=== PATIENT | female | born 1975 | race Caucasian/White ===

== ENCOUNTER 2018-11-29 18:17 | Emergency (ER) | payer MEDICARE, MEDICAID ==
[~2018-11-29] VITALS: Ht 172.7 cm; Wt 64.4 kg
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
--- NOTE | 2018-11-29 18:54 | NUR ---
ED Nurse Note: blood work sent down to lab
[2018-11-29 19:05] LABS: BASOPHILS % (AUTO) 0.8 % (0.0-2.0); EOSINOPHILS % (AUTO) 0.7 % (0.0-3.0); HEMATOCRIT 44.8 % (37.0-47.0); HEMOGLOBIN 15.1 G/DL (12.0-16.0); LYMPHOCYTES % (AUTO) 31.6 % (20.0-45.0); MEAN CORPUSCULAR VOLUME 95 FL (80-99); MONOCYTES % (AUTO) 2.9 % (1.0-10.0); PLATELET COUNT 301 K/UL (150-450); RED CELL DISTRIBUTION WIDTH 11.7 % (11.6-14.8); WHITE BLOOD COUNT 7.6 K/UL (4.8-10.8)
[2018-11-29 19:09] LABS: APPEARANCE,URINE CLEAR; BILIRUBIN, URINE NEGATIVE (NEGATIVE); GLUCOSE, URINE (UA) NEGATIVE (NEGATIVE); KETONES,URINE NEGATIVE (NEGATIVE); LEUKOCYTE ESTERASE ,URINE 3+ (NEGATIVE); NITRITE,URINE NEGATIVE (NEGATIVE); PH,URINE 5 (4.5-8.0); PROTEIN,URINE NEGATIVE (NEGATIVE); UROBILINOGEN,URINE NORMAL MG/DL (0.0-1.0)
[2018-11-29 19:11] LABS: COLOR,URINE YELLOW
--- NOTE | 2018-11-29 19:11 | NUR ---
HAND-OFF: Report given to Maged CALDWELL RN patietn is stable in bed IVF infusing as ordered.
[2018-11-29 19:20] LABS: ANION GAP 10 mmol/L (5-15); BLOOD UREA NITROGEN 8 mg/dL (7-18); CALCIUM 9.1 MG/DL (8.5-10.1); CARBON DIOXIDE 25 MMOL/L (21-32); CHLORIDE 102 MMOL/L (98-107); POTASSIUM 3.7 MMOL/L (3.5-5.1); SODIUM 137 MMOL/L (136-145)
[2018-11-29] MEDS ORDERED: Promethazine 25mg tab ORAL PRN (19:30)
[2018-11-29] MEDS ORDERED: Hydromorphone 0.5mg/0.5ml inj IVP ONE ×2 (19:30→21:00)
[2018-11-29 19:36] LABS: ALANINE AMINOTRANSFERASE 26 U/L (12-78); ALBUMIN 4.1 G/DL (3.4-5.0); ALBUMIN/GLOBULIN RATIO 1.1 (1.0-2.7); ALKALINE PHOSPHATASE 73 U/L (46-116); ASPARTATE AMINO TRANSFERASE 17 U/L (15-37); BILIRUBIN,TOTAL 0.4 MG/DL (0.2-1.0); CKMB 1.5 NG/ML (0.0-3.6); CREATINE KINASE 106 U/L (26-308)
[2018-11-29] MEDS ORDERED: CIPROFLOXACIN500 M2 ORAL (21:41)
[2018-11-29] MEDS ORDERED: PERCOCET 5-3251 EACH ORAL (21:41)
[2018-11-29 21:48] VITALS: BP 138/66
[2018-11-29] MEDS ORDERED: AMOXICILLIN500 MG ORAL (21:50)
[2018-11-29] MEDS ORDERED: ALPRAZOLAM1 MG ORAL (21:50)
[2018-11-29] MEDS ORDERED: LATUDA40 MG PO (21:50)
[2018-11-29] MEDS ORDERED: HYDRALAZINE HCL25 M1 ORAL (21:50)
[2018-11-29] MEDS ORDERED: LEVOXYL112 MCG ORAL (21:50)
[2018-11-29] MEDS ORDERED: SERTRALINE HCL50 MG ORAL (21:50)
--- NOTE | 2018-11-29 22:29 | NUR ---
Spoke with Vijay at [facility]-aware of patient is going back by ambulance.
[2018-11-29 22:45] VITALS: BP 138/66
--- NOTE | 2018-11-29 23:08 | NUR ---
ED Nurse Note: [facility] left with [facility]. Report and discharge papers given to ambulance personnel.
== END 2018-11-29 22:45 | disposition home or self-care (01) ==
LOC: EDBD 18:17 → EMR 21:07
DX: K04.7 Periapical abscess without sinus (principal); N39.0 Urinary tract infection, site not specified; R19.7 Diarrhea, unspecified; Z88.8 Allergy status to other drugs, medicaments and biological substances; Z88.5 Allergy status to narcotic agent; Z88.6 Allergy status to analgesic agent
CPT/HCPCS: 36415; 80053; 80307; 81003; 82550; 82553; 83605; 83690; 83735; 83880; 84484; 85025; 85610; 85730; 96361; 96365; 96375; 96376; 99284; G0480; J0744; J1170; 80329

== ENCOUNTER 2018-12-03 22:02 | Inpatient (IN) | payer MEDICARE, MEDICAID ==
[~2018-12-03] VITALS: Ht 172.7 cm; Wt 69.0 kg
[~2018-12-03 22:02] MED LIST: ALPRAZOLAM1 MG ORAL; AMOXICILLIN500 MG ORAL; CIPROFLOXACIN500 M2 ORAL; HYDRALAZINE HCL25 M1 ORAL; LATUDA40 MG PO; LEVOXYL112 MCG ORAL; PERCOCET 5-3251 EACH ORAL; SERTRALINE HCL50 MG ORAL
--- NOTE | 2018-12-03 22:22 | NUR ---
ED Nurse Note: Pt is from [facility] and c/o R side Dental pain. Pt states she was here last Sunday for the same. Pt is AO x 4times, VSS, on room air no distress. Pt is schizophrenia and use CBD oil. BEVERLEY seen Pt at bedside.
--- NOTE | 2018-12-03 22:50 | NUR ---
ED Nurse Note: Blood and urine sample sent to lab.
[2018-12-03] MEDS ORDERED: oxyCODONE HCL/Acetaminophen 5/325mg ORAL ONE (23:15)
[2018-12-03] MEDS ORDERED: Ampicillin/Sulbactam Sod 3 GM in NS 110 ML IVPB ONE (23:15)
[2018-12-03] MEDS ORDERED: Lidocaine 2% Visc 15ml soln ORAL ONE (23:15)
[2018-12-03] MEDS ORDERED: Isovue-300 100ml vial INJ PRN (23:45)
[2018-12-03 23:49] LABS: BASOPHILS % (AUTO) 1.3 % (0.0-2.0); EOSINOPHILS % (AUTO) 1.7 % (0.0-3.0); HEMATOCRIT 34.2 % (37.0-47.0); LYMPHOCYTES % (AUTO) 41.9 % (20.0-45.0); MEAN CORPUSCULAR VOLUME 94 FL (80-99); NEUTROPHILS % (AUTO) 49.1 % (45.0-75.0); PLATELET COUNT 279 K/UL (150-450); RED BLOOD COUNT 3.63 M/UL (4.20-5.40); RED CELL DISTRIBUTION WIDTH 11.6 % (11.6-14.8); WHITE BLOOD COUNT 6.8 K/UL (4.8-10.8)
[2018-12-03 23:55] LABS: BILIRUBIN, URINE NEGATIVE (NEGATIVE); GLUCOSE, URINE (UA) NEGATIVE (NEGATIVE); KETONES,URINE NEGATIVE (NEGATIVE); LEUKOCYTE ESTERASE ,URINE 3+ (NEGATIVE); NITRITE,URINE NEGATIVE (NEGATIVE); PH,URINE 5 (4.5-8.0); PROTEIN,URINE 1+ (NEGATIVE); UROBILINOGEN,URINE 1 MG/DL (0.0-1.0)
[2018-12-04 00:19] LABS: APPEARANCE,URINE SLIGHTLY CLOUDY; COLOR,URINE YELLOW
[2018-12-04 00:24] VITALS: BP 110/62
[2018-12-04 00:44] LABS: ANION GAP 9 mmol/L (5-15); BLOOD UREA NITROGEN 10 mg/dL (7-18); CALCIUM 9.4 MG/DL (8.5-10.1); CARBON DIOXIDE 26 MMOL/L (21-32); CHLORIDE 104 MMOL/L (98-107); CREATININE 0.8 MG/DL (0.55-1.30); POTASSIUM 3.5 MMOL/L (3.5-5.1); SODIUM 139 MMOL/L (136-145)
[2018-12-04 00:48] LABS: ALANINE AMINOTRANSFERASE 24 U/L (12-78); ALBUMIN 3.4 G/DL (3.4-5.0); ALBUMIN/GLOBULIN RATIO 0.9 (1.0-2.7); ALKALINE PHOSPHATASE 71 U/L (46-116); ASPARTATE AMINO TRANSFERASE 21 U/L (15-37); BILIRUBIN,TOTAL 0.2 MG/DL (0.2-1.0)
--- NOTE | 2018-12-04 01:38 | NUR ---
ED Nurse Note: Pt went to CT scan.
[2018-12-04] MEDS ORDERED: Lidocaine 2% Visc 15ml soln ORAL ONE (02:00)
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
[2018-12-04 02:30] VITALS: BP 108/68
--- NOTE | 2018-12-04 02:30 | NUR ---
ED Nurse Note: Message left to Dr Purdy for admit orders, await for respond back.
--- NOTE | 2018-12-04 02:35 | NUR ---
ED Nurse Note: Admit Pt to 3E 303-1, belongings and report given to JAMAL Montes. Pt is AO x 4times, VSS, on room air no distress.
[2018-12-04] MEDS ORDERED: VISTARIL50 MG ORAL (03:27)
[2018-12-04] MEDS ORDERED: RESTORIL15 MG ORAL (03:27)
[2018-12-04] MEDS ORDERED: TIZANIDINE HCL4 MG ORAL (03:27)
--- NOTE | 2018-12-04 05:07 | NUR ---
NURSE NOTES: Admitted a 43 year old female, alert and oriented x4, with history of schizophrenia per CREDENTIALER, with complaints of generalized pain of 10/10 more to the right side of face. Patient demands IV shot. Explained the process of admission and hospital policies. Oriented to room. She refused belongings checklist and wanted to keep her valuables. She wanted to go outside to smoke despite of explained policies. Security staff made aware and also's pt cigarette and script reader which she refused to surrender to RN. Called Dr. Purdy for admission orders and her increased BP,too. Waiting for call back.
[2018-12-04] MEDS ORDERED: Nitroglycerin Subl 0.4mg tab SL PRN (07:00)
[2018-12-04] MEDS ORDERED: Miralax 17gm pkt ORAL PRN (07:00)
[2018-12-04] MEDS ORDERED: Albuterol/Ipratropium 3ml neb HHN PRN (07:00)
--- NOTE | 2018-12-04 07:09 | NUR ---
NURSE NOTES: Spoke to Dr. London about patient wanted to smoke. Explained hospital policy. MD ordered patient may have Nicotine patch.
--- NOTE | 2018-12-04 08:00 | NUR ---
NURSE NOTES: Received report from Kathy BERRY, pt a/a/o x4 laying in bed with no signs of distress or other issues at this time. Iv on the right wrist gauge#22 heplock. skin intact. pt able to ambulate around the unit with steady gait. pt requested to go out to smoke, RN and charge nurse told patient that per MD she is not able to go out however MD put order for nicotine patch nevertheless pt REFUSED nicotine patch stating that she is not an addict that smoking is to help with her mental state. call light within reach, bed in lowest position. side rales x2. I will f/u as needed.
--- NOTE | 2018-12-04 08:08 | NUR ---
HAND-OFF: Report given to JAMAL Sanchez.
[2018-12-04] MEDS: Heparin 5000 units/ml inj SUBQ SCH ×2 (08:21→20:58)
--- NOTE | 2018-12-04 08:50 | Consultation ---
History of Present Illness General Date patient seen: Dec 04, 2018 Chief Complaint: Present Illness Allergies: Coded Allergies: DIVALPROEX SODIUM (Verified Allergy, Unknown, 11/29/18) HALOPERIDOL (Verified Allergy, Unknown, 11/29/18) IBUPROFEN (Verified Allergy, Unknown, 11/29/18) KETOROLAC (Verified Allergy, Unknown, 11/29/18) METOPROLOL (Verified Allergy, Unknown, 11/29/18) MORPHINE (Verified Allergy, Unknown, 11/29/18) TRAZODONE (Verified Allergy, Unknown, 11/29/18) Uncoded Allergies: NSAIDS (Allergy, Unknown, 11/29/18) Medication History Scheduled Alprazolam* (Xanax*), 1 MG ORAL TID, (Reported) Amoxicillin* (Amoxil*), 500 MG ORAL EVERY 8 HOURS, (Reported) Ciprofloxacin Hcl* (Ciprofloxacin Hcl*), 500 MG ORAL Q12H Hydralazine Hcl* (Hydralazine Hcl*), 25 MG ORAL EVERY 8 HOURS, (Reported) Hydroxyzine Pamoate* (Vistaril*), 25 MG ORAL EVERY 6 HOURS, (Reported) Levothyroxine Sodium* (Levoxyl*), 112 MCG ORAL DAILY, (Reported) Sertraline Hcl* (Zoloft*), 50 MG ORAL DAILY, (Reported) Tizanidine Hcl* (Zanaflex*), 4 MG ORAL THREE TIMES A DAY, (Reported) Scheduled PRN Oxycodone/Acetaminophen 5-325* (Percocet 5-325 Mg Tablet*), 1 TAB ORAL Q6H PRN for For Pain Temazepam* (Restoril*), 15 MG ORAL BEDTIME PRN for Insomnia, (Reported) Miscellaneous Medications Lurasidone Hcl (Latuda), 40 MG PO, (Reported) Patient History Healthcare decision maker Resuscitation status Full Code Advanced Directive on File No Physical Exam Last 24 Hour Vital Signs Date Time Temp Pulse Resp B/P (MAP) Pulse Ox O2 Delivery O2 Flow Rate FiO2 12/04/18 05:17 Room Air 12/04/18 02:35 98.2 75 18 108/68 100 Room Air 12/04/18 02:30 98.2 75 18 108/68 100 Room Air 12/04/18 00:24 98.5 78 18 110/62 96 Room Air 12/03/18 22:22 98.4 72 16 90/58 96 Room Air Laboratory Tests Test 12/03/18 23:10 12/03/18 23:40 12/03/18 23:50 Urine Color Yellow Urine Appearance Slightly cloudy Urine pH 5 (4.5-8.0) Urine Specific [place] 1.020 (1.005-1.035) Urine Protein 1+ (NEGATIVE) H Urine Glucose (UA) Negative (NEGATIVE) Urine Ketones Negative (NEGATIVE) Urine Blood Negative (NEGATIVE) Urine Nitrite Negative (NEGATIVE) Urine Bilirubin Negative (NEGATIVE) Urine Urobilinogen 1 MG/DL (0.0-1.0) H Urine Leukocyte Esterase 3+ (NEGATIVE) H Urine RBC 0-2 /HPF (0 - 2) Urine WBC 20-30 /HPF (0 - 2) H Urine Squamous Epithelial Cells Moderate /LPF (NONE/OCC) H Urine Bacteria Moderate /HPF (NONE) H Urine HCG, Qualitative Negative (NEGATIVE) White Blood Count 6.8 K/UL (4.8-10.8) Red Blood Count 3.63 M/UL (4.20-5.40) L Hemoglobin 12.0 G/DL (12.0-16.0) Hematocrit 34.2 % (37.0-47.0) L Mean Corpuscular Volume 94 FL (80-99) Mean Corpuscular Hemoglobin 32.9 PG (27.0-31.0) H Mean Corpuscular Hemoglobin Concent 35.0 G/DL (32.0-36.0) Red Cell Distribution Width 11.6 % (11.6-14.8) Platelet Count 279 K/UL (150-450) Mean Platelet Volume 5.1 FL (6.5-10.1) L Neutrophils (%) (Auto) 49.1 % (45.0-75.0) Lymphocytes (%) (Auto) 41.9 % (20.0-45.0) Monocytes (%) (Auto) 6.0 % (1.0-10.0) Eosinophils (%) (Auto) 1.7 % (0.0-3.0) Basophils (%) (Auto) 1.3 % (0.0-2.0) Sodium Level 139 MMOL/L (136-145) Potassium Level 3.5 MMOL/L (3.5-5.1) Chloride Level 104 MMOL/L (98-107) Carbon Dioxide Level 26 MMOL/L (21-32) Anion Gap 9 mmol/L (5-15) Blood Urea Nitrogen 10 mg/dL (7-18) Creatinine 0.8 MG/DL (0.55-1.30) Estimat Glomerular Filtration Rate > 60 mL/min (>60) Glucose Level 92 MG/DL (74-106) Calcium Level 9.4 MG/DL (8.5-10.1) Total Bilirubin 0.2 MG/DL (0.2-1.0) Aspartate Amino Transf (AST/SGOT) 21 U/L (15-37) Alanine Aminotransferase (ALT/SGPT) 24 U/L (12-78) Alkaline Phosphatase 71 U/L (46-116) Troponin I 0.000 ng/mL (0.000-0.056) Total Protein 7.3 G/DL (6.4-8.2) Albumin 3.4 G/DL (3.4-5.0) Globulin 3.9 g/dL Albumin/Globulin Ratio 0.9 (1.0-2.7) L Lipase 75 U/L (73-393) Height (Feet): 5 Height (Inches): 8.00 Weight (Pounds): 141 Medications Current Medications Medications (Trade) Dose Ordered Sig/Gaby Route PRN Reason Start Time Stop Time Status Last Admin Dose Admin Acetaminophen (Tylenol) 650 mg Q4H PRN ORAL fever 12/04/18 07:00 01/03/19 06:59 Albuterol/ Ipratropium (Albuterol/ Ipratropium) 3 ml Q4H PRN HHN Shortness of Breath 12/04/18 07:00 12/09/18 06:59 Cefepime HCl 2 gm/ Dextrose 110 ml @ 220 mls/hr EVERY 12 HOURS IV 12/04/18 09:00 12/11/18 08:59 Dextrose (Dextrose 50%) 25 ml Q30M PRN IV Hypoglycemia 12/04/18 07:00 01/03/19 06:59 Dextrose (Dextrose 50%) 50 ml Q30M PRN IV Hypoglycemia 12/04/18 07:00 01/03/19 06:59 Heparin Sodium (Porcine) (Heparin 5000 units/ml) 5,000 units EVERY 12 HOURS SUBQ 12/04/18 09:00 01/03/19 08:59 12/04/18 08:21 Hydromorphone HCl (Dilaudid) 2 mg Q4H PRN IV Severe Pain (Pain Scale 7-10) 12/04/18 07:00 12/11/18 06:59 12/04/18 08:20 Iopamidol (Isovue-300 100ml) 100 ml NOW PRN INJ Radiology Procedure 12/03/18 23:45 12/05/18 23:43 Nicotine (Nicoderm) 1 patch Q24H TDERMAL 12/04/18 09:00 01/03/19 08:59 Nitroglycerin (Ntg) 0.4 mg Q5M PRN SL Prn Chest Pain 12/04/18 07:00 01/03/19 06:59 Ondansetron HCl (Zofran) 4 mg Q6H PRN IVP Nausea & Vomiting 12/04/18 07:00 01/03/19 06:59 Polyethylene Glycol (Miralax) 17 gm DAILYPRN PRN ORAL Constipation 12/04/18 07:00 01/03/19 06:59 Temazepam (Restoril) 15 mg HSPRN PRN ORAL Insomnia 12/04/18 07:00 12/11/18 06:59 Vancomycin HCl (Vanco rx to dose) 1 ea DAILY PRN MISC rx protocol 12/04/18 07:30 01/03/19 07:29 Vancomycin HCl 750 mg/Sodium Chloride 275 ml @ 183.333 mls/hr Q8H IVPB 12/04/18 18:00 12/09/18 17:59 Vancomycin HCl/ Dextrose 275 ml @ 183.333 mls/hr ONCE IVPB 12/04/18 10:00 12/04/18 12:00 Assessment/Plan Assessment/Plan (1) Right sided facial pain (2) Cellulitis seen dictated Jose Steele Dec 04, 2018 08:50
[2018-12-04 09:00] VITALS: BP 115/78
[2018-12-04] MEDS ORDERED: Cefepime HCl 2 GM in D5W 110 ML IV SCH (09:00)
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
[2018-12-04] MEDS: HYDROcodone/Acetamin 10/325 tab ORAL PRN ×2 (09:52→15:54)
[2018-12-04] MEDS ORDERED: VANCOMYCIN IVPB SCH (10:00)
[2018-12-04] MEDS ORDERED: [UNRECOGNIZED DRUG - OTHER] IVPB SCH (10:00)
--- NOTE | 2018-12-04 11:44 | NUR ---
CASE MANAGEMENT:REVIEW 43 YR OLD FEMALE BIBA FROM [facility] CC; PAIN...WAS PREVIOUSLY SEEN IN ER ON SUNDAY SI: DENTAL INFECTION. PAIN. DEHYDRATION 98.4 72 16 90/58 96% ON RA IS: NORCO PO LIDOCAINE PO IV AMPICILLIN CT FACIAL BONES URINE CX : TO MED/SURG 3 EAST IS: IV VANCOMYCIN Q8HRS IV CEFEPIME Q12 : INTERQUAL CRITERIA
[2018-12-04 12:00] VITALS: BP 127/76
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
--- NOTE | 2018-12-04 13:15 | Consultation ---
History of Present Illness General Date patient seen: Dec 04, 2018 Chief Complaint: Pain Present Illness HPI 43-year-old female from [facility] presented to Er with CC of right- sided facial pain. She reports of increased pain to the right side of her face. Patient had previously been seen for similar symptoms approximately 3 days ago. Patient given IV antibiotics. Right side of the face was swollen. She is admitted to treat her facial cellulitis. Allergies: Coded Allergies: DIVALPROEX SODIUM (Verified Allergy, Unknown, 11/29/18) HALOPERIDOL (Verified Allergy, Unknown, 11/29/18) IBUPROFEN (Verified Allergy, Unknown, 11/29/18) KETOROLAC (Verified Allergy, Unknown, 11/29/18) METOPROLOL (Verified Allergy, Unknown, 11/29/18) MORPHINE (Verified Allergy, Unknown, 11/29/18) TRAZODONE (Verified Allergy, Unknown, 11/29/18) Uncoded Allergies: NSAIDS (Allergy, Unknown, 11/29/18) Medication History Scheduled Alprazolam* (Xanax*), 1 MG ORAL TID, (Reported) Amoxicillin* (Amoxil*), 500 MG ORAL EVERY 8 HOURS, (Reported) Ciprofloxacin Hcl* (Ciprofloxacin Hcl*), 500 MG ORAL Q12H Hydralazine Hcl* (Hydralazine Hcl*), 25 MG ORAL EVERY 8 HOURS, (Reported) Hydroxyzine Pamoate* (Vistaril*), 25 MG ORAL EVERY 6 HOURS, (Reported) Levothyroxine Sodium* (Levoxyl*), 112 MCG ORAL DAILY, (Reported) Sertraline Hcl* (Zoloft*), 50 MG ORAL DAILY, (Reported) Tizanidine Hcl* (Zanaflex*), 4 MG ORAL THREE TIMES A DAY, (Reported) Scheduled PRN Oxycodone/Acetaminophen 5-325* (Percocet 5-325 Mg Tablet*), 1 TAB ORAL Q6H PRN for For Pain Temazepam* (Restoril*), 15 MG ORAL BEDTIME PRN for Insomnia, (Reported) Miscellaneous Medications Lurasidone Hcl (Latuda), 40 MG PO, (Reported) Patient History Healthcare decision maker Resuscitation status Full Code Advanced Directive on File No Past Medical/Surgical History Past Medical/Surgical History: (1) Facial cellulitis (2) Dental abscess Review of Systems All Other Systems: negative except mentioned in HPI Physical Exam General Appearance: cachetic Lines, tubes and drains: peripheral HEENT: normocephalic, atraumatic Neck: non-tender, supple Respiratory/Chest: chest wall non-tender, lungs clear Breasts: no masses Cardiovascular/Chest: normal peripheral pulses Abdomen: normal bowel sounds Genitourinary/Rectal: normal genital exam Last 24 Hour Vital Signs Date Time Temp Pulse Resp B/P (MAP) Pulse Ox O2 Delivery O2 Flow Rate FiO2 12/04/18 12:00 98.5 76 18 127/76 (93) 96 12/04/18 10:30 103 16 Room Air 21 12/04/18 10:22 98.2 12/04/18 09:00 98.5 81 18 115/78 (90) 100 12/04/18 09:00 Room Air 12/04/18 08:50 98.2 12/04/18 05:17 Room Air 12/04/18 02:35 98.2 75 18 108/68 100 Room Air 12/04/18 02:30 98.2 75 18 108/68 100 Room Air 12/04/18 00:24 98.5 78 18 110/62 96 Room Air 12/03/18 22:22 98.4 72 16 90/58 96 Room Air Laboratory Tests Test 12/03/18 23:10 12/03/18 23:40 12/03/18 23:50 Urine Color Yellow Urine Appearance Slightly cloudy Urine pH 5 (4.5-8.0) Urine Specific [place] 1.020 (1.005-1.035) Urine Protein 1+ (NEGATIVE) H Urine Glucose (UA) Negative (NEGATIVE) Urine Ketones Negative (NEGATIVE) Urine Blood Negative (NEGATIVE) Urine Nitrite Negative (NEGATIVE) Urine Bilirubin Negative (NEGATIVE) Urine Urobilinogen 1 MG/DL (0.0-1.0) H Urine Leukocyte Esterase 3+ (NEGATIVE) H Urine RBC 0-2 /HPF (0 - 2) Urine WBC 20-30 /HPF (0 - 2) H Urine Squamous Epithelial Cells Moderate /LPF (NONE/OCC) H Urine Bacteria Moderate /HPF (NONE) H Urine HCG, Qualitative Negative (NEGATIVE) White Blood Count 6.8 K/UL (4.8-10.8) Red Blood Count 3.63 M/UL (4.20-5.40) L Hemoglobin 12.0 G/DL (12.0-16.0) Hematocrit 34.2 % (37.0-47.0) L Mean Corpuscular Volume 94 FL (80-99) Mean Corpuscular Hemoglobin 32.9 PG (27.0-31.0) H Mean Corpuscular Hemoglobin Concent 35.0 G/DL (32.0-36.0) Red Cell Distribution Width 11.6 % (11.6-14.8) Platelet Count 279 K/UL (150-450) Mean Platelet Volume 5.1 FL (6.5-10.1) L Neutrophils (%) (Auto) 49.1 % (45.0-75.0) Lymphocytes (%) (Auto) 41.9 % (20.0-45.0) Monocytes (%) (Auto) 6.0 % (1.0-10.0) Eosinophils (%) (Auto) 1.7 % (0.0-3.0) Basophils (%) (Auto) 1.3 % (0.0-2.0) Sodium Level 139 MMOL/L (136-145) Potassium Level 3.5 MMOL/L (3.5-5.1) Chloride Level 104 MMOL/L (98-107) Carbon Dioxide Level 26 MMOL/L (21-32) Anion Gap 9 mmol/L (5-15) Blood Urea Nitrogen 10 mg/dL (7-18) Creatinine 0.8 MG/DL (0.55-1.30) Estimat Glomerular Filtration Rate > 60 mL/min (>60) Glucose Level 92 MG/DL (74-106) Calcium Level 9.4 MG/DL (8.5-10.1) Total Bilirubin 0.2 MG/DL (0.2-1.0) Aspartate Amino Transf (AST/SGOT) 21 U/L (15-37) Alanine Aminotransferase (ALT/SGPT) 24 U/L (12-78) Alkaline Phosphatase 71 U/L (46-116) Troponin I 0.000 ng/mL (0.000-0.056) Total Protein 7.3 G/DL (6.4-8.2) Albumin 3.4 G/DL (3.4-5.0) Globulin 3.9 g/dL Albumin/Globulin Ratio 0.9 (1.0-2.7) L Lipase 75 U/L (73-393) Height (Feet): 5 Height (Inches): 8.00 Weight (Pounds): 141 Medications Current Medications Medications (Trade) Dose Ordered Sig/Gaby Route PRN Reason Start Time Stop Time Status Last Admin Dose Admin Acetaminophen (Tylenol) 650 mg Q4H PRN ORAL fever 12/04/18 07:00 01/03/19 06:59 Acetaminophen/ Hydrocodone Bitart ([place] 10/325) 1 tab Q4H PRN ORAL Moderate Pain (Pain Scale 4-6) 12/04/18 09:15 12/11/18 09:14 12/04/18 09:52 Albuterol/ Ipratropium (Albuterol/ Ipratropium) 3 ml Q4H PRN HHN Shortness of Breath 12/04/18 07:00 12/09/18 06:59 Ampicillin Sodium/ Sulbactam Sodium 3 gm/Sodium Chloride 110 ml @ 220 mls/hr Q6H IVPB 12/04/18 14:00 12/11/18 13:59 Dextrose (Dextrose 50%) 25 ml Q30M PRN IV Hypoglycemia 12/04/18 07:00 01/03/19 06:59 Dextrose (Dextrose 50%) 50 ml Q30M PRN IV Hypoglycemia 12/04/18 07:00 01/03/19 06:59 Heparin Sodium (Porcine) (Heparin 5000 units/ml) 5,000 units EVERY 12 HOURS SUBQ 12/04/18 09:00 01/03/19 08:59 12/04/18 08:21 Hydromorphone HCl (Dilaudid) 2 mg Q4H PRN IV Severe Pain (Pain Scale 7-10) 12/04/18 07:00 12/11/18 06:59 12/04/18 08:20 Iopamidol (Isovue-300 100ml) 100 ml NOW PRN INJ Radiology Procedure 12/03/18 23:45 12/05/18 23:43 Nicotine (Nicoderm) 1 patch Q24H TDERMAL 12/04/18 09:00 01/03/19 08:59 Nitroglycerin (Ntg) 0.4 mg Q5M PRN SL Prn Chest Pain 12/04/18 07:00 01/03/19 06:59 Ondansetron HCl (Zofran) 4 mg Q6H PRN IVP Nausea & Vomiting 12/04/18 07:00 01/03/19 06:59 Polyethylene Glycol (Miralax) 17 gm DAILYPRN PRN ORAL Constipation 12/04/18 07:00 01/03/19 06:59 Temazepam (Restoril) 15 mg HSPRN PRN ORAL Insomnia 12/04/18 07:00 12/11/18 06:59 Tizanidine HCl (Zanaflex) 4 mg Q8H PRN ORAL muscle spasm 12/04/18 09:15 01/03/19 09:14 Vancomycin HCl (Vanco rx to dose) 1 ea DAILY PRN MISC rx protocol 12/04/18 07:30 01/03/19 07:29 Vancomycin HCl 750 mg/Sodium Chloride 275 ml @ 183.333 mls/hr Q8H IVPB 12/04/18 18:00 12/09/18 17:59 Assessment/Plan Problem List: (1) Facial cellulitis ICD Codes: L03.211 - Cellulitis of face SNOMED: 353660192 (2) Dental abscess ICD Codes: K04.7 - Periapical abscess without sinus SNOMED: 684984841, [id number] Assessment/Plan jansen cultures iv abx ID evaluation check electrolytes Chrissie Purdy MD Dec 04, 2018 13:15
[2018-12-04] MEDS: Ampicillin/Sulbactam Sod 3 GM in NS 110 ML IVPB SCH ×2 (13:55→20:51)
--- NOTE | 2018-12-04 14:30 | History and Physical Report ---
DATE OF ADMISSION: 12/04/2018 TIME SEEN: 7 a.m. CONSULTANTS: 1. Chrissie Purdy M.D. 2. Jeffrey Alonzo M.D. 3. Mason Rizvi M.D. 4. Scott Angela M.D. 5. Aviva Edmond M.D. 6. Alejandro Dejesus M.D. CHIEF COMPLAINT: Right facial pain. BRIEF HISTORY: This is a 43-year-old female from [facility], presented with right facial pain for about 2 days. The patient came to [place], diagnosed with above, UTI, uterine cancer history, and psych and admitted to medical floor currently. Complaining of right face pain 6 to 7/10, burning type. No complaint. REVIEW OF SYSTEMS: No chest pain. No shortness of breath. No nausea, vomiting, or diarrhea. PAST MEDICAL HISTORY: Include right facial pain, uterine cancer, UTI, psych history, history of brain tumor. PAST SURGICAL HISTORY: Multiple cancer surgeries, uterine cancer surgery. ALLERGIES: Divalproex, Haldol, ibuprofen, Ketoralac, metoprolol, morphine, NSAID. SOCIAL HISTORY: Positive smoking. No alcohol. No intravenous drug abuse. FAMILY HISTORY: Noncontributory. PHYSICAL EXAMINATION: GENERAL: Slightly anxious due to pain, oriented x2, in no acute distress. VITAL SIGNS: Temperature is 98 degrees, pulse 75, respirations 18, blood pressure 108/68. CARDIOVASCULAR: No murmur. LUNGS: Distant, clear. ABDOMEN: Bowel sounds positive. Nontender, nondistended. EXTREMITIES: No cyanosis or edema. NEUROLOGIC: The patient moves all extremities, slightly weak. LABORATORY DATA: Show CBC is normal. BMP is normal. Troponin is 0. Everything is normal except lipase 75. Urinalysis 3+ leukocyte esterase. MEDICATIONS: Include vancomycin, heparin, cefepime, nitroglycerin, temazepam, Zofran, albuterol, hydromorphone. ASSESSMENT: Right facial pain, uterine cancer, UTI, psych history, history of brain tumor. PLAN: Pain control. Antibiotics per Infectious Disease. Dietary followup. Resume home medications. PT eval. CBC, BMP in the morning. We will continue to follow the patient. Cooper London D.O. DR: DUY JOB#: [id number] CC:
[2018-12-04] MEDS: ALPRAZolam 0.5mg tab ORAL PRN ×2 (15:54→22:23)
[2018-12-04 16:00] VITALS: BP 134/86
--- NOTE | 2018-12-04 16:30 | NUR ---
NURSE NOTES: RN called and left message to Brenda ARAYA to f/u with social professionals consult. I will f/u as needed.
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
[2018-12-04] MEDS ORDERED: Vancomycin 750mg/NS 275ml IVPB SCH ×2 (18:00)
[2018-12-04 20:00] VITALS: BP 117/74
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
[2018-12-05] VITALS: BP 122/83
[2018-12-05] MEDS ORDERED: Vancomycin 1 GM in D5W 275 ML IV SCH (00:30)
[2018-12-05] MEDS: Ampicillin/Sulbactam Sod 3 GM in NS 110 ML IVPB SCH ×4 (02:58→21:03)
[2018-12-05 04:00] VITALS: BP 116/79
--- NOTE | 2018-12-05 04:00 | Consultation ---
DATE OF CONSULTATION: 12/04/2018 PAIN MANAGEMENT CONSULTATION CONSULTING PHYSICIAN: Jeffrey Alonzo M.D. REFERRING PHYSICIAN: Cooper London D.O. PHYSICIAN WHITE SPOOLER: Rafael Frankel CHIEF COMPLAINT: Right-sided facial pain. HISTORY OF PRESENT ILLNESS: This is a 43-year-old female who is being seen on the Med/Surg floor of [facility] for initial pain management consultation. The patient reports she has been having right-sided facial pain for the past few days. Reports a history of dental caries with abscess; however, CT scan of the facial bones were done showing no infection. She will be seen by an Infectious Disease doctor as well. The pain, the patient states is a sharp, burning, stabbing pain in her face, rating it at 8/10 at times. She was started on Dilaudid 2 mg IV every 4 hours as needed for severe pain as per the infection control coordinator, Dr. Purdy. At this time, the patient is comfortable. We were consulted to help the patient have adequate pain control while here in the hospital. PAST MEDICAL HISTORY: Uterine cancer, UTI. PAST SURGICAL HISTORY: Multiple pelvic surgeries. SOCIAL HISTORY: She is a smoker. Denies alcohol use or drug abuse. ALLERGIES: Divalproex, haloperidol, ibuprofen, metoprolol, morphine, NSAIDs. REVIEW OF SYSTEMS: Denies rash, fever, chills, sweating, dizziness, drowsiness, blurred vision, sore throat, or change in weight. No nausea, vomiting, diarrhea, or blood in the stool or urine. No bowel or bladder incontinence. No dysuria. PHYSICAL EXAMINATION: GENERAL: Alert, awake, oriented. VITAL SIGNS: Blood pressure 108/68, heart rate is 75, oxygen saturation 100%, respiratory rate 18, temperature 97 degrees Fahrenheit. HEENT: PERRLA. NECK: Range of motion is full in all directions. No tenderness to paracervical muscles. No adenopathy. LUNGS: Decreased breath sounds bilaterally. HEART: S1 and S2, regular. ABDOMEN: Soft and nontender. BACK: Range of motion is decreased in flexion and extension. EXTREMITIES: Upper and lower extremity range of motion is full in all directions. No cyanosis. No clubbing. Sensory is intact. Reflexes are not obtainable. No adenopathy. ASSESSMENT AND PLAN: This is a 43-year-old female with right-sided facial pain, cellulitis. The patient will be continued on Dilaudid and will started on [place] 10/325 mg 7 tablet every 4 hours as needed for moderate pain and Zanaflex 4 mg tablet every 8 hours as needed for muscle spasm. The patient was discussed with Dr. Alonzo and concurred. We will follow the patient. Thank you very much for the courtesy of this consultation. Jeffrey Alonzo M.D. YOLANDA Frankel DR: LUISITO JOB#: [id number] CC: TOLU
[2018-12-05 07:25] LABS: BASOPHILS % (AUTO) 0.7 % (0.0-2.0); EOSINOPHILS % (AUTO) 1.3 % (0.0-3.0); HEMATOCRIT 36.4 % (37.0-47.0); HEMOGLOBIN 12.2 G/DL (12.0-16.0); LYMPHOCYTES % (AUTO) 36.4 % (20.0-45.0); MEAN CORPUSCULAR VOLUME 96 FL (80-99); MONOCYTES % (AUTO) 6.4 % (1.0-10.0); NEUTROPHILS % (AUTO) 55.2 % (45.0-75.0); PLATELET COUNT 320 K/UL (150-450); RED BLOOD COUNT 3.78 M/UL (4.20-5.40); RED CELL DISTRIBUTION WIDTH 11.8 % (11.6-14.8)
[2018-12-05 07:52] LABS: ALANINE AMINOTRANSFERASE 19 U/L (12-78); ALBUMIN 3.3 G/DL (3.4-5.0); ALBUMIN/GLOBULIN RATIO 0.9 (1.0-2.7); ALKALINE PHOSPHATASE 64 U/L (46-116); ANION GAP 7 mmol/L (5-15); ASPARTATE AMINO TRANSFERASE 20 U/L (15-37); BILIRUBIN,TOTAL 0.2 MG/DL (0.2-1.0); BLOOD UREA NITROGEN 8 mg/dL (7-18); CALCIUM 8.9 MG/DL (8.5-10.1); CARBON DIOXIDE 29 MMOL/L (21-32); CHLORIDE 102 MMOL/L (98-107); CREATININE 0.9 MG/DL (0.55-1.30); POTASSIUM 4.3 MMOL/L (3.5-5.1); SODIUM 138 MMOL/L (136-145)
[2018-12-05 08:00] VITALS: BP 144/91
--- NOTE | 2018-12-05 08:22 | NUR ---
NURSE NOTES: Patient is awake and alert,respirations unlabored,patient requesting pain medication was given as ordered.
[2018-12-05] MEDS: Sertraline 50mg tab ORAL SCH (08:35)
[2018-12-05] MEDS: Heparin 5000 units/ml inj SUBQ SCH ×2 (08:36→21:00)
--- NOTE | 2018-12-05 11:28 | Pulmonology Progress Note ---
Assessment/Plan Problems: (1) Facial cellulitis (2) Dental abscess Assessment/Plan jansen cultures iv abx ID evaluation check electrolytes increase dilaudid to q3 symptomatic treatment Subjective ROS Limited/Unobtainable: No Constitutional: Reports: no symptoms HEENT: Repors: no symptoms Respiratory: Reports: no symptoms Allergies: Coded Allergies: DIVALPROEX SODIUM (Verified Allergy, Unknown, 11/29/18) HALOPERIDOL (Verified Allergy, Unknown, 11/29/18) IBUPROFEN (Verified Allergy, Unknown, 11/29/18) KETOROLAC (Verified Allergy, Unknown, 11/29/18) METOPROLOL (Verified Allergy, Unknown, 11/29/18) MORPHINE (Verified Allergy, Unknown, 11/29/18) TRAZODONE (Verified Allergy, Unknown, 11/29/18) Uncoded Allergies: NSAIDS (Allergy, Unknown, 11/29/18) Objective Last 24 Hour Vital Signs Date Time Temp Pulse Resp B/P (MAP) Pulse Ox O2 Delivery O2 Flow Rate FiO2 12/05/18 09:00 Room Air 12/05/18 08:00 98.5 83 18 144/91 (108) 97 12/05/18 07:44 97.7 12/05/18 04:00 97.7 69 17 116/79 (91) 95 12/05/18 03:29 98.1 12/05/18 00:00 98.1 78 20 122/83 (96) 99 12/04/18 23:30 Nasal Cannula 2.0 28 12/04/18 23:30 98 Nasal Cannula 2.0 28 12/04/18 23:29 83 16 Nasal Cannula 2.0 28 12/04/18 21:00 Room Air 12/04/18 20:00 98.1 82 20 117/74 (88) 97 12/04/18 16:00 98.3 78 18 134/86 (102) 96 12/04/18 14:26 98.5 12/04/18 12:00 98.5 76 18 127/76 (93) 96 Intake and Output 12/04/18 12/05/18 19:00 07:00 Intake Total 2500 ml 1500 ml Balance 2500 ml 1500 ml Intake Oral 2500 ml 1500 ml # Voids 4 4 General Appearance: WD/WN HEENT: normocephalic, anicteric Respiratory/Chest: chest wall non-tender, lungs clear Breasts: no masses Cardiovascular: normal peripheral pulses, normal rate Abdomen: normal bowel sounds, non distended Extremities: no cyanosis Skin: no rash Neurologic/Psychiatric: ophthalmic technician II-XII grossly normal Microbiology Date/Time Source Procedure Growth Status 12/04/18 03:05 Wound Gram Stain - Final Resulted 12/04/18 03:05 Wound Wound Culture Pending Resulted 12/03/18 23:10 Urine,Clean Catch Urine Culture - Preliminary NO GROWTH Resulted Laboratory Tests 12/05/18 06:03: White Blood Count 6.0, Red Blood Count 3.78L, Hemoglobin 12.2, Hematocrit 36.4L , Mean Corpuscular Volume 96, Mean Corpuscular Hemoglobin 32.1H, Mean Corpuscular Hemoglobin Concent 33.4, Red Cell Distribution Width 11.8, Platelet Count 320, Mean Platelet Volume 4.9L, Neutrophils (%) (Auto) 55.2, Lymphocytes ( %) (Auto) 36.4, Monocytes (%) (Auto) 6.4, Eosinophils (%) (Auto) 1.3, Basophils (%) (Auto) 0.7, Sodium Level 138, Potassium Level 4.3, Chloride Level 102, Carbon Dioxide Level 29, Anion Gap 7, Blood Urea Nitrogen 8, Creatinine 0.9, Estimat Glomerular Filtration Rate > 60, Glucose Level 91, Calcium Level 8.9, Total Bilirubin 0.2, Aspartate Amino Transf (AST/SGOT) 20, Alanine Aminotransferase (ALT/SGPT) 19, Alkaline Phosphatase 64, Total Protein 7.1, Albumin 3.3L, Globulin 3.8, Albumin/Globulin Ratio 0.9L Current Medications Medications (Trade) Dose Ordered Sig/Gaby Route PRN Reason Start Time Stop Time Status Last Admin Dose Admin Acetaminophen (Tylenol) 650 mg Q4H PRN ORAL fever 12/04/18 07:00 01/03/19 06:59 Acetaminophen/ Hydrocodone Bitart ([place] 10/325) 1 tab Q4H PRN ORAL Moderate Pain (Pain Scale 4-6) 12/04/18 09:15 12/11/18 09:14 12/04/18 15:54 Albuterol/ Ipratropium (Albuterol/ Ipratropium) 3 ml Q4H PRN HHN Shortness of Breath 12/04/18 07:00 12/09/18 06:59 Alprazolam (Xanax) 1 mg QIDPRN PRN ORAL For Anxiety 12/04/18 13:30 12/11/18 13:29 12/04/18 22:23 Ampicillin Sodium/ Sulbactam Sodium 3 gm/Sodium Chloride 110 ml @ 220 mls/hr Q6H IVPB 12/04/18 14:00 12/11/18 13:59 12/05/18 08:35 Dextrose (Dextrose 50%) 25 ml Q30M PRN IV Hypoglycemia 12/04/18 07:00 01/03/19 06:59 Dextrose (Dextrose 50%) 50 ml Q30M PRN IV Hypoglycemia 12/04/18 07:00 01/03/19 06:59 Heparin Sodium (Porcine) (Heparin 5000 units/ml) 5,000 units EVERY 12 HOURS SUBQ 12/04/18 09:00 01/03/19 08:59 12/04/18 20:58 Hydromorphone HCl (Dilaudid) 3 mg Q3H PRN IV Severe Pain (Pain Scale 7-10) 12/05/18 11:30 12/12/18 11:29 Hydroxyzine HCl (Vistaril) 10 mg Q4H PRN ORAL Itching 12/04/18 13:30 01/03/19 13:29 12/05/18 08:51 Iopamidol (Isovue-300 100ml) 100 ml NOW PRN INJ Radiology Procedure 12/03/18 23:45 12/05/18 23:43 Levothyroxine Sodium (Synthroid) 112 mcg DAILY@0630 ORAL 12/05/18 06:30 01/04/19 06:29 12/05/18 06:45 Nicotine (Nicoderm) 1 patch Q24H TDERMAL 12/04/18 09:00 01/03/19 08:59 Nitroglycerin (Ntg) 0.4 mg Q5M PRN SL Prn Chest Pain 12/04/18 07:00 01/03/19 06:59 Ondansetron HCl (Zofran) 4 mg Q6H PRN IVP Nausea & Vomiting 12/04/18 07:00 01/03/19 06:59 Polyethylene Glycol (Miralax) 17 gm DAILYPRN PRN ORAL Constipation 12/04/18 07:00 01/03/19 06:59 Sertraline HCl (Zoloft) 25 mg DAILY ORAL 12/05/18 09:00 01/04/19 08:59 12/05/18 08:35 Temazepam (Restoril) 15 mg HSPRN PRN ORAL Insomnia 12/04/18 07:00 12/11/18 06:59 12/04/18 22:22 Tizanidine HCl (Zanaflex) 4 mg Q8H PRN ORAL muscle spasm 12/04/18 09:15 01/03/19 09:14 12/05/18 06:45 Chrissie Purdy MD Dec 05, 2018 11:28
--- NOTE | 2018-12-05 11:57 | Diagnostic Imaging Report ---
APPROVED REPORT CPT Code: 93608 Present Symptoms Lower Extremity Pain: Bilateral BILATERAL: Imaging reveals a patent deep venous system bilaterally. There is no evidence of thrombus within the common femoral, superficial femoral, popliteal or tibial segments. The greater saphenous veins are within normal limits. Doppler indicates normal spontaneous flow within these segments.
[2018-12-05 12:12] VITALS: BP 154/99
[2018-12-05] MEDS: ALPRAZolam 0.5mg tab ORAL PRN ×2 (13:54→19:11)
--- NOTE | 2018-12-05 14:29 | General Progress Note ---
Assessment/Plan Problem List: (1) Facial pain ICD Codes: R51 - Headache SNOMED: 43957868 (2) UTI (urinary tract infection) ICD Codes: N39.0 - Urinary tract infection, site not specified SNOMED: 84685854 (3) Brain tumor ICD Codes: D49.6 - Neoplasm of unspecified behavior of brain SNOMED: 538070629 Status: unchanged Assessment/Plan pain control abx heme neuro pain f/u cbc bmp am Subjective Constitutional: Reports: weakness Allergies: Coded Allergies: DIVALPROEX SODIUM (Verified Allergy, Unknown, 11/29/18) HALOPERIDOL (Verified Allergy, Unknown, 11/29/18) IBUPROFEN (Verified Allergy, Unknown, 11/29/18) KETOROLAC (Verified Allergy, Unknown, 11/29/18) METOPROLOL (Verified Allergy, Unknown, 11/29/18) MORPHINE (Verified Allergy, Unknown, 11/29/18) TRAZODONE (Verified Allergy, Unknown, 11/29/18) Uncoded Allergies: NSAIDS (Allergy, Unknown, 11/29/18) All Systems: reviewed and negative except above Subjective c/o right facial pain Objective Last 24 Hour Vital Signs Date Time Temp Pulse Resp B/P (MAP) Pulse Ox O2 Delivery O2 Flow Rate FiO2 12/05/18 12:12 98.6 76 18 154/99 (117) 97 12/05/18 10:00 98 Room Air 2.0 28 12/05/18 10:00 Room Air 21 12/05/18 09:00 Room Air 12/05/18 08:00 98.5 83 18 144/91 (108) 97 12/05/18 07:44 97.7 12/05/18 04:00 97.7 69 17 116/79 (91) 95 12/05/18 03:29 98.1 12/05/18 00:00 98.1 78 20 122/83 (96) 99 12/04/18 23:30 Nasal Cannula 2.0 28 12/04/18 23:30 98 Nasal Cannula 2.0 28 12/04/18 23:29 83 16 Nasal Cannula 2.0 28 12/04/18 21:00 Room Air 12/04/18 20:00 98.1 82 20 117/74 (88) 97 12/04/18 16:00 98.3 78 18 134/86 (102) 96 Intake and Output 2/27/19 2/28/19 19:00 07:00 Intake Total 2500 ml 1500 ml Balance 2500 ml 1500 ml Intake Oral 2500 ml 1500 ml # Voids 4 4 Laboratory Tests 12/05/18 06:03: White Blood Count 6.0, Red Blood Count 3.78L, Hemoglobin 12.2, Hematocrit 36.4L , Mean Corpuscular Volume 96, Mean Corpuscular Hemoglobin 32.1H, Mean Corpuscular Hemoglobin Concent 33.4, Red Cell Distribution Width 11.8, Platelet Count 320, Mean Platelet Volume 4.9L, Neutrophils (%) (Auto) 55.2, Lymphocytes ( %) (Auto) 36.4, Monocytes (%) (Auto) 6.4, Eosinophils (%) (Auto) 1.3, Basophils (%) (Auto) 0.7, Sodium Level 138, Potassium Level 4.3, Chloride Level 102, Carbon Dioxide Level 29, Anion Gap 7, Blood Urea Nitrogen 8, Creatinine 0.9, Estimat Glomerular Filtration Rate > 60, Glucose Level 91, Calcium Level 8.9, Total Bilirubin 0.2, Aspartate Amino Transf (AST/SGOT) 20, Alanine Aminotransferase (ALT/SGPT) 19, Alkaline Phosphatase 64, Total Protein 7.1, Albumin 3.3L, Globulin 3.8, Albumin/Globulin Ratio 0.9L Height (Feet): 5 Height (Inches): 8.00 Weight (Pounds): 141 General Appearance: alert EENT: normal ENT inspection Neck: normal alignment Cardiovascular: normal peripheral pulses, normal rate, regular rhythm Respiratory/Chest: chest wall non-tender, lungs clear, normal breath sounds Abdomen: normal bowel sounds, non tender, soft Extremities: normal inspection Edema: no edema noted Arm (L), no edema noted Arm (R), no edema noted Leg (L), no edema noted Leg (R), no edema noted Pedal (L), no edema noted Pedal (R), no edema noted Generalized Neurologic: responsive, motor weakness Skin: normal pigmentation, warm/dry Cooper London DO Dec 05, 2018 14:29
--- NOTE | 2018-12-05 15:49 | General Progress Note ---
Assessment/Plan Assessment/Plan (1) Right sided facial pain (2) Cellulitis (3) Dental Caries Pt will be continued on Dilaudid and Carson. Dr. Alonzo d/w and informed Dr. London that there is another physician who has been ordering pain medication and due to this patient pain has been taken care of and there is no need for pain management on the case at this time. Due to this we will sign off from patients care. D/w Dr. Alonzo and he concurred. Subjective Date patient seen: Dec 05, 2018 Time patient seen: 03:40 - pm Allergies: Coded Allergies: DIVALPROEX SODIUM (Verified Allergy, Unknown, 11/29/18) HALOPERIDOL (Verified Allergy, Unknown, 11/29/18) IBUPROFEN (Verified Allergy, Unknown, 11/29/18) KETOROLAC (Verified Allergy, Unknown, 11/29/18) METOPROLOL (Verified Allergy, Unknown, 11/29/18) MORPHINE (Verified Allergy, Unknown, 11/29/18) TRAZODONE (Verified Allergy, Unknown, 11/29/18) Uncoded Allergies: NSAIDS (Allergy, Unknown, 11/29/18) Subjective REVIEW OF SYSTEMS: Denies rash, fever, chills, sweating, dizziness, drowsiness, blurred vision, sore throat, or change in weight. No nausea, vomiting, diarrhea, or blood in the stool or urine. No bowel or bladder incontinence. No dysuria. SUBJECTIVE: Patient continues to c/o severe pain and due to this another dynamics ax consultant has increased her Dilaudid to 3mg IV Q3H PRN she had taken the Carson with minimal relief. Objective Last 24 Hour Vital Signs Date Time Temp Pulse Resp B/P (MAP) Pulse Ox O2 Delivery O2 Flow Rate FiO2 12/05/18 12:12 98.6 76 18 154/99 (117) 97 12/05/18 10:00 98 Room Air 2.0 28 12/05/18 10:00 Room Air 21 12/05/18 09:00 Room Air 12/05/18 08:00 98.5 83 18 144/91 (108) 97 12/05/18 07:44 97.7 12/05/18 04:00 97.7 69 17 116/79 (91) 95 12/05/18 03:29 98.1 12/05/18 00:00 98.1 78 20 122/83 (96) 99 12/04/18 23:30 Nasal Cannula 2.0 28 12/04/18 23:30 98 Nasal Cannula 2.0 28 12/04/18 23:29 83 16 Nasal Cannula 2.0 28 12/04/18 21:00 Room Air 12/04/18 20:00 98.1 82 20 117/74 (88) 97 12/04/18 16:00 98.3 78 18 134/86 (102) 96 Intake and Output 12/04/18 12/05/18 19:00 07:00 Intake Total 2500 ml 1500 ml Balance 2500 ml 1500 ml Intake Oral 2500 ml 1500 ml # Voids 4 4 Laboratory Tests 12/05/18 06:03: White Blood Count 6.0, Red Blood Count 3.78L, Hemoglobin 12.2, Hematocrit 36.4L , Mean Corpuscular Volume 96, Mean Corpuscular Hemoglobin 32.1H, Mean Corpuscular Hemoglobin Concent 33.4, Red Cell Distribution Width 11.8, Platelet Count 320, Mean Platelet Volume 4.9L, Neutrophils (%) (Auto) 55.2, Lymphocytes ( %) (Auto) 36.4, Monocytes (%) (Auto) 6.4, Eosinophils (%) (Auto) 1.3, Basophils (%) (Auto) 0.7, Sodium Level 138, Potassium Level 4.3, Chloride Level 102, Carbon Dioxide Level 29, Anion Gap 7, Blood Urea Nitrogen 8, Creatinine 0.9, Estimat Glomerular Filtration Rate > 60, Glucose Level 91, Calcium Level 8.9, Total Bilirubin 0.2, Aspartate Amino Transf (AST/SGOT) 20, Alanine Aminotransferase (ALT/SGPT) 19, Alkaline Phosphatase 64, Total Protein 7.1, Albumin 3.3L, Globulin 3.8, Albumin/Globulin Ratio 0.9L Height (Feet): 5 Height (Inches): 8.00 Weight (Pounds): 141 Objective GENERAL: Alert, awake, oriented. LUNGS: Decreased breath sounds bilaterally. HEART: S1 and S2, regular. ABDOMEN: Soft and nontender. EXTREMITIES: No cyanosis. No clubbing. NEURO: No changes. Jose Steele Dec 05, 2018 15:49
[2018-12-05 16:24] VITALS: BP 129/83
[2018-12-05] MEDS: Ziprasidone 20mg cap ORAL SCH (16:30)
--- NOTE | 2018-12-05 16:54 | Infectious Diseases Prog Note ---
Assessment/Plan Assessment/Plan Abx: Unasyn x2 12/03 Cefepime 12/04- IV Vancomycin 12/04- Assessment: R facial cellulitis- from either infected teeth and R maxillary sinusitis -CT facial bones: No acute injury appreciated. No abscess identified.Right maxillary sinusitis.Incidental 1 cm enhancing mass associated with the anterior interhemispheric fissure.This is most likely meningioma. Suggest confirmation with the MRI with and without gadolinium Afebrile NO leukocytosis uterine CA s/p radiation Plan: -Continue Unasyn #2 -12/04 SP IV Vancomycin and Cefepime #1 -f/u cx -Monitor CBC/CMP, temperatures -Needs to f/u with dentist as outpatient for removal of damaged/infected teeth. Thank you for this consultation. Will continue to follow along with you. Discussed with RN. Subjective Allergies: Coded Allergies: DIVALPROEX SODIUM (Verified Allergy, Unknown, 11/29/18) HALOPERIDOL (Verified Allergy, Unknown, 11/29/18) IBUPROFEN (Verified Allergy, Unknown, 11/29/18) KETOROLAC (Verified Allergy, Unknown, 11/29/18) METOPROLOL (Verified Allergy, Unknown, 11/29/18) MORPHINE (Verified Allergy, Unknown, 11/29/18) TRAZODONE (Verified Allergy, Unknown, 11/29/18) Uncoded Allergies: NSAIDS (Allergy, Unknown, 11/29/18) Subjective afebrile no leukocytosis Objective Vital Signs Last 24 Hour Vital Signs Date Time Temp Pulse Resp B/P (MAP) Pulse Ox O2 Delivery O2 Flow Rate FiO2 12/05/18 16:24 98.5 76 18 129/83 (98) 96 12/05/18 12:12 98.6 76 18 154/99 (117) 97 12/05/18 10:00 98 Room Air 2.0 28 12/05/18 10:00 Room Air 21 12/05/18 09:00 Room Air 12/05/18 08:00 98.5 83 18 144/91 (108) 97 12/05/18 07:44 97.7 12/05/18 04:00 97.7 69 17 116/79 (91) 95 12/05/18 03:29 98.1 12/05/18 00:00 98.1 78 20 122/83 (96) 99 12/04/18 23:30 Nasal Cannula 2.0 28 12/04/18 23:30 98 Nasal Cannula 2.0 28 12/04/18 23:29 83 16 Nasal Cannula 2.0 28 12/04/18 21:00 Room Air 12/04/18 20:00 98.1 82 20 117/74 (88) 97 Height (Feet): 5 Height (Inches): 8.00 Weight (Pounds): 141 Objective General Appearance: Chronically Ill Eyes: bilateral eye PERRL ENT: other - poor dentition with multiple cracked teeth Neck: limited range of motion Respiratory: lungs clear, normal breath sounds Cardiovascular #1: normal inspection Gastrointestinal: normal inspection Musculoskeletal: normal inspection Neurologic: normal inspection, alert, oriented x3, responsive Microbiology Date/Time Source Procedure Growth Status 12/04/18 03:05 Wound Gram Stain - Final Resulted 12/04/18 03:05 Wound Wound Culture Pending Resulted 12/03/18 23:10 Urine,Clean Catch Urine Culture - Preliminary NO GROWTH Resulted Laboratory Tests Test 12/05/18 06:03 White Blood Count 6.0 K/UL (4.8-10.8) Red Blood Count 3.78 M/UL (4.20-5.40) L Hemoglobin 12.2 G/DL (12.0-16.0) Hematocrit 36.4 % (37.0-47.0) L Mean Corpuscular Volume 96 FL (80-99) Mean Corpuscular Hemoglobin 32.1 PG (27.0-31.0) H Mean Corpuscular Hemoglobin Concent 33.4 G/DL (32.0-36.0) Red Cell Distribution Width 11.8 % (11.6-14.8) Platelet Count 320 K/UL (150-450) Mean Platelet Volume 4.9 FL (6.5-10.1) L Neutrophils (%) (Auto) 55.2 % (45.0-75.0) Lymphocytes (%) (Auto) 36.4 % (20.0-45.0) Monocytes (%) (Auto) 6.4 % (1.0-10.0) Eosinophils (%) (Auto) 1.3 % (0.0-3.0) Basophils (%) (Auto) 0.7 % (0.0-2.0) Sodium Level 138 MMOL/L (136-145) Potassium Level 4.3 MMOL/L (3.5-5.1) Chloride Level 102 MMOL/L (98-107) Carbon Dioxide Level 29 MMOL/L (21-32) Anion Gap 7 mmol/L (5-15) Blood Urea Nitrogen 8 mg/dL (7-18) Creatinine 0.9 MG/DL (0.55-1.30) Estimat Glomerular Filtration Rate > 60 mL/min (>60) Glucose Level 91 MG/DL (74-106) Calcium Level 8.9 MG/DL (8.5-10.1) Total Bilirubin 0.2 MG/DL (0.2-1.0) Aspartate Amino Transf (AST/SGOT) 20 U/L (15-37) Alanine Aminotransferase (ALT/SGPT) 19 U/L (12-78) Alkaline Phosphatase 64 U/L (46-116) Total Protein 7.1 G/DL (6.4-8.2) Albumin 3.3 G/DL (3.4-5.0) L Globulin 3.8 g/dL Albumin/Globulin Ratio 0.9 (1.0-2.7) L Current Medications Medications (Trade) Dose Ordered Sig/Gaby Route PRN Reason Start Time Stop Time Status Last Admin Dose Admin Acetaminophen (Tylenol) 650 mg Q4H PRN ORAL fever 12/04/18 07:00 01/03/19 06:59 Acetaminophen/ Hydrocodone Bitart (Carson 10/325) 1 tab Q4H PRN ORAL Moderate Pain (Pain Scale 4-6) 12/04/18 09:15 12/11/18 09:14 12/04/18 15:54 Albuterol/ Ipratropium (Albuterol/ Ipratropium) 3 ml Q4H PRN HHN Shortness of Breath 12/04/18 07:00 12/09/18 06:59 Alprazolam (Xanax) 1 mg QIDPRN PRN ORAL For Anxiety 12/04/18 13:30 12/11/18 13:29 12/05/18 13:54 Ampicillin Sodium/ Sulbactam Sodium 3 gm/Sodium Chloride 110 ml @ 220 mls/hr Q6H IVPB 12/04/18 14:00 12/11/18 13:59 12/05/18 15:35 Dextrose (Dextrose 50%) 25 ml Q30M PRN IV Hypoglycemia 12/04/18 07:00 01/03/19 06:59 Dextrose (Dextrose 50%) 50 ml Q30M PRN IV Hypoglycemia 12/04/18 07:00 01/03/19 06:59 Heparin Sodium (Porcine) (Heparin 5000 units/ml) 5,000 units EVERY 12 HOURS SUBQ 12/04/18 09:00 01/03/19 08:59 12/04/18 20:58 Hydromorphone HCl (Dilaudid) 3 mg Q3H PRN IV Severe Pain (Pain Scale 7-10) 12/05/18 11:30 12/12/18 11:29 12/05/18 16:33 Hydroxyzine HCl (Vistaril) 10 mg Q4H PRN ORAL Itching 12/04/18 13:30 01/03/19 13:29 12/05/18 13:54 Iopamidol (Isovue-300 100ml) 100 ml NOW PRN INJ Radiology Procedure 12/03/18 23:45 12/05/18 23:43 Levothyroxine Sodium (Synthroid) 112 mcg DAILY@0630 ORAL 12/05/18 06:30 01/04/19 06:29 12/05/18 06:45 Lorazepam (Ativan) 1 mg Q6H PRN ORAL For Anxiety 12/05/18 14:45 12/12/18 14:44 Nicotine (Nicoderm) 1 patch Q24H TDERMAL 12/04/18 09:00 01/03/19 08:59 Nitroglycerin (Ntg) 0.4 mg Q5M PRN SL Prn Chest Pain 12/04/18 07:00 01/03/19 06:59 Ondansetron HCl (Zofran) 4 mg Q6H PRN IVP Nausea & Vomiting 12/04/18 07:00 01/03/19 06:59 Polyethylene Glycol (Miralax) 17 gm DAILYPRN PRN ORAL Constipation 12/04/18 07:00 01/03/19 06:59 Sertraline HCl (Zoloft) 25 mg DAILY ORAL 12/05/18 09:00 01/04/19 08:59 12/05/18 08:35 Temazepam (Restoril) 15 mg HSPRN PRN ORAL Insomnia 12/04/18 07:00 12/11/18 06:59 12/04/18 22:22 Tizanidine HCl (Zanaflex) 4 mg Q8H PRN ORAL muscle spasm 12/04/18 09:15 01/03/19 09:14 12/05/18 15:03 Ziprasidone (Geodon) 40 mg QPM ORAL 12/05/18 16:30 01/04/19 16:29 Bridgette Carrizales M.D. Dec 05, 2018 16:54
--- NOTE | 2018-12-05 19:13 | NUR ---
NURSE NOTES: Patient resting,c/o itching,requesting Vistaril and patient requesting xanax for anxiety,medication given as ordered.Will have oncoming nurse to reasses.Call light within reach.
--- NOTE | 2018-12-05 19:25 | NUR ---
HAND-OFF: Report given to Kaitlynn BERRY.
--- NOTE | 2018-12-05 19:30 | NUR ---
NURSE NOTES: Received patient in bed, awake, alert, oriented, no acute distress noted or reported. Call light is within reach, bed is in low position, locked and alarm is on, patient is ambulatory with steady gate.Will continue to monitor for safety and comfort.
[2018-12-05 20:00] VITALS: BP 137/85
--- NOTE | 2018-12-05 21:15 | Consultation ---
DATE OF CONSULTATION: 12/05/2018 CONSULTING PHYSICIAN: Aviva Edmond M.D. HISTORY OF PRESENT ILLNESS: This is a 43-year-old female patient. The patient was admitted to the hospital because she has a dental infection, but this patient also has overlying diagnoses of major depressive disorder and bipolar 2 disorder. So, she has some confusion, some disorganized thought process, and mood lability worsened by stress of her medical illness. Currently, taking a medication regimen consisting of Zoloft. Apparently has a history of taking Latuda as well, so a psychiatric consultation requested to evaluate this patient. I saw and assessed this patient at bedside. She is complaining of some mood lability, and so she needs to be started on psychotropic medications. She has right facial pain and she states that is causing a lot of stressors and mood lability. MEDICAL HISTORY: She has history of urinary tract infection, uterine cancer. She also has a history of right facial pain, history of brain tumor. ALLERGIES: Depakote, Haldol, Motrin, ketorolac, metoprolol, morphine, and NSAIDs. SOCIAL HISTORY: This patient lives in [facility]. Financially supported by [facility] and Medicare. SUBSTANCE ABUSE HISTORY: Denies drug and alcohol use. PSYCHIATRIC HISTORY: History of paranoid schizophrenia with acute exacerbation, rule out depression, history of bipolar 2. She has had previous psychiatric admissions, but she is too disorganized to give me details. STRENGTHS: She is motivated to get better and has a place to live. WEAKNESSES: She is impulsive and minimal support system. MENTAL STATUS EXAMINATION: This is a 43-year-old female, calm, and cooperative. No psychomotor agitation or retardation. Mood is euthymic. Appearance disheveled. Attitude irritable, agitated. Affect guarded and restricted. Intellect poor. Mood depressed and anxious. Motor activity, psychomotor agitation. Attention span is poor. Orientation x2. Speech is low volume and slurred. Thought process is slightly disorganized. Thought content, auditory hallucinations and paranoid delusions. Insight and judgment is poor. DIAGNOSIS: 1. Bipolar 2. 2. Medical, tooth pain, hypothyroidism, she also has tooth infection, urinary tract infection, status post brain tumor, dehydration, facial cellulitis. 3. Psychosocial stressors, financial. PLAN: My plan, continue on Zoloft 25 mg daily, Ativan 1 every 6 hours p.r.n. anxiety, and add Geodon 40 mg every afternoon as a mood stabilizer. Provide her with 20 minutes of cognitive behavioral therapy to help identify automatic negative thoughts and help her convert negative thoughts to more positive thoughts to reduce depression, anxiety, and suicidality. Chart reviewed. Discussed with staff. Seen and assessed at bedside. I would like to thank Dr. Cooper London for this interesting consultation. Aviva Edmond M.D. DR: DIONI JOB#: [id number] CC:
--- NOTE | 2018-12-05 21:58 | General Progress Note ---
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 Suggest confirmation with the MRI with and without gadolinium --> Ct of the face reveals: extra-axial hyperdense mass associated with the anterior aspect of the interhemispheric fissure most likely representing a meningioma. # UTI is on abx --> UA reviewed The timing of this note does not necessarily reflect the time of the patient was seen. Greatly appreciate consultation! Subjective Constitutional: Denies: no symptoms, chills, diaphoresis, fever, malaise, weakness, other HEENT: Denies: no symptoms, eye pain, blurred vision, tearing, double vision, ear pain, ear discharge, nose pain, nose congestion, throat pain, throat swelling, mouth pain, mouth swelling, other Cardiovascular: Denies: no symptoms, chest pain, edema, irregular heart rate, lightheadedness, palpitations, syncope, other Respiratory: Denies: no symptoms, cough, orthopnea, shortness of breath, SOB with excertion, SOB at rest, sputum, stridor, wheezing, other Gastrointestinal/Abdominal: Denies: no symptoms, abdomen distended, abdominal pain, black stools, tarry stools, blood in stool, constipated, diarrhea, difficulty swallowing, nausea, poor appetite, poor fluid intake, rectal bleeding , vomiting, other Genitourinary: Denies: no symptoms, burning, discharge, frequency, flank pain, hematuria, incontinence, pain, urgency, other Neurologic/Psychiatric: Denies: no symptoms, anxiety, depressed, emotional problems, headache, numbness, paresthesia, pre-existing deficit, seizure, tingling, tremors, weakness, other Endocrine: Denies: no symptoms, excessive sweating, flushing, intolerance to cold, intolerance to heat, increased hunger, increased thirst, increased urine, unexplained weight gain, unexplained weight loss, other Hematologic/Lymphatic: Denies: no symptoms, anemia, easy bleeding, easy bruising, other Allergies: Coded Allergies: DIVALPROEX SODIUM (Verified Allergy, Unknown, 11/29/18) HALOPERIDOL (Verified Allergy, Unknown, 11/29/18) IBUPROFEN (Verified Allergy, Unknown, 11/29/18) KETOROLAC (Verified Allergy, Unknown, 11/29/18) METOPROLOL (Verified Allergy, Unknown, 11/29/18) MORPHINE (Verified Allergy, Unknown, 11/29/18) TRAZODONE (Verified Allergy, Unknown, 11/29/18) Uncoded Allergies: NSAIDS (Allergy, Unknown, 11/29/18) Subjective 12/05: seen by beside, awake, complains of pain, cbc reviewed, Ct of the face reveals: extra-axial hyperdense mass associated with the anterior aspect of the interhemispheric fissure most likely representing a meningioma. Objective Last 24 Hour Vital Signs Date Time Temp Pulse Resp B/P (MAP) Pulse Ox O2 Delivery O2 Flow Rate FiO2 12/05/18 21:22 Room Air 12/05/18 20:16 97 Room Air 12/05/18 20:16 77 16 Nasal Cannula 2.0 12/05/18 20:16 Room Air 12/05/18 20:00 98.7 85 137/85 (102) 12/05/18 16:24 98.5 76 18 129/83 (98) 96 12/05/18 12:12 98.6 76 18 154/99 (117) 97 12/05/18 10:00 98 Room Air 2.0 28 12/05/18 10:00 Room Air 21 12/05/18 09:00 Room Air 12/05/18 08:00 98.5 83 18 144/91 (108) 97 12/05/18 07:44 97.7 12/05/18 04:00 97.7 69 17 116/79 (91) 95 12/05/18 03:29 98.1 12/05/18 00:00 98.1 78 20 122/83 (96) 99 12/04/18 23:30 Nasal Cannula 2.0 28 12/04/18 23:30 98 Nasal Cannula 2.0 28 12/04/18 23:29 83 16 Nasal Cannula 2.0 28 Intake and Output 12/04/18 12/05/18 19:00 07:00 Intake Total 2500 ml 1500 ml Balance 2500 ml 1500 ml Intake Oral 2500 ml 1500 ml # Voids 4 4 Laboratory Tests 12/05/18 06:03: White Blood Count 6.0, Red Blood Count 3.78L, Hemoglobin 12.2, Hematocrit 36.4L , Mean Corpuscular Volume 96, Mean Corpuscular Hemoglobin 32.1H, Mean Corpuscular Hemoglobin Concent 33.4, Red Cell Distribution Width 11.8, Platelet Count 320, Mean Platelet Volume 4.9L, Neutrophils (%) (Auto) 55.2, Lymphocytes ( %) (Auto) 36.4, Monocytes (%) (Auto) 6.4, Eosinophils (%) (Auto) 1.3, Basophils (%) (Auto) 0.7, Sodium Level 138, Potassium Level 4.3, Chloride Level 102, Carbon Dioxide Level 29, Anion Gap 7, Blood Urea Nitrogen 8, Creatinine 0.9, Estimat Glomerular Filtration Rate > 60, Glucose Level 91, Calcium Level 8.9, Total Bilirubin 0.2, Aspartate Amino Transf (AST/SGOT) 20, Alanine Aminotransferase (ALT/SGPT) 19, Alkaline Phosphatase 64, Total Protein 7.1, Albumin 3.3L, Globulin 3.8, Albumin/Globulin Ratio 0.9L Height (Feet): 5 Height (Inches): 8.00 Weight (Pounds): 141 Objective Physical Exam Physical Exam Narrative General Appearance: Chronically Ill Eyes: bilateral eye PERRL ENT: other - poor dentition with multiple cracked teeth Neck: limited range of motion Respiratory: lungs clear, normal breath sounds Cardiovascular: normal inspection Gastrointestinal: normal inspection Musculoskeletal: normal inspection Neurologic: normal inspection, alert, oriented x3, responsive Rudy Angela MD Dec 05, 2018 21:58
[2018-12-06 00:17] VITALS: BP 139/87
[2018-12-06] MEDS: Ampicillin/Sulbactam Sod 3 GM in NS 110 ML IVPB SCH ×4 (02:11→20:05)
[2018-12-06] MEDS: ALPRAZolam 0.5mg tab ORAL PRN ×3 (02:27→20:51)
[2018-12-06] MEDS: LORazepam 1mg tab ORAL PRN (02:27)
[2018-12-06 04:00] VITALS: BP 142/85
--- NOTE | 2018-12-06 07:02 | NUR ---
HAND-OFF: Report given to Calixto BERRY.
--- NOTE | 2018-12-06 07:05 | NUR ---
NURSE NOTES: Patient lying in bed awake. Complain of 5/10 on right facial and pain medication given by marine electrician helper nurse. Will continue to monitor. Skin intact and dry. IV dressing intact and dry. Bed lowest position. Call light within reach. Will continue to monitor.
[2018-12-06 08:00] VITALS: BP 123/67
[2018-12-06] MEDS: Heparin 5000 units/ml inj SUBQ SCH ×2 (08:59→20:39)
[2018-12-06] MEDS: Sertraline 50mg tab ORAL SCH (09:02)
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
[2018-12-06 11:10] LABS: BASOPHILS % (AUTO) 0.8 % (0.0-2.0); EOSINOPHILS % (AUTO) 2.9 % (0.0-3.0); HEMATOCRIT 40.1 % (37.0-47.0); HEMOGLOBIN 13.7 G/DL (12.0-16.0); LYMPHOCYTES % (AUTO) 42.4 % (20.0-45.0); MEAN CORPUSCULAR VOLUME 95 FL (80-99); MONOCYTES % (AUTO) 6.3 % (1.0-10.0); NEUTROPHILS % (AUTO) 47.6 % (45.0-75.0); PLATELET COUNT 394 K/UL (150-450); RED BLOOD COUNT 4.24 M/UL (4.20-5.40)
[2018-12-06 11:20] LABS: ANION GAP 11 mmol/L (5-15); BLOOD UREA NITROGEN 9 mg/dL (7-18); CALCIUM 9.2 MG/DL (8.5-10.1); CARBON DIOXIDE 25 MMOL/L (21-32); CHLORIDE 100 MMOL/L (98-107); CREATININE 0.8 MG/DL (0.55-1.30); POTASSIUM 4.2 MMOL/L (3.5-5.1); SODIUM 136 MMOL/L (136-145)
[2018-12-06 12:00] VITALS: BP 126/82
--- NOTE | 2018-12-06 13:15 | General Progress Note ---
Assessment/Plan Problem List: (1) Facial pain ICD Codes: R51 - Headache SNOMED: 30743495 (2) UTI (urinary tract infection) ICD Codes: N39.0 - Urinary tract infection, site not specified SNOMED: 42102858 (3) Brain tumor ICD Codes: D49.6 - Neoplasm of unspecified behavior of brain SNOMED: 651514567 Status: unchanged Assessment/Plan pain control abx heme neuro pain f/u cbc bmp am Subjective Constitutional: Reports: weakness Allergies: Coded Allergies: DIVALPROEX SODIUM (Verified Allergy, Unknown, 11/29/18) HALOPERIDOL (Verified Allergy, Unknown, 11/29/18) IBUPROFEN (Verified Allergy, Unknown, 11/29/18) KETOROLAC (Verified Allergy, Unknown, 11/29/18) METOPROLOL (Verified Allergy, Unknown, 11/29/18) MORPHINE (Verified Allergy, Unknown, 11/29/18) TRAZODONE (Verified Allergy, Unknown, 11/29/18) Uncoded Allergies: NSAIDS (Allergy, Unknown, 11/29/18) All Systems: reviewed and negative except above Subjective c/o right facial pain Objective Last 24 Hour Vital Signs Date Time Temp Pulse Resp B/P (MAP) Pulse Ox O2 Delivery O2 Flow Rate FiO2 12/06/18 12:00 98.7 81 18 126/82 (97) 96 12/06/18 09:00 Room Air 12/06/18 08:00 98.2 67 20 123/67 (85) 98 12/06/18 07:49 98 Room Air 12/06/18 07:49 Room Air 21 12/06/18 07:49 81 21 Room Air 12/06/18 04:00 98.7 78 18 142/85 (104) 12/06/18 00:17 98.0 87 18 139/87 (104) 12/05/18 21:22 Room Air 12/05/18 20:16 97 Room Air 21 12/05/18 20:16 77 16 Nasal Cannula 2.0 28 12/05/18 20:16 Room Air 21 12/05/18 20:00 98.7 85 137/85 (102) 12/05/18 16:24 98.5 76 18 129/83 (98) 96 Intake and Output 12/05/18 12/06/18 19:00 07:00 Intake Total 800 ml Balance 800 ml Intake Oral 800 ml # Voids 4 Laboratory Tests 12/06/18 10:50: White Blood Count 5.0, Red Blood Count 4.24, Hemoglobin 13.7, Hematocrit 40.1, Mean Corpuscular Volume 95, Mean Corpuscular Hemoglobin 32.2H, Mean Corpuscular Hemoglobin Concent 34.0, Red Cell Distribution Width 12.0, Platelet Count 394, Mean Platelet Volume 5.1L, Neutrophils (%) (Auto) 47.6, Lymphocytes (%) (Auto) 42.4, Monocytes (%) (Auto) 6.3, Eosinophils (%) (Auto) 2.9, Basophils (%) (Auto ) 0.8, Sodium Level 136, Potassium Level 4.2, Chloride Level 100, Carbon Dioxide Level 25, Anion Gap 11, Blood Urea Nitrogen 9, Creatinine 0.8, Estimat Glomerular Filtration Rate > 60, Glucose Level 86, Calcium Level 9.2 Height (Feet): 5 Height (Inches): 8.00 Weight (Pounds): 141 General Appearance: lethargic EENT: normal ENT inspection Neck: normal alignment Cardiovascular: normal peripheral pulses, normal rate, regular rhythm Respiratory/Chest: chest wall non-tender, lungs clear, normal breath sounds Abdomen: normal bowel sounds, non tender, soft Extremities: normal inspection Edema: no edema noted Arm (L), no edema noted Arm (R), no edema noted Leg (L), no edema noted Leg (R), no edema noted Pedal (L), no edema noted Pedal (R), no edema noted Generalized Neurologic: responsive, motor weakness Skin: normal pigmentation, warm/dry Cooper London DO Dec 06, 2018 13:15
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
--- NOTE | 2018-12-06 15:32 | Pulmonology Progress Note ---
Assessment/Plan Problems: (1) Facial cellulitis (2) Dental abscess Assessment/Plan improving jansen cultures iv abx ID evaluation check electrolytes increase dilaudid to q3 symptomatic treatment Subjective ROS Limited/Unobtainable: No Interval Events: wants more iv dilaudid Allergies: Coded Allergies: DIVALPROEX SODIUM (Verified Allergy, Unknown, 11/29/18) HALOPERIDOL (Verified Allergy, Unknown, 11/29/18) IBUPROFEN (Verified Allergy, Unknown, 11/29/18) KETOROLAC (Verified Allergy, Unknown, 11/29/18) METOPROLOL (Verified Allergy, Unknown, 11/29/18) MORPHINE (Verified Allergy, Unknown, 11/29/18) TRAZODONE (Verified Allergy, Unknown, 11/29/18) Uncoded Allergies: NSAIDS (Allergy, Unknown, 11/29/18) Objective Last 24 Hour Vital Signs Date Time Temp Pulse Resp B/P (MAP) Pulse Ox O2 Delivery O2 Flow Rate FiO2 12/06/18 12:00 98.7 81 18 126/82 (97) 96 12/06/18 09:00 Room Air 12/06/18 08:00 98.2 67 20 123/67 (85) 98 12/06/18 07:49 98 Room Air 21 12/06/18 07:49 Room Air 21 12/06/18 07:49 81 21 Room Air 21 12/06/18 04:00 98.7 78 18 142/85 (104) 12/06/18 00:17 98.0 87 18 139/87 (104) 12/05/18 21:22 Room Air 12/05/18 20:16 97 Room Air 21 12/05/18 20:16 77 16 Nasal Cannula 2.0 28 12/05/18 20:16 Room Air 21 12/05/18 20:00 98.7 85 137/85 (102) 12/05/18 16:24 98.5 76 18 129/83 (98) 96 Intake and Output 12/05/18 12/06/18 19:00 07:00 Intake Total 800 ml Balance 800 ml Intake Oral 800 ml # Voids 4 General Appearance: WD/WN HEENT: normocephalic, atraumatic Respiratory/Chest: chest wall non-tender, lungs clear Breasts: no masses Cardiovascular: normal peripheral pulses Abdomen: normal bowel sounds, no organomegaly Genitourinary: normal external genitalia Skin: no lesions Microbiology Date/Time Source Procedure Growth Status 12/04/18 03:05 Wound Gram Stain - Final Resulted 12/04/18 03:05 Wound Culture - Preliminary Usual Oral Charity Resulted 12/04/18 02:30 Nasal Nares MRSA Culture - Final NO METHICILLIN RESISTANT STAPH AUREUS... Complete 12/03/18 23:10 Urine,Clean Catch Urine Culture - Preliminary Mixed Gram Positive Organism Resulted 12/04/18 02:30 Rectum - Final NO CARBAPENEM-RESISTANT ENTEROBACTERI... Complete 12/04/18 02:30 Rectum VRE Culture - Final NO VANCOMYCIN RESISTANT ENTEROCOCCUS ... Complete Laboratory Tests 12/06/18 10:50: White Blood Count 5.0, Red Blood Count 4.24, Hemoglobin 13.7, Hematocrit 40.1, Mean Corpuscular Volume 95, Mean Corpuscular Hemoglobin 32.2H, Mean Corpuscular Hemoglobin Concent 34.0, Red Cell Distribution Width 12.0, Platelet Count 394, Mean Platelet Volume 5.1L, Neutrophils (%) (Auto) 47.6, Lymphocytes (%) (Auto) 42.4, Monocytes (%) (Auto) 6.3, Eosinophils (%) (Auto) 2.9, Basophils (%) (Auto ) 0.8, Sodium Level 136, Potassium Level 4.2, Chloride Level 100, Carbon Dioxide Level 25, Anion Gap 11, Blood Urea Nitrogen 9, Creatinine 0.8, Estimat Glomerular Filtration Rate > 60, Glucose Level 86, Calcium Level 9.2 Current Medications Medications (Trade) Dose Ordered Sig/Gaby Route PRN Reason Start Time Stop Time Status Last Admin Dose Admin Acetaminophen (Tylenol) 650 mg Q4H PRN ORAL fever 12/04/18 07:00 01/03/19 06:59 Acetaminophen/ Hydrocodone Bitart ([place] 10/325) 1 tab Q4H PRN ORAL Moderate Pain (Pain Scale 4-6) 12/04/18 09:15 12/11/18 09:14 12/04/18 15:54 Albuterol/ Ipratropium (Albuterol/ Ipratropium) 3 ml Q4H PRN HHN Shortness of Breath 12/04/18 07:00 12/09/18 06:59 Alprazolam (Xanax) 1 mg QIDPRN PRN ORAL For Anxiety 12/04/18 13:30 12/11/18 13:29 12/06/18 14:52 Ampicillin Sodium/ Sulbactam Sodium 3 gm/Sodium Chloride 110 ml @ 220 mls/hr Q6H IVPB 12/04/18 14:00 12/11/18 13:59 12/06/18 14:30 Dextrose (Dextrose 50%) 25 ml Q30M PRN IV Hypoglycemia 12/04/18 07:00 01/03/19 06:59 Dextrose (Dextrose 50%) 50 ml Q30M PRN IV Hypoglycemia 12/04/18 07:00 01/03/19 06:59 Heparin Sodium (Porcine) (Heparin 5000 units/ml) 5,000 units EVERY 12 HOURS SUBQ 12/04/18 09:00 01/03/19 08:59 12/04/18 20:58 Hydromorphone HCl (Dilaudid) 3 mg Q3H PRN IV Severe Pain (Pain Scale 7-10) 12/05/18 11:30 12/12/18 11:29 12/06/18 13:23 Hydroxyzine HCl (Vistaril) 10 mg Q4H PRN ORAL Itching 12/04/18 13:30 01/03/19 13:29 12/06/18 14:54 Levothyroxine Sodium (Synthroid) 112 mcg DAILY@0630 ORAL 12/05/18 06:30 01/04/19 06:29 12/06/18 06:44 Lorazepam (Ativan) 1 mg Q6H PRN ORAL For Anxiety 12/05/18 14:45 12/12/18 14:44 12/06/18 02:27 Nicotine (Nicoderm) 1 patch Q24H TDERMAL 12/04/18 09:00 01/03/19 08:59 Nitroglycerin (Ntg) 0.4 mg Q5M PRN SL Prn Chest Pain 12/04/18 07:00 01/03/19 06:59 Ondansetron HCl (Zofran) 4 mg Q6H PRN IVP Nausea & Vomiting 12/04/18 07:00 01/03/19 06:59 Polyethylene Glycol (Miralax) 17 gm DAILYPRN PRN ORAL Constipation 12/04/18 07:00 01/03/19 06:59 Sertraline HCl (Zoloft) 25 mg DAILY ORAL 12/05/18 09:00 01/04/19 08:59 12/06/18 09:02 Temazepam (Restoril) 15 mg HSPRN PRN ORAL Insomnia 12/04/18 07:00 12/11/18 06:59 12/05/18 21:00 Tizanidine HCl (Zanaflex) 4 mg Q8H PRN ORAL muscle spasm 12/04/18 09:15 01/03/19 09:14 12/06/18 09:02 Ziprasidone (Geodon) 40 mg QPM ORAL 12/05/18 16:30 01/04/19 16:29 Chrissie Purdy MD Dec 06, 2018 15:32
--- NOTE | 2018-12-06 15:45 | NUR ---
NURSE NOTES: Spoke to Cedric GUERRERO that no more on case and Dr. Purdy will manage pain.
[2018-12-06 16:00] VITALS: BP 114/80
[2018-12-06] MEDS ORDERED: Isovue-300 100ml vial INJ PRN (16:00)
--- NOTE | 2018-12-06 16:00 | NUR ---
NURSE NOTES: Spoke to regarding pain management. New order received. Order read back and carried out. Will continue to monitor.
--- NOTE | 2018-12-06 16:05 | Infectious Diseases Prog Note ---
Assessment/Plan Assessment/Plan Assessment: R facial cellulitis- from either infected teeth and R maxillary sinusitis -wound cx from cavity: usual bekah to date -CT facial bones: No acute injury appreciated. No abscess identified.Right maxillary sinusitis.Incidental 1 cm enhancing mass associated with the anterior interhemispheric fissure.This is most likely meningioma. Suggest confirmation with the MRI with and without gadolinium Afebrile NO leukocytosis uterine CA s/p radiation Plan: -Continue Unasyn #3 -12/04 SP IV Vancomycin and Cefepime #1 -f/u cx -Monitor CBC/CMP, temperatures -Needs to f/u with dentist as outpatient for removal of damaged/infected teeth. Thank you for this consultation. Will continue to follow along with you. Discussed with RN. Subjective Allergies: Coded Allergies: DIVALPROEX SODIUM (Verified Allergy, Unknown, 11/29/18) HALOPERIDOL (Verified Allergy, Unknown, 11/29/18) IBUPROFEN (Verified Allergy, Unknown, 11/29/18) KETOROLAC (Verified Allergy, Unknown, 11/29/18) METOPROLOL (Verified Allergy, Unknown, 11/29/18) MORPHINE (Verified Allergy, Unknown, 11/29/18) TRAZODONE (Verified Allergy, Unknown, 11/29/18) Uncoded Allergies: NSAIDS (Allergy, Unknown, 11/29/18) Subjective afebrile no leukocytosis Objective Vital Signs Last 24 Hour Vital Signs Date Time Temp Pulse Resp B/P (MAP) Pulse Ox O2 Delivery O2 Flow Rate FiO2 12/06/18 12:00 98.7 81 18 126/82 (97) 96 12/06/18 09:00 Room Air 12/06/18 08:00 98.2 67 20 123/67 (85) 98 12/06/18 07:49 98 Room Air 21 12/06/18 07:49 Room Air 21 12/06/18 07:49 81 21 Room Air 21 12/06/18 04:00 98.7 78 18 142/85 (104) 12/06/18 00:17 98.0 87 18 139/87 (104) 12/05/18 21:22 Room Air 12/05/18 20:16 97 Room Air 21 12/05/18 20:16 77 16 Nasal Cannula 2.0 28 12/05/18 20:16 Room Air 21 12/05/18 20:00 98.7 85 137/85 (102) 12/05/18 16:24 98.5 76 18 129/83 (98) 96 Height (Feet): 5 Height (Inches): 8.00 Weight (Pounds): 141 Objective General Appearance: Chronically Ill Eyes: bilateral eye PERRL ENT: other - poor dentition with multiple cracked teeth Neck: limited range of motion Respiratory: lungs clear, normal breath sounds Cardiovascular #1: normal inspection Gastrointestinal: normal inspection Musculoskeletal: normal inspection Neurologic: normal inspection, alert, oriented x3, responsive Microbiology Date/Time Source Procedure Growth Status 12/04/18 03:05 Wound Gram Stain - Final Resulted 12/04/18 03:05 Wound Culture - Preliminary Usual Oral Bekah Resulted 12/04/18 02:30 Nasal Nares MRSA Culture - Final NO METHICILLIN RESISTANT STAPH AUREUS... Complete 12/03/18 23:10 Urine,Clean Catch Urine Culture - Preliminary Mixed Gram Positive Organism Resulted 12/04/18 02:30 Rectum - Final NO CARBAPENEM-RESISTANT ENTEROBACTERI... Complete 12/04/18 02:30 Rectum VRE Culture - Final NO VANCOMYCIN RESISTANT ENTEROCOCCUS ... Complete Laboratory Tests Test 12/06/18 10:50 White Blood Count 5.0 K/UL (4.8-10.8) Red Blood Count 4.24 M/UL (4.20-5.40) Hemoglobin 13.7 G/DL (12.0-16.0) Hematocrit 40.1 % (37.0-47.0) Mean Corpuscular Volume 95 FL (80-99) Mean Corpuscular Hemoglobin 32.2 PG (27.0-31.0) H Mean Corpuscular Hemoglobin Concent 34.0 G/DL (32.0-36.0) Red Cell Distribution Width 12.0 % (11.6-14.8) Platelet Count 394 K/UL (150-450) Mean Platelet Volume 5.1 FL (6.5-10.1) L Neutrophils (%) (Auto) 47.6 % (45.0-75.0) Lymphocytes (%) (Auto) 42.4 % (20.0-45.0) Monocytes (%) (Auto) 6.3 % (1.0-10.0) Eosinophils (%) (Auto) 2.9 % (0.0-3.0) Basophils (%) (Auto) 0.8 % (0.0-2.0) Sodium Level 136 MMOL/L (136-145) Potassium Level 4.2 MMOL/L (3.5-5.1) Chloride Level 100 MMOL/L (98-107) Carbon Dioxide Level 25 MMOL/L (21-32) Anion Gap 11 mmol/L (5-15) Blood Urea Nitrogen 9 mg/dL (7-18) Creatinine 0.8 MG/DL (0.55-1.30) Estimat Glomerular Filtration Rate > 60 mL/min (>60) Glucose Level 86 MG/DL (74-106) Calcium Level 9.2 MG/DL (8.5-10.1) Current Medications Medications (Trade) Dose Ordered Sig/Gaby Route PRN Reason Start Time Stop Time Status Last Admin Dose Admin Acetaminophen (Tylenol) 650 mg Q4H PRN ORAL fever 12/04/18 07:00 01/03/19 06:59 Acetaminophen/ Hydrocodone Bitart ([place] 10/325) 1 tab Q4H PRN ORAL Moderate Pain (Pain Scale 4-6) 12/04/18 09:15 12/11/18 09:14 12/04/18 15:54 Albuterol/ Ipratropium (Albuterol/ Ipratropium) 3 ml Q4H PRN HHN Shortness of Breath 12/04/18 07:00 12/09/18 06:59 Alprazolam (Xanax) 1 mg QIDPRN PRN ORAL For Anxiety 12/04/18 13:30 12/11/18 13:29 12/06/18 14:52 Ampicillin Sodium/ Sulbactam Sodium 3 gm/Sodium Chloride 110 ml @ 220 mls/hr Q6H IVPB 12/04/18 14:00 12/11/18 13:59 12/06/18 14:30 Barium Sulfate (Readi-Cat 2) 450 ml NOW PRN ORAL Radiology Procedure 12/06/18 16:00 12/08/18 15:54 Dextrose (Dextrose 50%) 25 ml Q30M PRN IV Hypoglycemia 12/04/18 07:00 01/03/19 06:59 Dextrose (Dextrose 50%) 50 ml Q30M PRN IV Hypoglycemia 12/04/18 07:00 01/03/19 06:59 Heparin Sodium (Porcine) (Heparin 5000 units/ml) 5,000 units EVERY 12 HOURS SUBQ 12/04/18 09:00 01/03/19 08:59 12/04/18 20:58 Hydromorphone HCl (Dilaudid) 3 mg Q3H PRN IV Severe Pain (Pain Scale 7-10) 12/05/18 11:30 12/12/18 11:29 12/06/18 13:23 Hydroxyzine HCl (Vistaril) 10 mg Q4H PRN ORAL Itching 12/04/18 13:30 01/03/19 13:29 12/06/18 14:54 Iopamidol (Isovue-300 100ml) 100 ml NOW PRN INJ Radiology Procedure 12/06/18 16:00 12/08/18 15:59 Levothyroxine Sodium (Synthroid) 112 mcg DAILY@0630 ORAL 12/05/18 06:30 01/04/19 06:29 12/06/18 06:44 Lorazepam (Ativan) 1 mg Q6H PRN ORAL For Anxiety 12/05/18 14:45 12/12/18 14:44 12/06/18 02:27 Nicotine (Nicoderm) 1 patch Q24H TDERMAL 12/04/18 09:00 01/03/19 08:59 Nitroglycerin (Ntg) 0.4 mg Q5M PRN SL Prn Chest Pain 12/04/18 07:00 01/03/19 06:59 Ondansetron HCl (Zofran) 4 mg Q6H PRN IVP Nausea & Vomiting 12/04/18 07:00 01/03/19 06:59 Polyethylene Glycol (Miralax) 17 gm DAILYPRN PRN ORAL Constipation 12/04/18 07:00 01/03/19 06:59 Sertraline HCl (Zoloft) 25 mg DAILY ORAL 12/05/18 09:00 01/04/19 08:59 12/06/18 09:02 Temazepam (Restoril) 15 mg HSPRN PRN ORAL Insomnia 12/04/18 07:00 12/11/18 06:59 12/05/18 21:00 Tizanidine HCl (Zanaflex) 4 mg Q8H PRN ORAL muscle spasm 12/04/18 09:15 01/03/19 09:14 12/06/18 09:02 Ziprasidone (Geodon) 40 mg QPM ORAL 12/05/18 16:30 01/04/19 16:29 Bridgette Carrizales M.D. Dec 06, 2018 16:05
[2018-12-06] MEDS: Ziprasidone 20mg cap ORAL SCH (16:30)
--- NOTE | 2018-12-06 19:45 | NUR ---
HAND-OFF: Report given to Palma BERRY. Patient in stable condition.
[2018-12-06 20:02] VITALS: BP 116/81
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
--- NOTE | 2018-12-07 00:28 | General Progress Note ---
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 Suggest confirmation with the MRI with and without gadolinium --> Ct of the face reveals: extra-axial hyperdense mass associated with the anterior aspect of the interhemispheric fissure most likely representing a meningioma. # UTI is on abx --> UA reviewed The timing of this note does not necessarily reflect the time of the patient was seen. Greatly appreciate consultation! Subjective Date patient seen: Dec 06, 2018 Constitutional: Denies: no symptoms, chills, diaphoresis, fever, malaise, weakness, other Cardiovascular: Denies: no symptoms, chest pain, edema, irregular heart rate, lightheadedness, palpitations, syncope, other Respiratory: Denies: no symptoms, cough, orthopnea, shortness of breath, SOB with excertion, SOB at rest, sputum, stridor, wheezing, other Gastrointestinal/Abdominal: Denies: no symptoms, abdomen distended, abdominal pain, black stools, tarry stools, blood in stool, constipated, diarrhea, difficulty swallowing, nausea, poor appetite, poor fluid intake, rectal bleeding , vomiting, other Genitourinary: Denies: no symptoms, burning, discharge, frequency, flank pain, hematuria, incontinence, pain, urgency, other Neurologic/Psychiatric: Denies: no symptoms, anxiety, depressed, emotional problems, headache, numbness, paresthesia, pre-existing deficit, seizure, tingling, tremors, weakness, other Endocrine: Denies: no symptoms, excessive sweating, flushing, intolerance to cold, intolerance to heat, increased hunger, increased thirst, increased urine, unexplained weight gain, unexplained weight loss, other Hematologic/Lymphatic: Denies: no symptoms, anemia, easy bleeding, easy bruising, other Allergies: Coded Allergies: DIVALPROEX SODIUM (Verified Allergy, Unknown, 11/29/18) HALOPERIDOL (Verified Allergy, Unknown, 11/29/18) IBUPROFEN (Verified Allergy, Unknown, 11/29/18) KETOROLAC (Verified Allergy, Unknown, 11/29/18) METOPROLOL (Verified Allergy, Unknown, 11/29/18) MORPHINE (Verified Allergy, Unknown, 11/29/18) TRAZODONE (Verified Allergy, Unknown, 11/29/18) Uncoded Allergies: NSAIDS (Allergy, Unknown, 11/29/18) Subjective 12/05: seen by beside, awake, complains of pain, cbc reviewed, Ct of the face reveals: extra-axial hyperdense mass associated with the anterior aspect of the interhemispheric fissure most likely representing a meningioma. 12/06: seen by bed side, complains of facial pain. no events Objective Last 24 Hour Vital Signs Date Time Temp Pulse Resp B/P (MAP) Pulse Ox O2 Delivery O2 Flow Rate FiO2 12/06/18 21:03 98.7 12/06/18 21:00 Room Air 12/06/18 20:02 98.7 79 18 116/81 (93) 99 12/06/18 19:57 Room Air 21 12/06/18 19:57 97 Room Air 21 12/06/18 19:57 90 21 Room Air 21 12/06/18 16:00 98.7 93 20 114/80 (91) 96 12/06/18 12:00 98.7 81 18 126/82 (97) 96 12/06/18 09:00 Room Air 12/06/18 08:00 98.2 67 20 123/67 (85) 98 12/06/18 07:49 98 Room Air 21 12/06/18 07:49 Room Air 21 12/06/18 07:49 81 21 Room Air 21 12/06/18 04:00 98.7 78 18 142/85 (104) Intake and Output 12/06/18 12/07/18 19:00 07:00 Intake Total 800 ml Balance 800 ml Intake Oral 800 ml # Voids 4 Laboratory Tests 12/06/18 10:50: White Blood Count 5.0, Red Blood Count 4.24, Hemoglobin 13.7, Hematocrit 40.1, Mean Corpuscular Volume 95, Mean Corpuscular Hemoglobin 32.2H, Mean Corpuscular Hemoglobin Concent 34.0, Red Cell Distribution Width 12.0, Platelet Count 394, Mean Platelet Volume 5.1L, Neutrophils (%) (Auto) 47.6, Lymphocytes (%) (Auto) 42.4, Monocytes (%) (Auto) 6.3, Eosinophils (%) (Auto) 2.9, Basophils (%) (Auto ) 0.8, Sodium Level 136, Potassium Level 4.2, Chloride Level 100, Carbon Dioxide Level 25, Anion Gap 11, Blood Urea Nitrogen 9, Creatinine 0.8, Estimat Glomerular Filtration Rate > 60, Glucose Level 86, Calcium Level 9.2 Height (Feet): 5 Height (Inches): 8.00 Weight (Pounds): 141 Objective Physical Exam Physical Exam Narrative General Appearance: Chronically Ill Eyes: bilateral eye PERRL ENT: other - poor dentition with multiple cracked teeth Neck: limited range of motion Respiratory: lungs clear, normal breath sounds Cardiovascular: normal inspection Gastrointestinal: normal inspection Musculoskeletal: normal inspection Neurologic: normal inspection, alert, oriented x3, responsive Rudy Angela MD Dec 07, 2018 00:28
[2018-12-07] MEDS: Ampicillin/Sulbactam Sod 3 GM in NS 110 ML IVPB SCH ×4 (01:34→20:12)
[2018-12-07 04:00] VITALS: BP 111/76
--- NOTE | 2018-12-07 07:22 | NUR ---
HAND-OFF: Report given to Yvette BERRY.
--- NOTE | 2018-12-07 07:30 | NUR ---
NURSE NOTES: Received report from Paz BERRY. During rounds patient is asleep, no acute distress noted. RR even and unlabored. ZHAO IV intact and asymptomatic. Side rails upx2, bed low and locked, call light in reach. Will continue to monitor.
[2018-12-07 08:00] VITALS: BP 115/64
[2018-12-07 08:32] LABS: BASOPHILS % (AUTO) 1.2 % (0.0-2.0); HEMATOCRIT 35.9 % (37.0-47.0); LYMPHOCYTES % (AUTO) 42.4 % (20.0-45.0); MEAN CORPUSCULAR VOLUME 95 FL (80-99); MONOCYTES % (AUTO) 7.4 % (1.0-10.0); PLATELET COUNT 312 K/UL (150-450); RED BLOOD COUNT 3.77 M/UL (4.20-5.40); RED CELL DISTRIBUTION WIDTH 11.8 % (11.6-14.8); WHITE BLOOD COUNT 4.6 K/UL (4.8-10.8)
[2018-12-07] MEDS: Heparin 5000 units/ml inj SUBQ SCH ×2 (09:00→20:56)
[2018-12-07 09:01] LABS: ANION GAP 6 mmol/L (5-15); BLOOD UREA NITROGEN 11 mg/dL (7-18); CALCIUM 8.5 MG/DL (8.5-10.1); CARBON DIOXIDE 28 MMOL/L (21-32); CHLORIDE 105 MMOL/L (98-107); CREATININE 0.7 MG/DL (0.55-1.30); POTASSIUM 3.8 MMOL/L (3.5-5.1); SODIUM 139 MMOL/L (136-145)
--- NOTE | 2018-12-07 09:14 | General Progress Note ---
Assessment/Plan Problem List: (1) Facial pain ICD Codes: R51 - Headache SNOMED: 06792803 (2) UTI (urinary tract infection) ICD Codes: N39.0 - Urinary tract infection, site not specified SNOMED: 45572148 (3) Brain tumor ICD Codes: D49.6 - Neoplasm of unspecified behavior of brain SNOMED: 809734304 Status: unchanged Assessment/Plan pain control abx heme neuro pain f/u cbc bmp am Subjective Constitutional: Reports: weakness Allergies: Coded Allergies: DIVALPROEX SODIUM (Verified Allergy, Unknown, 11/29/18) HALOPERIDOL (Verified Allergy, Unknown, 11/29/18) IBUPROFEN (Verified Allergy, Unknown, 11/29/18) KETOROLAC (Verified Allergy, Unknown, 11/29/18) METOPROLOL (Verified Allergy, Unknown, 11/29/18) MORPHINE (Verified Allergy, Unknown, 11/29/18) TRAZODONE (Verified Allergy, Unknown, 11/29/18) Uncoded Allergies: NSAIDS (Allergy, Unknown, 11/29/18) All Systems: reviewed and negative except above Subjective c/o right facial pain Objective Last 24 Hour Vital Signs Date Time Temp Pulse Resp B/P (MAP) Pulse Ox O2 Delivery O2 Flow Rate FiO2 12/07/18 08:16 Room Air 21 12/07/18 08:16 82 16 Room Air 21 12/07/18 08:16 97 Room Air 12/07/18 06:35 98.1 12/07/18 04:00 98.1 74 18 111/76 (88) 98 12/07/18 02:04 98.7 12/06/18 21:00 Room Air 12/06/18 20:02 98.7 79 18 116/81 (93) 99 12/06/18 19:57 Room Air 21 12/06/18 19:57 97 Room Air 21 12/06/18 19:57 90 21 Room Air 21 12/06/18 16:00 98.7 93 20 114/80 (91) 96 12/06/18 12:00 98.7 81 18 126/82 (97) 96 Intake and Output 12/06/18 12/07/18 19:00 07:00 Intake Total 800 ml Balance 800 ml Intake Oral 800 ml # Voids 4 3 Laboratory Tests 12/06/18 10:50: White Blood Count 5.0, Red Blood Count 4.24, Hemoglobin 13.7, Hematocrit 40.1, Mean Corpuscular Volume 95, Mean Corpuscular Hemoglobin 32.2H, Mean Corpuscular Hemoglobin Concent 34.0, Red Cell Distribution Width 12.0, Platelet Count 394, Mean Platelet Volume 5.1L, Neutrophils (%) (Auto) 47.6, Lymphocytes (%) (Auto) 42.4, Monocytes (%) (Auto) 6.3, Eosinophils (%) (Auto) 2.9, Basophils (%) (Auto ) 0.8, Sodium Level 136, Potassium Level 4.2, Chloride Level 100, Carbon Dioxide Level 25, Anion Gap 11, Blood Urea Nitrogen 9, Creatinine 0.8, Estimat Glomerular Filtration Rate > 60, Glucose Level 86, Calcium Level 9.2 12/07/18 06:44: White Blood Count 4.6L, Red Blood Count 3.77L, Hemoglobin 12.0, Hematocrit 35.9L , Mean Corpuscular Volume 95, Mean Corpuscular Hemoglobin 31.9H, Mean Corpuscular Hemoglobin Concent 33.5, Red Cell Distribution Width 11.8, Platelet Count 312, Mean Platelet Volume 5.0L, Neutrophils (%) (Auto) 46.0, Lymphocytes ( %) (Auto) 42.4, Monocytes (%) (Auto) 7.4, Eosinophils (%) (Auto) 3.0, Basophils (%) (Auto) 1.2, Sodium Level 139, Potassium Level 3.8, Chloride Level 105, Carbon Dioxide Level 28, Anion Gap 6, Blood Urea Nitrogen 11, Creatinine 0.7, Estimat Glomerular Filtration Rate > 60, Glucose Level 81, Calcium Level 8.5 Height (Feet): 5 Height (Inches): 8.00 Weight (Pounds): 141 General Appearance: lethargic EENT: normal ENT inspection Neck: normal alignment Cardiovascular: normal peripheral pulses, normal rate, regular rhythm Respiratory/Chest: chest wall non-tender, lungs clear, normal breath sounds Abdomen: normal bowel sounds, non tender, soft Extremities: normal inspection Edema: no edema noted Arm (L), no edema noted Arm (R), no edema noted Leg (L), no edema noted Leg (R), no edema noted Pedal (L), no edema noted Pedal (R), no edema noted Generalized Neurologic: responsive, motor weakness Skin: normal pigmentation, warm/dry Cooper London DO Dec 07, 2018 09:14
[2018-12-07] MEDS: Sertraline 50mg tab ORAL SCH (09:54)
[2018-12-07 12:00] VITALS: BP 127/77
--- NOTE | 2018-12-07 13:27 | NUR ---
NURSE NOTES: Patient stated she needed vistaril for itching. Retrieved medication for patient and placed in dispensing cup at which point patient stated she no longer wanted it. Medication wasted.
[2018-12-07] MEDS: ALPRAZolam 0.5mg tab ORAL PRN (13:35)
--- NOTE | 2018-12-07 13:49 | NUR ---
CHARGE NURSE NOTE: Pt want to take xanax 2 mg po, pt became very irritated (Dilaudid 3 mg IV push was given 30 min ago). Spoke to Edilberto pharmacist. Got permission to give Xanax. Primary nurse notified.
--- NOTE | 2018-12-07 14:46 | Infectious Diseases Prog Note ---
Assessment/Plan Assessment/Plan Assessment: R facial cellulitis- from either infected teeth and R maxillary sinusitis -wound cx from cavity: usual bekah to date -CT facial bones: No acute injury appreciated. No abscess identified.Right maxillary sinusitis.Incidental 1 cm enhancing mass associated with the anterior interhemispheric fissure.This is most likely meningioma. Suggest confirmation with the MRI with and without gadolinium Afebrile NO leukocytosis uterine CA s/p radiation Plan: -Continue Unasyn # 4 10 , upon DC will change to Augmentin to complete the course -12/04 SP IV Vancomycin and Cefepime #1 -f/u cx -Monitor CBC/CMP, temperatures -Needs to f/u with dentist as outpatient for removal of damaged/infected teeth. 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 ) Afebrile Objective Vital Signs Last 24 Hour Vital Signs Date Time Temp Pulse Resp B/P (MAP) Pulse Ox O2 Delivery O2 Flow Rate FiO2 12/07/18 12:00 98.4 85 18 127/77 (94) 96 12/07/18 10:26 98.1 12/07/18 09:00 Room Air 12/07/18 08:16 Room Air 21 12/07/18 08:16 82 16 Room Air 21 12/07/18 08:16 97 Room Air 21 12/07/18 08:00 97.8 73 16 115/64 (81) 96 12/07/18 04:00 98.1 74 18 111/76 (88) 98 12/07/18 02:04 98.7 12/06/18 21:00 Room Air 12/06/18 20:02 98.7 79 18 116/81 (93) 99 12/06/18 19:57 Room Air 21 12/06/18 19:57 97 Room Air 21 12/06/18 19:57 90 21 Room Air 21 12/06/18 16:00 98.7 93 20 114/80 (91) 96 Height (Feet): 5 Height (Inches): 8.00 Weight (Pounds): 141 HEENT: anicteric Respiratory/Chest: no accessory muscle use Cardiovascular: no gallop/murmur Abdomen: no mass Laboratory Tests Test 12/07/18 06:44 White Blood Count 4.6 K/UL (4.8-10.8) L Red Blood Count 3.77 M/UL (4.20-5.40) L Hemoglobin 12.0 G/DL (12.0-16.0) Hematocrit 35.9 % (37.0-47.0) L Mean Corpuscular Volume 95 FL (80-99) Mean Corpuscular Hemoglobin 31.9 PG (27.0-31.0) H Mean Corpuscular Hemoglobin Concent 33.5 G/DL (32.0-36.0) Red Cell Distribution Width 11.8 % (11.6-14.8) Platelet Count 312 K/UL (150-450) Mean Platelet Volume 5.0 FL (6.5-10.1) L Neutrophils (%) (Auto) 46.0 % (45.0-75.0) Lymphocytes (%) (Auto) 42.4 % (20.0-45.0) Monocytes (%) (Auto) 7.4 % (1.0-10.0) Eosinophils (%) (Auto) 3.0 % (0.0-3.0) Basophils (%) (Auto) 1.2 % (0.0-2.0) Sodium Level 139 MMOL/L (136-145) Potassium Level 3.8 MMOL/L (3.5-5.1) Chloride Level 105 MMOL/L (98-107) Carbon Dioxide Level 28 MMOL/L (21-32) Anion Gap 6 mmol/L (5-15) Blood Urea Nitrogen 11 mg/dL (7-18) Creatinine 0.7 MG/DL (0.55-1.30) Estimat Glomerular Filtration Rate > 60 mL/min (>60) Glucose Level 81 MG/DL (74-106) Calcium Level 8.5 MG/DL (8.5-10.1) Current Medications Medications (Trade) Dose Ordered Sig/Gaby Route PRN Reason Start Time Stop Time Status Last Admin Dose Admin Acetaminophen (Tylenol) 650 mg Q4H PRN ORAL fever 12/04/18 07:00 01/03/19 06:59 Acetaminophen/ Hydrocodone Bitart (Cary 10/325) 1 tab Q4H PRN ORAL Moderate Pain (Pain Scale 4-6) 12/04/18 09:15 12/11/18 09:14 12/04/18 15:54 Albuterol/ Ipratropium (Albuterol/ Ipratropium) 3 ml Q4H PRN HHN Shortness of Breath 12/04/18 07:00 12/09/18 06:59 Alprazolam (Xanax) 1 mg QIDPRN PRN ORAL For Anxiety 12/04/18 13:30 12/11/18 13:29 12/07/18 13:35 Ampicillin Sodium/ Sulbactam Sodium 3 gm/Sodium Chloride 110 ml @ 220 mls/hr Q6H IVPB 12/04/18 14:00 12/11/18 13:59 12/07/18 14:27 Barium Sulfate (Readi-Cat 2) 450 ml NOW PRN ORAL Radiology Procedure 12/06/18 16:00 12/08/18 15:54 Dextrose (Dextrose 50%) 25 ml Q30M PRN IV Hypoglycemia 12/04/18 07:00 01/03/19 06:59 Dextrose (Dextrose 50%) 50 ml Q30M PRN IV Hypoglycemia 12/04/18 07:00 01/03/19 06:59 Heparin Sodium (Porcine) (Heparin 5000 units/ml) 5,000 units EVERY 12 HOURS SUBQ 12/04/18 09:00 01/03/19 08:59 12/04/18 20:58 Hydromorphone HCl (Dilaudid) 3 mg Q3H PRN IV Severe Pain (Pain Scale 7-10) 12/05/18 11:30 12/12/18 11:29 12/07/18 13:04 Hydroxyzine HCl (Vistaril) 10 mg Q3H PRN ORAL Itching 12/06/18 18:00 01/05/19 17:59 12/07/18 06:04 Iopamidol (Isovue-300 100ml) 100 ml NOW PRN INJ Radiology Procedure 12/06/18 16:00 12/08/18 15:59 Levothyroxine Sodium (Synthroid) 112 mcg DAILY@0630 ORAL 12/05/18 06:30 01/04/19 06:29 12/07/18 06:04 Lorazepam (Ativan) 1 mg Q6H PRN ORAL For Anxiety 12/05/18 14:45 12/12/18 14:44 12/06/18 02:27 Nicotine (Nicoderm) 1 patch Q24H TDERMAL 12/04/18 09:00 01/03/19 08:59 Nitroglycerin (Ntg) 0.4 mg Q5M PRN SL Prn Chest Pain 12/04/18 07:00 01/03/19 06:59 Ondansetron HCl (Zofran) 4 mg Q6H PRN IVP Nausea & Vomiting 12/04/18 07:00 01/03/19 06:59 Polyethylene Glycol (Miralax) 17 gm DAILYPRN PRN ORAL Constipation 12/04/18 07:00 01/03/19 06:59 Sertraline HCl (Zoloft) 25 mg DAILY ORAL 12/05/18 09:00 01/04/19 08:59 12/07/18 09:54 Temazepam (Restoril) 15 mg HSPRN PRN ORAL Insomnia 12/04/18 07:00 12/11/18 06:59 12/05/18 21:00 Tizanidine HCl (Zanaflex) 4 mg Q6H PRN ORAL muscle spasm 12/06/18 16:15 01/05/19 16:14 12/07/18 08:09 Ziprasidone (Geodon) 40 mg QPM ORAL 12/05/18 16:30 01/04/19 16:29 Mason Rizvi MD Dec 07, 2018 14:46
[2018-12-07 16:00] VITALS: BP 128/78
[2018-12-07] MEDS: Ziprasidone 20mg cap ORAL SCH (16:30)
--- NOTE | 2018-12-07 19:22 | NUR ---
HAND-OFF: Report given to Park BERRY. Patient is in stable condition.
--- NOTE | 2018-12-07 19:30 | NUR ---
NURSE NOTES: Received report & pt from JAMAL Crawford. Pt up & walking, a&ox4, in room air. No s/s of acute distress & c/o 10/10 pain. Will give PRN pain med when due & pt verbalized understanding. IV site intact & S/L'd. Bed in lowest position, call light within reach. Will continue to monitor.
--- NOTE | 2018-12-07 19:30 | Progress Note ---
DATE: 12/07/2018 SUBJECTIVE: She is a 43-year-old female patient. She continues to have some confusion and disorganized thought process. She has dental infection, but she has a lot of facial cellulitis. She had infection and she also has a lot of depression worsened by stress of her medical illness as well, so she does require inpatient treatment at this time. MENTAL STATUS EXAMINATION: She is a 43-year-old female. Appearance disheveled. Attitude, irritable and agitated. Affect, guarded and restricted. Intellect poor. Mood, depressed and anxious. Motor activity, psychomotor agitation. Attention span is poor. Orientation x2. Speech is low volume and slurred. Thought process, disorganized and illogical. Insight and judgment is poor. DIAGNOSES: 1. Bipolar 2. 2. Posttraumatic stress disorder. PLAN: Treat her with Zoloft at a dose of 25 mg daily and Geodon 40 mg q.p.m. Provided her with 20 minutes of reality-based supportive psychotherapy. Chart was reviewed. Discussed with staff. Seen and assessed at bedside. Aviva Edmond M.D. DR: Rudy JOB#: [id number] CC:
[2018-12-07 20:00] VITALS: BP 125/84
--- NOTE | 2018-12-07 20:00 | Consultation ---
DATE OF CONSULTATION: 12/07/2018 ADDENDUM The patient received 20 minutes of cognitive behavioral therapy to help identify automatic negative thoughts and help convert those negative thoughts to more positive thoughts to reduce depression, anxiety, and mood lability and . Aviva Edmond M.D. DR: IRINA JOB#: [id number] CC:
--- NOTE | 2018-12-07 20:16 | NUR ---
NURSE NOTES: Pt requested if MD can change Zanaflex to Q4H instead of Q6H. Per pt, she's still having a lot of facial pain & it's not going away. Pt also expressed concern that she's having diarrhea & burning sensation when urinating. Informed Dr. Purdy of pt's concerns & Dr. Purdy said "Ok".
[2018-12-08] MEDS: ALPRAZolam 0.5mg tab ORAL PRN ×3 (00:42→20:15)
[2018-12-08] MEDS: Ampicillin/Sulbactam Sod 3 GM in NS 110 ML IVPB SCH ×4 (01:35→22:04)
[2018-12-08 03:34] VITALS: BP 128/78
--- NOTE | 2018-12-08 07:00 | Progress Note ---
DATE: 12/08/2018 SUBJECTIVE: The patient is a 43-year-old female patient with dental infection. She continues to have some confusion, some disorganized thought process, and mood lability worsened by stress of her medical illness. She has still a lot of paranoid and also a lot of mood lability, agitation, and irritability. MENTAL STATUS EXAMINATION: The patient is a 43-year-old female. Appearance is disheveled. Attitude, irritable and agitated. Affect, guarded and restricted. Intellect poor. Mood, depressed and anxious. Motor activity, psychomotor agitation. Attention span is poor. Orientation x2. Speech is pressured. Thought process, disorganized and illogical. Insight and judgment is poor. DIAGNOSIS: Bipolar 2. PLAN: Treat her with Latuda 40 mg daily and Zoloft 25 mg daily. Provided her with 20 minutes of cognitive behavioral therapy to help her identify automatic negative thoughts and help her to convert negative thoughts to more positive thoughts to reduce depression, anxiety, and suicidality. Chart was reviewed. Discussed with staff. Seen and assessed at bedside. Aviva Edmond M.D. DR: ROBERTA JOB#: [id number] CC:
--- NOTE | 2018-12-08 07:07 | NUR ---
HAND-OFF: Report given to JAMAL Izaguirre.
[2018-12-08 07:52] LABS: BASOPHILS % (AUTO) 0.8 % (0.0-2.0); EOSINOPHILS % (AUTO) 2.2 % (0.0-3.0); HEMATOCRIT 36.5 % (37.0-47.0); HEMOGLOBIN 12.1 G/DL (12.0-16.0); LYMPHOCYTES % (AUTO) 40.4 % (20.0-45.0); MEAN CORPUSCULAR VOLUME 96 FL (80-99); MONOCYTES % (AUTO) 5.3 % (1.0-10.0); NEUTROPHILS % (AUTO) 51.3 % (45.0-75.0); PLATELET COUNT 370 K/UL (150-450); RED BLOOD COUNT 3.79 M/UL (4.20-5.40); RED CELL DISTRIBUTION WIDTH 12.1 % (11.6-14.8); WHITE BLOOD COUNT 5.4 K/UL (4.8-10.8)
[2018-12-08 08:00] VITALS: BP 92/53
[2018-12-08 08:04] LABS: ANION GAP 5 mmol/L (5-15); BLOOD UREA NITROGEN 9 mg/dL (7-18); CALCIUM 8.9 MG/DL (8.5-10.1); CARBON DIOXIDE 30 MMOL/L (21-32); CHLORIDE 103 MMOL/L (98-107); CREATININE 0.7 MG/DL (0.55-1.30); POTASSIUM 3.8 MMOL/L (3.5-5.1); SODIUM 138 MMOL/L (136-145)
--- NOTE | 2018-12-08 08:40 | General Progress Note ---
Assessment/Plan Problem List: (1) Facial pain ICD Codes: R51 - Headache SNOMED: 55597777 (2) UTI (urinary tract infection) ICD Codes: N39.0 - Urinary tract infection, site not specified SNOMED: 78065552 (3) Brain tumor ICD Codes: D49.6 - Neoplasm of unspecified behavior of brain SNOMED: 445567910 Status: stable, progressing Assessment/Plan pain control abx heme neuro pain f/u cbc bmp am Subjective Allergies: Coded Allergies: DIVALPROEX SODIUM (Verified Allergy, Unknown, 11/29/18) HALOPERIDOL (Verified Allergy, Unknown, 11/29/18) IBUPROFEN (Verified Allergy, Unknown, 11/29/18) KETOROLAC (Verified Allergy, Unknown, 11/29/18) METOPROLOL (Verified Allergy, Unknown, 11/29/18) MORPHINE (Verified Allergy, Unknown, 11/29/18) TRAZODONE (Verified Allergy, Unknown, 11/29/18) Uncoded Allergies: NSAIDS (Allergy, Unknown, 11/29/18) All Systems: reviewed and negative except above Subjective c/o right facial pain sl improved Objective Last 24 Hour Vital Signs Date Time Temp Pulse Resp B/P (MAP) Pulse Ox O2 Delivery O2 Flow Rate FiO2 12/08/18 07:53 97 17 Room Air 21 12/08/18 07:53 Room Air 21 12/08/18 07:53 97 Room Air 21 12/08/18 03:34 98.2 74 19 128/78 (95) 99 12/07/18 21:00 Room Air 12/07/18 20:10 97 Room Air 21 12/07/18 20:10 Room Air 21 12/07/18 20:10 97 16 Room Air 21 12/07/18 20:00 98.7 86 18 125/84 (98) 95 12/07/18 16:00 97.7 85 18 128/78 (95) 99 12/07/18 12:00 98.4 85 18 127/77 (94) 96 12/07/18 10:26 98.1 12/07/18 09:00 Room Air Intake and Output 12/07/18 12/08/18 18:59 06:59 Intake Total 1200 ml 1440 ml Balance 1200 ml 1440 ml Intake Oral 1200 ml 1440 ml # Voids 3 6 # Bowel Movements 1 Laboratory Tests 12/08/18 04:50: White Blood Count 5.4, Red Blood Count 3.79L, Hemoglobin 12.1, Hematocrit 36.5L , Mean Corpuscular Volume 96, Mean Corpuscular Hemoglobin 31.9H, Mean Corpuscular Hemoglobin Concent 33.0, Red Cell Distribution Width 12.1, Platelet Count 370, Mean Platelet Volume 4.9L, Neutrophils (%) (Auto) 51.3, Lymphocytes ( %) (Auto) 40.4, Monocytes (%) (Auto) 5.3, Eosinophils (%) (Auto) 2.2, Basophils (%) (Auto) 0.8, Sodium Level 138, Potassium Level 3.8, Chloride Level 103, Carbon Dioxide Level 30, Anion Gap 5, Blood Urea Nitrogen 9, Creatinine 0.7, Estimat Glomerular Filtration Rate > 60, Glucose Level 66L, Calcium Level 8.9 Height (Feet): 5 Height (Inches): 8.00 Weight (Pounds): 141 General Appearance: lethargic EENT: normal ENT inspection Neck: normal alignment Cardiovascular: normal peripheral pulses, normal rate, regular rhythm Respiratory/Chest: chest wall non-tender, lungs clear, normal breath sounds Abdomen: normal bowel sounds, non tender, soft Extremities: normal inspection Edema: no edema noted Arm (L), no edema noted Arm (R), no edema noted Leg (L), no edema noted Leg (R), no edema noted Pedal (L), no edema noted Pedal (R), no edema noted Generalized Neurologic: responsive, motor weakness Skin: normal pigmentation, warm/dry Cooper London DO Dec 08, 2018 08:40
[2018-12-08] MEDS: Sertraline 50mg tab ORAL SCH (09:35)
[2018-12-08] MEDS: Heparin 5000 units/ml inj SUBQ SCH ×2 (09:37→22:41)
--- NOTE | 2018-12-08 10:35 | General Progress Note ---
Assessment/Plan Assessment/Plan Assessment/Plan: # Uterine cancer -- according to patient has a hx of stage iv disease, diagnosed in 1996 and was treated with chemo, xrt and surgery --> says currently is in remission though is likely not full story, could be malingering as stage iv disease average lifespan 6mo --> obtain ct a/p once discharged --> obstetrics gynecology physician/onc once discharged # Anemia of chronic disease --> anemia panel if hgb <10 # R facial cellulitis on abx, unasyn, cefepime, vanc --> Incidental 1 cm enhancing mass associated with the anterior interhemispheric fissure.This is most likely meningioma. Suggest confirmation with the MRI with and without gadolinium --> Ct of the face reveals: extra-axial hyperdense mass associated with the anterior aspect of the interhemispheric fissure most likely representing a meningioma. ==> abx as per id # UTI is on abx --> UA reviewed The timing of this note does not necessarily reflect the time of the patient was seen. Greatly appreciate consultation! Subjective Allergies: Coded Allergies: DIVALPROEX SODIUM (Verified Allergy, Unknown, 11/29/18) HALOPERIDOL (Verified Allergy, Unknown, 11/29/18) IBUPROFEN (Verified Allergy, Unknown, 11/29/18) KETOROLAC (Verified Allergy, Unknown, 11/29/18) METOPROLOL (Verified Allergy, Unknown, 11/29/18) MORPHINE (Verified Allergy, Unknown, 11/29/18) TRAZODONE (Verified Allergy, Unknown, 11/29/18) Uncoded Allergies: NSAIDS (Allergy, Unknown, 11/29/18) Subjective 12/05: seen by beside, awake, complains of pain, cbc reviewed, Ct of the face reveals: extra-axial hyperdense mass associated with the anterior aspect of the interhemispheric fissure most likely representing a meningioma. 12/06: seen by bed side, complains of facial pain. no events 12/08: continues to have headache, no chest pain, no f/c Objective Last 24 Hour Vital Signs Date Time Temp Pulse Resp B/P (MAP) Pulse Ox O2 Delivery O2 Flow Rate FiO2 12/08/18 09:00 Room Air 12/08/18 08:00 98.0 66 19 92/53 (66) 93 3/3/19 07:53 97 17 Room Air 21 12/08/18 07:53 Room Air 21 12/08/18 07:53 97 Room Air 21 12/08/18 03:34 98.2 74 19 128/78 (95) 99 12/07/18 21:00 Room Air 12/07/18 20:10 97 Room Air 21 12/07/18 20:10 Room Air 21 12/07/18 20:10 97 16 Room Air 21 12/07/18 20:00 98.7 86 18 125/84 (98) 95 12/07/18 16:00 97.7 85 18 128/78 (95) 99 12/07/18 12:00 98.4 85 18 127/77 (94) 96 Intake and Output 12/07/18 12/08/18 18:59 06:59 Intake Total 1200 ml 1440 ml Balance 1200 ml 1440 ml Intake Oral 1200 ml 1440 ml # Voids 3 6 # Bowel Movements 1 Laboratory Tests 12/08/18 04:50: White Blood Count 5.4, Red Blood Count 3.79L, Hemoglobin 12.1, Hematocrit 36.5L , Mean Corpuscular Volume 96, Mean Corpuscular Hemoglobin 31.9H, Mean Corpuscular Hemoglobin Concent 33.0, Red Cell Distribution Width 12.1, Platelet Count 370, Mean Platelet Volume 4.9L, Neutrophils (%) (Auto) 51.3, Lymphocytes ( %) (Auto) 40.4, Monocytes (%) (Auto) 5.3, Eosinophils (%) (Auto) 2.2, Basophils (%) (Auto) 0.8, Sodium Level 138, Potassium Level 3.8, Chloride Level 103, Carbon Dioxide Level 30, Anion Gap 5, Blood Urea Nitrogen 9, Creatinine 0.7, Estimat Glomerular Filtration Rate > 60, Glucose Level 66L, Calcium Level 8.9 Height (Feet): 5 Height (Inches): 8.00 Weight (Pounds): 141 Objective Physical Exam Physical Exam Narrative General Appearance: Chronically Ill Eyes: bilateral eye PERRL ENT: poor dentition with multiple cracked teeth Neck: limited range of motion Respiratory: lungs clear, normal breath sounds Cardiovascular: normal inspection Gastrointestinal: normal inspection Musculoskeletal: normal inspection Neurologic: normal inspection, alert, oriented x3, responsive Rudy Angela MD Dec 08, 2018 10:35
[2018-12-08 12:00] VITALS: BP 145/86
--- NOTE | 2018-12-08 13:14 | NUR ---
CASE MANAGEMENT: REVIEW 12/08/2018 SI: DENTAL INFECTION. PAIN. DEHYDRATION T 98.8 HR 65 RR 18 B/P 145/86 SATS 96% ON RA GLU 66 IS: UNASYN IV Q6H : TO MED/[facility]
--- NOTE | 2018-12-08 15:16 | Pulmonology Progress Note ---
Assessment/Plan Problems: (1) Facial cellulitis (2) Dental abscess Assessment/Plan improving jansen cultures iv abx ID evaluation check electrolytes increase dilaudid to q3 symptomatic treatment Subjective ROS Limited/Unobtainable: No Constitutional: Reports: no symptoms HEENT: Repors: no symptoms Allergies: Coded Allergies: DIVALPROEX SODIUM (Verified Allergy, Unknown, 11/29/18) HALOPERIDOL (Verified Allergy, Unknown, 11/29/18) IBUPROFEN (Verified Allergy, Unknown, 11/29/18) KETOROLAC (Verified Allergy, Unknown, 11/29/18) METOPROLOL (Verified Allergy, Unknown, 11/29/18) MORPHINE (Verified Allergy, Unknown, 11/29/18) TRAZODONE (Verified Allergy, Unknown, 11/29/18) Uncoded Allergies: NSAIDS (Allergy, Unknown, 11/29/18) Objective Last 24 Hour Vital Signs Date Time Temp Pulse Resp B/P (MAP) Pulse Ox O2 Delivery O2 Flow Rate FiO2 12/08/18 13:32 98.2 12/08/18 12:56 98.2 12/08/18 12:00 12/08/18 12:00 98.8 65 18 145/86 (105) 96 12/08/18 09:00 Room Air 12/08/18 08:00 98.0 66 19 92/53 (66) 93 12/08/18 07:53 97 17 Room Air 21 12/08/18 07:53 Room Air 21 12/08/18 07:53 97 Room Air 21 12/08/18 03:34 98.2 74 19 128/78 (95) 99 12/07/18 21:00 Room Air 12/07/18 20:10 97 Room Air 21 12/07/18 20:10 Room Air 21 12/07/18 20:10 97 16 Room Air 21 12/07/18 20:00 98.7 86 18 125/84 (98) 95 12/07/18 16:00 97.7 85 18 128/78 (95) 99 Intake and Output 12/07/18 12/08/18 19:00 07:00 Intake Total 1200 ml 1440 ml Balance 1200 ml 1440 ml Intake Oral 1200 ml 1440 ml # Voids 3 6 # Bowel Movements 1 Objective General Appearance: WD/WN HEENT: normocephalic, atraumatic Respiratory/Chest: chest wall non-tender, lungs clear Breasts: no masses Cardiovascular: normal peripheral pulses Abdomen: normal bowel sounds, no organomegaly Genitourinary: normal external genitalia Skin: no lesions Laboratory Tests 12/08/18 04:50: White Blood Count 5.4, Red Blood Count 3.79L, Hemoglobin 12.1, Hematocrit 36.5L , Mean Corpuscular Volume 96, Mean Corpuscular Hemoglobin 31.9H, Mean Corpuscular Hemoglobin Concent 33.0, Red Cell Distribution Width 12.1, Platelet Count 370, Mean Platelet Volume 4.9L, Neutrophils (%) (Auto) 51.3, Lymphocytes ( %) (Auto) 40.4, Monocytes (%) (Auto) 5.3, Eosinophils (%) (Auto) 2.2, Basophils (%) (Auto) 0.8, Sodium Level 138, Potassium Level 3.8, Chloride Level 103, Carbon Dioxide Level 30, Anion Gap 5, Blood Urea Nitrogen 9, Creatinine 0.7, Estimat Glomerular Filtration Rate > 60, Glucose Level 66L, Calcium Level 8.9 Current Medications Medications (Trade) Dose Ordered Sig/Gaby Route PRN Reason Start Time Stop Time Status Last Admin Dose Admin Acetaminophen (Tylenol) 650 mg Q4H PRN ORAL fever 12/04/18 07:00 01/03/19 06:59 Acetaminophen/ Hydrocodone Bitart ([place] 10/325) 1 tab Q4H PRN ORAL Moderate Pain (Pain Scale 4-6) 12/04/18 09:15 12/11/18 09:14 12/04/18 15:54 Albuterol/ Ipratropium (Albuterol/ Ipratropium) 3 ml Q4H PRN HHN Shortness of Breath 12/04/18 07:00 12/09/18 06:59 Alprazolam (Xanax) 1 mg QIDPRN PRN ORAL For Anxiety 12/04/18 13:30 12/11/18 13:29 12/08/18 13:55 Ampicillin Sodium/ Sulbactam Sodium 3 gm/Sodium Chloride 110 ml @ 220 mls/hr Q6H IVPB 12/04/18 14:00 12/11/18 13:59 12/08/18 13:47 Barium Sulfate (Readi-Cat 2) 450 ml NOW PRN ORAL Radiology Procedure 12/06/18 16:00 12/08/18 15:54 Dextrose (Dextrose 50%) 25 ml Q30M PRN IV Hypoglycemia 12/04/18 07:00 01/03/19 06:59 Dextrose (Dextrose 50%) 50 ml Q30M PRN IV Hypoglycemia 12/04/18 07:00 01/03/19 06:59 Heparin Sodium (Porcine) (Heparin 5000 units/ml) 5,000 units EVERY 12 HOURS SUBQ 12/04/18 09:00 01/03/19 08:59 12/08/18 09:37 Hydromorphone HCl (Dilaudid) 3 mg Q3H PRN IV Severe Pain (Pain Scale 7-10) 12/05/18 11:30 12/12/18 11:29 12/08/18 12:26 Hydroxyzine HCl (Vistaril) 10 mg Q3H PRN ORAL Itching 12/06/18 18:00 01/05/19 17:59 12/08/18 12:33 Iopamidol (Isovue-300 100ml) 100 ml NOW PRN INJ Radiology Procedure 12/06/18 16:00 12/08/18 15:59 Levothyroxine Sodium (Synthroid) 112 mcg DAILY@0630 ORAL 12/05/18 06:30 01/04/19 06:29 12/08/18 05:57 Lorazepam (Ativan) 1 mg Q6H PRN ORAL For Anxiety 12/05/18 14:45 12/12/18 14:44 12/06/18 02:27 Nicotine (Nicoderm) 1 patch Q24H TDERMAL 12/04/18 09:00 01/03/19 08:59 Nitroglycerin (Ntg) 0.4 mg Q5M PRN SL Prn Chest Pain 12/04/18 07:00 01/03/19 06:59 Ondansetron HCl (Zofran) 4 mg Q6H PRN IVP Nausea & Vomiting 12/04/18 07:00 01/03/19 06:59 Polyethylene Glycol (Miralax) 17 gm DAILYPRN PRN ORAL Constipation 12/04/18 07:00 01/03/19 06:59 Sertraline HCl (Zoloft) 25 mg DAILY ORAL 12/05/18 09:00 01/04/19 08:59 12/08/18 09:35 Temazepam (Restoril) 15 mg HSPRN PRN ORAL Insomnia 12/04/18 07:00 12/11/18 06:59 12/05/18 21:00 Tizanidine HCl (Zanaflex) 4 mg Q4H PRN ORAL muscle spasm 12/07/18 21:00 01/06/19 20:59 12/08/18 12:33 Ziprasidone (Geodon) 40 mg QPM ORAL 12/05/18 16:30 01/04/19 16:29 Chrissie Purdy MD Dec 08, 2018 15:16
[2018-12-08 16:00] VITALS: BP 125/81
[2018-12-08] MEDS: Ziprasidone 20mg cap ORAL SCH (16:30)
--- NOTE | 2018-12-08 19:00 | NUR ---
NURSE NOTES: QUIET IN BED. MEDICATED FOR PAIN NEEDED.IN NO ACUTE DISTRESS.
--- NOTE | 2018-12-08 19:35 | NUR ---
HAND-OFF: Report given to Stephan PRYOR RN.
--- NOTE | 2018-12-08 19:36 | NUR ---
NURSE NOTES: Received report from JAMAL Izaguirre. Patient sitting in bed awake. AOx4. No c/o of acute distress. Respiration even and non labored. All needs attended and met. Bed in lowest position. Call light within reach. Will continue plan of care.
[2018-12-08 20:00] VITALS: BP 124/74
[2018-12-09] VITALS: BP 118/77
[2018-12-09] MEDS: Ampicillin/Sulbactam Sod 3 GM in NS 110 ML IVPB SCH ×4 (01:38→20:32)
[2018-12-09] MEDS: ALPRAZolam 0.5mg tab ORAL PRN ×4 (04:46→19:09)
--- NOTE | 2018-12-09 05:30 | Progress Note ---
DATE: 12/09/2018 SUBJECTIVE: The patient is a 43-year-old female patient with dental infection. She is confused and disorganized . She is still very paranoid and delusional. She had facial cellulitis. DIAGNOSIS: Bipolar II. PLAN: Continue treatment with Latuda and Zoloft. Provided her with 20 minutes of cognitive behavioral therapy to help her identify automatic negative thoughts and help her to convert those negative thoughts to more positive thoughts to reduce depression, anxiety, and suicidality. Chart was reviewed. Discussed with staff. Seen and assessed in her room. Aviva Edmond M.D. DR: ARISTEO JOB#: [id number] CC:
[2018-12-09 07:18] LABS: HEMATOCRIT 36.4 % (37.0-47.0); HEMOGLOBIN 12.1 G/DL (12.0-16.0); MEAN CORPUSCULAR VOLUME 96 FL (80-99); MONOCYTES % (AUTO) 4.4 % (1.0-10.0); NEUTROPHILS % (AUTO) 52.5 % (45.0-75.0); PLATELET COUNT 367 K/UL (150-450); RED BLOOD COUNT 3.78 M/UL (4.20-5.40); RED CELL DISTRIBUTION WIDTH 12.1 % (11.6-14.8); WHITE BLOOD COUNT 5.3 K/UL (4.8-10.8)
[2018-12-09 07:35] LABS: ANION GAP 4 mmol/L (5-15); BLOOD UREA NITROGEN 8 mg/dL (7-18); CALCIUM 8.9 MG/DL (8.5-10.1); CARBON DIOXIDE 31 MMOL/L (21-32); CHLORIDE 104 MMOL/L (98-107); CREATININE 0.7 MG/DL (0.55-1.30); POTASSIUM 4.1 MMOL/L (3.5-5.1); SODIUM 139 MMOL/L (136-145)
--- NOTE | 2018-12-09 07:42 | NUR ---
HAND-OFF: Report given to JAMAL Sanchez.
[2018-12-09 08:00] VITALS: BP 85/51
--- NOTE | 2018-12-09 08:00 | NUR ---
NURSE NOTES: Received report from Estefany BERRY, pt laying in bed with no signs of distress or any issues at this time. IV on the right FA gauge #22 heplock. pt is continent. pt is a regular mechanical soft diet pt is tolerating well with no n/v. call light within reach. bed in lowest position. side rales up x2. I will f/u as needed. Plan: pending SNF placement.
--- NOTE | 2018-12-09 08:00 | NUR ---
Beginning of Shift Interaction Alert and Oriented, resting in bed and no needs verbalized at this time
--- NOTE | 2018-12-09 08:33 | Diagnostic Imaging Report ---
Clinical Indication: Diarrhea, pain while urinating Technique: Patient given oral contrast. Precontrast spiral acquisitions obtained through the abdomen and pelvis. IV administration nonionic contrast. Multiphasic spiral acquisitions obtained through the abdomen and pelvis. Multiplanar reconstructions were generated. Total dose length product 12 mGycm. CTDIvol(s) 13 x 2 mGy. Dose reduction achieved using automated exposure control Comparison: none Findings: Precontrast images of the kidneys demonstrate 2 calyceal, calculi in the right upper pole the largest which measures 4 mm in diameter. There may be a third very faint calculus present as well. No left renal calculi demonstrated. No ureteral calculi, hydronephrosis, or hydroureter demonstrated. Postcontrast images of both kidneys demonstrate symmetric opacification. No mass or cyst demonstrated. The bladder is unremarkable The gallbladder is surgically absent. The extrahepatic bile ducts are upper limits of normal in caliber. There is a subtle focus of low-attenuation measuring 9 mm in diameter and segment 8, not clearly cystic. A subcentimeter low-attenuation lesion is also demonstrated in segment IVb. The pancreas, spleen, adrenals are unremarkable. No retroperitoneal or mesenteric mass or adenopathy. No pelvic mass or adenopathy. Uterus is not visualized, presumed surgically absent. The colon contains a moderate amount of retained stool. There are one or more colonic diverticula present. No evidence of diverticulitis. The appendix is normal. No small bowel distention. Contrast is seen throughout most but not all of the small bowel. No small bowel wall thickening. No free or loculated intraperitoneal gas or fluid. Distal esophagus, stomach, duodenum are unremarkable. Some atelectasis or scarring is seen at the right lung base. The included lung bases are otherwise clear. The bones are unremarkable. Impression: Nonobstructive right upper pole renal calculi, as described No findings to explain stated clinical history of pain while urinating 9 mm low-attenuation right lobe liver lesion, probably not cystic and therefore neoplasm a possibility. Consider follow-up with liver specific MRI Moderate retained colonic stool. Correlate with any clinical history of constipation Postsurgical changes, including prior sternotomy, prior cholecystectomy Right basilar pulmonary parenchymal scarring The CT scanner at [facility] is accredited by the [employer] and the scans are performed using protocols designed to limit radiation exposure to as low as reasonably achievable to attain images of sufficient resolution adequate for diagnostic evaluation. Contrast
[2018-12-09] MEDS: Sertraline 50mg tab ORAL SCH (09:16)
[2018-12-09] MEDS: Heparin 5000 units/ml inj SUBQ SCH ×2 (09:17→20:33)
--- NOTE | 2018-12-09 10:00 | NUR ---
NEW IV START,PAIN MEDICATION REQUESTED AND GIVEN Requested pain medication for facial pain related to current infection. Medicated with Dilaudid IV. Complaining of vaginal bleeding. Upon assessment, only slight tinge of red color on toilet paper. States she has had total hysterectomy. No discharge noted upon assessment when patient returned to bed. Infiltrated IV on LFA removed, and new IV started RFA 22 G.
--- NOTE | 2018-12-09 11:00 | NUR ---
NURSE NOTES: RN called and left message to Gladys BUTLER Director to f/u with placement. also spoke with Sindy BUTLER, she stated she will f/u with placement.
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
[2018-12-09 12:00] VITALS: BP 125/73
--- NOTE | 2018-12-09 12:00 | Consultation ---
DATE OF CONSULTATION: 12/05/2018 NOTE: "VERY POOR AUDIO QUALITY" PSYCHOTHERAPY CONSULTATION PROGRESS NOTE CONSULTING PHYSICIAN: Moses Freeman PsyD. TREATING ATTENDING PHYSICIAN: Cooper London D.O. HISTORY OF PRESENT ILLNESS: The patient is a 43-year-old female patient. The patient was brought into the hospital for a dental infection. The patient has been labile, agitated, irritable, and extremely anxious and for these reasons, she was referred for psychotherapeutic services. Apparently, the patient states that she has been in multiple psychiatric hospitals. She was recently discharged from a psychiatric hospital. Apparently, the patient states that she is having extreme anxiety, agitation, and irritability. She is tearful, crying, labile in her mood and affect, complaining of anxiety, and asking for more anxiety medication. Her mood has been fluctuating. She denies suicidal or homicidal thoughts of ideation. She denies any auditory or visual hallucinations. Now, she is labile and irritable. The patient was significantly talking about her past history. She states that she has history of trauma. She states that she has served in the . She states that she has history of cancer and she might have cancer again . PAST MEDICAL HISTORY: Includes history of UTI. Records indicated the patient has had uterine cancer in the past and history of brain tumor. ALLERGIES: The patient is allergic to divalproex, Haldol, ibuprofen, ketorolac, metoprolol, morphine, and NSAIDs. SUBSTANCE ABUSE HISTORY: The patient states that she has history of smoking cigarettes. Denies history of alcohol use or illicit substance use. PSYCHIATRIC HISTORY: The patient herself states that she was recently at a psychiatric hospital. She has been treated with psychotropic medications. The patient has history of bipolar disorder. SOCIAL HISTORY: She is a 43-year-old single female patient from [facility]. Financially sustained through [facility]. MENTAL STATUS EXAMINATION: She is alert and oriented to person, place, time, and situation. Her mood is anxious. Affect is labile. Thought process is catastrophic. She has fair attention and concentration. Fair insight, judgment, and impulse control. Denies suicidal or homicidal thoughts of ideation. Denies any auditory or visual hallucinations. DIAGNOSIS: Bipolar 2 disorder, moderate without psychotic features. PLAN: Today, I assessed this patient. Provided the patient with: 1. Supportive psychotherapy, which is an approach focused on identifying positive emotions of stress and process the patient's thoughts and feelings of depression and helplessness in session. 2. Provided the patient with cognitive behavioral therapy, and dealing with problems and emotional lability. Addressed the patient's labile mood. Negative catastrophic thoughts and cognitive distortions redirecting and discussing more rational and reality thoughts. The patient positive coping skills for this patient, history of positive self-talking interaction processes and providing breathing and relaxation exercises to reduce mood lability. 3. Continue with behavioral management for this patient. Plan is to maintain medication compliance positive coping skills to stabilize her mood psychotherapy for this patient. Moses Freeman PsyD. DR: RAMON JOB#: [id number] CC:
--- NOTE | 2018-12-09 13:28 | General Progress Note ---
Assessment/Plan Problem List: (1) Facial pain ICD Codes: R51 - Headache SNOMED: 66929871 (2) UTI (urinary tract infection) ICD Codes: N39.0 - Urinary tract infection, site not specified SNOMED: 60016412 (3) Brain tumor ICD Codes: D49.6 - Neoplasm of unspecified behavior of brain SNOMED: 469607322 Status: stable, progressing Assessment/Plan pain control abx heme neuro pain f/u cbc bmp am dc plan snf Subjective Constitutional: Reports: weakness Allergies: Coded Allergies: DIVALPROEX SODIUM (Verified Allergy, Unknown, 11/29/18) HALOPERIDOL (Verified Allergy, Unknown, 11/29/18) IBUPROFEN (Verified Allergy, Unknown, 11/29/18) KETOROLAC (Verified Allergy, Unknown, 11/29/18) METOPROLOL (Verified Allergy, Unknown, 11/29/18) MORPHINE (Verified Allergy, Unknown, 11/29/18) TRAZODONE (Verified Allergy, Unknown, 11/29/18) Uncoded Allergies: NSAIDS (Allergy, Unknown, 11/29/18) All Systems: reviewed and negative except above Subjective c/o right facial pain sl improved Objective Last 24 Hour Vital Signs Date Time Temp Pulse Resp B/P (MAP) Pulse Ox O2 Delivery O2 Flow Rate FiO2 12/09/18 12:00 98.8 82 18 125/73 (90) 96 12/09/18 10:00 98.1 12/09/18 10:00 98.1 12/09/18 09:00 Room Air 12/09/18 08:00 98.1 63 18 85/51 (62) 96 12/09/18 07:00 Nasal Cannula 2.0 28 12/09/18 07:00 72 20 Nasal Cannula 2.0 28 12/09/18 00:00 98.2 76 20 118/77 (91) 97 12/08/18 23:29 Nasal Cannula 2.0 28 12/08/18 23:29 99 Nasal Cannula 2.0 28 12/08/18 23:28 72 20 Room Air 21 12/08/18 21:00 Room Air 12/08/18 20:00 98.9 82 20 124/74 (91) 96 12/08/18 16:00 99.0 85 19 125/81 (96) 98 Intake and Output 12/08/18 12/09/18 18:59 06:59 Intake Total 630 ml 2000 ml Balance 630 ml 2000 ml Intake Oral 300 ml 2000 ml IV Total 330 ml # Voids 2 3 # Bowel Movements 1 1 Laboratory Tests 12/09/18 05:15: White Blood Count 5.3, Red Blood Count 3.78L, Hemoglobin 12.1, Hematocrit 36.4L , Mean Corpuscular Volume 96, Mean Corpuscular Hemoglobin 32.1H, Mean Corpuscular Hemoglobin Concent 33.3, Red Cell Distribution Width 12.1, Platelet Count 367, Mean Platelet Volume 5.4L, Neutrophils (%) (Auto) 52.5, Lymphocytes ( %) (Auto) 40.0, Monocytes (%) (Auto) 4.4, Eosinophils (%) (Auto) 2.0, Basophils (%) (Auto) 1.0, Sodium Level 139, Potassium Level 4.1, Chloride Level 104, Carbon Dioxide Level 31, Anion Gap 4L, Blood Urea Nitrogen 8, Creatinine 0.7, Estimat Glomerular Filtration Rate > 60, Glucose Level 77, Calcium Level 8.9 Height (Feet): 5 Height (Inches): 8.00 Weight (Pounds): 141 General Appearance: lethargic EENT: normal ENT inspection Neck: normal alignment Cardiovascular: normal peripheral pulses, normal rate, regular rhythm Respiratory/Chest: chest wall non-tender, lungs clear, normal breath sounds Abdomen: normal bowel sounds, non tender, soft Extremities: non-tender Edema: no edema noted Arm (L), no edema noted Arm (R), no edema noted Leg (L), no edema noted Leg (R), no edema noted Pedal (L), no edema noted Pedal (R), no edema noted Generalized Neurologic: responsive, motor weakness Skin: normal pigmentation, warm/dry Cooper London DO Dec 09, 2018 13:27
--- NOTE | 2018-12-09 14:03 | Pulmonology Progress Note ---
Assessment/Plan Problems: (1) Facial cellulitis (2) Dental abscess Assessment/Plan no new complains improving jansen cultures iv abx ID evaluation check electrolytes increase dilaudid to q3 symptomatic treatment dc planning Subjective ROS Limited/Unobtainable: No Constitutional: Reports: no symptoms HEENT: Repors: no symptoms Allergies: Coded Allergies: DIVALPROEX SODIUM (Verified Allergy, Unknown, 11/29/18) HALOPERIDOL (Verified Allergy, Unknown, 11/29/18) IBUPROFEN (Verified Allergy, Unknown, 11/29/18) KETOROLAC (Verified Allergy, Unknown, 11/29/18) METOPROLOL (Verified Allergy, Unknown, 11/29/18) MORPHINE (Verified Allergy, Unknown, 11/29/18) TRAZODONE (Verified Allergy, Unknown, 11/29/18) Uncoded Allergies: NSAIDS (Allergy, Unknown, 11/29/18) Objective Last 24 Hour Vital Signs Date Time Temp Pulse Resp B/P (MAP) Pulse Ox O2 Delivery O2 Flow Rate FiO2 12/09/18 12:00 98.8 82 18 125/73 (90) 96 12/09/18 10:00 98.1 12/09/18 10:00 98.1 12/09/18 09:00 Room Air 12/09/18 08:00 98.1 63 18 85/51 (62) 96 12/09/18 07:00 Nasal Cannula 2.0 28 12/09/18 07:00 72 20 Nasal Cannula 2.0 28 12/09/18 00:00 98.2 76 20 118/77 (91) 97 12/08/18 23:29 Nasal Cannula 2.0 28 12/08/18 23:29 99 Nasal Cannula 2.0 28 12/08/18 23:28 72 20 Room Air 21 12/08/18 21:00 Room Air 12/08/18 20:00 98.9 82 20 124/74 (91) 96 12/08/18 16:00 99.0 85 19 125/81 (96) 98 Intake and Output 12/08/18 12/09/18 18:59 06:59 Intake Total 630 ml 2000 ml Balance 630 ml 2000 ml Intake Oral 300 ml 2000 ml IV Total 330 ml # Voids 2 3 # Bowel Movements 1 1 Objective General Appearance: WD/WN HEENT: normocephalic, atraumatic Respiratory/Chest: chest wall non-tender, lungs clear Breasts: no masses Cardiovascular: normal peripheral pulses Abdomen: normal bowel sounds, no organomegaly Genitourinary: normal external genitalia Skin: no lesions Laboratory Tests 12/09/18 05:15: White Blood Count 5.3, Red Blood Count 3.78L, Hemoglobin 12.1, Hematocrit 36.4L , Mean Corpuscular Volume 96, Mean Corpuscular Hemoglobin 32.1H, Mean Corpuscular Hemoglobin Concent 33.3, Red Cell Distribution Width 12.1, Platelet Count 367, Mean Platelet Volume 5.4L, Neutrophils (%) (Auto) 52.5, Lymphocytes ( %) (Auto) 40.0, Monocytes (%) (Auto) 4.4, Eosinophils (%) (Auto) 2.0, Basophils (%) (Auto) 1.0, Sodium Level 139, Potassium Level 4.1, Chloride Level 104, Carbon Dioxide Level 31, Anion Gap 4L, Blood Urea Nitrogen 8, Creatinine 0.7, Estimat Glomerular Filtration Rate > 60, Glucose Level 77, Calcium Level 8.9 Current Medications Medications (Trade) Dose Ordered Sig/Gaby Route PRN Reason Start Time Stop Time Status Last Admin Dose Admin Acetaminophen (Tylenol) 650 mg Q4H PRN ORAL fever 12/04/18 07:00 01/03/19 06:59 Acetaminophen/ Hydrocodone Bitart ([place] 10/325) 1 tab Q4H PRN ORAL Moderate Pain (Pain Scale 4-6) 12/04/18 09:15 12/11/18 09:14 12/04/18 15:54 Alprazolam (Xanax) 1 mg QIDPRN PRN ORAL For Anxiety 12/04/18 13:30 12/11/18 13:29 12/09/18 10:34 Ampicillin Sodium/ Sulbactam Sodium 3 gm/Sodium Chloride 110 ml @ 220 mls/hr Q6H IVPB 12/04/18 14:00 12/11/18 13:59 12/09/18 09:15 Dextrose (Dextrose 50%) 25 ml Q30M PRN IV Hypoglycemia 12/04/18 07:00 01/03/19 06:59 Dextrose (Dextrose 50%) 50 ml Q30M PRN IV Hypoglycemia 12/04/18 07:00 01/03/19 06:59 Heparin Sodium (Porcine) (Heparin 5000 units/ml) 5,000 units EVERY 12 HOURS SUBQ 12/04/18 09:00 01/03/19 08:59 12/09/18 09:17 Hydromorphone HCl (Dilaudid) 3 mg Q3H PRN IV Severe Pain (Pain Scale 7-10) 12/05/18 11:30 12/12/18 11:29 12/09/18 12:27 Hydroxyzine HCl (Vistaril) 10 mg Q3H PRN ORAL Itching 12/06/18 18:00 01/05/19 17:59 12/09/18 12:27 Levothyroxine Sodium (Synthroid) 112 mcg DAILY@0630 ORAL 12/05/18 06:30 01/04/19 06:29 12/08/18 05:57 Lorazepam (Ativan) 1 mg Q6H PRN ORAL For Anxiety 12/05/18 14:45 12/12/18 14:44 12/06/18 02:27 Nicotine (Nicoderm) 1 patch Q24H TDERMAL 12/04/18 09:00 01/03/19 08:59 Nitroglycerin (Ntg) 0.4 mg Q5M PRN SL Prn Chest Pain 12/04/18 07:00 01/03/19 06:59 Ondansetron HCl (Zofran) 4 mg Q6H PRN IVP Nausea & Vomiting 12/04/18 07:00 01/03/19 06:59 Polyethylene Glycol (Miralax) 17 gm DAILYPRN PRN ORAL Constipation 12/04/18 07:00 01/03/19 06:59 Sertraline HCl (Zoloft) 25 mg DAILY ORAL 12/05/18 09:00 01/04/19 08:59 12/09/18 09:16 Temazepam (Restoril) 15 mg HSPRN PRN ORAL Insomnia 12/04/18 07:00 12/11/18 06:59 12/05/18 21:00 Tizanidine HCl (Zanaflex) 4 mg Q4H PRN ORAL muscle spasm 12/07/18 21:00 01/06/19 20:59 12/09/18 10:34 Ziprasidone (Geodon) 40 mg QPM ORAL 12/05/18 16:30 01/04/19 16:29 Chrissie Purdy MD Dec 09, 2018 14:03
[2018-12-09] MEDS: LORazepam 1mg tab ORAL PRN (14:43)
--- NOTE | 2018-12-09 15:01 | Infectious Diseases Prog Note ---
Assessment/Plan Assessment/Plan Assessment: R facial cellulitis- from either infected teeth and R maxillary sinusitis -wound cx from cavity: usual bekah -CT facial bones: No acute injury appreciated. No abscess identified.Right maxillary sinusitis.Incidental 1 cm enhancing mass associated with the anterior interhemispheric fissure.This is most likely meningioma. Suggest confirmation with the MRI with and without gadolinium Afebrile NO leukocytosis uterine CA s/p radiation -CT abd/p:Nonobstructive right upper pole renal calculi, as described. No findings to explain stated clinical history of pain while urinating. 9 mm low- attenuation right lobe liver lesion, probably not cystic and therefore neoplasm a possibility. Consider follow-up with liver specific MRI. Moderate retained colonic stool. Correlate with any clinical history of constipation. Postsurgical changes, including prior sternotomy, prior cholecystectomy. Right basilar pulmonary parenchymal scarring Plan: -Continue Unasyn # 6/ , upon DC will change to Augmentin to complete the course -12/04 SP IV Vancomycin and Cefepime #1 -f/u cx -Monitor CBC/CMP, temperatures -Needs to f/u with dentist as outpatient for removal of damaged/infected teeth. Subjective Allergies: Coded Allergies: DIVALPROEX SODIUM (Verified Allergy, Unknown, 11/29/18) HALOPERIDOL (Verified Allergy, Unknown, 11/29/18) IBUPROFEN (Verified Allergy, Unknown, 11/29/18) KETOROLAC (Verified Allergy, Unknown, 11/29/18) METOPROLOL (Verified Allergy, Unknown, 11/29/18) MORPHINE (Verified Allergy, Unknown, 11/29/18) TRAZODONE (Verified Allergy, Unknown, 11/29/18) Uncoded Allergies: NSAIDS (Allergy, Unknown, 11/29/18) Subjective afebrile no leukocytosis Objective Vital Signs Last 24 Hour Vital Signs Date Time Temp Pulse Resp B/P (MAP) Pulse Ox O2 Delivery O2 Flow Rate FiO2 12/09/18 12:57 98.8 12/09/18 12:00 98.8 82 18 125/73 (90) 96 12/09/18 10:00 98.1 12/09/18 09:00 Room Air 12/09/18 08:00 98.1 63 18 85/51 (62) 96 12/09/18 07:00 Nasal Cannula 2.0 28 12/09/18 07:00 72 20 Nasal Cannula 2.0 28 12/09/18 00:00 98.2 76 20 118/77 (91) 97 12/08/18 23:29 Nasal Cannula 2.0 28 12/08/18 23:29 99 Nasal Cannula 2.0 28 12/08/18 23:28 72 20 Room Air 21 12/08/18 21:00 Room Air 12/08/18 20:00 98.9 82 20 124/74 (91) 96 12/08/18 16:00 99.0 85 19 125/81 (96) 98 Height (Feet): 5 Height (Inches): 8.00 Weight (Pounds): 141 Objective General Appearance: Chronically Ill Eyes: bilateral eye PERRL ENT: other - poor dentition with multiple cracked teeth Neck: limited range of motion Respiratory: lungs clear, normal breath sounds Cardiovascular #1: normal inspection Gastrointestinal: normal inspection Musculoskeletal: normal inspection Neurologic: normal inspection, alert, oriented x3, responsive Laboratory Tests Test 12/09/18 05:15 White Blood Count 5.3 K/UL (4.8-10.8) Red Blood Count 3.78 M/UL (4.20-5.40) L Hemoglobin 12.1 G/DL (12.0-16.0) Hematocrit 36.4 % (37.0-47.0) L Mean Corpuscular Volume 96 FL (80-99) Mean Corpuscular Hemoglobin 32.1 PG (27.0-31.0) H Mean Corpuscular Hemoglobin Concent 33.3 G/DL (32.0-36.0) Red Cell Distribution Width 12.1 % (11.6-14.8) Platelet Count 367 K/UL (150-450) Mean Platelet Volume 5.4 FL (6.5-10.1) L Neutrophils (%) (Auto) 52.5 % (45.0-75.0) Lymphocytes (%) (Auto) 40.0 % (20.0-45.0) Monocytes (%) (Auto) 4.4 % (1.0-10.0) Eosinophils (%) (Auto) 2.0 % (0.0-3.0) Basophils (%) (Auto) 1.0 % (0.0-2.0) Sodium Level 139 MMOL/L (136-145) Potassium Level 4.1 MMOL/L (3.5-5.1) Chloride Level 104 MMOL/L (98-107) Carbon Dioxide Level 31 MMOL/L (21-32) Anion Gap 4 mmol/L (5-15) L Blood Urea Nitrogen 8 mg/dL (7-18) Creatinine 0.7 MG/DL (0.55-1.30) Estimat Glomerular Filtration Rate > 60 mL/min (>60) Glucose Level 77 MG/DL (74-106) Calcium Level 8.9 MG/DL (8.5-10.1) Current Medications Medications (Trade) Dose Ordered Sig/Gaby Route PRN Reason Start Time Stop Time Status Last Admin Dose Admin Acetaminophen (Tylenol) 650 mg Q4H PRN ORAL fever 12/04/18 07:00 01/03/19 06:59 Acetaminophen/ Hydrocodone Bitart ([place] 10/325) 1 tab Q4H PRN ORAL Moderate Pain (Pain Scale 4-6) 12/04/18 09:15 12/11/18 09:14 12/04/18 15:54 Alprazolam (Xanax) 1 mg QIDPRN PRN ORAL For Anxiety 12/04/18 13:30 12/11/18 13:29 12/09/18 10:34 Ampicillin Sodium/ Sulbactam Sodium 3 gm/Sodium Chloride 110 ml @ 220 mls/hr Q6H IVPB 12/04/18 14:00 12/11/18 13:59 12/09/18 14:43 Dextrose (Dextrose 50%) 25 ml Q30M PRN IV Hypoglycemia 12/04/18 07:00 01/03/19 06:59 Dextrose (Dextrose 50%) 50 ml Q30M PRN IV Hypoglycemia 12/04/18 07:00 01/03/19 06:59 Heparin Sodium (Porcine) (Heparin 5000 units/ml) 5,000 units EVERY 12 HOURS SUBQ 12/04/18 09:00 01/03/19 08:59 12/09/18 09:17 Hydromorphone HCl (Dilaudid) 3 mg Q3H PRN IV Severe Pain (Pain Scale 7-10) 12/05/18 11:30 12/12/18 11:29 12/09/18 12:27 Hydroxyzine HCl (Vistaril) 10 mg Q3H PRN ORAL Itching 12/06/18 18:00 01/05/19 17:59 12/09/18 12:27 Levothyroxine Sodium (Synthroid) 112 mcg DAILY@0630 ORAL 12/05/18 06:30 01/04/19 06:29 12/08/18 05:57 Lorazepam (Ativan) 1 mg Q6H PRN ORAL For Anxiety 12/05/18 14:45 12/12/18 14:44 12/09/18 14:43 Nicotine (Nicoderm) 1 patch Q24H TDERMAL 12/04/18 09:00 01/03/19 08:59 Nitroglycerin (Ntg) 0.4 mg Q5M PRN SL Prn Chest Pain 12/04/18 07:00 01/03/19 06:59 Ondansetron HCl (Zofran) 4 mg Q6H PRN IVP Nausea & Vomiting 12/04/18 07:00 01/03/19 06:59 Polyethylene Glycol (Miralax) 17 gm DAILYPRN PRN ORAL Constipation 12/04/18 07:00 01/03/19 06:59 Sertraline HCl (Zoloft) 25 mg DAILY ORAL 12/05/18 09:00 01/04/19 08:59 12/09/18 09:16 Temazepam (Restoril) 15 mg HSPRN PRN ORAL Insomnia 12/04/18 07:00 12/11/18 06:59 12/05/18 21:00 Tizanidine HCl (Zanaflex) 4 mg Q4H PRN ORAL muscle spasm 12/07/18 21:00 01/06/19 20:59 12/09/18 14:44 Ziprasidone (Geodon) 40 mg QPM ORAL 12/05/18 16:30 01/04/19 16:29 Bridgette Carrizales M.D. Dec 09, 2018 15:01
[2018-12-09 16:00] VITALS: BP 109/64
--- NOTE | 2018-12-09 16:42 | NUR ---
NURSE NOTE Resting quietly, with no current complaints of pain.
[2018-12-09] MEDS: Ziprasidone 20mg cap ORAL SCH ×2 (16:43→16:45)
--- NOTE | 2018-12-09 19:38 | NUR ---
HAND-OFF: Report given to Sofie BERRY, pt instable condition.
[2018-12-09 20:00] VITALS: BP 121/72
--- NOTE | 2018-12-09 20:06 | NUR ---
NURSE NOTES: Recvd pt. Pt is awake and alert. Pt c/o pain and asking for dilaudid. Pt is on room air with no sign of sob or resp distress. CM- pending SNF placement. Will continue with plan of care
--- NOTE | 2018-12-09 23:33 | General Progress Note ---
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 Suggest confirmation with the MRI with and without gadolinium --> Ct of the face reveals: extra-axial hyperdense mass associated with the anterior aspect of the interhemispheric fissure most likely representing a meningioma. ==> abx as per id # UTI is on abx --> UA reviewed The timing of this note does not necessarily reflect the time of the patient was seen. Greatly appreciate consultation! Subjective Constitutional: Denies: no symptoms, chills, diaphoresis, fever, malaise, weakness, other HEENT: Denies: no symptoms, eye pain, blurred vision, tearing, double vision, ear pain, ear discharge, nose pain, nose congestion, throat pain, throat swelling, mouth pain, mouth swelling, other Cardiovascular: Denies: no symptoms, chest pain, edema, irregular heart rate, lightheadedness, palpitations, syncope, other Respiratory: Denies: no symptoms, cough, orthopnea, shortness of breath, SOB with excertion, SOB at rest, sputum, stridor, wheezing, other Gastrointestinal/Abdominal: Denies: no symptoms, abdomen distended, abdominal pain, black stools, tarry stools, blood in stool, constipated, diarrhea, difficulty swallowing, nausea, poor appetite, poor fluid intake, rectal bleeding , vomiting, other Genitourinary: Denies: no symptoms, burning, discharge, frequency, flank pain, hematuria, incontinence, pain, urgency, other Neurologic/Psychiatric: Denies: no symptoms, anxiety, depressed, emotional problems, headache, numbness, paresthesia, pre-existing deficit, seizure, tingling, tremors, weakness, other Endocrine: Denies: no symptoms, excessive sweating, flushing, intolerance to cold, intolerance to heat, increased hunger, increased thirst, increased urine, unexplained weight gain, unexplained weight loss, other Hematologic/Lymphatic: Denies: no symptoms, anemia, easy bleeding, easy bruising, other Allergies: Coded Allergies: DIVALPROEX SODIUM (Verified Allergy, Unknown, 11/29/18) HALOPERIDOL (Verified Allergy, Unknown, 11/29/18) IBUPROFEN (Verified Allergy, Unknown, 11/29/18) KETOROLAC (Verified Allergy, Unknown, 11/29/18) METOPROLOL (Verified Allergy, Unknown, 11/29/18) MORPHINE (Verified Allergy, Unknown, 11/29/18) TRAZODONE (Verified Allergy, Unknown, 11/29/18) Uncoded Allergies: NSAIDS (Allergy, Unknown, 11/29/18) Subjective 12/05: seen by beside, awake, complains of pain, cbc reviewed, Ct of the face reveals: extra-axial hyperdense mass associated with the anterior aspect of the interhemispheric fissure most likely representing a meningioma. 12/06: seen by bed side, complains of facial pain. no events 12/08: continues to have headache, no chest pain, no f/c 12/09: awake, comfortable, no acute distress Objective Last 24 Hour Vital Signs Date Time Temp Pulse Resp B/P (MAP) Pulse Ox O2 Delivery O2 Flow Rate FiO2 12/09/18 21:00 Room Air 12/09/18 20:07 99.4 12/09/18 20:00 99.1 83 18 121/72 (88) 95 12/09/18 17:22 99.4 12/09/18 16:00 99.4 84 18 109/64 (79) 96 12/09/18 14:55 Nasal Cannula 2.0 28 12/09/18 12:00 98.8 82 18 125/73 (90) 96 12/09/18 09:00 Room Air 12/09/18 08:00 98.1 63 18 85/51 (62) 96 12/09/18 07:00 Nasal Cannula 2.0 28 12/09/18 07:00 72 20 Nasal Cannula 2.0 28 12/09/18 00:00 98.2 76 20 118/77 (91) 97 Intake and Output 12/08/18 12/09/18 19:00 07:00 Intake Total 630 ml 2000 ml Balance 630 ml 2000 ml Intake Oral 300 ml 2000 ml IV Total 330 ml # Voids 2 3 # Bowel Movements 1 1 Laboratory Tests 12/09/18 05:15: White Blood Count 5.3, Red Blood Count 3.78L, Hemoglobin 12.1, Hematocrit 36.4L , Mean Corpuscular Volume 96, Mean Corpuscular Hemoglobin 32.1H, Mean Corpuscular Hemoglobin Concent 33.3, Red Cell Distribution Width 12.1, Platelet Count 367, Mean Platelet Volume 5.4L, Neutrophils (%) (Auto) 52.5, Lymphocytes ( %) (Auto) 40.0, Monocytes (%) (Auto) 4.4, Eosinophils (%) (Auto) 2.0, Basophils (%) (Auto) 1.0, Sodium Level 139, Potassium Level 4.1, Chloride Level 104, Carbon Dioxide Level 31, Anion Gap 4L, Blood Urea Nitrogen 8, Creatinine 0.7, Estimat Glomerular Filtration Rate > 60, Glucose Level 77, Calcium Level 8.9 Height (Feet): 5 Height (Inches): 8.00 Weight (Pounds): 141 Objective Physical Exam Physical Exam Narrative General Appearance: Chronically Ill Eyes: bilateral eye PERRL ENT: poor dentition with multiple cracked teeth Neck: limited range of motion Respiratory: lungs clear, normal breath sounds Cardiovascular: normal inspection Gastrointestinal: normal inspection Musculoskeletal: normal inspection Neurologic: normal inspection, alert, oriented x3, responsive Rudy Angela MD Dec 09, 2018 23:33
[2018-12-10] VITALS: BP 102/67
[2018-12-10] MEDS: Ampicillin/Sulbactam Sod 3 GM in NS 110 ML IVPB SCH ×4 (02:12→20:53)
[2018-12-10] MEDS: ALPRAZolam 0.5mg tab ORAL PRN ×3 (02:13→16:20)
[2018-12-10 04:00] VITALS: BP 115/74
--- NOTE | 2018-12-10 07:33 | NUR ---
NURSE NOTES: WALKING ROUNDS DONE WITH OUTGOING RN. PATIENT AWAKE AT BEDSIDE.QUESTIONS ANSWERED. DISCUSSED PLAN OF CARE FOR THE DAY.VERBALIZED UNDERSTANDING. CALL LIGHT WITHIN REACH.
[2018-12-10 07:55] LABS: BASOPHILS % (AUTO) 0.9 % (0.0-2.0); EOSINOPHILS % (AUTO) 1.9 % (0.0-3.0); HEMATOCRIT 38.6 % (37.0-47.0); LYMPHOCYTES % (AUTO) 30.7 % (20.0-45.0); MEAN CORPUSCULAR VOLUME 96 FL (80-99); MONOCYTES % (AUTO) 5.7 % (1.0-10.0); NEUTROPHILS % (AUTO) 60.9 % (45.0-75.0); PLATELET COUNT 374 K/UL (150-450); RED BLOOD COUNT 4.04 M/UL (4.20-5.40); RED CELL DISTRIBUTION WIDTH 11.9 % (11.6-14.8); WHITE BLOOD COUNT 7.1 K/UL (4.8-10.8)
[2018-12-10 08:00] VITALS: BP 143/75
[2018-12-10 08:21] LABS: ANION GAP 11 mmol/L (5-15); BLOOD UREA NITROGEN 11 mg/dL (7-18); CARBON DIOXIDE 25 MMOL/L (21-32); CHLORIDE 102 MMOL/L (98-107); CREATININE 0.8 MG/DL (0.55-1.30); POTASSIUM 3.7 MMOL/L (3.5-5.1); SODIUM 137 MMOL/L (136-145)
[2018-12-10] MEDS: Heparin 5000 units/ml inj SUBQ SCH ×2 (09:00→21:00)
[2018-12-10] MEDS: Sertraline 50mg tab ORAL SCH (09:04)
--- NOTE | 2018-12-10 12:25 | Infectious Diseases Prog Note ---
Assessment/Plan Assessment/Plan Assessment: R facial cellulitis- from either infected teeth and R maxillary sinusitis -wound cx from cavity: usual bekah -CT facial bones: No acute injury appreciated. No abscess identified.Right maxillary sinusitis.Incidental 1 cm enhancing mass associated with the anterior interhemispheric fissure.This is most likely meningioma. Suggest confirmation with the MRI with and without gadolinium Afebrile NO leukocytosis uterine CA s/p radiation -CT abd/p:Nonobstructive right upper pole renal calculi, as described. No findings to explain stated clinical history of pain while urinating. 9 mm low- attenuation right lobe liver lesion, probably not cystic and therefore neoplasm a possibility. Consider follow-up with liver specific MRI. Moderate retained colonic stool. Correlate with any clinical history of constipation. Postsurgical changes, including prior sternotomy, prior cholecystectomy. Right basilar pulmonary parenchymal scarring Plan: -Continue Unasyn # / , upon DC will change to Augmentin to complete the course -12/04 SP IV Vancomycin and Cefepime #1 -f/u cx -Monitor CBC/CMP, temperatures -Needs to f/u with dentist as outpatient for removal of damaged/infected teeth. Subjective Allergies: Coded Allergies: DIVALPROEX SODIUM (Verified Allergy, Unknown, 11/29/18) HALOPERIDOL (Verified Allergy, Unknown, 11/29/18) IBUPROFEN (Verified Allergy, Unknown, 11/29/18) KETOROLAC (Verified Allergy, Unknown, 11/29/18) METOPROLOL (Verified Allergy, Unknown, 11/29/18) MORPHINE (Verified Allergy, Unknown, 11/29/18) TRAZODONE (Verified Allergy, Unknown, 11/29/18) Uncoded Allergies: NSAIDS (Allergy, Unknown, 11/29/18) Subjective afebrile no leukocytosis refused one dose of Unasyn Objective Vital Signs Last 24 Hour Vital Signs Date Time Temp Pulse Resp B/P (MAP) Pulse Ox O2 Delivery O2 Flow Rate FiO2 12/10/18 09:10 98.8 12/10/18 09:10 98.8 12/10/18 09:00 Room Air 12/10/18 08:00 98.7 94 18 143/75 (97) 95 95 12/10/18 04:00 98.8 83 17 115/74 (88) 95 12/10/18 00:00 98.8 75 16 102/67 (79) 96 12/09/18 21:00 Room Air 12/09/18 20:00 99.1 83 18 121/72 (88) 95 12/09/18 16:00 99.4 84 18 109/64 (79) 96 12/09/18 14:55 Nasal Cannula 2.0 28 Height (Feet): 5 Height (Inches): 8.00 Weight (Pounds): 141 Objective General Appearance: Chronically Ill Eyes: bilateral eye PERRL ENT: other - poor dentition with multiple cracked teeth Neck: limited range of motion Respiratory: lungs clear, normal breath sounds Cardiovascular #1: normal inspection Gastrointestinal: normal inspection Musculoskeletal: normal inspection Neurologic: normal inspection, alert, oriented x3, responsive Laboratory Tests Test 12/10/18 07:23 White Blood Count 7.1 K/UL (4.8-10.8) Red Blood Count 4.04 M/UL (4.20-5.40) L Hemoglobin 13.0 G/DL (12.0-16.0) Hematocrit 38.6 % (37.0-47.0) Mean Corpuscular Volume 96 FL (80-99) Mean Corpuscular Hemoglobin 32.3 PG (27.0-31.0) H Mean Corpuscular Hemoglobin Concent 33.8 G/DL (32.0-36.0) Red Cell Distribution Width 11.9 % (11.6-14.8) Platelet Count 374 K/UL (150-450) Mean Platelet Volume 5.2 FL (6.5-10.1) L Neutrophils (%) (Auto) 60.9 % (45.0-75.0) Lymphocytes (%) (Auto) 30.7 % (20.0-45.0) Monocytes (%) (Auto) 5.7 % (1.0-10.0) Eosinophils (%) (Auto) 1.9 % (0.0-3.0) Basophils (%) (Auto) 0.9 % (0.0-2.0) Sodium Level 137 MMOL/L (136-145) Potassium Level 3.7 MMOL/L (3.5-5.1) Chloride Level 102 MMOL/L (98-107) Carbon Dioxide Level 25 MMOL/L (21-32) Anion Gap 11 mmol/L (5-15) Blood Urea Nitrogen 11 mg/dL (7-18) Creatinine 0.8 MG/DL (0.55-1.30) Estimat Glomerular Filtration Rate > 60 mL/min (>60) Glucose Level 117 MG/DL (74-106) H Calcium Level 9.0 MG/DL (8.5-10.1) Current Medications Medications (Trade) Dose Ordered Sig/Gaby Route PRN Reason Start Time Stop Time Status Last Admin Dose Admin Acetaminophen (Tylenol) 650 mg Q4H PRN ORAL fever 12/04/18 07:00 01/03/19 06:59 Acetaminophen/ Hydrocodone Bitart ([place] 10/325) 1 tab Q4H PRN ORAL Moderate Pain (Pain Scale 4-6) 12/04/18 09:15 12/11/18 09:14 12/04/18 15:54 Alprazolam (Xanax) 1 mg QIDPRN PRN ORAL For Anxiety 12/04/18 13:30 12/11/18 13:29 12/10/18 08:12 Ampicillin Sodium/ Sulbactam Sodium 3 gm/Sodium Chloride 110 ml @ 220 mls/hr Q6H IVPB 12/04/18 14:00 12/13/18 23:59 12/10/18 09:03 Dextrose (Dextrose 50%) 25 ml Q30M PRN IV Hypoglycemia 12/04/18 07:00 01/03/19 06:59 Dextrose (Dextrose 50%) 50 ml Q30M PRN IV Hypoglycemia 12/04/18 07:00 01/03/19 06:59 Heparin Sodium (Porcine) (Heparin 5000 units/ml) 5,000 units EVERY 12 HOURS SUBQ 12/04/18 09:00 01/03/19 08:59 12/09/18 20:33 Hydromorphone HCl (Dilaudid) 3 mg Q3H PRN IV Severe Pain (Pain Scale 7-10) 12/05/18 11:30 12/12/18 11:29 12/10/18 09:05 Hydroxyzine HCl (Vistaril) 10 mg Q3H PRN ORAL Itching 12/06/18 18:00 01/05/19 17:59 12/10/18 09:03 Levothyroxine Sodium (Synthroid) 112 mcg DAILY@0630 ORAL 12/05/18 06:30 01/04/19 06:29 12/10/18 06:03 Lorazepam (Ativan) 1 mg Q6H PRN ORAL For Anxiety 12/05/18 14:45 12/12/18 14:44 12/09/18 14:43 Nicotine (Nicoderm) 1 patch Q24H TDERMAL 12/04/18 09:00 01/03/19 08:59 Nitroglycerin (Ntg) 0.4 mg Q5M PRN SL Prn Chest Pain 12/04/18 07:00 01/03/19 06:59 Ondansetron HCl (Zofran) 4 mg Q6H PRN IVP Nausea & Vomiting 12/04/18 07:00 01/03/19 06:59 Polyethylene Glycol (Miralax) 17 gm DAILYPRN PRN ORAL Constipation 12/04/18 07:00 01/03/19 06:59 Sertraline HCl (Zoloft) 25 mg DAILY ORAL 12/05/18 09:00 01/04/19 08:59 12/10/18 09:04 Temazepam (Restoril) 15 mg HSPRN PRN ORAL Insomnia 12/04/18 07:00 12/11/18 06:59 12/10/18 00:29 Tizanidine HCl (Zanaflex) 4 mg Q4H PRN ORAL muscle spasm 12/07/18 21:00 01/06/19 20:59 12/10/18 08:11 Ziprasidone (Geodon) 40 mg QPM ORAL 12/05/18 16:30 01/04/19 16:29 Bridgette Carrizales M.D. Dec 10, 2018 12:25
--- NOTE | 2018-12-10 13:11 | Pulmonology Progress Note ---
Assessment/Plan Problems: (1) Facial cellulitis (2) Dental abscess Assessment/Plan crying improving jansen cultures iv abx ID evaluation check electrolytes increase dilaudid to q3 symptomatic treatment GI to evaluate. 9 mm low-attenuation right lobe liver lesion, probably not cystic and therefore neoplasm a possibility. Consider follow-up with liver specific MRI Subjective ROS Limited/Unobtainable: No Interval Events: crying again Allergies: Coded Allergies: DIVALPROEX SODIUM (Verified Allergy, Unknown, 11/29/18) HALOPERIDOL (Verified Allergy, Unknown, 11/29/18) IBUPROFEN (Verified Allergy, Unknown, 11/29/18) KETOROLAC (Verified Allergy, Unknown, 11/29/18) METOPROLOL (Verified Allergy, Unknown, 11/29/18) MORPHINE (Verified Allergy, Unknown, 11/29/18) TRAZODONE (Verified Allergy, Unknown, 11/29/18) Uncoded Allergies: NSAIDS (Allergy, Unknown, 11/29/18) Objective Last 24 Hour Vital Signs Date Time Temp Pulse Resp B/P (MAP) Pulse Ox O2 Delivery O2 Flow Rate FiO2 12/10/18 09:10 98.8 12/10/18 09:10 98.8 12/10/18 09:00 Room Air 12/10/18 08:00 98.7 94 18 143/75 (97) 95 95 12/10/18 04:00 98.8 83 17 115/74 (88) 95 12/10/18 00:00 98.8 75 16 102/67 (79) 96 12/09/18 21:00 Room Air 12/09/18 20:00 99.1 83 18 121/72 (88) 95 12/09/18 16:00 99.4 84 18 109/64 (79) 96 12/09/18 14:55 Nasal Cannula 2.0 28 Intake and Output 12/09/18 12/10/18 19:00 07:00 Intake Total 2500 ml 1500 ml Balance 2500 ml 1500 ml Intake Oral 2500 ml 1500 ml # Voids 4 Objective General Appearance: WD/WN HEENT: normocephalic, atraumatic Respiratory/Chest: chest wall non-tender, lungs clear Breasts: no masses Cardiovascular: normal peripheral pulses Abdomen: normal bowel sounds, no organomegaly Genitourinary: normal external genitalia Skin: no lesions Laboratory Tests 12/10/18 07:23: White Blood Count 7.1, Red Blood Count 4.04L, Hemoglobin 13.0, Hematocrit 38.6, Mean Corpuscular Volume 96, Mean Corpuscular Hemoglobin 32.3H, Mean Corpuscular Hemoglobin Concent 33.8, Red Cell Distribution Width 11.9, Platelet Count 374, Mean Platelet Volume 5.2L, Neutrophils (%) (Auto) 60.9, Lymphocytes (%) (Auto) 30.7, Monocytes (%) (Auto) 5.7, Eosinophils (%) (Auto) 1.9, Basophils (%) (Auto ) 0.9, Sodium Level 137, Potassium Level 3.7, Chloride Level 102, Carbon Dioxide Level 25, Anion Gap 11, Blood Urea Nitrogen 11, Creatinine 0.8, Estimat Glomerular Filtration Rate > 60, Glucose Level 117H, Calcium Level 9.0 Current Medications Medications (Trade) Dose Ordered Sig/Gaby Route PRN Reason Start Time Stop Time Status Last Admin Dose Admin Acetaminophen (Tylenol) 650 mg Q4H PRN ORAL fever 12/04/18 07:00 01/03/19 06:59 Acetaminophen/ Hydrocodone Bitart ([place] 10/325) 1 tab Q4H PRN ORAL Moderate Pain (Pain Scale 4-6) 12/04/18 09:15 12/11/18 09:14 12/04/18 15:54 Alprazolam (Xanax) 1 mg QIDPRN PRN ORAL For Anxiety 12/04/18 13:30 12/11/18 13:29 12/10/18 08:12 Ampicillin Sodium/ Sulbactam Sodium 3 gm/Sodium Chloride 110 ml @ 220 mls/hr Q6H IVPB 12/04/18 14:00 12/13/18 23:59 12/10/18 09:03 Dextrose (Dextrose 50%) 25 ml Q30M PRN IV Hypoglycemia 12/04/18 07:00 01/03/19 06:59 Dextrose (Dextrose 50%) 50 ml Q30M PRN IV Hypoglycemia 12/04/18 07:00 01/03/19 06:59 Heparin Sodium (Porcine) (Heparin 5000 units/ml) 5,000 units EVERY 12 HOURS SUBQ 12/04/18 09:00 01/03/19 08:59 12/09/18 20:33 Hydromorphone HCl (Dilaudid) 3 mg Q3H PRN IV Severe Pain (Pain Scale 7-10) 12/05/18 11:30 12/12/18 11:29 12/10/18 12:32 Hydroxyzine HCl (Vistaril) 10 mg Q3H PRN ORAL Itching 12/06/18 18:00 01/05/19 17:59 12/10/18 12:31 Levothyroxine Sodium (Synthroid) 112 mcg DAILY@0630 ORAL 12/05/18 06:30 01/04/19 06:29 12/10/18 06:03 Lorazepam (Ativan) 1 mg Q6H PRN ORAL For Anxiety 12/05/18 14:45 12/12/18 14:44 12/09/18 14:43 Nicotine (Nicoderm) 1 patch Q24H TDERMAL 12/04/18 09:00 01/03/19 08:59 Nitroglycerin (Ntg) 0.4 mg Q5M PRN SL Prn Chest Pain 12/04/18 07:00 01/03/19 06:59 Ondansetron HCl (Zofran) 4 mg Q6H PRN IVP Nausea & Vomiting 12/04/18 07:00 01/03/19 06:59 Polyethylene Glycol (Miralax) 17 gm DAILYPRN PRN ORAL Constipation 12/04/18 07:00 01/03/19 06:59 Sertraline HCl (Zoloft) 25 mg DAILY ORAL 12/05/18 09:00 01/04/19 08:59 12/10/18 09:04 Temazepam (Restoril) 15 mg HSPRN PRN ORAL Insomnia 12/04/18 07:00 12/11/18 06:59 12/10/18 00:29 Tizanidine HCl (Zanaflex) 4 mg Q4H PRN ORAL muscle spasm 12/07/18 21:00 01/06/19 20:59 12/10/18 12:32 Ziprasidone (Geodon) 40 mg QPM ORAL 12/05/18 16:30 01/04/19 16:29 Chrissie Purdy MD Dec 10, 2018 13:11
--- NOTE | 2018-12-10 13:58 | General Progress Note ---
Assessment/Plan Problem List: (1) Facial pain ICD Codes: R51 - Headache SNOMED: 00137116 (2) UTI (urinary tract infection) ICD Codes: N39.0 - Urinary tract infection, site not specified SNOMED: 55091603 (3) Brain tumor ICD Codes: D49.6 - Neoplasm of unspecified behavior of brain SNOMED: 430175031 Status: unchanged Assessment/Plan pain control abx heme neuro pain f/u cbc bmp am psyc transfer Subjective Constitutional: Reports: weakness Allergies: Coded Allergies: DIVALPROEX SODIUM (Verified Allergy, Unknown, 11/29/18) HALOPERIDOL (Verified Allergy, Unknown, 11/29/18) IBUPROFEN (Verified Allergy, Unknown, 11/29/18) KETOROLAC (Verified Allergy, Unknown, 11/29/18) METOPROLOL (Verified Allergy, Unknown, 11/29/18) MORPHINE (Verified Allergy, Unknown, 11/29/18) TRAZODONE (Verified Allergy, Unknown, 11/29/18) Uncoded Allergies: NSAIDS (Allergy, Unknown, 11/29/18) All Systems: reviewed and negative except above Subjective sl agitated Objective Last 24 Hour Vital Signs Date Time Temp Pulse Resp B/P (MAP) Pulse Ox O2 Delivery O2 Flow Rate FiO2 12/10/18 09:10 98.8 12/10/18 09:10 98.8 12/10/18 09:00 Room Air 12/10/18 08:00 98.7 94 18 143/75 (97) 95 95 12/10/18 04:00 98.8 83 17 115/74 (88) 95 12/10/18 00:00 98.8 75 16 102/67 (79) 96 12/09/18 21:00 Room Air 12/09/18 20:00 99.1 83 18 121/72 (88) 95 12/09/18 16:00 99.4 84 18 109/64 (79) 96 12/09/18 14:55 Nasal Cannula 2.0 28 Intake and Output 12/09/18 12/10/18 18:59 06:59 Intake Total 2500 ml 1500 ml Balance 2500 ml 1500 ml Intake Oral 2500 ml 1500 ml # Voids 4 Laboratory Tests 12/10/18 07:23: White Blood Count 7.1, Red Blood Count 4.04L, Hemoglobin 13.0, Hematocrit 38.6, Mean Corpuscular Volume 96, Mean Corpuscular Hemoglobin 32.3H, Mean Corpuscular Hemoglobin Concent 33.8, Red Cell Distribution Width 11.9, Platelet Count 374, Mean Platelet Volume 5.2L, Neutrophils (%) (Auto) 60.9, Lymphocytes (%) (Auto) 30.7, Monocytes (%) (Auto) 5.7, Eosinophils (%) (Auto) 1.9, Basophils (%) (Auto ) 0.9, Sodium Level 137, Potassium Level 3.7, Chloride Level 102, Carbon Dioxide Level 25, Anion Gap 11, Blood Urea Nitrogen 11, Creatinine 0.8, Estimat Glomerular Filtration Rate > 60, Glucose Level 117H, Calcium Level 9.0 Height (Feet): 5 Height (Inches): 8.00 Weight (Pounds): 141 General Appearance: lethargic EENT: normal ENT inspection Neck: normal alignment Cardiovascular: normal peripheral pulses, normal rate, regular rhythm Respiratory/Chest: chest wall non-tender, lungs clear, normal breath sounds Abdomen: normal bowel sounds, non tender, soft Extremities: normal inspection Edema: no edema noted Arm (L), no edema noted Arm (R), no edema noted Leg (L), no edema noted Leg (R), no edema noted Pedal (L), no edema noted Pedal (R), no edema noted Generalized Neurologic: responsive, motor weakness Skin: normal pigmentation, warm/dry Cooper London DO Dec 10, 2018 13:58
--- NOTE | 2018-12-10 16:09 | NUR ---
DISCHARGE PLANNING PATIENT IS REFUSING TO RETURN TO [facility] PATIENT HAS BEEN REFERRED TO [facility]
--- NOTE | 2018-12-10 16:16 | NUR ---
*-* DISCHARGE PLANNING *-* PATIENT HAS BEEN REFERRED TO: [facility] P:[phone] F:[phone]
[2018-12-10] MEDS: Ziprasidone 20mg cap ORAL SCH (16:30)
--- NOTE | 2018-12-10 17:53 | General Progress Note ---
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 Suggest confirmation with the MRI with and without gadolinium --> Ct of the face reveals: extra-axial hyperdense mass associated with the anterior aspect of the interhemispheric fissure most likely representing a meningioma. ==> abx as per id # UTI is on abx --> UA reviewed The timing of this note does not necessarily reflect the time of the patient was seen. Greatly appreciate consultation! Subjective Constitutional: Denies: no symptoms, chills, diaphoresis, fever, malaise, weakness, other HEENT: Denies: no symptoms, eye pain, blurred vision, tearing, double vision, ear pain, ear discharge, nose pain, nose congestion, throat pain, throat swelling, mouth pain, mouth swelling, other Cardiovascular: Denies: no symptoms, chest pain, edema, irregular heart rate, lightheadedness, palpitations, syncope, other Respiratory: Denies: no symptoms, cough, orthopnea, shortness of breath, SOB with excertion, SOB at rest, sputum, stridor, wheezing, other Gastrointestinal/Abdominal: Denies: no symptoms, abdomen distended, abdominal pain, black stools, tarry stools, blood in stool, constipated, diarrhea, difficulty swallowing, nausea, poor appetite, poor fluid intake, rectal bleeding , vomiting, other Genitourinary: Denies: no symptoms, burning, discharge, frequency, flank pain, hematuria, incontinence, pain, urgency, other Neurologic/Psychiatric: Denies: no symptoms, anxiety, depressed, emotional problems, headache, numbness, paresthesia, pre-existing deficit, seizure, tingling, tremors, weakness, other Endocrine: Denies: no symptoms, excessive sweating, flushing, intolerance to cold, intolerance to heat, increased hunger, increased thirst, increased urine, unexplained weight gain, unexplained weight loss, other Hematologic/Lymphatic: Denies: no symptoms, anemia, easy bleeding, easy bruising, other Allergies: Coded Allergies: DIVALPROEX SODIUM (Verified Allergy, Unknown, 11/29/18) HALOPERIDOL (Verified Allergy, Unknown, 11/29/18) IBUPROFEN (Verified Allergy, Unknown, 11/29/18) KETOROLAC (Verified Allergy, Unknown, 11/29/18) METOPROLOL (Verified Allergy, Unknown, 11/29/18) MORPHINE (Verified Allergy, Unknown, 11/29/18) TRAZODONE (Verified Allergy, Unknown, 11/29/18) Uncoded Allergies: NSAIDS (Allergy, Unknown, 11/29/18) Subjective 12/05: seen by beside, awake, complains of pain, cbc reviewed, Ct of the face reveals: extra-axial hyperdense mass associated with the anterior aspect of the interhemispheric fissure most likely representing a meningioma. 12/06: seen by bed side, complains of facial pain. no events 3/: continues to have headache, no chest pain, no f/c 3: awake, comfortable, no acute distress 12/10: Pt is awake and alert, c/o pain, pending SNF placement Objective Last 24 Hour Vital Signs Date Time Temp Pulse Resp B/P (MAP) Pulse Ox O2 Delivery O2 Flow Rate FiO2 12/10/18 16:51 98.8 12/10/18 16:51 98.8 12/10/18 09:00 Room Air 12/10/18 08:00 98.7 94 18 143/75 (97) 95 95 12/10/18 04:00 98.8 83 17 115/74 (88) 95 12/10/18 00:00 98.8 75 16 102/67 (79) 96 12/09/18 21:00 Room Air 12/09/18 20:00 99.1 83 18 121/72 (88) 95 Intake and Output 12/09/18 12/10/18 18:59 06:59 Intake Total 2500 ml 1500 ml Balance 2500 ml 1500 ml Intake Oral 2500 ml 1500 ml # Voids 4 Laboratory Tests 12/10/18 07:23: White Blood Count 7.1, Red Blood Count 4.04L, Hemoglobin 13.0, Hematocrit 38.6, Mean Corpuscular Volume 96, Mean Corpuscular Hemoglobin 32.3H, Mean Corpuscular Hemoglobin Concent 33.8, Red Cell Distribution Width 11.9, Platelet Count 374, Mean Platelet Volume 5.2L, Neutrophils (%) (Auto) 60.9, Lymphocytes (%) (Auto) 30.7, Monocytes (%) (Auto) 5.7, Eosinophils (%) (Auto) 1.9, Basophils (%) (Auto ) 0.9, Sodium Level 137, Potassium Level 3.7, Chloride Level 102, Carbon Dioxide Level 25, Anion Gap 11, Blood Urea Nitrogen 11, Creatinine 0.8, Estimat Glomerular Filtration Rate > 60, Glucose Level 117H, Calcium Level 9.0 Height (Feet): 5 Height (Inches): 8.00 Weight (Pounds): 141 Objective Physical Exam Physical Exam Narrative General Appearance: Chronically Ill Eyes: bilateral eye PERRL ENT: poor dentition with multiple cracked teeth Neck: limited range of motion Respiratory: lungs clear, normal breath sounds Cardiovascular: normal inspection Gastrointestinal: normal inspection Musculoskeletal: normal inspection Neurologic: normal inspection, alert, oriented x3, responsive Rudy Angela MD Dec 10, 2018 17:53
--- NOTE | 2018-12-10 18:21 | NUR ---
NURSE NOTES: PATIENT REMAINS STABLE AND CONTINUES TO REFUSE VITALS, HEPARIN AND SOME IV ANTIBIOTICS. STATE SHE WOULD LIKE TO FURTHER DISCUSS HER ILLNESS WITH HER PCP AND CONSULTS BEFORE RECEIVING THESES MEDS. MADE AWARE. NO INTERVENTIONS AT THIS TIME.
--- NOTE | 2018-12-10 19:07 | NUR ---
HAND-OFF: Report given to DEVON Negrete RN.
--- NOTE | 2018-12-10 19:10 | NUR ---
NURSE NOTES: patient received. patient in no acute distress at this time. patient complains of 10/10 pain at this time. see emar. patient awake alert and oriented x4. patient has no IV at this time. will attempt to start one. patient ambulatory and steady. patient bed in lowest position call light within reach. will continue to monitor.
[2018-12-10 20:00] VITALS: BP 115/73
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
[2018-12-11] MEDS: LORazepam 1mg tab ORAL PRN ×3 (02:48→20:31)
[2018-12-11] MEDS: Ampicillin/Sulbactam Sod 3 GM in NS 110 ML IVPB SCH ×4 (02:49→20:31)
--- NOTE | 2018-12-11 07:03 | NUR ---
HAND-OFF: Report given to stephany christianson.
[2018-12-11 07:13] LABS: BASOPHILS % (AUTO) 0.5 % (0.0-2.0); EOSINOPHILS % (AUTO) 2.3 % (0.0-3.0); HEMOGLOBIN 13.3 G/DL (12.0-16.0); LYMPHOCYTES % (AUTO) 30.3 % (20.0-45.0); MEAN CORPUSCULAR VOLUME 96 FL (80-99); MONOCYTES % (AUTO) 5.6 % (1.0-10.0); NEUTROPHILS % (AUTO) 61.4 % (45.0-75.0); PLATELET COUNT 391 K/UL (150-450); RED BLOOD COUNT 4.15 M/UL (4.20-5.40); WHITE BLOOD COUNT 6.4 K/UL (4.8-10.8)
[2018-12-11 07:27] LABS: ANION GAP 5 mmol/L (5-15); BLOOD UREA NITROGEN 11 mg/dL (7-18); CALCIUM 8.8 MG/DL (8.5-10.1); CARBON DIOXIDE 29 MMOL/L (21-32); CHLORIDE 104 MMOL/L (98-107); CREATININE 0.8 MG/DL (0.55-1.30); POTASSIUM 4.2 MMOL/L (3.5-5.1); SODIUM 138 MMOL/L (136-145)
--- NOTE | 2018-12-11 07:35 | NUR ---
NURSE NOTES: Received patient on bed. IV site intact and patent. Bed in low and locked position, call light in reach. No signs of respiratory distress. Room board updated, will continue to monitor.
[2018-12-11 08:00] VITALS: BP 124/84
[2018-12-11] MEDS: Sertraline 50mg tab ORAL SCH (08:58)
[2018-12-11] MEDS: ALPRAZolam 0.5mg tab ORAL PRN (08:58)
[2018-12-11] MEDS: Heparin 5000 units/ml inj SUBQ SCH ×2 (09:00→20:27)
--- NOTE | 2018-12-11 09:07 | NUR ---
CASE MANAGEMENT:REVIEW 12/11/18 SI: RT FACIAL CELLULITIS. UTI H/O UTERINE CANCER 98.2 81 18 115/73 95% ON RA IS: IV AMPICILLIN Q6HRS ZANAFLEX PO Q4HRS PRN VISTARIL PO Q3HRS PRN ITCHING IV DILAUDID Q3HRS PRN PAIN ZOLOFT PO QD SYNTHROID PO QD XANAX PO QID PRN : MED/SURG STATUS 3 EAST
--- NOTE | 2018-12-11 09:12 | NUR ---
DISCHARGE PLANNING PATIENT REFUSES TO RETURN TO [facility] WAS REFERRED TO [facility] YESTERDAY RECEIVED CALL FROM NINFA ([phone]) AT [facility] STATING THEY CAN ACCEPT PATIENT TODAY AFTER 5PM. MESSAGE LEFT FOR DR ARCE REGARDING DISCHARGE
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
[2018-12-11 12:00] VITALS: BP 126/82
--- NOTE | 2018-12-11 12:21 | Pulmonology Progress Note ---
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 9 mm low-attenuation right lobe liver lesion, probably not cystic and therefore neoplasm a possibility. Consider follow-up with liver specific MRI Subjective ROS Limited/Unobtainable: No Constitutional: Reports: no symptoms HEENT: Repors: no symptoms Allergies: Coded Allergies: DIVALPROEX SODIUM (Verified Allergy, Unknown, 11/29/18) HALOPERIDOL (Verified Allergy, Unknown, 11/29/18) IBUPROFEN (Verified Allergy, Unknown, 11/29/18) KETOROLAC (Verified Allergy, Unknown, 11/29/18) METOPROLOL (Verified Allergy, Unknown, 11/29/18) MORPHINE (Verified Allergy, Unknown, 11/29/18) TRAZODONE (Verified Allergy, Unknown, 11/29/18) Uncoded Allergies: NSAIDS (Allergy, Unknown, 11/29/18) Objective Last 24 Hour Vital Signs Date Time Temp Pulse Resp B/P (MAP) Pulse Ox O2 Delivery O2 Flow Rate FiO2 12/11/18 09:00 Room Air 12/11/18 08:00 98.0 87 20 124/84 (97) 96 12/10/18 21:00 Room Air 12/10/18 20:00 98.2 81 18 115/73 (87) 95 81 12/10/18 16:51 98.8 12/10/18 16:51 98.8 Intake and Output 12/10/18 12/11/18 19:00 07:00 Intake Total 720 ml Balance 720 ml Intake Oral 720 ml # Voids 3 3 # Bowel Movements 1 1 Objective General Appearance: WD/WN HEENT: normocephalic, atraumatic Respiratory/Chest: chest wall non-tender, lungs clear Breasts: no masses Cardiovascular: normal peripheral pulses Abdomen: normal bowel sounds, no organomegaly Genitourinary: normal external genitalia Skin: no lesions Laboratory Tests 12/11/18 06:00: White Blood Count 6.4, Red Blood Count 4.15L, Hemoglobin 13.3, Hematocrit 40.0, Mean Corpuscular Volume 96, Mean Corpuscular Hemoglobin 32.1H, Mean Corpuscular Hemoglobin Concent 33.3, Red Cell Distribution Width 12.0, Platelet Count 391, Mean Platelet Volume 5.3L, Neutrophils (%) (Auto) 61.4, Lymphocytes (%) (Auto) 30.3, Monocytes (%) (Auto) 5.6, Eosinophils (%) (Auto) 2.3, Basophils (%) (Auto ) 0.5, Sodium Level 138, Potassium Level 4.2, Chloride Level 104, Carbon Dioxide Level 29, Anion Gap 5, Blood Urea Nitrogen 11, Creatinine 0.8, Estimat Glomerular Filtration Rate > 60, Glucose Level 93, Calcium Level 8.8 Current Medications Medications (Trade) Dose Ordered Sig/Gaby Route PRN Reason Start Time Stop Time Status Last Admin Dose Admin Acetaminophen (Tylenol) 650 mg Q4H PRN ORAL fever 12/04/18 07:00 01/03/19 06:59 Alprazolam (Xanax) 1 mg QIDPRN PRN ORAL For Anxiety 12/04/18 13:30 12/11/18 13:29 12/11/18 08:58 Ampicillin Sodium/ Sulbactam Sodium 3 gm/Sodium Chloride 110 ml @ 220 mls/hr Q6H IVPB 12/04/18 14:00 12/13/18 23:59 12/11/18 08:58 Dextrose (Dextrose 50%) 25 ml Q30M PRN IV Hypoglycemia 12/04/18 07:00 01/03/19 06:59 Dextrose (Dextrose 50%) 50 ml Q30M PRN IV Hypoglycemia 12/04/18 07:00 01/03/19 06:59 Heparin Sodium (Porcine) (Heparin 5000 units/ml) 5,000 units EVERY 12 HOURS SUBQ 12/04/18 09:00 01/03/19 08:59 12/09/18 20:33 Hydromorphone HCl (Dilaudid) 3 mg Q3H PRN IV Severe Pain (Pain Scale 7-10) 12/05/18 11:30 12/12/18 11:29 12/11/18 12:08 Hydroxyzine HCl (Vistaril) 10 mg Q3H PRN ORAL Itching 12/06/18 18:00 01/05/19 17:59 12/11/18 05:35 Levothyroxine Sodium (Synthroid) 112 mcg DAILY@0630 ORAL 12/05/18 06:30 01/04/19 06:29 12/11/18 05:35 Lorazepam (Ativan) 1 mg Q6H PRN ORAL For Anxiety 12/05/18 14:45 12/12/18 14:44 12/11/18 11:48 Nicotine (Nicoderm) 1 patch Q24H TDERMAL 12/04/18 09:00 01/03/19 08:59 Nitroglycerin (Ntg) 0.4 mg Q5M PRN SL Prn Chest Pain 12/04/18 07:00 01/03/19 06:59 Ondansetron HCl (Zofran) 4 mg Q6H PRN IVP Nausea & Vomiting 12/04/18 07:00 01/03/19 06:59 Polyethylene Glycol (Miralax) 17 gm DAILYPRN PRN ORAL Constipation 12/04/18 07:00 01/03/19 06:59 Sertraline HCl (Zoloft) 25 mg DAILY ORAL 12/05/18 09:00 01/04/19 08:59 12/11/18 08:58 Tizanidine HCl (Zanaflex) 4 mg Q4H PRN ORAL muscle spasm 12/07/18 21:00 01/06/19 20:59 12/11/18 12:07 Ziprasidone (Geodon) 40 mg QPM ORAL 12/05/18 16:30 01/04/19 16:29 Chrissie Purdy MD Dec 11, 2018 12:21
--- NOTE | 2018-12-11 14:13 | Infectious Diseases Prog Note ---
Assessment/Plan Assessment/Plan Assessment: R facial cellulitis- from either infected teeth and R maxillary sinusitis -wound cx from cavity: usual bekah -CT facial bones: No acute injury appreciated. No abscess identified.Right maxillary sinusitis.Incidental 1 cm enhancing mass associated with the anterior interhemispheric fissure.This is most likely meningioma. Suggest confirmation with the MRI with and without gadolinium Afebrile NO leukocytosis uterine CA s/p radiation -CT abd/p:Nonobstructive right upper pole renal calculi, as described. No findings to explain stated clinical history of pain while urinating. 9 mm low- attenuation right lobe liver lesion, probably not cystic and therefore neoplasm a possibility. Consider follow-up with liver specific MRI. Moderate retained colonic stool. Correlate with any clinical history of constipation. Postsurgical changes, including prior sternotomy, prior cholecystectomy. Right basilar pulmonary parenchymal scarring Plan: -Continue Unasyn # 05/17-14 -ok to discharge on PO Augmentin 875/125mg bid for 5 more days -12/04 SP IV Vancomycin and Cefepime #1 -f/u cx -Monitor CBC/CMP, temperatures -Needs to f/u with dentist as outpatient for removal of damaged/infected teeth. Subjective Allergies: Coded Allergies: DIVALPROEX SODIUM (Verified Allergy, Unknown, 11/29/18) HALOPERIDOL (Verified Allergy, Unknown, 11/29/18) IBUPROFEN (Verified Allergy, Unknown, 11/29/18) KETOROLAC (Verified Allergy, Unknown, 11/29/18) METOPROLOL (Verified Allergy, Unknown, 11/29/18) MORPHINE (Verified Allergy, Unknown, 11/29/18) TRAZODONE (Verified Allergy, Unknown, 11/29/18) Uncoded Allergies: NSAIDS (Allergy, Unknown, 11/29/18) Subjective afebrile no leukocytosis discharged planning Objective Vital Signs Last 24 Hour Vital Signs Date Time Temp Pulse Resp B/P (MAP) Pulse Ox O2 Delivery O2 Flow Rate FiO2 12/11/18 12:00 98.3 81 18 126/82 (97) 97 12/11/18 09:00 Room Air 12/11/18 08:00 98.0 87 20 124/84 (97) 96 12/10/18 21:00 Room Air 12/10/18 20:00 98.2 81 18 115/73 (87) 95 81 12/10/18 16:51 98.8 12/10/18 16:51 98.8 Height (Feet): 5 Height (Inches): 8.00 Weight (Pounds): 152 Objective General Appearance: Chronically Ill Eyes: bilateral eye PERRL ENT: other - poor dentition with multiple cracked teeth Neck: limited range of motion Respiratory: lungs clear, normal breath sounds Cardiovascular #1: normal inspection Gastrointestinal: normal inspection Musculoskeletal: normal inspection Neurologic: normal inspection, alert, oriented x3, responsive Laboratory Tests Test 12/11/18 06:00 White Blood Count 6.4 K/UL (4.8-10.8) Red Blood Count 4.15 M/UL (4.20-5.40) L Hemoglobin 13.3 G/DL (12.0-16.0) Hematocrit 40.0 % (37.0-47.0) Mean Corpuscular Volume 96 FL (80-99) Mean Corpuscular Hemoglobin 32.1 PG (27.0-31.0) H Mean Corpuscular Hemoglobin Concent 33.3 G/DL (32.0-36.0) Red Cell Distribution Width 12.0 % (11.6-14.8) Platelet Count 391 K/UL (150-450) Mean Platelet Volume 5.3 FL (6.5-10.1) L Neutrophils (%) (Auto) 61.4 % (45.0-75.0) Lymphocytes (%) (Auto) 30.3 % (20.0-45.0) Monocytes (%) (Auto) 5.6 % (1.0-10.0) Eosinophils (%) (Auto) 2.3 % (0.0-3.0) Basophils (%) (Auto) 0.5 % (0.0-2.0) Sodium Level 138 MMOL/L (136-145) Potassium Level 4.2 MMOL/L (3.5-5.1) Chloride Level 104 MMOL/L (98-107) Carbon Dioxide Level 29 MMOL/L (21-32) Anion Gap 5 mmol/L (5-15) Blood Urea Nitrogen 11 mg/dL (7-18) Creatinine 0.8 MG/DL (0.55-1.30) Estimat Glomerular Filtration Rate > 60 mL/min (>60) Glucose Level 93 MG/DL (74-106) Calcium Level 8.8 MG/DL (8.5-10.1) Alpha Fetoprotein Pending Current Medications Medications (Trade) Dose Ordered Sig/Gaby Route PRN Reason Start Time Stop Time Status Last Admin Dose Admin Acetaminophen (Tylenol) 650 mg Q4H PRN ORAL fever 12/04/18 07:00 01/03/19 06:59 Ampicillin Sodium/ Sulbactam Sodium 3 gm/Sodium Chloride 110 ml @ 220 mls/hr Q6H IVPB 12/04/18 14:00 12/13/18 23:59 12/11/18 08:58 Dextrose (Dextrose 50%) 25 ml Q30M PRN IV Hypoglycemia 12/04/18 07:00 01/03/19 06:59 Dextrose (Dextrose 50%) 50 ml Q30M PRN IV Hypoglycemia 12/04/18 07:00 01/03/19 06:59 Heparin Sodium (Porcine) (Heparin 5000 units/ml) 5,000 units EVERY 12 HOURS SUBQ 12/04/18 09:00 01/03/19 08:59 12/09/18 20:33 Hydromorphone HCl (Dilaudid) 3 mg Q3H PRN IV Severe Pain (Pain Scale 7-10) 12/05/18 11:30 12/12/18 11:29 12/11/18 12:08 Hydroxyzine HCl (Vistaril) 10 mg Q3H PRN ORAL Itching 12/06/18 18:00 01/05/19 17:59 12/11/18 05:35 Levothyroxine Sodium (Synthroid) 112 mcg DAILY@0630 ORAL 12/05/18 06:30 01/04/19 06:29 12/11/18 05:35 Lorazepam (Ativan) 1 mg Q6H PRN ORAL For Anxiety 12/05/18 14:45 12/12/18 14:44 12/11/18 11:48 Nicotine (Nicoderm) 1 patch Q24H TDERMAL 12/04/18 09:00 01/03/19 08:59 Nitroglycerin (Ntg) 0.4 mg Q5M PRN SL Prn Chest Pain 12/04/18 07:00 01/03/19 06:59 Ondansetron HCl (Zofran) 4 mg Q6H PRN IVP Nausea & Vomiting 12/04/18 07:00 01/03/19 06:59 Polyethylene Glycol (Miralax) 17 gm DAILYPRN PRN ORAL Constipation 12/04/18 07:00 01/03/19 06:59 Sertraline HCl (Zoloft) 25 mg DAILY ORAL 12/05/18 09:00 01/04/19 08:59 12/11/18 08:58 Tizanidine HCl (Zanaflex) 4 mg Q4H PRN ORAL muscle spasm 12/07/18 21:00 01/06/19 20:59 12/11/18 12:07 Ziprasidone (Geodon) 40 mg QPM ORAL 12/05/18 16:30 01/04/19 16:29 Bridgette Carrizales M.D. Dec 11, 2018 14:13
--- NOTE | 2018-12-11 14:33 | NUR ---
RD ASSESSMENT & RECOMMENDATIONS SEE CARE ACTIVITY FOR COMPLETE ASSESSMENT DAILY ESTIMATED NEEDS: Needs based on General/ 69kg 25-30 kcals/kg 9882-1309 total kcals 0.8-1.0 g protein/kg 55-69 g total protein 25-30 mL/kg 3170-9852 total fluid mLs NUTRITION DIAGNOSIS: Chewing difficulty R/T infection of the tooth as evidenced by pt requesting chopped texture diet. CURRENT DIET:REGULAR, mech soft chopped PO DIET RECOMMENDATIONS: Regular/ continue mech soft chopped ADDITIONAL RECOMMENDATIONS: * Standing wt as able for accurate CBW * Diet texture as tolerated
--- NOTE | 2018-12-11 15:20 | General Progress Note ---
Assessment/Plan Problem List: (1) Facial pain ICD Codes: R51 - Headache SNOMED: 84575237 (2) UTI (urinary tract infection) ICD Codes: N39.0 - Urinary tract infection, site not specified SNOMED: 66771570 (3) Brain tumor ICD Codes: D49.6 - Neoplasm of unspecified behavior of brain SNOMED: 703238695 Status: stable, progressing Assessment/Plan pain control abx heme neuro pain f/u cbc bmp am psyc transfer Subjective Constitutional: Reports: weakness Allergies: Coded Allergies: DIVALPROEX SODIUM (Verified Allergy, Unknown, 11/29/18) HALOPERIDOL (Verified Allergy, Unknown, 11/29/18) IBUPROFEN (Verified Allergy, Unknown, 11/29/18) KETOROLAC (Verified Allergy, Unknown, 11/29/18) METOPROLOL (Verified Allergy, Unknown, 11/29/18) MORPHINE (Verified Allergy, Unknown, 11/29/18) TRAZODONE (Verified Allergy, Unknown, 11/29/18) Uncoded Allergies: NSAIDS (Allergy, Unknown, 11/29/18) All Systems: reviewed and negative except above Subjective sl anxious c/o gen pain Objective Last 24 Hour Vital Signs Date Time Temp Pulse Resp B/P (MAP) Pulse Ox O2 Delivery O2 Flow Rate FiO2 12/11/18 12:00 98.3 81 18 126/82 (97) 97 12/11/18 09:00 Room Air 12/11/18 08:00 98.0 87 20 124/84 (97) 96 12/10/18 21:00 Room Air 12/10/18 20:00 98.2 81 18 115/73 (87) 95 81 12/10/18 16:51 98.8 12/10/18 16:51 98.8 Intake and Output 12/10/18 12/11/18 18:59 06:59 Intake Total 720 ml Balance 720 ml Intake Oral 720 ml # Voids 3 3 # Bowel Movements 1 1 Laboratory Tests 12/11/18 06:00: White Blood Count 6.4, Red Blood Count 4.15L, Hemoglobin 13.3, Hematocrit 40.0, Mean Corpuscular Volume 96, Mean Corpuscular Hemoglobin 32.1H, Mean Corpuscular Hemoglobin Concent 33.3, Red Cell Distribution Width 12.0, Platelet Count 391, Mean Platelet Volume 5.3L, Neutrophils (%) (Auto) 61.4, Lymphocytes (%) (Auto) 30.3, Monocytes (%) (Auto) 5.6, Eosinophils (%) (Auto) 2.3, Basophils (%) (Auto ) 0.5, Sodium Level 138, Potassium Level 4.2, Chloride Level 104, Carbon Dioxide Level 29, Anion Gap 5, Blood Urea Nitrogen 11, Creatinine 0.8, Estimat Glomerular Filtration Rate > 60, Glucose Level 93, Calcium Level 8.8, Alpha Fetoprotein [Pending] Height (Feet): 5 Height (Inches): 8.00 Weight (Pounds): 152 General Appearance: lethargic EENT: normal ENT inspection Neck: normal alignment Cardiovascular: normal peripheral pulses, normal rate, regular rhythm Respiratory/Chest: chest wall non-tender, lungs clear, normal breath sounds Abdomen: normal bowel sounds, non tender, soft Extremities: normal inspection Edema: no edema noted Arm (L), no edema noted Arm (R), no edema noted Leg (L), no edema noted Leg (R), no edema noted Pedal (L), no edema noted Pedal (R), no edema noted Generalized Neurologic: responsive, motor weakness Skin: normal pigmentation, warm/dry Cooper London DO Dec 11, 2018 15:20
[2018-12-11 16:00] VITALS: BP 122/79
--- NOTE | 2018-12-11 16:26 | General Progress Note ---
Assessment/Plan Assessment/Plan Assessment/Plan: # Uterine cancer -- according to patient has a hx of stage iv disease, diagnosed in 1996 and was treated with chemo, xrt and surgery --> says currently is in remission though is likely not full story, could be malingering as stage iv disease average lifespan 6mo --> ct a/p shows 9 mm low-attenuation right lobe liver lesion, probably not cystic and therefore neoplasm a possibility. Consider follow-up with liver specific MRI --> return checker/onc was called --> tumor markers as op # Anemia of chronic disease --> anemia panel if hgb <10 # R facial cellulitis on abx, unasyn, cefepime, vanc --> Incidental 1 cm enhancing mass associated with the anterior interhemispheric fissure.This is most likely meningioma. Suggest confirmation with the MRI with and without gadolinium --> Ct of the face reveals: extra-axial hyperdense mass associated with the anterior aspect of the interhemispheric fissure most likely representing a meningioma. ==> abx as per id, ok to dc on po augmentin # UTI is on abx --> UA reviewed The timing of this note does not necessarily reflect the time of the patient was seen. Greatly appreciate consultation! Subjective Constitutional: Denies: no symptoms, chills, diaphoresis, fever, malaise, weakness, other HEENT: Denies: no symptoms, eye pain, blurred vision, tearing, double vision, ear pain, ear discharge, nose pain, nose congestion, throat pain, throat swelling, mouth pain, mouth swelling, other Cardiovascular: Denies: no symptoms, chest pain, edema, irregular heart rate, lightheadedness, palpitations, syncope, other Respiratory: Denies: no symptoms, cough, orthopnea, shortness of breath, SOB with excertion, SOB at rest, sputum, stridor, wheezing, other Gastrointestinal/Abdominal: Denies: no symptoms, abdomen distended, abdominal pain, black stools, tarry stools, blood in stool, constipated, diarrhea, difficulty swallowing, nausea, poor appetite, poor fluid intake, rectal bleeding , vomiting, other Genitourinary: Denies: no symptoms, burning, discharge, frequency, flank pain, hematuria, incontinence, pain, urgency, other Neurologic/Psychiatric: Denies: no symptoms, anxiety, depressed, emotional problems, headache, numbness, paresthesia, pre-existing deficit, seizure, tingling, tremors, weakness, other Endocrine: Denies: no symptoms, excessive sweating, flushing, intolerance to cold, intolerance to heat, increased hunger, increased thirst, increased urine, unexplained weight gain, unexplained weight loss, other Allergies: Coded Allergies: DIVALPROEX SODIUM (Verified Allergy, Unknown, 11/29/18) HALOPERIDOL (Verified Allergy, Unknown, 11/29/18) IBUPROFEN (Verified Allergy, Unknown, 11/29/18) KETOROLAC (Verified Allergy, Unknown, 11/29/18) METOPROLOL (Verified Allergy, Unknown, 11/29/18) MORPHINE (Verified Allergy, Unknown, 11/29/18) TRAZODONE (Verified Allergy, Unknown, 11/29/18) Uncoded Allergies: NSAIDS (Allergy, Unknown, 11/29/18) Subjective 12/05: seen by beside, awake, complains of pain, cbc reviewed, Ct of the face reveals: extra-axial hyperdense mass associated with the anterior aspect of the interhemispheric fissure most likely representing a meningioma. 3: seen by bed side, complains of facial pain. no events 3/: continues to have headache, no chest pain, no f/c 3/: awake, comfortable, no acute distress 3: Pt is awake and alert, c/o pain, pending SNF placement 12/11: wants to be seen by return checker service, crying in bed Objective Last 24 Hour Vital Signs Date Time Temp Pulse Resp B/P (MAP) Pulse Ox O2 Delivery O2 Flow Rate FiO2 12/11/18 12:00 98.3 81 18 126/82 (97) 97 12/11/18 09:00 Room Air 12/11/18 08:00 98.0 87 20 124/84 (97) 96 12/10/18 21:00 Room Air 12/10/18 20:00 98.2 81 18 115/73 (87) 95 81 12/10/18 16:51 98.8 12/10/18 16:51 98.8 Intake and Output 12/10/18 12/11/18 18:59 06:59 Intake Total 720 ml Balance 720 ml Intake Oral 720 ml # Voids 3 3 # Bowel Movements 1 1 Laboratory Tests 12/11/18 06:00: White Blood Count 6.4, Red Blood Count 4.15L, Hemoglobin 13.3, Hematocrit 40.0, Mean Corpuscular Volume 96, Mean Corpuscular Hemoglobin 32.1H, Mean Corpuscular Hemoglobin Concent 33.3, Red Cell Distribution Width 12.0, Platelet Count 391, Mean Platelet Volume 5.3L, Neutrophils (%) (Auto) 61.4, Lymphocytes (%) (Auto) 30.3, Monocytes (%) (Auto) 5.6, Eosinophils (%) (Auto) 2.3, Basophils (%) (Auto ) 0.5, Sodium Level 138, Potassium Level 4.2, Chloride Level 104, Carbon Dioxide Level 29, Anion Gap 5, Blood Urea Nitrogen 11, Creatinine 0.8, Estimat Glomerular Filtration Rate > 60, Glucose Level 93, Calcium Level 8.8, Alpha Fetoprotein [Pending] Height (Feet): 5 Height (Inches): 8.00 Weight (Pounds): 152 Objective Physical Exam: General Appearance: chronically Ill Eyes: bilateral eye PERRL ENT: poor dentition with multiple cracked teeth Neck: limited range of motion Respiratory: lungs clear, normal breath sounds Cardiovascular: normal inspection Gastrointestinal: normal inspection Musculoskeletal: normal inspection Neurologic: normal inspection, alert, oriented x3, remains responsive Rudy Angela MD Dec 11, 2018 16:26
--- NOTE | 2018-12-11 16:37 | Diagnostic Imaging Report ---
Indication: Reason For Exam: MASS Technique: Axial single shot fast spin echo breath hold, coronal single shot fast spin-echo breath hold, axial T2 FRFSE fat-saturated,, axial 2-D FIESTA fat-saturated, axial 3-D dual echo breath-hold, precontrast axial and postcontrast axial and coronal water weighted axial LAVA FLEX images of the abdomen Comparison: Reference made to CT scan 12/08/2018 Findings: No findings are evident on any of the sequences, including the postcontrast sequences, to correspond to the apparent lesion described in segment 8 of the liver on the recent CT scan. No abnormality corresponding to the reported segment IVb lesion is demonstrated either. The liver is unremarkable except for very mild intrahepatic biliary ductal dilatation. There is mild prominence but no abebe dilatation of the extrahepatic bile ducts, without evidence of downstream obstructive lesion. There is evidence of prior cholecystectomy, also described on recent CT. The pancreatic duct is somewhat prominent. The pancreas is otherwise unremarkable. The spleen, adrenals, kidneys are all unremarkable. Impression: No hepatic abnormality demonstrated. Previously reported finding on CT may been artifactual or may have represented one or more small areas of focal fat deposition. Postsurgical absence of the gallbladder. Mild prominence of the extrahepatic bile ducts is likely related to such
--- NOTE | 2018-12-11 19:46 | NUR ---
HAND-OFF: Report given to JAMAL Solares.
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
[2018-12-11 20:00] VITALS: BP 124/81
--- NOTE | 2018-12-11 21:00 | NUR ---
NURSE NOTES: Patient refused heparin. states that it has been making her bruise at the site of injection.
--- NOTE | 2018-12-11 22:46 | Progress Note ---
DATE: 12/11/2018 NOTE: "POOR AUDIO QUALITY" SUBJECTIVE: The patient is a 43-year-old female patient. She has of major depressive disorder, severe, recurrent, rule out posttraumatic stress disorder, but she also has dental infection and facial cellulitis causing her to have extreme mood lability, worsening mood lability, agitation, irritability, and decline in cognition below her baseline. That is why, her attending physician has requested daily psychiatric consultation at this time. she does require inpatient treatment at this time. She is . PLAN: Plan for this patient is to treat her with medication regimen consisting of and then also Ativan 1 q.6 h. p.r.n. anxiety or agitation, Zoloft at a dose of 25 mg p.o. daily, and also Geodon at a dosage of 40 mg q.p.m. to stabilize her mood. Provided her with 20 minutes of cognitive behavioral therapy to help her identify automated negative thoughts and help her to convert those negative thoughts to more positive thoughts to reduce depression, anxiety, and mood lability. Seen and assessed at the bedside. Twenty minutes of cognitive behavioral therapy provided. Chart was reviewed. Discussed with staff. Seen and assessed in her room. Aviva Edmond M.D. DR: GJ/ASHLEY JOB#: [id number] CC:
[2018-12-12] VITALS: BP 120/76
[2018-12-12] MEDS: Ampicillin/Sulbactam Sod 3 GM in NS 110 ML IVPB SCH ×3 (02:03→14:00)
--- NOTE | 2018-12-12 07:34 | NUR ---
HAND-OFF: Report given to JAMAL Khoury.
[2018-12-12 07:37] LABS: BASOPHILS % (AUTO) 0.8 % (0.0-2.0); EOSINOPHILS % (AUTO) 1.4 % (0.0-3.0); HEMATOCRIT 39.7 % (37.0-47.0); HEMOGLOBIN 13.4 G/DL (12.0-16.0); LYMPHOCYTES % (AUTO) 17.7 % (20.0-45.0); MEAN CORPUSCULAR VOLUME 95 FL (80-99); MONOCYTES % (AUTO) 3.5 % (1.0-10.0); NEUTROPHILS % (AUTO) 76.6 % (45.0-75.0); PLATELET COUNT 388 K/UL (150-450); RED BLOOD COUNT 4.19 M/UL (4.20-5.40); RED CELL DISTRIBUTION WIDTH 11.8 % (11.6-14.8); WHITE BLOOD COUNT 6.8 K/UL (4.8-10.8)
--- NOTE | 2018-12-12 07:39 | NUR ---
NURSE NOTES: Received report from JAMAL Werner. pt in bed, awake, talkative, eating breakfast, asking for pain medication, discussed medication schedule, will provide when due, bed in lowest position, call light within reach.
--- NOTE | 2018-12-12 07:39 | NUR ---
Social Service Note Follow up call placed to Jeremy. NICOLETTE referred patient yesterday afternoon, confirmed faxed was received by Robyn. NICOLETTE spoke with Madan this morning, all patient's who were referred yesterday will require fax today. Referral faxed this morning, (p) [phone] (f). Will follow up.
[2018-12-12 08:00] VITALS: BP 105/65
[2018-12-12 08:01] LABS: ANION GAP 6 mmol/L (5-15); BLOOD UREA NITROGEN 9 mg/dL (7-18); CALCIUM 8.8 MG/DL (8.5-10.1); CARBON DIOXIDE 25 MMOL/L (21-32); CHLORIDE 106 MMOL/L (98-107); CREATININE 0.7 MG/DL (0.55-1.30); POTASSIUM 4.3 MMOL/L (3.5-5.1); SODIUM 137 MMOL/L (136-145)
[2018-12-12] MEDS: Heparin 5000 units/ml inj SUBQ SCH (09:00)
[2018-12-12] MEDS: Sertraline 50mg tab ORAL SCH (09:15)
[2018-12-12] MEDS: LORazepam 1mg tab ORAL PRN (09:15)
[2018-12-12 09:22] VITALS: BP 118/81
--- NOTE | 2018-12-12 11:02 | GI Progress Note ---
Assessment/Plan Problems: (1) Liver lesion ICD Codes: K76.9 - Liver disease, unspecified SNOMED: 402043045 (2) Dehydration ICD Codes: E86.0 - Dehydration SNOMED: 36324968 (3) Anxiety ICD Codes: F41.9 - Anxiety disorder, unspecified SNOMED: 73616817 Status: stable Status Narrative Discussed with Dr. Davis Assessment/Plan Abdominal MRI liver protocol reviewed. - No hepatic abnormality demonstrated. Previously reported finding on CT may been artifactual or may have represented one or more small areas of focal fat deposition. - Postsurgical absence of the gallbladder. Mild prominence of the extrahepatic bile ducts is likely related to such Okay for DC per GI standpoint on regular diet, tolerating Zofran as needed PPI bowel regime pain mgmt fu AFP, CEA follow labs Subjective Subjective Multiple complaints Objective Last 24 Hour Vital Signs Date Time Temp Pulse Resp B/P (MAP) Pulse Ox O2 Delivery O2 Flow Rate FiO2 12/12/18 09:22 118/81 (93) 12/12/18 09:00 Room Air 12/12/18 08:00 98.6 84 16 105/65 (78) 96 12/12/18 00:00 98.4 76 17 120/76 (91) 98 12/11/18 21:00 Room Air 12/11/18 20:00 98.4 81 19 124/81 (95) 98 12/11/18 16:00 98.1 79 19 122/79 (93) 98 12/11/18 12:00 98.3 81 18 126/82 (97) 97 Intake and Output 12/11/18 12/12/18 19:00 07:00 Intake Total 1460 ml 720 ml Balance 1460 ml 720 ml Intake Oral 1240 ml 720 ml IV Total 220 ml # Voids 5 3 # Bowel Movements 1 Laboratory Tests Test 12/12/18 07:09 White Blood Count 6.8 K/UL (4.8-10.8) Red Blood Count 4.19 M/UL (4.20-5.40) L Hemoglobin 13.4 G/DL (12.0-16.0) Hematocrit 39.7 % (37.0-47.0) Mean Corpuscular Volume 95 FL (80-99) Mean Corpuscular Hemoglobin 31.9 PG (27.0-31.0) H Mean Corpuscular Hemoglobin Concent 33.7 G/DL (32.0-36.0) Red Cell Distribution Width 11.8 % (11.6-14.8) Platelet Count 388 K/UL (150-450) Mean Platelet Volume 5.3 FL (6.5-10.1) L Neutrophils (%) (Auto) 76.6 % (45.0-75.0) H Lymphocytes (%) (Auto) 17.7 % (20.0-45.0) L Monocytes (%) (Auto) 3.5 % (1.0-10.0) Eosinophils (%) (Auto) 1.4 % (0.0-3.0) Basophils (%) (Auto) 0.8 % (0.0-2.0) Sodium Level 137 MMOL/L (136-145) Potassium Level 4.3 MMOL/L (3.5-5.1) Chloride Level 106 MMOL/L (98-107) Carbon Dioxide Level 25 MMOL/L (21-32) Anion Gap 6 mmol/L (5-15) Blood Urea Nitrogen 9 mg/dL (7-18) Creatinine 0.7 MG/DL (0.55-1.30) Estimat Glomerular Filtration Rate > 60 mL/min (>60) Glucose Level 92 MG/DL (74-106) Calcium Level 8.8 MG/DL (8.5-10.1) Alpha Fetoprotein Pending Carcinoembryonic Antigen Pending Height (Feet): 5 Height (Inches): 8.00 Weight (Pounds): 152 General Appearance: WD/WN, no apparent distress, alert Cardiovascular: normal rate Respiratory/Chest: normal breath sounds, no respiratory distress Abdominal Exam: normal bowel sounds, non tender, soft Extremities: normal range of motion, non-tender Kathryn Waldrop NP Dec 12, 2018 11:02
[2018-12-12 11:25] VITALS: BP 121/75
--- NOTE | 2018-12-12 11:45 | NUR ---
Social Service Note [facility] . [facility] will send a clinician to evaluate patient for 5150 hold. Primary nurse aware. Dr. Edmond and Dr. London notified. ETA of clinician not known at this time.
--- NOTE | 2018-12-12 11:49 | NUR ---
NURSE NOTES: Notified Dr. Purdy pt is to be discharged today, asked him to do Medication Recon for discharge
[2018-12-12] MEDS ORDERED: DiphenhydrAMINE 50mg/ml Inj IM PRN (12:15)
[2018-12-12] MEDS ORDERED: LORazepam Inj 2mg/ml 1ml IM PRN (12:15)
--- NOTE | 2018-12-12 13:48 | General Progress Note ---
Assessment/Plan Problem List: (1) Facial pain ICD Codes: R51 - Headache SNOMED: 41253348 (2) UTI (urinary tract infection) ICD Codes: N39.0 - Urinary tract infection, site not specified SNOMED: 83630085 (3) Brain tumor ICD Codes: D49.6 - Neoplasm of unspecified behavior of brain SNOMED: 492667736 Status: unchanged Assessment/Plan pain control abx heme neuro pain f/u cbc bmp am psyc transfer Subjective Constitutional: Reports: weakness Allergies: Coded Allergies: DIVALPROEX SODIUM (Verified Allergy, Unknown, 11/29/18) HALOPERIDOL (Verified Allergy, Unknown, 11/29/18) IBUPROFEN (Verified Allergy, Unknown, 11/29/18) KETOROLAC (Verified Allergy, Unknown, 11/29/18) METOPROLOL (Verified Allergy, Unknown, 11/29/18) MORPHINE (Verified Allergy, Unknown, 11/29/18) TRAZODONE (Verified Allergy, Unknown, 11/29/18) Uncoded Allergies: NSAIDS (Allergy, Unknown, 11/29/18) All Systems: reviewed and negative except above Subjective sl anxious c/o gen pain Objective Last 24 Hour Vital Signs Date Time Temp Pulse Resp B/P (MAP) Pulse Ox O2 Delivery O2 Flow Rate FiO2 12/12/18 11:25 98.6 85 16 121/75 (90) 97 12/12/18 09:57 98.6 12/12/18 09:46 98.6 12/12/18 09:46 98.6 12/12/18 09:22 118/81 (93) 12/12/18 09:00 Room Air 12/12/18 08:00 98.6 84 16 105/65 (78) 96 12/12/18 00:00 98.4 76 17 120/76 (91) 98 12/11/18 21:00 Room Air 12/11/18 20:00 98.4 81 19 124/81 (95) 98 12/11/18 16:00 98.1 79 19 122/79 (93) 98 Intake and Output 12/11/18 12/12/18 19:00 07:00 Intake Total 1460 ml 720 ml Balance 1460 ml 720 ml Intake Oral 1240 ml 720 ml IV Total 220 ml # Voids 5 3 # Bowel Movements 1 Laboratory Tests 12/12/18 07:09: White Blood Count 6.8, Red Blood Count 4.19L, Hemoglobin 13.4, Hematocrit 39.7, Mean Corpuscular Volume 95, Mean Corpuscular Hemoglobin 31.9H, Mean Corpuscular Hemoglobin Concent 33.7, Red Cell Distribution Width 11.8, Platelet Count 388, Mean Platelet Volume 5.3L, Neutrophils (%) (Auto) 76.6H, Lymphocytes (%) (Auto) 17.7L, Monocytes (%) (Auto) 3.5, Eosinophils (%) (Auto) 1.4, Basophils (%) (Auto ) 0.8, Sodium Level 137, Potassium Level 4.3, Chloride Level 106, Carbon Dioxide Level 25, Anion Gap 6, Blood Urea Nitrogen 9, Creatinine 0.7, Estimat Glomerular Filtration Rate > 60, Glucose Level 92, Calcium Level 8.8, Alpha Fetoprotein [Pending], Carcinoembryonic Antigen [Pending] Height (Feet): 5 Height (Inches): 8.00 Weight (Pounds): 152 General Appearance: confused EENT: normal ENT inspection Neck: normal alignment Cardiovascular: normal peripheral pulses, normal rate, regular rhythm Respiratory/Chest: chest wall non-tender, lungs clear, normal breath sounds Abdomen: non tender, soft Extremities: normal inspection Edema: no edema noted Arm (L), no edema noted Arm (R), no edema noted Leg (L), no edema noted Leg (R), no edema noted Pedal (L), no edema noted Pedal (R), no edema noted Generalized Neurologic: responsive, motor weakness Skin: normal pigmentation, warm/dry Cooper London DO Dec 12, 2018 13:48
--- NOTE | 2018-12-12 14:03 | Pulmonology Progress Note ---
Assessment/Plan Problems: (1) Facial cellulitis (2) Dental abscess Assessment/Plan crying again, wants AUTOMAT[employer] LOG CUT OFF SAWYER, was called already, improving jansen cultures iv abx ID evaluation check electrolytes increase dilaudid to q3 symptomatic treatment GI to evaluate. 9 mm low-attenuation right lobe liver lesion, probably not cystic and therefore neoplasm a possibility. Consider follow-up with liver specific MRI, ==> MRI of liver was negative. Subjective ROS Limited/Unobtainable: No Constitutional: Reports: no symptoms HEENT: Repors: no symptoms Respiratory: Reports: no symptoms Allergies: Coded Allergies: DIVALPROEX SODIUM (Verified Allergy, Unknown, 11/29/18) HALOPERIDOL (Verified Allergy, Unknown, 11/29/18) IBUPROFEN (Verified Allergy, Unknown, 11/29/18) KETOROLAC (Verified Allergy, Unknown, 11/29/18) METOPROLOL (Verified Allergy, Unknown, 11/29/18) MORPHINE (Verified Allergy, Unknown, 11/29/18) TRAZODONE (Verified Allergy, Unknown, 11/29/18) Uncoded Allergies: NSAIDS (Allergy, Unknown, 11/29/18) Objective Last 24 Hour Vital Signs Date Time Temp Pulse Resp B/P (MAP) Pulse Ox O2 Delivery O2 Flow Rate FiO2 12/12/18 11:25 98.6 85 16 121/75 (90) 97 12/12/18 09:57 98.6 12/12/18 09:46 98.6 12/12/18 09:46 98.6 12/12/18 09:22 118/81 (93) 12/12/18 09:00 Room Air 12/12/18 08:00 98.6 84 16 105/65 (78) 96 12/12/18 00:00 98.4 76 17 120/76 (91) 98 12/11/18 21:00 Room Air 12/11/18 20:00 98.4 81 19 124/81 (95) 98 12/11/18 16:00 98.1 79 19 122/79 (93) 98 Intake and Output 12/11/18 12/12/18 19:00 07:00 Intake Total 1460 ml 720 ml Balance 1460 ml 720 ml Intake Oral 1240 ml 720 ml IV Total 220 ml # Voids 5 3 # Bowel Movements 1 Objective General Appearance: WD/WN HEENT: normocephalic, atraumatic Respiratory/Chest: chest wall non-tender, lungs clear Breasts: no masses Cardiovascular: normal peripheral pulses Abdomen: normal bowel sounds, no organomegaly Genitourinary: normal external genitalia Skin: no lesions HEENT: normocephalic, atraumatic Respiratory/Chest: chest wall non-tender, normal breath sounds Breasts: no masses Abdomen: normal bowel sounds, soft, non tender, no organomegaly Genitourinary: normal external genitalia Extremities: no cyanosis Laboratory Tests 12/12/18 07:09: White Blood Count 6.8, Red Blood Count 4.19L, Hemoglobin 13.4, Hematocrit 39.7, Mean Corpuscular Volume 95, Mean Corpuscular Hemoglobin 31.9H, Mean Corpuscular Hemoglobin Concent 33.7, Red Cell Distribution Width 11.8, Platelet Count 388, Mean Platelet Volume 5.3L, Neutrophils (%) (Auto) 76.6H, Lymphocytes (%) (Auto) 17.7L, Monocytes (%) (Auto) 3.5, Eosinophils (%) (Auto) 1.4, Basophils (%) (Auto ) 0.8, Sodium Level 137, Potassium Level 4.3, Chloride Level 106, Carbon Dioxide Level 25, Anion Gap 6, Blood Urea Nitrogen 9, Creatinine 0.7, Estimat Glomerular Filtration Rate > 60, Glucose Level 92, Calcium Level 8.8, Alpha Fetoprotein [Pending], Carcinoembryonic Antigen [Pending] Current Medications Medications (Trade) Dose Ordered Sig/Gaby Route PRN Reason Start Time Stop Time Status Last Admin Dose Admin Acetaminophen (Tylenol) 650 mg Q4H PRN ORAL fever 12/04/18 07:00 01/03/19 06:59 12/12/18 09:27 Ampicillin Sodium/ Sulbactam Sodium 3 gm/Sodium Chloride 110 ml @ 220 mls/hr Q6H IVPB 12/04/18 14:00 12/13/18 23:59 12/12/18 09:28 Dextrose (Dextrose 50%) 25 ml Q30M PRN IV Hypoglycemia 12/04/18 07:00 01/03/19 06:59 Dextrose (Dextrose 50%) 50 ml Q30M PRN IV Hypoglycemia 12/04/18 07:00 01/03/19 06:59 Diphenhydramine HCl (Benadryl) 50 mg ONCE PRN IM agitation 12/12/18 12:15 12/12/18 21:00 Heparin Sodium (Porcine) (Heparin 5000 units/ml) 5,000 units EVERY 12 HOURS SUBQ 12/04/18 09:00 01/03/19 08:59 12/09/18 20:33 Hydroxyzine HCl (Vistaril) 10 mg Q3H PRN ORAL Itching 12/06/18 18:00 01/05/19 17:59 12/12/18 12:23 Levothyroxine Sodium (Synthroid) 112 mcg DAILY@0630 ORAL 12/05/18 06:30 01/04/19 06:29 12/12/18 05:56 Lorazepam (Ativan 2mg/ml 1ml) 2 mg ONCE PRN IM agitation 12/12/18 12:15 12/12/18 21:00 Lorazepam (Ativan) 1 mg Q6H PRN ORAL For Anxiety 12/05/18 14:45 12/12/18 14:44 12/12/18 09:15 Nicotine (Nicoderm) 1 patch Q24H TDERMAL 12/04/18 09:00 01/03/19 08:59 Nitroglycerin (Ntg) 0.4 mg Q5M PRN SL Prn Chest Pain 12/04/18 07:00 01/03/19 06:59 Ondansetron HCl (Zofran) 4 mg Q6H PRN IVP Nausea & Vomiting 12/04/18 07:00 01/03/19 06:59 Polyethylene Glycol (Miralax) 17 gm DAILYPRN PRN ORAL Constipation 12/04/18 07:00 01/03/19 06:59 Sertraline HCl (Zoloft) 25 mg DAILY ORAL 12/05/18 09:00 01/04/19 08:59 12/12/18 09:15 Tizanidine HCl (Zanaflex) 4 mg Q4H PRN ORAL muscle spasm 12/07/18 21:00 01/06/19 20:59 12/12/18 11:24 Ziprasidone (Geodon) 40 mg QPM ORAL 12/05/18 16:30 01/04/19 16:29 Chrissie Purdy MD Dec 12, 2018 14:03
--- NOTE | 2018-12-12 14:16 | NUR ---
NURSE NOTES: Dr. Purdy here to see pt, discussed with him the DC order and Medication Recon. Dr. Purdy will do Med Recon for discharge. Dr. Purdy also ordered for pt to have Dilaudid 3mg IVP Q3H until discharged
--- NOTE | 2018-12-12 14:40 | NUR ---
NURSE NOTES: Pt met with Clinician from [facility] and became upset, stating "They are bullying to put me on a 5150 hold, I am not going anywhere. I am not going to be bullied. I am not leaving, I don't even know what going on with me. Discussed with pt that the order is for her to be discharged and go to [facility].
--- NOTE | 2018-12-12 15:30 | Progress Note ---
DATE: 12/12/2018 SUBJECTIVE: This is a 43-year-old female patient with facial cellulitis that she has lot of altered mental status, PTSD, depression, and paranoia, worsened by the stress of her medical illness with mood lability. MENTAL STATUS EXAMINATION: The patient is a 43-year-old female. Appearance is disheveled. Attitude, irritable and agitated. Affect, guarded and restricted. She had denies suicidal or homicidal thoughts. Insight and judgment is poor. DIAGNOSIS: Major depressive disorder, severe, recurrent with psychotic features, rule out PTSD. PLAN: Treat her with Zoloft 25 mg daily, Geodon 40 mg q. p.m., and Ativan 1 mg every 6 hours p.r.n. anxiety and agitation. Provided 20 minutes of cognitive behavioral therapy to help her identify automated negative thoughts and help her to convert those negative thoughts to more positive thoughts to reduce depression, anxiety, and mood lability. Twenty minutes of cognitive behavioral therapy provided. Aviva Edmond M.D. DR: ROSALIA JOB#: [id number] CC:
--- NOTE | 2018-12-12 15:35 | Infectious Diseases Prog Note ---
Assessment/Plan Assessment/Plan Assessment: R facial cellulitis- from either infected teeth and R maxillary sinusitis -wound cx from cavity: usual bekah -CT facial bones: No acute injury appreciated. No abscess identified.Right maxillary sinusitis.Incidental 1 cm enhancing mass associated with the anterior interhemispheric fissure.This is most likely meningioma. Suggest confirmation with the MRI with and without gadolinium Afebrile NO leukocytosis uterine CA s/p radiation ?Liver lesion -MRI abdomen: No hepatic abnormality demonstrated. Previously reported finding on CT may been artifactual or may have represented one or more small areas of focal fat deposition. Postsurgical absence of the gallbladder. Mild prominence of the extrahepatic bile ducts is likely related to such -CT abd/p:Nonobstructive right upper pole renal calculi, as described. No findings to explain stated clinical history of pain while urinating. 9 mm low- attenuation right lobe liver lesion, probably not cystic and therefore neoplasm a possibility. Consider follow-up with liver specific MRI. Moderate retained colonic stool. Correlate with any clinical history of constipation. Postsurgical changes, including prior sternotomy, prior cholecystectomy. Right basilar pulmonary parenchymal scarring Plan: -Continue Unasyn # 06/17-14 -ok to discharge on PO Augmentin 875/125mg bid for 4 more days -12/04 SP IV Vancomycin and Cefepime #1 -f/u cx -Monitor CBC/CMP, temperatures -Needs to f/u with dentist as outpatient for removal of damaged/infected teeth. Subjective Allergies: Coded Allergies: DIVALPROEX SODIUM (Verified Allergy, Unknown, 11/29/18) HALOPERIDOL (Verified Allergy, Unknown, 11/29/18) IBUPROFEN (Verified Allergy, Unknown, 11/29/18) KETOROLAC (Verified Allergy, Unknown, 11/29/18) METOPROLOL (Verified Allergy, Unknown, 11/29/18) MORPHINE (Verified Allergy, Unknown, 11/29/18) TRAZODONE (Verified Allergy, Unknown, 11/29/18) Uncoded Allergies: NSAIDS (Allergy, Unknown, 11/29/18) Subjective afebrile no leukocytosis discharged planning Objective Vital Signs Last 24 Hour Vital Signs Date Time Temp Pulse Resp B/P (MAP) Pulse Ox O2 Delivery O2 Flow Rate FiO2 12/12/18 11:25 98.6 85 16 121/75 (90) 97 12/12/18 09:57 98.6 12/12/18 09:46 98.6 12/12/18 09:46 98.6 12/12/18 09:22 118/81 (93) 12/12/18 09:00 Room Air 12/12/18 08:00 98.6 84 16 105/65 (78) 96 12/12/18 00:00 98.4 76 17 120/76 (91) 98 12/11/18 21:00 Room Air 12/11/18 20:00 98.4 81 19 124/81 (95) 98 12/11/18 16:00 98.1 79 19 122/79 (93) 98 Height (Feet): 5 Height (Inches): 8.00 Weight (Pounds): 152 Objective General Appearance: Chronically Ill Eyes: bilateral eye PERRL ENT: other - poor dentition with multiple cracked teeth Neck: limited range of motion Respiratory: lungs clear, normal breath sounds Cardiovascular #1: normal inspection Gastrointestinal: normal inspection Musculoskeletal: normal inspection Neurologic: normal inspection, alert, oriented x3, responsive Laboratory Tests Test 12/12/18 07:09 White Blood Count 6.8 K/UL (4.8-10.8) Red Blood Count 4.19 M/UL (4.20-5.40) L Hemoglobin 13.4 G/DL (12.0-16.0) Hematocrit 39.7 % (37.0-47.0) Mean Corpuscular Volume 95 FL (80-99) Mean Corpuscular Hemoglobin 31.9 PG (27.0-31.0) H Mean Corpuscular Hemoglobin Concent 33.7 G/DL (32.0-36.0) Red Cell Distribution Width 11.8 % (11.6-14.8) Platelet Count 388 K/UL (150-450) Mean Platelet Volume 5.3 FL (6.5-10.1) L Neutrophils (%) (Auto) 76.6 % (45.0-75.0) H Lymphocytes (%) (Auto) 17.7 % (20.0-45.0) L Monocytes (%) (Auto) 3.5 % (1.0-10.0) Eosinophils (%) (Auto) 1.4 % (0.0-3.0) Basophils (%) (Auto) 0.8 % (0.0-2.0) Sodium Level 137 MMOL/L (136-145) Potassium Level 4.3 MMOL/L (3.5-5.1) Chloride Level 106 MMOL/L (98-107) Carbon Dioxide Level 25 MMOL/L (21-32) Anion Gap 6 mmol/L (5-15) Blood Urea Nitrogen 9 mg/dL (7-18) Creatinine 0.7 MG/DL (0.55-1.30) Estimat Glomerular Filtration Rate > 60 mL/min (>60) Glucose Level 92 MG/DL (74-106) Calcium Level 8.8 MG/DL (8.5-10.1) Alpha Fetoprotein Pending Carcinoembryonic Antigen Pending Current Medications Medications (Trade) Dose Ordered Sig/Gaby Route PRN Reason Start Time Stop Time Status Last Admin Dose Admin Acetaminophen (Tylenol) 650 mg Q4H PRN ORAL fever 12/04/18 07:00 01/03/19 06:59 12/12/18 09:27 Ampicillin Sodium/ Sulbactam Sodium 3 gm/Sodium Chloride 110 ml @ 220 mls/hr Q6H IVPB 12/04/18 14:00 12/13/18 23:59 12/12/18 09:28 Dextrose (Dextrose 50%) 25 ml Q30M PRN IV Hypoglycemia 12/04/18 07:00 01/03/19 06:59 Dextrose (Dextrose 50%) 50 ml Q30M PRN IV Hypoglycemia 12/04/18 07:00 01/03/19 06:59 Diphenhydramine HCl (Benadryl) 50 mg ONCE PRN IM agitation 12/12/18 12:15 12/12/18 21:00 Heparin Sodium (Porcine) (Heparin 5000 units/ml) 5,000 units EVERY 12 HOURS SUBQ 12/04/18 09:00 01/03/19 08:59 12/09/18 20:33 Hydromorphone HCl (Dilaudid) 3 mg Q3H PRN IVP Severe Pain (Pain Scale 7-10) 12/12/18 14:15 12/19/18 14:14 12/12/18 14:35 Hydroxyzine HCl (Vistaril) 10 mg Q3H PRN ORAL Itching 12/06/18 18:00 01/05/19 17:59 12/12/18 12:23 Levothyroxine Sodium (Synthroid) 112 mcg DAILY@0630 ORAL 12/05/18 06:30 01/04/19 06:29 12/12/18 05:56 Lorazepam (Ativan 2mg/ml 1ml) 2 mg ONCE PRN IM agitation 12/12/18 12:15 12/12/18 21:00 Nicotine (Nicoderm) 1 patch Q24H TDERMAL 12/04/18 09:00 01/03/19 08:59 Nitroglycerin (Ntg) 0.4 mg Q5M PRN SL Prn Chest Pain 12/04/18 07:00 01/03/19 06:59 Ondansetron HCl (Zofran) 4 mg Q6H PRN IVP Nausea & Vomiting 12/04/18 07:00 01/03/19 06:59 Polyethylene Glycol (Miralax) 17 gm DAILYPRN PRN ORAL Constipation 12/04/18 07:00 01/03/19 06:59 Sertraline HCl (Zoloft) 25 mg DAILY ORAL 12/05/18 09:00 01/04/19 08:59 12/12/18 09:15 Tizanidine HCl (Zanaflex) 4 mg Q4H PRN ORAL muscle spasm 12/07/18 21:00 01/06/19 20:59 12/12/18 11:24 Ziprasidone (Geodon) 40 mg QPM ORAL 12/05/18 16:30 01/04/19 16:29 Bridgette Carrizales M.D. Dec 12, 2018 15:35
--- NOTE | 2018-12-12 15:35 | NUR ---
NURSE NOTES: No med recon done for pt, to be discharged in [address] Purdy to do med recon
[2018-12-12] MEDS ORDERED: AUGMENTIN 875-1 EAC1 ORAL (15:45)
--- NOTE | 2018-12-12 15:52 | NUR ---
NURSE NOTES: Asked Dr. London if he wants pt to be DC'd with home meds or hospital meds
--- NOTE | 2018-12-12 16:10 | NUR ---
NURSE NOTES: Pt refusing to leave, ambulance here, refuses to let staff pack her belongings. IV access removed. Offered to help her pack, pt refused help. Addendum: 12/12/18 at 1636 by SAGRARIO RICHARDS RN ID band removed from pt
--- NOTE | 2018-12-12 16:36 | NUR ---
NURSE NOTES: Called Report to JAMAL Flores at [facility].
--- NOTE | 2018-12-12 16:50 | General Progress Note ---
Assessment/Plan Assessment/Plan Assessment/Plan: # Uterine cancer -- according to patient has a hx of stage iv disease, diagnosed in 1996 and was treated with chemo, xrt and surgery --> says currently is in remission though is likely not full story, could be malingering as stage iv disease average lifespan 6mo --> ct a/p shows 9 mm low-attenuation right lobe liver lesion, probably not cystic and therefore neoplasm a possibility. Consider follow-up with liver specific MRI --> industrial machine assembler/onc was called --> tumor markers as op # Anemia of chronic disease --> anemia panel if hgb <10 # R facial cellulitis on abx, unasyn, cefepime, vanc --> Incidental 1 cm enhancing mass associated with the anterior interhemispheric fissure.This is most likely meningioma. Suggest confirmation with the MRI with and without gadolinium --> Ct of the face reveals: extra-axial hyperdense mass associated with the anterior aspect of the interhemispheric fissure most likely representing a meningioma. ==> abx as per id, ok to dc on po augmentin # UTI is on abx --> UA reviewed The timing of this note does not necessarily reflect the time of the patient was seen. Greatly appreciate consultation! Subjective Constitutional: Denies: no symptoms, chills, diaphoresis, fever, malaise, weakness, other HEENT: Denies: no symptoms, eye pain, blurred vision, tearing, double vision, ear pain, ear discharge, nose pain, nose congestion, throat pain, throat swelling, mouth pain, mouth swelling, other Cardiovascular: Denies: no symptoms, chest pain, edema, irregular heart rate, lightheadedness, palpitations, syncope, other Respiratory: Denies: no symptoms, cough, orthopnea, shortness of breath, SOB with excertion, SOB at rest, sputum, stridor, wheezing, other Gastrointestinal/Abdominal: Denies: no symptoms, abdomen distended, abdominal pain, black stools, tarry stools, blood in stool, constipated, diarrhea, difficulty swallowing, nausea, poor appetite, poor fluid intake, rectal bleeding , vomiting, other Genitourinary: Denies: no symptoms, burning, discharge, frequency, flank pain, hematuria, incontinence, pain, urgency, other Hematologic/Lymphatic: Denies: no symptoms, anemia, easy bleeding, easy bruising, other Allergies: Coded Allergies: DIVALPROEX SODIUM (Verified Allergy, Unknown, 11/29/18) HALOPERIDOL (Verified Allergy, Unknown, 11/29/18) IBUPROFEN (Verified Allergy, Unknown, 11/29/18) KETOROLAC (Verified Allergy, Unknown, 11/29/18) METOPROLOL (Verified Allergy, Unknown, 11/29/18) MORPHINE (Verified Allergy, Unknown, 11/29/18) TRAZODONE (Verified Allergy, Unknown, 11/29/18) Uncoded Allergies: NSAIDS (Allergy, Unknown, 11/29/18) Subjective 12/05: seen by beside, awake, complains of pain, cbc reviewed, Ct of the face reveals: extra-axial hyperdense mass associated with the anterior aspect of the interhemispheric fissure most likely representing a meningioma. 12/06: seen by bed side, complains of facial pain. no events 3: continues to have headache, no chest pain, no f/c 3: awake, comfortable, no acute distress 3: Pt is awake and alert, c/o pain, pending SNF placement 3: wants to be seen by industrial machine assembler service, crying in bed 3: seen by bedside, awake, comfortable, no events Objective Last 24 Hour Vital Signs Date Time Temp Pulse Resp B/P (MAP) Pulse Ox O2 Delivery O2 Flow Rate FiO2 12/12/18 15:05 98.6 12/12/18 11:25 98.6 85 16 121/75 (90) 97 12/12/18 09:57 98.6 12/12/18 09:46 98.6 12/12/18 09:46 98.6 12/12/18 09:22 118/81 (93) 12/12/18 09:00 Room Air 12/12/18 08:00 98.6 84 16 105/65 (78) 96 12/12/18 00:00 98.4 76 17 120/76 (91) 98 12/11/18 21:00 Room Air 12/11/18 20:00 98.4 81 19 124/81 (95) 98 Intake and Output 12/11/18 12/12/18 19:00 07:00 Intake Total 1460 ml 720 ml Balance 1460 ml 720 ml Intake Oral 1240 ml 720 ml IV Total 220 ml # Voids 5 3 # Bowel Movements 1 Laboratory Tests 12/12/18 07:09: White Blood Count 6.8, Red Blood Count 4.19L, Hemoglobin 13.4, Hematocrit 39.7, Mean Corpuscular Volume 95, Mean Corpuscular Hemoglobin 31.9H, Mean Corpuscular Hemoglobin Concent 33.7, Red Cell Distribution Width 11.8, Platelet Count 388, Mean Platelet Volume 5.3L, Neutrophils (%) (Auto) 76.6H, Lymphocytes (%) (Auto) 17.7L, Monocytes (%) (Auto) 3.5, Eosinophils (%) (Auto) 1.4, Basophils (%) (Auto ) 0.8, Sodium Level 137, Potassium Level 4.3, Chloride Level 106, Carbon Dioxide Level 25, Anion Gap 6, Blood Urea Nitrogen 9, Creatinine 0.7, Estimat Glomerular Filtration Rate > 60, Glucose Level 92, Calcium Level 8.8, Alpha Fetoprotein [Pending], Carcinoembryonic Antigen [Pending] Height (Feet): 5 Height (Inches): 8.00 Weight (Pounds): 152 Objective Physical Exam: General Appearance: chronically Ill Eyes: bilateral eye PERRL ENT: poor dentition with multiple cracked teeth Neck: limited range of motion Respiratory: lungs clear, normal breath sounds Cardiovascular: normal inspection Gastrointestinal: normal inspection Musculoskeletal: normal inspection Neurologic: normal inspection, alert, oriented x3, remains responsive Rudy Angela MD Dec 12, 2018 16:50
--- NOTE | 2018-12-12 17:37 | NUR ---
NURSE NOTES: PT discharge to [facility] via ambulance. Pt upset, agitated, has most of her belongings. Not all belongings would fit in ambulance vehicle, ambulance personnel will return to pickle maker the rest. IV removed, ID band removed. Pt refused to sign discharge paperwork. Signed by myself and web coordinatorJAMAL Lopez. All paperwork given to ambulance personnel. Pt is stable for discharge on 5150 hold with [facility].
--- NOTE | 2018-12-13 14:27 | Discharge Summary ---
Discharge Summary Discharge Summary _ DATE OF ADMISSION: 12/04/2018 DATE OF DISCHARGE: 12/12/2018 DISCHARGED BY: Dr. Cooper London CONSULTANTS: Dr. Rudy Freeman [facility] HOSPITAL COURSE: Patient is a 43-year-old female, from [facility], presented to ED due to increased right-sided facial pain. Patient was previously seen for similar symptoms and was given IV antibiotics. She was noted to have infection to some decayed teeth. She reported increased bleeding. She had increased facial pain and swelling. On evaluation at ED, blood work was unremarkable. CT imaging of the facial bones showed dural mass. She was given IV fluids as well as IV antibiotics. She was admitted for evaluation of right facial cellulitis. ID was consulted. She was initially started on IV vancomycin and cefepime. Antibiotic was switched to Unasyn. Vancomycin was discontinued. Patient has a history of uterine cancer stage 4 diagnosed in 1996, status post chemotherapy and radiation therapy. Patient currently in remission, although, could be malingering, as stage IV disease average life span is only 6 months. Psychiatrist was consulted. Patient has underlying diagnosis of major depressive disorder and bipolar 2 disorder. She was continued on Zoloft, Geodon and Ativan. She was given behavioral therapy. There was a 9 mm low-attenuation right lobe liver lesion based on CT. Abdominal MRI did not show any hepatic abnormality. Wound culture from cavity showed usual bekah. She was eventually cleared for discharge and was transferred to a psychiatric facility. FINAL DIAGNOSES: Right facial cellulitis either from infected teeth or right maxillary sinusitis Uterine cancer Anemia of chronic disease Depressive disorder, severe, recurrent with psychotic features DISPOSITION: Patient was transferred to a psychiatric facility. DISCHARGE MEDICATIONS: Refer to Discharge Medication List. I have been assigned to complete a discharge summary on this account, I was not involved with the patient's management. Lakisha Saravia NP Dec 13, 2018 14:27
== END 2018-12-12 17:30 | DRG 603 ==
LOC: EDBD 22:02 → EMR 22:30 → 3E 12-04 00:21 → EDBEDREQ 12-04 01:04
DX: L03.211 Cellulitis of face (principal); N39.0 Urinary tract infection, site not specified; F31.81 Bipolar II disorder; F33.3 Major depressive disorder, recurrent, severe with psychotic symptoms; J01.00 Acute maxillary sinusitis, unspecified; K04.7 Periapical abscess without sinus; D32.0 Benign neoplasm of cerebral meninges; Z85.42 Personal history of malignant neoplasm of other parts of uterus; Z92.3 Personal history of irradiation; D63.8 Anemia in other chronic diseases classified elsewhere; Z88.6 Allergy status to analgesic agent; Z88.8 Allergy status to other drugs, medicaments and biological substances; F17.200 Nicotine dependence, unspecified, uncomplicated; E03.9 Hypothyroidism, unspecified; E86.0 Dehydration; F43.10 Post-traumatic stress disorder, unspecified; F41.9 Anxiety disorder, unspecified
CPT/HCPCS: 36415; 70488; 74178; 74183; 80048; 80053; 81001; 81025; 82105; 82378; 83690; 84484; 85025; 87070; 87081; 87086; 87205; 93970; 94664; 94760; 96365; 99285; A9585

== ENCOUNTER 2019-01-14 13:59 | Inpatient (IN) | payer MEDICARE, MEDICAID ==
[~2019-01-14] VITALS: Ht 167.6 cm; Wt 65.3 kg
[~2019-01-14 13:59] MED LIST changes: +AUGMENTIN 875-1 EAC1 ORAL; +RESTORIL15 MG ORAL; +TIZANIDINE HCL4 MG ORAL; +VISTARIL50 MG ORAL
[2019-01-14] MEDS ORDERED: ACETAMINOPHEN325 M1 ORAL (14:26)
[2019-01-14] MEDS ORDERED: BENADRYL ALLERG25 M1 PO (14:26)
[2019-01-14] MEDS ORDERED: ATIVAN1 MG ORAL (14:26)
[2019-01-14] MEDS ORDERED: HYDROcodone/Acetamin 10/325 tab ORAL ONE (14:45)
[2019-01-14 15:33] VITALS: BP 135/95
--- NOTE | 2019-01-14 15:51 | Diagnostic Imaging Report ---
Indications: Headache Technique: Spiral acquisitions obtained through the brain. Angled axial and coronal 5 x 5 mm slices were reconstructed. Total dose length product 1284.6 mGycm. CTDI vol(s) 70.38 mGy. Dose reduction achieved using automated exposure control Comparison: No comparison CTs. Reference made to facial bone CT dated 12/04/2018 Findings: There is an extra-axial mass located in the anterior inferior interhemispheric fissure with peripheral calcification. This measures 1 cm in diameter. This does not result in any significant mass effect. No associated edema. This was also demonstrated on previous facial bone CT and appears unchanged Otherwise, no acute intracranial hemorrhage nor edema, mass effect, nor midline shift. Normal sanchez-white differentiation. Normal-sized ventricles and extra-axial CSF spaces. Intact calvarium. Mastoids are clear. Visualized orbits and sinuses are unremarkable. Impression: Negative for acute intracranial bleed or mass effect 1 cm extra-axial mass within the anterior inferior interhemispheric fissure, also reported on prior facial bone CT scan of 12/03/2018. Most likely a meningioma. If this has not been worked up previously, further evaluation with contrast MRI should be considered The CT scanner at [facility] is accredited by the [employer] and the scans are performed using protocols designed to limit radiation exposure to as low as reasonably achievable to attain images of sufficient resolution adequate for diagnostic evaluation.
[2019-01-14] MEDS ORDERED: LORazepam Inj 2mg/ml 1ml IV ONE (16:45)
[2019-01-14] MEDS ORDERED: HYDROmorphone 1mg/ml Carpuject IVP ONE (16:45)
[2019-01-14 17:31] LABS: BASOPHILS % (AUTO) 0.9 % (0.0-2.0); EOSINOPHILS % (AUTO) 0.8 % (0.0-3.0); HEMATOCRIT 41.8 % (37.0-47.0); HEMOGLOBIN 13.8 G/DL (12.0-16.0); LYMPHOCYTES % (AUTO) 43.4 % (20.0-45.0); MEAN CORPUSCULAR VOLUME 96 FL (80-99); MONOCYTES % (AUTO) 4.4 % (1.0-10.0); NEUTROPHILS % (AUTO) 50.7 % (45.0-75.0); PLATELET COUNT 318 K/UL (150-450); RED BLOOD COUNT 4.35 M/UL (4.20-5.40); RED CELL DISTRIBUTION WIDTH 12.5 % (11.6-14.8); WHITE BLOOD COUNT 7.3 K/UL (4.8-10.8)
[2019-01-14] MEDS ORDERED: MILK OF MA2400 MG/10 ORAL (17:32)
[2019-01-14] MEDS ORDERED: NORCO 10-325 T1 EACH ORAL (17:32)
[2019-01-14] MEDS ORDERED: ADVANCED ANTAC355 ML ORAL (17:32)
[2019-01-14] MEDS ORDERED: HYDROXYZINE HCL25 M1 PO (17:32)
[2019-01-14] MEDS ORDERED: LORAZEPAM1 MG ORAL (17:32)
[2019-01-14 17:36] VITALS: BP 133/75
[2019-01-14 17:49] LABS: ANION GAP 7 mmol/L (5-15); BLOOD UREA NITROGEN 16 mg/dL (7-18); CARBON DIOXIDE 28 MMOL/L (21-32); CHLORIDE 101 MMOL/L (98-107); CREATININE 0.8 MG/DL (0.55-1.30); SODIUM 136 MMOL/L (136-145)
[2019-01-14 18:04] LABS: ALANINE AMINOTRANSFERASE 19 U/L (12-78); ALBUMIN/GLOBULIN RATIO 0.9 (1.0-2.7); ALKALINE PHOSPHATASE 77 U/L (46-116); ASPARTATE AMINO TRANSFERASE 17 U/L (15-37); BILIRUBIN,TOTAL 0.2 MG/DL (0.2-1.0); CKMB 0.7 NG/ML (0.0-3.6)
[2019-01-14] MEDS ORDERED: Miralax 17gm pkt ORAL PRN (19:15)
[2019-01-14] MEDS ORDERED: Nitroglycerin Subl 0.4mg tab SL PRN (19:45)
[2019-01-14] MEDS ORDERED: Albuterol/Ipratropium 3ml neb HHN PRN (19:46)
[2019-01-14 20:00] VITALS: BP 163/91
--- NOTE | 2019-01-14 20:22 | Emergency Room Report ---
History of Present Illness General Chief Complaint: Headache Source: Patient Present Illness HPI Patient presents with complaints of headache Dental pain Reports that she has a sharp pain to the right side of her head Ongoing for the past several days Patient was recently diagnosed with possible hemangioma Denies any chest pain she complains of questionable low-grade fever Denies any focal deficit however feels of the headache is debilitating Allergies: Coded Allergies: DIVALPROEX SODIUM (Verified Allergy, Unknown, 11/29/18) HALOPERIDOL (Verified Allergy, Unknown, 11/29/18) IBUPROFEN (Verified Allergy, Unknown, 11/29/18) KETOROLAC (Verified Allergy, Unknown, 11/29/18) METOPROLOL (Verified Allergy, Unknown, 11/29/18) MORPHINE (Verified Allergy, Unknown, 11/29/18) TRAZODONE (Verified Allergy, Unknown, 11/29/18) Uncoded Allergies: NSAIDS (Allergy, Unknown, 11/29/18) Patient History Past Medical History: see triage record Pertinent Family History: none Now: No Reviewed Nursing Documentation: PMH: Agreed; PSxH: Agreed Nursing Documentation-PMH Past Medical History: No History, Except For Hx Cancer: Yes - Thyroid; Bone Hx Gastrointestinal Problems: Yes - Crohn's diseas Review of Systems All Other Systems: negative except mentioned in HPI Physical Exam Vital Signs Date Time Temp Pulse Resp B/P (MAP) Pulse Ox O2 Delivery O2 Flow Rate FiO2 01/14/19 13:58 98.1 90 18 137/90 98 Room Air Sp02 EP Interpretation: reviewed, normal General Appearance: no apparent distress Head: normocephalic, atraumatic Eyes: bilateral eye PERRL, bilateral eye EOMI ENT: other - Poor dentition right upper and lower dental region, also gingival irritation Neck: full range of motion, supple Respiratory: lungs clear, no respiratory distress, no retraction Cardiovascular #1: regular rate, rhythm Gastrointestinal: non tender, soft Musculoskeletal: normal inspection, back normal Neurologic: alert, oriented x3 Psychiatric: anxious Skin: normal color, no rash Lymphatic: no adenopathy Medical Decision Making Diagnostic Impression: Primary Impression: Headache Additional Impression: Dental abscess ER Course Multiple differentials and consideration on preview from last visit patient did not have a dedicated head CT This is obtained in the ER does show findings consistent with likely meningioma Patient's blood work is at otherwise baseline levels IV antibiotics also initiated and patient admitted for further care Labs Test 01/14/19 17:00 White Blood Count 7.3 K/UL (4.8-10.8) Red Blood Count 4.35 M/UL (4.20-5.40) Hemoglobin 13.8 G/DL (12.0-16.0) Hematocrit 41.8 % (37.0-47.0) Mean Corpuscular Volume 96 FL (80-99) Mean Corpuscular Hemoglobin 31.6 PG (27.0-31.0) Mean Corpuscular Hemoglobin Concent 32.9 G/DL (32.0-36.0) Red Cell Distribution Width 12.5 % (11.6-14.8) Platelet Count 318 K/UL (150-450) Mean Platelet Volume 4.7 FL (6.5-10.1) Neutrophils (%) (Auto) 50.7 % (45.0-75.0) Lymphocytes (%) (Auto) 43.4 % (20.0-45.0) Monocytes (%) (Auto) 4.4 % (1.0-10.0) Eosinophils (%) (Auto) 0.8 % (0.0-3.0) Basophils (%) (Auto) 0.9 % (0.0-2.0) Sodium Level 136 MMOL/L (136-145) Potassium Level 4.0 MMOL/L (3.5-5.1) Chloride Level 101 MMOL/L (98-107) Carbon Dioxide Level 28 MMOL/L (21-32) Anion Gap 7 mmol/L (5-15) Blood Urea Nitrogen 16 mg/dL (7-18) Creatinine 0.8 MG/DL (0.55-1.30) Estimat Glomerular Filtration Rate > 60 mL/min (>60) Glucose Level 86 MG/DL (74-106) Lactic Acid Level 1.70 mmol/L (0.4-2.0) Calcium Level 9.0 MG/DL (8.5-10.1) Total Bilirubin 0.2 MG/DL (0.2-1.0) Aspartate Amino Transf (AST/SGOT) 17 U/L (15-37) Alanine Aminotransferase (ALT/SGPT) 19 U/L (12-78) Alkaline Phosphatase 77 U/L (46-116) Creatine Kinase MB 0.7 NG/ML (0.0-3.6) Total Protein 8.3 G/DL (6.4-8.2) Albumin 4.0 G/DL (3.4-5.0) Globulin 4.3 g/dL Albumin/Globulin Ratio 0.9 (1.0-2.7) Rhythm Strip Diag. Results EP Interpretation: yes Rate: 70 Rhythm: NSR, no PVC's, no ectopy CT/MRI/US Diagnostic Results CT/MRI/US Diagnostic Results : Impression CT headImpression: Negative for acute intracranial bleed or mass effect 1 cm extra-axial mass within the anterior inferior interhemispheric fissure, also reported on prior facial bone CT scan of 12/03/2018. Most likely a meningioma. If this has not been worked up previously, further evaluation with contrast MRI should be considered Last Vital Signs Date Time Temp Pulse Resp B/P (MAP) Pulse Ox O2 Delivery O2 Flow Rate FiO2 01/14/19 19:42 98.2 78 20 133/75 98 Room Air Status: improved Disposition: ADMITTED INPATIENT Condition: Serious Referrals: NON PHYSICIAN (PCP) Linn Miller DO Jan 14, 2019 20:22
[2019-01-14] MEDS ORDERED: HYDROmorphone 1mg/ml Carpuject IVP PRN (20:45)
[2019-01-14] MEDS: ALPRAZolam 0.5mg tab ORAL PRN (21:14)
[2019-01-14] MEDS: Promethazine HCl 25 MG in NS 55 ML IVPB PRN (22:29)
[2019-01-14] MEDS: Heparin 5000 units/ml inj SUBQ SCH (22:41)
[2019-01-14] MEDS: Cefepime HCl 2 GM in D5W 110 ML IV SCH (23:21)
[2019-01-14] MEDS: LORazepam Inj 2mg/ml 1ml IV PRN (23:31)
[2019-01-15] VITALS: BP 139/80
[2019-01-15] MEDS: HYDROmorphone 2 MG in NS 55 ML SUBQ PRN ×2 (01:14→04:20)
[2019-01-15] MEDS: Vancomycin 1 GM in D5W 275 ML IVPB SCH ×2 (03:04→11:30)
[2019-01-15 04:00] VITALS: BP 143/84
[2019-01-15] MEDS: LORazepam Inj 2mg/ml 1ml IV PRN ×4 (04:06→22:34)
[2019-01-15] MEDS: Promethazine HCl 25 MG in NS 55 ML IVPB PRN ×3 (04:43→20:55)
[2019-01-15] MEDS: ALPRAZolam 0.5mg tab ORAL PRN ×2 (06:02→15:38)
[2019-01-15 07:18] LABS: ALANINE AMINOTRANSFERASE 65 U/L (12-78); ALBUMIN 3.4 G/DL (3.4-5.0); ALBUMIN/GLOBULIN RATIO 0.9 (1.0-2.7); ALKALINE PHOSPHATASE 70 U/L (46-116); ANION GAP 6 mmol/L (5-15); ASPARTATE AMINO TRANSFERASE 50 U/L (15-37); BILIRUBIN,TOTAL 0.2 MG/DL (0.2-1.0); BLOOD UREA NITROGEN 17 mg/dL (7-18); CALCIUM 8.5 MG/DL (8.5-10.1); CARBON DIOXIDE 28 MMOL/L (21-32); CHLORIDE 106 MMOL/L (98-107); POTASSIUM 4.3 MMOL/L (3.5-5.1); SODIUM 140 MMOL/L (136-145)
[2019-01-15 07:22] LABS: BASOPHILS % (AUTO) 1.1 % (0.0-2.0); EOSINOPHILS % (AUTO) 1.9 % (0.0-3.0); HEMATOCRIT 38.3 % (37.0-47.0); HEMOGLOBIN 12.7 G/DL (12.0-16.0); MEAN CORPUSCULAR VOLUME 96 FL (80-99); MONOCYTES % (AUTO) 4.4 % (1.0-10.0); NEUTROPHILS % (AUTO) 42.6 % (45.0-75.0); PLATELET COUNT 272 K/UL (150-450); RED BLOOD COUNT 3.97 M/UL (4.20-5.40); RED CELL DISTRIBUTION WIDTH 12.7 % (11.6-14.8); WHITE BLOOD COUNT 3.8 K/UL (4.8-10.8)
[2019-01-15 08:00] VITALS: BP 125/79
[2019-01-15] MEDS: HYDROmorphone 2 MG in NS 55 ML IVPB PRN ×4 (08:10→20:16)
[2019-01-15] MEDS: Heparin 5000 units/ml inj SUBQ SCH ×2 (08:43→20:23)
[2019-01-15] MEDS ORDERED: Sertraline 50mg tab ORAL SCH (09:00)
[2019-01-15] MEDS: Cefepime HCl 2 GM in D5W 110 ML IV SCH ×2 (10:31→21:27)
--- NOTE | 2019-01-15 11:28 | Consultation ---
History of Present Illness General Date patient seen: Jan 15, 2019 Chief Complaint: Headache Reason for Consultation: Dental pain Present Illness HPI Ms. Torre is a 43 yo female with PMHx of uterine CA, Psych and Brain tumor who presented to the ED 01/14/19 with headache and dental pain. She was recently admitted in Nov and and was D/C'd in early December for Right Facial cellulitis. It was thought at that time that this was due to infected teeth or maxillary sinusitis. CT face at that time showed right maxillary sinusitis and no sign of abscess. An incidental 1cm enhancing mass in the anterior interhemispheric fissure thought to be a meningioma was also seen. The patient was D/C on Augmentin to complete a 2 week course of abx and was to f/u with a dentist as an out patient for tooth extraction. On retuning to the ED yesterday she was afebrile, had no leukocytosis and her CT head only showed the 1cm mass. No CT of the face was done and the patient was admitted to the hospital ans cefepime and Vancomycin were started. Today she reports continued headaches with ice pick sensation. She reports that she has has not gotten any dental work done and that she can express pus form her gums. She tried to show me but i could not identify any pus. She also reports vaginal masses without discharge. ID consulted for dental pain. PMHx/PSHx Uterine CA Psych Hx Brain tumor S/P multiple CA related surgeries SocHx Active smoker No E/D FamHx Not contributory Allergies: Coded Allergies: DIVALPROEX SODIUM (Verified Allergy, Unknown, 11/29/18) GABAPENTIN (Verified Allergy, Unknown, 01/15/19) HALOPERIDOL (Verified Allergy, Unknown, 11/29/18) HYDROXYZINE (Verified Allergy, Unknown, 01/15/19) IBUPROFEN (Verified Allergy, Unknown, 11/29/18) KETOROLAC (Verified Allergy, Unknown, 11/29/18) METOPROLOL (Verified Allergy, Unknown, 11/29/18) MORPHINE (Verified Allergy, Unknown, 11/29/18) NAPROXEN (Verified Allergy, Unknown, 01/15/19) ONDANSETRON (Verified Allergy, Unknown, 01/15/19) TRAZODONE (Verified Allergy, Unknown, 11/29/18) Uncoded Allergies: NSAIDS (Allergy, Unknown, 11/29/18) Medication History Scheduled Diphenhydramine Hcl (Benadryl Allergy), 25 MG PO DAILY, (Reported) Levothyroxine Sodium* (Levoxyl*), 112 MCG ORAL DAILY, (Reported) Lorazepam* (Lorazepam*), 1 MG ORAL Q6HR, (Reported) Mag Hydrox/Al Hydrox/Simeth* (Advanced Antacid Liquid*), Unknown Dose ORAL FOUR TIMES A DAY, (Reported) Sertraline Hcl* (Zoloft*), 50 MG ORAL DAILY, (Reported) Tizanidine Hcl* (Zanaflex*), 4 MG ORAL THREE TIMES A DAY, (Reported) Scheduled PRN Acetaminophen* (Acetaminophen 325MG Tablet*), 650 MG ORAL Q6H PRN for For Pain, (Reported) Hydrocodone Bit/Acetaminophen 10-325* (Notus 10-325*), 1 TAB ORAL Q8HR PRN for Severe Pain (Pain Scale 7-10), (Reported) Hydroxyzine Hcl (Hydroxyzine Hcl), 25 MG PO TID PRN for For Anxiety, (Reported) Magnesium Hydroxide* (Milk Of Magnesia*), 30 ML ORAL Q6HR PRN for Constipation, (Reported) Temazepam* (Restoril*), 15 MG ORAL BEDTIME PRN for Insomnia, (Reported) Discontinued Medications Alprazolam* (Xanax*), 1 MG ORAL TID, (Reported) Discontinued Reason: Prescription changed Amoxicillin* (Amoxil*), 500 MG ORAL EVERY 8 HOURS, (Reported) Discontinued Reason: Therapy completed Amoxicillin/Potassium Clav 875-125* (Augmentin 875-125 Tablet*), 1 TAB ORAL TWICE A DAY, (Reported) Discontinued Reason: Therapy completed Ciprofloxacin Hcl* (Ciprofloxacin Hcl*), 500 MG ORAL Q12H Discontinued Reason: Therapy completed Hydroxyzine Pamoate* (Vistaril*), 25 MG ORAL EVERY 6 HOURS, (Reported) Discontinued Reason: Prescription changed Lurasidone Hcl (Latuda), 40 MG PO, (Reported) Discontinued Reason: Therapy completed Oxycodone/Acetaminophen 5-325* (Percocet 5-325 Mg Tablet*), 1 TAB ORAL Q6H PRN for For Pain Discontinued Reason: Therapy completed Patient History Healthcare decision maker Resuscitation status Full Code Advanced Directive on File Review of Systems ROS Narrative 12 point ROS negative except as note in the HPI. Physical Exam Last 24 Hour Vital Signs Date Time Temp Pulse Resp B/P (MAP) Pulse Ox O2 Delivery O2 Flow Rate FiO2 01/15/19 09:40 98.3 01/15/19 08:40 98.3 01/15/19 08:00 98.2 75 18 125/79 (94) 98 01/15/19 05:03 Room Air 01/15/19 04:00 98.3 90 20 143/84 (103) 97 01/15/19 00:00 98.2 86 20 139/80 (99) 97 01/14/19 20:00 98.5 87 19 163/91 (115) 97 01/14/19 19:42 98.2 78 20 133/75 98 Room Air 01/14/19 17:36 98.2 78 20 133/75 98 Room Air 01/14/19 17:33 98.2 01/14/19 15:33 98.2 66 20 135/95 97 Room Air 01/14/19 15:21 98.0 01/14/19 13:58 98.1 90 18 137/90 98 Room Air Intake and Output 01/14/19 01/15/19 19:00 07:00 Intake Total 1780 ml Balance 1780 ml Intake Oral 780 ml IV Total 1000 ml # Voids 3 # Bowel Movements 1 Laboratory Tests Test 01/14/19 17:00 01/15/19 05:25 White Blood Count 7.3 K/UL (4.8-10.8) 3.8 K/UL (4.8-10.8) L Red Blood Count 4.35 M/UL (4.20-5.40) 3.97 M/UL (4.20-5.40) L Hemoglobin 13.8 G/DL (12.0-16.0) 12.7 G/DL (12.0-16.0) Hematocrit 41.8 % (37.0-47.0) 38.3 % (37.0-47.0) Mean Corpuscular Volume 96 FL (80-99) 96 FL (80-99) Mean Corpuscular Hemoglobin 31.6 PG (27.0-31.0) H 31.9 PG (27.0-31.0) H Mean Corpuscular Hemoglobin Concent 32.9 G/DL (32.0-36.0) 33.1 G/DL (32.0-36.0) Red Cell Distribution Width 12.5 % (11.6-14.8) 12.7 % (11.6-14.8) Platelet Count 318 K/UL (150-450) 272 K/UL (150-450) Mean Platelet Volume 4.7 FL (6.5-10.1) L 4.8 FL (6.5-10.1) L Neutrophils (%) (Auto) 50.7 % (45.0-75.0) 42.6 % (45.0-75.0) L Lymphocytes (%) (Auto) 43.4 % (20.0-45.0) 50.0 % (20.0-45.0) H Monocytes (%) (Auto) 4.4 % (1.0-10.0) 4.4 % (1.0-10.0) Eosinophils (%) (Auto) 0.8 % (0.0-3.0) 1.9 % (0.0-3.0) Basophils (%) (Auto) 0.9 % (0.0-2.0) 1.1 % (0.0-2.0) Sodium Level 136 MMOL/L (136-145) 140 MMOL/L (136-145) Potassium Level 4.0 MMOL/L (3.5-5.1) 4.3 MMOL/L (3.5-5.1) Chloride Level 101 MMOL/L (98-107) 106 MMOL/L (98-107) Carbon Dioxide Level 28 MMOL/L (21-32) 28 MMOL/L (21-32) Anion Gap 7 mmol/L (5-15) 6 mmol/L (5-15) Blood Urea Nitrogen 16 mg/dL (7-18) 17 mg/dL (7-18) Creatinine 0.8 MG/DL (0.55-1.30) 1.0 MG/DL (0.55-1.30) Estimat Glomerular Filtration Rate > 60 mL/min (>60) > 60 mL/min (>60) Glucose Level 86 MG/DL (74-106) 83 MG/DL (74-106) Lactic Acid Level 1.70 mmol/L (0.4-2.0) Calcium Level 9.0 MG/DL (8.5-10.1) 8.5 MG/DL (8.5-10.1) Total Bilirubin 0.2 MG/DL (0.2-1.0) 0.2 MG/DL (0.2-1.0) Aspartate Amino Transf (AST/SGOT) 17 U/L (15-37) 50 U/L (15-37) H Alanine Aminotransferase (ALT/SGPT) 19 U/L (12-78) 65 U/L (12-78) Alkaline Phosphatase 77 U/L (46-116) 70 U/L (46-116) Creatine Kinase MB 0.7 NG/ML (0.0-3.6) Total Protein 8.3 G/DL (6.4-8.2) H 7.2 G/DL (6.4-8.2) Albumin 4.0 G/DL (3.4-5.0) 3.4 G/DL (3.4-5.0) Globulin 4.3 g/dL 3.8 g/dL Albumin/Globulin Ratio 0.9 (1.0-2.7) L 0.9 (1.0-2.7) L Height (Feet): 5 Height (Inches): 6.00 Weight (Pounds): 144 Medications Current Medications Medications (Trade) Dose Ordered Sig/Gaby Route PRN Reason Start Time Stop Time Status Last Admin Dose Admin Acetaminophen (Tylenol) 650 mg Q4H PRN ORAL fever 01/14/19 19:46 02/13/19 19:45 Albuterol/ Ipratropium (Albuterol/ Ipratropium) 3 ml Q4H PRN HHN Shortness of Breath 01/14/19 19:46 01/19/19 19:45 Alprazolam (Xanax) 1 mg Q6H PRN ORAL For Anxiety 01/14/19 20:45 01/21/19 20:44 01/15/19 06:02 Cefepime HCl 2 gm/ Dextrose 110 ml @ 220 mls/hr EVERY 12 HOURS IV 01/14/19 21:00 01/21/19 20:59 01/15/19 10:31 Dextrose (Dextrose 50%) 25 ml STAT PRN IV Hypoglycemia 01/14/19 19:15 02/13/19 19:14 Dextrose (Dextrose 50%) 50 ml Q30M PRN IV Hypoglycemia 01/14/19 19:15 02/13/19 19:14 Gabapentin (Neurontin) 300 mg THREE TIMES A DAY ORAL 01/15/19 09:00 02/14/19 08:59 Heparin Sodium (Porcine) (Heparin 5000 units/ml) 5,000 units EVERY 12 HOURS SUBQ 01/14/19 21:00 02/13/19 20:59 01/15/19 08:43 Hydromorphone HCl 2 mg/Sodium Chloride 56 ml @ 224 mls/hr Q3H PRN IVPB SEVERE PAIN (7 TO 10) 01/15/19 07:45 01/22/19 00:59 01/15/19 08:10 Levothyroxine Sodium (Synthroid) 112 mcg DAILY@0630 ORAL 01/15/19 06:30 02/14/19 06:29 01/15/19 06:02 Lorazepam (Ativan 2mg/ml 1ml) 1 mg Q4H PRN IV For Anxiety 01/14/19 20:45 01/21/19 20:44 01/15/19 08:41 Nitroglycerin (Ntg) 0.4 mg Q5MIN X 3 DOSES PRN SL Prn Chest Pain 01/14/19 19:45 02/13/19 19:44 Ondansetron HCl (Zofran) 4 mg Q6H PRN IVP Nausea & Vomiting 01/14/19 19:45 02/13/19 19:44 Polyethylene Glycol (Miralax) 17 gm DAILYPRN PRN ORAL Constipation 01/14/19 19:15 02/13/19 19:14 Promethazine HCl 25 mg/Sodium Chloride 56 ml @ 112 mls/hr Q6H PRN IVPB Refractory Nausea & Vomiting 01/14/19 21:01 02/13/19 21:00 01/15/19 04:43 Sertraline HCl (Zoloft) 50 mg DAILY ORAL 01/15/19 09:00 02/14/19 08:59 01/15/19 08:41 Temazepam (Restoril) 15 mg HSPRN PRN ORAL Insomnia 01/14/19 21:00 01/21/19 20:59 Tizanidine HCl (Zanaflex) 4 mg THREE TIMES A DAY ORAL 01/15/19 09:00 02/14/19 08:59 01/15/19 08:41 Vancomycin HCl (Vanco rx to dose) 1 ea DAILY PRN MISC PER RX 01/14/19 20:00 02/13/19 19:59 Vancomycin HCl 1 gm/Dextrose 275 ml @ 183.3 mls/ hr Q12H IVPB 01/14/19 22:00 01/19/19 21:59 01/15/19 03:04 Objective Narrative Gen: Emotional and crying. In pain HEENT: NCAT, MMM, EOMI, PERRL, Multiple broken an cavity ridden teeth. No significant pus or erythema noted. Patient reports sever pain with palpation of the gums, no scleral icterus NECK: full range of motion, supple, no meningismus, No LAD, No JVD LUNGS: CTAB, No W/C, No Accessory muscle use CARDS: RRR, S1, S2, No M/R/G, ABD: Soft, NT, ND, No R/G, + BS, No HSM, No Masses : Deferred Ext: C/C/E, Pulses 2+ B/L (DP, Rad): NEURO: A/O x 4, Strength and Sensation Grossly intact PSYCH: Mood/affect normal SKIN: Warm/dry, No rashes, no facial erythema Assessment/Plan Assessment/Plan 43 yo feamle with PMHx of uterine CA, Psych and Brain tumor who presnted to the ED 01/14/19 with headache and dental pain. Recurrent Dental pain Currently no clear pus or abscess. No facial erythema Hx of right facial cellulitis- from either infected teeth and R maxillary sinusitis -wound cx from cavity: usual bekah om Nov 2018 -CT facial bones 12/03/18 : No acute injury appreciated. No abscess identified.Right maxillary sinusitis.Incidental 1 cm enhancing mass associated with the anterior interhemispheric fissure.This is most likely meningioma. Suggest confirmation with the MRI with and without gadolinium Headache CT shows possible meningioma Vaginal mass? Recommend POTATO [employer]IP [employer]YER f/u Afebrile No leukocytosis Hx Uterine CA s/p radiation Psych disorder Hx Brain tumor Plan: - Continue Vancomycin and Cefepime #1 - 12/16/18 S/P Out Pt Augmentin 875/125mg bid #4 - 12/12/18 S/P Unasyn #10 -2/27 SP IV Vancomycin and Cefepime #1 -f/u cx - Repeat CT face to look for new abscess -Monitor CBC/CMP, temperatures -Needs to f/u with dentist as outpatient for removal of damaged/infected teeth. - Oil Dispatcher Consult Thank you for this consult. We will continue to follow the patient during this hospitalization. Rashaad Lucas MD Jan 15, 2019 11:28
[2019-01-15 12:00] VITALS: BP 123/84
[2019-01-15] MEDS ORDERED: Isovue-300 100ml vial INJ PRN (13:15)
--- NOTE | 2019-01-15 13:28 | Consultation ---
History of Present Illness General Date patient seen: Jan 15, 2019 Chief Complaint: Headache Reason for Consultation: Dental pain Present Illness HPI 43-year-old female from [facility] presented to [facility] with CC of right- sided facial pain. She reports of increased pain to the right side of her face. Patient had previously been seen for similar symptoms.. Right side of the face was swollen. She is admitted to treat her facial cellulitis. She is also afraid that that her cervical cancer has come back. Allergies: Coded Allergies: DIVALPROEX SODIUM (Verified Allergy, Unknown, 11/29/18) GABAPENTIN (Verified Allergy, Unknown, 01/15/19) HALOPERIDOL (Verified Allergy, Unknown, 11/29/18) HYDROXYZINE (Verified Allergy, Unknown, 01/15/19) IBUPROFEN (Verified Allergy, Unknown, 11/29/18) KETOROLAC (Verified Allergy, Unknown, 11/29/18) METOPROLOL (Verified Allergy, Unknown, 11/29/18) MORPHINE (Verified Allergy, Unknown, 11/29/18) NAPROXEN (Verified Allergy, Unknown, 01/15/19) ONDANSETRON (Verified Allergy, Unknown, 01/15/19) TRAZODONE (Verified Allergy, Unknown, 11/29/18) Uncoded Allergies: NSAIDS (Allergy, Unknown, 11/29/18) Medication History Scheduled Diphenhydramine Hcl (Benadryl Allergy), 25 MG PO DAILY, (Reported) Levothyroxine Sodium* (Levoxyl*), 112 MCG ORAL DAILY, (Reported) Lorazepam* (Lorazepam*), 1 MG ORAL Q6HR, (Reported) Mag Hydrox/Al Hydrox/Simeth* (Advanced Antacid Liquid*), Unknown Dose ORAL FOUR TIMES A DAY, (Reported) Sertraline Hcl* (Zoloft*), 50 MG ORAL DAILY, (Reported) Tizanidine Hcl* (Zanaflex*), 4 MG ORAL THREE TIMES A DAY, (Reported) Scheduled PRN Acetaminophen* (Acetaminophen 325MG Tablet*), 650 MG ORAL Q6H PRN for For Pain, (Reported) Hydrocodone Bit/Acetaminophen 10-325* (B[place]ster 10-325*), 1 TAB ORAL Q8HR PRN for Severe Pain (Pain Scale 7-10), (Reported) Hydroxyzine Hcl (Hydroxyzine Hcl), 25 MG PO TID PRN for For Anxiety, (Reported) Magnesium Hydroxide* (Milk Of Magnesia*), 30 ML ORAL Q6HR PRN for Constipation, (Reported) Temazepam* (Restoril*), 15 MG ORAL BEDTIME PRN for Insomnia, (Reported) Discontinued Medications Alprazolam* (Xanax*), 1 MG ORAL TID, (Reported) Discontinued Reason: Prescription changed Amoxicillin* (Amoxil*), 500 MG ORAL EVERY 8 HOURS, (Reported) Discontinued Reason: Therapy completed Amoxicillin/Potassium Clav 875-125* (Augmentin 875-125 Tablet*), 1 TAB ORAL TWICE A DAY, (Reported) Discontinued Reason: Therapy completed Ciprofloxacin Hcl* (Ciprofloxacin Hcl*), 500 MG ORAL Q12H Discontinued Reason: Therapy completed Hydroxyzine Pamoate* (Vistaril*), 25 MG ORAL EVERY 6 HOURS, (Reported) Discontinued Reason: Prescription changed Lurasidone Hcl (Latuda), 40 MG PO, (Reported) Discontinued Reason: Therapy completed Oxycodone/Acetaminophen 5-325* (Percocet 5-325 Mg Tablet*), 1 TAB ORAL Q6H PRN for For Pain Discontinued Reason: Therapy completed Patient History Healthcare decision maker Resuscitation status Full Code Advanced Directive on File Past Medical/Surgical History Past Medical/Surgical History: (1) Dental abscess (2) Brain tumor (3) Cervical cancer Review of Systems All Other Systems: negative except mentioned in HPI Physical Exam General Appearance: WD/WN Lines, tubes and drains: peripheral HEENT: normocephalic, atraumatic Neck: non-tender, supple Respiratory/Chest: chest wall non-tender, lungs clear Breasts: no masses Cardiovascular/Chest: normal peripheral pulses Abdomen: non tender Genitourinary/Rectal: normal rectal exam Last 24 Hour Vital Signs Date Time Temp Pulse Resp B/P (MAP) Pulse Ox O2 Delivery O2 Flow Rate FiO2 01/15/19 09:40 98.3 01/15/19 08:40 98.3 01/15/19 08:00 98.2 75 18 125/79 (94) 98 01/15/19 05:03 Room Air 01/15/19 04:00 98.3 90 20 143/84 (103) 97 01/15/19 00:00 98.2 86 20 139/80 (99) 97 01/14/19 20:00 98.5 87 19 163/91 (115) 97 01/14/19 19:42 98.2 78 20 133/75 98 Room Air 01/14/19 17:36 98.2 78 20 133/75 98 Room Air 01/14/19 17:33 98.2 01/14/19 15:33 98.2 66 20 135/95 97 Room Air 01/14/19 15:21 98.0 01/14/19 13:58 98.1 90 18 137/90 98 Room Air Intake and Output 01/14/19 01/15/19 19:00 07:00 Intake Total 1780 ml Balance 1780 ml Intake Oral 780 ml IV Total 1000 ml # Voids 3 # Bowel Movements 1 Laboratory Tests Test 01/14/19 17:00 01/15/19 05:25 White Blood Count 7.3 K/UL (4.8-10.8) 3.8 K/UL (4.8-10.8) L Red Blood Count 4.35 M/UL (4.20-5.40) 3.97 M/UL (4.20-5.40) L Hemoglobin 13.8 G/DL (12.0-16.0) 12.7 G/DL (12.0-16.0) Hematocrit 41.8 % (37.0-47.0) 38.3 % (37.0-47.0) Mean Corpuscular Volume 96 FL (80-99) 96 FL (80-99) Mean Corpuscular Hemoglobin 31.6 PG (27.0-31.0) H 31.9 PG (27.0-31.0) H Mean Corpuscular Hemoglobin Concent 32.9 G/DL (32.0-36.0) 33.1 G/DL (32.0-36.0) Red Cell Distribution Width 12.5 % (11.6-14.8) 12.7 % (11.6-14.8) Platelet Count 318 K/UL (150-450) 272 K/UL (150-450) Mean Platelet Volume 4.7 FL (6.5-10.1) L 4.8 FL (6.5-10.1) L Neutrophils (%) (Auto) 50.7 % (45.0-75.0) 42.6 % (45.0-75.0) L Lymphocytes (%) (Auto) 43.4 % (20.0-45.0) 50.0 % (20.0-45.0) H Monocytes (%) (Auto) 4.4 % (1.0-10.0) 4.4 % (1.0-10.0) Eosinophils (%) (Auto) 0.8 % (0.0-3.0) 1.9 % (0.0-3.0) Basophils (%) (Auto) 0.9 % (0.0-2.0) 1.1 % (0.0-2.0) Sodium Level 136 MMOL/L (136-145) 140 MMOL/L (136-145) Potassium Level 4.0 MMOL/L (3.5-5.1) 4.3 MMOL/L (3.5-5.1) Chloride Level 101 MMOL/L (98-107) 106 MMOL/L (98-107) Carbon Dioxide Level 28 MMOL/L (21-32) 28 MMOL/L (21-32) Anion Gap 7 mmol/L (5-15) 6 mmol/L (5-15) Blood Urea Nitrogen 16 mg/dL (7-18) 17 mg/dL (7-18) Creatinine 0.8 MG/DL (0.55-1.30) 1.0 MG/DL (0.55-1.30) Estimat Glomerular Filtration Rate > 60 mL/min (>60) > 60 mL/min (>60) Glucose Level 86 MG/DL (74-106) 83 MG/DL (74-106) Lactic Acid Level 1.70 mmol/L (0.4-2.0) Calcium Level 9.0 MG/DL (8.5-10.1) 8.5 MG/DL (8.5-10.1) Total Bilirubin 0.2 MG/DL (0.2-1.0) 0.2 MG/DL (0.2-1.0) Aspartate Amino Transf (AST/SGOT) 17 U/L (15-37) 50 U/L (15-37) H Alanine Aminotransferase (ALT/SGPT) 19 U/L (12-78) 65 U/L (12-78) Alkaline Phosphatase 77 U/L (46-116) 70 U/L (46-116) Creatine Kinase MB 0.7 NG/ML (0.0-3.6) Total Protein 8.3 G/DL (6.4-8.2) H 7.2 G/DL (6.4-8.2) Albumin 4.0 G/DL (3.4-5.0) 3.4 G/DL (3.4-5.0) Globulin 4.3 g/dL 3.8 g/dL Albumin/Globulin Ratio 0.9 (1.0-2.7) L 0.9 (1.0-2.7) L Height (Feet): 5 Height (Inches): 6.00 Weight (Pounds): 144 Medications Current Medications Medications (Trade) Dose Ordered Sig/Gaby Route PRN Reason Start Time Stop Time Status Last Admin Dose Admin Acetaminophen (Tylenol) 650 mg Q4H PRN ORAL fever 01/14/19 19:46 02/13/19 19:45 Albuterol/ Ipratropium (Albuterol/ Ipratropium) 3 ml Q4H PRN HHN Shortness of Breath 01/14/19 19:46 01/19/19 19:45 Alprazolam (Xanax) 1 mg Q6H PRN ORAL For Anxiety 01/14/19 20:45 01/21/19 20:44 01/15/19 06:02 Cefepime HCl 2 gm/ Dextrose 110 ml @ 220 mls/hr EVERY 12 HOURS IV 01/14/19 21:00 01/21/19 20:59 01/15/19 10:31 Dextrose (Dextrose 50%) 25 ml STAT PRN IV Hypoglycemia 01/14/19 19:15 02/13/19 19:14 Dextrose (Dextrose 50%) 50 ml Q30M PRN IV Hypoglycemia 01/14/19 19:15 02/13/19 19:14 Gabapentin (Neurontin) 300 mg THREE TIMES A DAY ORAL 01/15/19 09:00 02/14/19 08:59 Heparin Sodium (Porcine) (Heparin 5000 units/ml) 5,000 units EVERY 12 HOURS SUBQ 01/14/19 21:00 02/13/19 20:59 01/15/19 08:43 Hydromorphone HCl 2 mg/Sodium Chloride 56 ml @ 224 mls/hr Q3H PRN IVPB SEVERE PAIN (7 TO 10) 01/15/19 07:45 01/22/19 00:59 01/15/19 12:32 Iopamidol (Isovue-300 100ml) 100 ml NOW PRN INJ Radiology Procedure 01/15/19 13:15 01/15/19 23:59 Levothyroxine Sodium (Synthroid) 112 mcg DAILY@0630 ORAL 01/15/19 06:30 02/14/19 06:29 01/15/19 06:02 Lorazepam (Ativan 2mg/ml 1ml) 1 mg Q4H PRN IV For Anxiety 01/14/19 20:45 01/21/19 20:44 01/15/19 08:41 Nitroglycerin (Ntg) 0.4 mg Q5MIN X 3 DOSES PRN SL Prn Chest Pain 01/14/19 19:45 02/13/19 19:44 Ondansetron HCl (Zofran) 4 mg Q6H PRN IVP Nausea & Vomiting 01/14/19 19:45 02/13/19 19:44 Polyethylene Glycol (Miralax) 17 gm DAILYPRN PRN ORAL Constipation 01/14/19 19:15 02/13/19 19:14 Promethazine HCl 25 mg/Sodium Chloride 56 ml @ 112 mls/hr Q6H PRN IVPB Refractory Nausea & Vomiting 01/14/19 21:01 02/13/19 21:00 01/15/19 12:47 Sertraline HCl (Zoloft) 50 mg DAILY ORAL 01/15/19 09:00 02/14/19 08:59 01/15/19 08:41 Temazepam (Restoril) 15 mg HSPRN PRN ORAL Insomnia 01/14/19 21:00 01/21/19 20:59 Tizanidine HCl (Zanaflex) 4 mg THREE TIMES A DAY ORAL 01/15/19 09:00 02/14/19 08:59 01/15/19 12:32 Vancomycin HCl (Vanco rx to dose) 1 ea DAILY PRN MISC PER RX 01/14/19 20:00 02/13/19 19:59 Vancomycin HCl 1 gm/Dextrose 275 ml @ 183.3 mls/ hr Q12H IVPB 01/14/19 22:00 01/19/19 21:59 01/15/19 11:30 Assessment/Plan Problem List: (1) Facial cellulitis ICD Codes: L03.211 - Cellulitis of face SNOMED: 346132168 (2) Facial pain ICD Codes: R51 - Headache SNOMED: 19798468 (3) Cervical cancer ICD Codes: C53.9 - Malignant neoplasm of cervix uteri, unspecified SNOMED: 100562607 Assessment/Plan IV 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 pain management Chrissie Purdy MD Jan 15, 2019 13:28
[2019-01-15] MEDS ORDERED: FLUOXETINE HCL20 MG ORAL (15:43)
[2019-01-15 16:00] VITALS: BP 119/81
--- NOTE | 2019-01-15 16:45 | History and Physical Report ---
DATE OF ADMISSION: 01/14/2019 TIME AND DATE SEEN: 01/15/2019 at 8 a.m. CONSULTANTS: 1. Chrissie Purdy M.D. 2. Mason Rizvi M.D. 3. Alejandro Dejesus M.D. 4. Aviva Edmond M.D. 5. Scott Angela M.D. CHIEF COMPLAINT: Facial pain, dental infection, and anxiety. BRIEF HISTORY: This is a 43-year-old female from [facility] who presented to [facility] last night with history of increased facial pain. She had been seen by a dentist and pain has somewhat increased. The patient is very anxious and screaming in pain. The patient was admitted to medical floor for above-mentioned diagnosis. Currently crying in room, complaining of facial pain 06/17. No complaint. REVIEW OF SYSTEMS: No chest pain. No shortness of breath. No nausea, vomiting, or diarrhea. PAST MEDICAL HISTORY: Uterine cancer, Crohn disease, and anxiety. PAST SURGICAL HISTORY: Hysterectomy. ALLERGIES: Divalproex, gabapentin, Haldol, hydroxyzine, ibuprofen, Ketoralac, metoprolol, morphine, naproxen, and NSAIDs. MEDICATIONS: Include sertraline, Zanaflex, gabapentin, hydromorphone, levothyroxine, promethazine, temazepam, heparin, cefepime, alprazolam, lorazepam, vancomycin, albuterol, nitroglycerin, and Zofran. SOCIAL HISTORY: Positive smoking. No alcohol. No intravenous drug abuse. FAMILY HISTORY: Noncontributory. PHYSICAL EXAMINATION: GENERAL: Anxious in bed, oriented x3, slight distress secondary to pain. VITAL SIGNS: Temperature is 98 degrees, pulse 98, respirations 20, and blood pressure 143/83. CARDIOVASCULAR: No murmur. LUNGS: Distant, clear. ABDOMEN: Bowel sounds positive. Nontender and nondistended. EXTREMITIES: Show no cyanosis or edema. NEUROLOGICAL: The patient moves all extremities, slightly weak. LABORATORY AND DIAGNOSTIC DATA: White count 3.8. AST 50. Otherwise, CBC and BMP is normal. ASSESSMENT: 1. Facial pain. 2. Dental infection. 3. Anxiety. 4. Uterine cancer. 5. Crohn disease. PLAN: 1. Pain control. 2. Antibiotics per Infectious Disease. 3. Dietary followup. 4. Psychiatric treatment. 5. CBC and BMP in the morning. 6. We will continue to follow the patient. Cooper London D.O. DR: OLIVIA JOB#: [id number] CC:
--- NOTE | 2019-01-15 17:31 | Consultation ---
Consult Note Consult Note GYNECOLOGY CONSULT NOTE CC: vulvar and vaginal burning HPI: Patient is a 43yo who was admitted with recurrent dental abscess. She is a very poor historian and was intermittently dozing off mid-sentence during our interview. She reports a 2 month history of vulvar and vaginal "rawness" that is severe. She also reports burning with urination. The patient was up and about and fully dressed when I entered the room and appeared to be walking comfortably and without issue. She reports a history of stage 4 cancer of the cervix and uterus. It is unclear if it was cervical or uterine cancer, however the patient reports hysterectomy followed by LEEP procedures and "nuking" ( which likely refers to radiation), however her timeline is unclear. She is concerned for vaginal recurrence. She does not currently have a PROJECT COORDINATOR-Oncologist. I explained that she needs follow up with a PROJECT COORDINATOR-Oncologist given her history, and that her concerns should be followed up as soon as possible on an outpatient basis with the appropriate care team. REVIEW OF SYSTEMS: No chest pain. No shortness of breath. No nausea, vomiting , or diarrhea. PMH: PROJECT COORDINATOR Cancer (uterine vs cervical), Crohn's disease, Anxiety, ?brain tumor, Psych condition (diagnosis unknown) PSH: Hysterectomy (1998), ?LEEPs (timing unclear) Meds: See med rec for complete list Allergies: (see above) - Divalproex, gabapentin, Haldol, Hydroxyzine, Ibuprofen , Ketoralac, metoprolol, morphine, naproxen, and NSAIDs. OBHx: - cancer diagnosed during her last in 1997 GYNHx: LMP at hysterectomy, PROJECT COORDINATOR cancer (uterine vs cervical), ?endometriosis, ? osteoporosis (patient unable to provide clear history) SocHx: +Smoker, denies alcohol or IV drug use FamHx: Non-contributory Vitals: Tlast 97.5, BP 119/81, P 89, RR 19, )2 97% RA Exam: Gen: NAD, poor social boundaries, intermittently nodding out during interview HEENT: Poor dentition Neck: No obvious thyromegaly CV: No tachycardia Pulm: No increased work of breathing Abd: Soft, NTND Pelvic: NEFG, no masses or lesions. Vaginal exam revealed normal mucosa, no evidence of abnormal discharge. Bimanual exam revealed surgically absent cervix and uterus. No adnexal tenderness. Ext: No calf TTP MSK: FROM Labs: Test 01/14/19 17:00 01/15/19 05:25 White Blood Count 7.3 K/UL (4.8-10.8) 3.8 K/UL (4.8-10.8) Red Blood Count 4.35 M/UL (4.20-5.40) 3.97 M/UL (4.20-5.40) Hemoglobin 13.8 G/DL (12.0-16.0) 12.7 G/DL (12.0-16.0) Hematocrit 41.8 % (37.0-47.0) 38.3 % (37.0-47.0) Mean Corpuscular Volume 96 FL (80-99) 96 FL (80-99) Mean Corpuscular Hemoglobin 31.6 PG (27.0-31.0) 31.9 PG (27.0-31.0) Mean Corpuscular Hemoglobin Concent 32.9 G/DL (32.0-36.0) 33.1 G/DL (32.0-36.0) Red Cell Distribution Width 12.5 % (11.6-14.8) 12.7 % (11.6-14.8) Platelet Count 318 K/UL (150-450) 272 K/UL (150-450) Mean Platelet Volume 4.7 FL (6.5-10.1) 4.8 FL (6.5-10.1) Neutrophils (%) (Auto) 50.7 % (45.0-75.0) 42.6 % (45.0-75.0) Lymphocytes (%) (Auto) 43.4 % (20.0-45.0) 50.0 % (20.0-45.0) Monocytes (%) (Auto) 4.4 % (1.0-10.0) 4.4 % (1.0-10.0) Eosinophils (%) (Auto) 0.8 % (0.0-3.0) 1.9 % (0.0-3.0) Basophils (%) (Auto) 0.9 % (0.0-2.0) 1.1 % (0.0-2.0) Sodium Level 136 MMOL/L (136-145) 140 MMOL/L (136-145) Potassium Level 4.0 MMOL/L (3.5-5.1) 4.3 MMOL/L (3.5-5.1) Chloride Level 101 MMOL/L (98-107) 106 MMOL/L (98-107) Carbon Dioxide Level 28 MMOL/L (21-32) 28 MMOL/L (21-32) Anion Gap 7 mmol/L (5-15) 6 mmol/L (5-15) Blood Urea Nitrogen 16 mg/dL (7-18) 17 mg/dL (7-18) Creatinine 0.8 MG/DL (0.55-1.30) 1.0 MG/DL (0.55-1.30) Estimat Glomerular Filtration Rate > 60 mL/min (>60) > 60 mL/min (>60) Glucose Level 86 MG/DL (74-106) 83 MG/DL (74-106) Lactic Acid Level 1.70 mmol/L (0.4-2.0) Calcium Level 9.0 MG/DL (8.5-10.1) 8.5 MG/DL (8.5-10.1) Total Bilirubin 0.2 MG/DL (0.2-1.0) 0.2 MG/DL (0.2-1.0) Aspartate Amino Transf (AST/SGOT) 17 U/L (15-37) 50 U/L (15-37) Alanine Aminotransferase (ALT/SGPT) 19 U/L (12-78) 65 U/L (12-78) Alkaline Phosphatase 77 U/L (46-116) 70 U/L (46-116) Creatine Kinase MB 0.7 NG/ML (0.0-3.6) Total Protein 8.3 G/DL (6.4-8.2) 7.2 G/DL (6.4-8.2) Albumin 4.0 G/DL (3.4-5.0) 3.4 G/DL (3.4-5.0) Globulin 4.3 g/dL 3.8 g/dL Albumin/Globulin Ratio 0.9 (1.0-2.7) 0.9 (1.0-2.7) Imaging: No pelvic imaging obtained Assessment/Plan 43yo with history of PROJECT COORDINATOR cancer s/p hysterectomy, complaining of vulvar/vaginal burning - Given recent antibiotics, candidiasis of the vulva and vaginal is likely, Rx' d Diflucan 150mg x 2 doses and topical Clotrimazole - No abnormal discharge or lesions noted on exam, however will treat empirically based on symptoms - No bleeding or excoriations - Consider UCx given dysuria, however s/p antibiotics likely to be low yield and sx may resolve with vaginal treatment alone - Recommended outpatient follow up with PROJECT COORDINATOR-Oncology given her history of uterine vs cervical cancer, and her likely need for vaginal Pap if it was the latter Thank you for this interesting consult. Signed: MD Susanna Tom Carla M.D. Jan 15, 2019 17:31
[2019-01-15] MEDS: HydrOXYzine 50mg tab ORAL SCH (17:41)
[2019-01-15] MEDS ORDERED: Fluconazole 100mg tab ORAL SCH (18:00)
[2019-01-15 20:00] VITALS: BP 139/86
[2019-01-15] MEDS ORDERED: Clotrimazole 1% Vaginal Cr 45gm VAGIN SCH (21:00)
[2019-01-15] MEDS: Clotrimazole Vaginal Cr-3 Day 21gm VAGIN SCH (21:27)
[2019-01-15] MEDS: Vancomycin 750mg/NS 275ml IVPB SCH ×2 (22:34)
[2019-01-16] MEDS: HYDROmorphone 2 MG in NS 55 ML IVPB PRN ×6 (01:14→19:36)
[2019-01-16 04:00] VITALS: BP 140/88
[2019-01-16] MEDS: Promethazine HCl 25 MG in NS 55 ML IVPB PRN ×2 (06:05→16:49)
[2019-01-16] MEDS: ALPRAZolam 0.5mg tab ORAL PRN ×2 (06:05→18:40)
[2019-01-16 07:03] LABS: HEMATOCRIT 36.5 % (37.0-47.0); HEMOGLOBIN 12.3 G/DL (12.0-16.0); MEAN CORPUSCULAR VOLUME 96 FL (80-99); PLATELET COUNT 272 K/UL (150-450); RED BLOOD COUNT 3.79 M/UL (4.20-5.40); RED CELL DISTRIBUTION WIDTH 12.6 % (11.6-14.8)
[2019-01-16 07:14] LABS: ANION GAP 7 mmol/L (5-15); BLOOD UREA NITROGEN 14 mg/dL (7-18); CARBON DIOXIDE 29 MMOL/L (21-32); CHLORIDE 102 MMOL/L (98-107); CREATININE 0.8 MG/DL (0.55-1.30); SODIUM 138 MMOL/L (136-145)
[2019-01-16] MEDS: Heparin 5000 units/ml inj SUBQ SCH ×2 (08:34→20:46)
[2019-01-16] MEDS: HydrOXYzine 50mg tab ORAL SCH ×2 (08:34→16:49)
--- NOTE | 2019-01-16 09:32 | General Progress Note ---
Assessment/Plan Assessment/Plan (1) Right sided facial pain (2) Cellulitis (3) Dental Caries Pt will be continued on Dilaudid and started on Percocet 10/325mg PO tab Q4H PRN. D/w Dr. Alonzo and he concurred. Subjective Date patient seen: Jan 16, 2019 Time patient seen: 08:15 - am Allergies: Coded Allergies: DIVALPROEX SODIUM (Verified Allergy, Unknown, 11/29/18) GABAPENTIN (Verified Allergy, Unknown, 01/15/19) HALOPERIDOL (Verified Allergy, Unknown, 11/29/18) HYDROXYZINE (Verified Allergy, Unknown, 01/15/19) IBUPROFEN (Verified Allergy, Unknown, 11/29/18) KETOROLAC (Verified Allergy, Unknown, 11/29/18) METOPROLOL (Verified Allergy, Unknown, 11/29/18) MORPHINE (Verified Allergy, Unknown, 11/29/18) NAPROXEN (Verified Allergy, Unknown, 01/15/19) ONDANSETRON (Verified Allergy, Unknown, 01/15/19) TRAZODONE (Verified Allergy, Unknown, 11/29/18) Uncoded Allergies: NSAIDS (Allergy, Unknown, 11/29/18) Subjective REVIEW OF SYSTEMS: Denies rash, fever, chills, sweating, dizziness, drowsiness, blurred vision, sore throat, or change in weight. No nausea, vomiting, diarrhea, or blood in the stool or urine. No bowel or bladder incontinence. No dysuria. SUBJECTIVE: Patient is a known patient from prior admission and has been readmitted with dental pain. Started on Dilaudid 2mg IVPB Q3HPRN with minimal relief. Due to this we were consulted so patient has adequate pain control while here in the hospital. Objective Last 24 Hour Vital Signs Date Time Temp Pulse Resp B/P (MAP) Pulse Ox O2 Delivery O2 Flow Rate FiO2 01/16/19 08:10 86 16 Room Air 01/16/19 04:00 98.4 97 18 140/88 (105) 97 01/16/19 00:00 18 01/15/19 21:00 Room Air 01/15/19 20:00 98.0 82 19 139/86 (103) 100 01/15/19 18:41 97.5 01/15/19 16:09 97.5 01/15/19 16:00 97.5 89 19 119/81 (94) 97 01/15/19 12:00 96.4 65 16 123/84 (97) 96 Intake and Output 01/15/19 01/16/19 19:00 07:00 Intake Total 900 ml 756.666 ml Balance 900 ml 756.666 ml IV Total 756.666 ml Other 900 ml # Voids 3 Laboratory Tests 01/16/19 05:25: White Blood Count 4.0L, Red Blood Count 3.79L, Hemoglobin 12.3, Hematocrit 36.5L , Mean Corpuscular Volume 96, Mean Corpuscular Hemoglobin 32.3H, Mean Corpuscular Hemoglobin Concent 33.5, Red Cell Distribution Width 12.6, Platelet Count 272, Mean Platelet Volume 5.1L, Neutrophils (%) (Auto) , Lymphocytes (%) ( Auto) , Monocytes (%) (Auto) , Eosinophils (%) (Auto) , Basophils (%) (Auto) , Differential Total Cells Counted 100, Neutrophils % (Manual) 33L, Lymphocytes % (Manual) 60H, Monocytes % (Manual) 5, Eosinophils % (Manual) 2, Basophils % ( Manual) 0, Band Neutrophils 0, Platelet Estimate Adequate, Platelet Morphology Normal, Red Blood Cell Morphology Normal, Sodium Level 138, Potassium Level 4.0 , Chloride Level 102, Carbon Dioxide Level 29, Anion Gap 7, Blood Urea Nitrogen 14, Creatinine 0.8, Estimat Glomerular Filtration Rate > 60, Glucose Level 82, Calcium Level 9.0 Height (Feet): 5 Height (Inches): 6.00 Weight (Pounds): 144 Objective GENERAL: Alert, awake, oriented. LUNGS: Decreased breath sounds bilaterally. HEART: S1 and S2, regular. ABDOMEN: Soft and nontender. EXTREMITIES: No cyanosis. No clubbing. NEURO: No focal deficit Jose Steele Jan 16, 2019 09:32
[2019-01-16] MEDS: Cefepime HCl 2 GM in D5W 110 ML IV SCH ×2 (09:53→20:45)
[2019-01-16] MEDS: Vancomycin 750mg/NS 275ml IVPB SCH ×2 (10:57)
--- NOTE | 2019-01-16 11:25 | Infectious Diseases Prog Note ---
Assessment/Plan Assessment/Plan 43 yo with PMHx of uterine CA, Psych and Brain tumor who presnted to the ED 01/14/19 with headache and dental pain. Recurrent Dental pain Currently no clear pus or abscess. No facial erythema Hx of right facial cellulitis- from either infected teeth and R maxillary sinusitis -wound cx from cavity: usual bekah om Nov 2018 -CT facial bones 12/03/18 : No acute injury appreciated. No abscess identified.Right maxillary sinusitis.Incidental 1 cm enhancing mass associated with the anterior interhemispheric fissure.This is most likely meningioma. Suggest confirmation with the MRI with and without gadolinium Headache CT shows possible meningioma Vaginal pain and erythema Probable yeast infection per RN ADMISSIONS Clotrimazole crm Afebrile No leukocytosis Hx Uterine CA s/p radiation Psych disorder Hx Brain tumor Plan: - Continue Vancomycin and Cefepime #1 - 12/16/18 S/P Out Pt Augmentin 875/125mg bid #4 - 12/12/18 S/P Unasyn #10 -12/04 SP IV Vancomycin and Cefepime #1 - f/u GC/Ch and UCx -f/u cx -f/u CT face to look for abscess -Monitor CBC/CMP, temperatures -Needs to f/u with dentist as outpatient for removal of damaged/infected teeth. - [employer] Consult Thank you for this consult. We will continue to follow the patient during this hospitalization. Subjective Allergies: Coded Allergies: DIVALPROEX SODIUM (Verified Allergy, Unknown, 11/29/18) GABAPENTIN (Verified Allergy, Unknown, 01/15/19) HALOPERIDOL (Verified Allergy, Unknown, 11/29/18) HYDROXYZINE (Verified Allergy, Unknown, 01/15/19) IBUPROFEN (Verified Allergy, Unknown, 11/29/18) KETOROLAC (Verified Allergy, Unknown, 11/29/18) METOPROLOL (Verified Allergy, Unknown, 11/29/18) MORPHINE (Verified Allergy, Unknown, 11/29/18) NAPROXEN (Verified Allergy, Unknown, 01/15/19) ONDANSETRON (Verified Allergy, Unknown, 01/15/19) TRAZODONE (Verified Allergy, Unknown, 11/29/18) Uncoded Allergies: NSAIDS (Allergy, Unknown, 11/29/18) Subjective Afebrile No leukocytosis Seen by RN ADMISSIONS yesterday Objective Vital Signs Last 24 Hour Vital Signs Date Time Temp Pulse Resp B/P (MAP) Pulse Ox O2 Delivery O2 Flow Rate FiO2 01/16/19 10:22 98.4 01/16/19 09:01 98.4 01/16/19 09:01 98.4 01/16/19 08:10 86 16 Room Air 01/16/19 04:00 98.4 97 18 140/88 (105) 97 01/16/19 00:00 18 01/15/19 21:00 Room Air 01/15/19 20:00 98.0 82 19 139/86 (103) 100 01/15/19 16:00 97.5 89 19 119/81 (94) 97 01/15/19 12:00 96.4 65 16 123/84 (97) 96 Height (Feet): 5 Height (Inches): 6.00 Weight (Pounds): 144 Objective Gen: NAD HEENT: NCAT, MMM, EOMI LUNGS: CTAB, No W CARDS: RRR, S1, S2, No M/R/G, ABD: Soft, NT, ND, + BS NEURO: A/O x 4, Strength and Sensation Grossly intact Microbiology Date/Time Source Procedure Growth Status 01/14/19 17:00 Blood Blood Culture - Preliminary NO GROWTH AFTER 24 HOURS Resulted 01/14/19 16:45 Blood Blood Culture - Preliminary NO GROWTH AFTER 24 HOURS Resulted 01/14/19 17:55 Nasal Nares MRSA Culture - Final NO METHICILLIN RESISTANT STAPH AUREUS... Complete 01/14/19 17:55 Rectum VRE Culture - Final NO VANCOMYCIN RESISTANT ENTEROCOCCUS ... Complete 01/14/19 17:55 Rectum - Final NO CARBAPENEM-RESISTANT ENTEROBACTERI... Complete Laboratory Tests Test 01/16/19 05:25 White Blood Count 4.0 K/UL (4.8-10.8) L Red Blood Count 3.79 M/UL (4.20-5.40) L Hemoglobin 12.3 G/DL (12.0-16.0) Hematocrit 36.5 % (37.0-47.0) L Mean Corpuscular Volume 96 FL (80-99) Mean Corpuscular Hemoglobin 32.3 PG (27.0-31.0) H Mean Corpuscular Hemoglobin Concent 33.5 G/DL (32.0-36.0) Red Cell Distribution Width 12.6 % (11.6-14.8) Platelet Count 272 K/UL (150-450) Mean Platelet Volume 5.1 FL (6.5-10.1) L Neutrophils (%) (Auto) % (45.0-75.0) Lymphocytes (%) (Auto) % (20.0-45.0) Monocytes (%) (Auto) % (1.0-10.0) Eosinophils (%) (Auto) % (0.0-3.0) Basophils (%) (Auto) % (0.0-2.0) Differential Total Cells Counted 100 Neutrophils % (Manual) 33 % (45-75) L Lymphocytes % (Manual) 60 % (20-45) H Monocytes % (Manual) 5 % (1-10) Eosinophils % (Manual) 2 % (0-3) Basophils % (Manual) 0 % (0-2) Band Neutrophils 0 % (0-8) Platelet Estimate Adequate Platelet Morphology Normal Red Blood Cell Morphology Normal Sodium Level 138 MMOL/L (136-145) Potassium Level 4.0 MMOL/L (3.5-5.1) Chloride Level 102 MMOL/L (98-107) Carbon Dioxide Level 29 MMOL/L (21-32) Anion Gap 7 mmol/L (5-15) Blood Urea Nitrogen 14 mg/dL (7-18) Creatinine 0.8 MG/DL (0.55-1.30) Estimat Glomerular Filtration Rate > 60 mL/min (>60) Glucose Level 82 MG/DL (74-106) Calcium Level 9.0 MG/DL (8.5-10.1) Current Medications Medications (Trade) Dose Ordered Sig/Gaby Route PRN Reason Start Time Stop Time Status Last Admin Dose Admin Acetaminophen (Tylenol) 650 mg Q4H PRN ORAL fever 01/14/19 19:46 02/13/19 19:45 Albuterol/ Ipratropium (Albuterol/ Ipratropium) 3 ml Q4H PRN HHN Shortness of Breath 01/14/19 19:46 01/19/19 19:45 Alprazolam (Xanax) 1 mg Q6H PRN ORAL For Anxiety 01/14/19 20:45 01/21/19 20:44 01/16/19 06:05 Cefepime HCl 2 gm/ Dextrose 110 ml @ 220 mls/hr EVERY 12 HOURS IV 01/14/19 21:00 01/21/19 20:59 01/16/19 09:53 Clotrimazole (Gyne-Lotrimin) 1 applic BEDTIME VAGIN 01/15/19 21:00 01/17/19 21:01 01/15/19 21:27 Dextrose (Dextrose 50%) 25 ml STAT PRN IV Hypoglycemia 01/14/19 19:15 02/13/19 19:14 Dextrose (Dextrose 50%) 50 ml Q30M PRN IV Hypoglycemia 01/14/19 19:15 02/13/19 19:14 Fluconazole (Diflucan) 150 mg ONCE ORAL 01/17/19 09:00 01/17/19 10:00 Fluoxetine HCl (PROzac) 20 mg DAILY ORAL 01/16/19 09:00 02/15/19 08:59 01/16/19 08:28 Gabapentin (Neurontin) 300 mg THREE TIMES A DAY ORAL 01/15/19 09:00 02/14/19 08:59 Heparin Sodium (Porcine) (Heparin 5000 units/ml) 5,000 units EVERY 12 HOURS SUBQ 01/14/19 21:00 02/13/19 20:59 01/16/19 08:34 Hydromorphone HCl 2 mg/Sodium Chloride 56 ml @ 224 mls/hr Q3H PRN IVPB SEVERE PAIN (7 TO 10) 01/15/19 07:45 01/22/19 00:59 01/16/19 08:31 Hydroxyzine HCl (Atarax) 50 mg BID ORAL 01/15/19 18:00 02/14/19 17:59 01/16/19 08:34 Levothyroxine Sodium (Synthroid) 112 mcg DAILY@0630 ORAL 01/15/19 06:30 02/14/19 06:29 01/16/19 06:05 Lorazepam (Ativan 2mg/ml 1ml) 1 mg Q4H PRN IV For Anxiety 01/14/19 20:45 01/21/19 20:44 01/15/19 22:34 Nitroglycerin (Ntg) 0.4 mg Q5MIN X 3 DOSES PRN SL Prn Chest Pain 01/14/19 19:45 02/13/19 19:44 Ondansetron HCl (Zofran) 4 mg Q6H PRN IVP Nausea & Vomiting 01/14/19 19:45 02/13/19 19:44 Oxycodone/ Acetaminophen (Percocet ) 1 tab Q4H PRN ORAL breakthrough moderate pain 01/16/19 09:30 01/23/19 09:29 01/16/19 09:52 Polyethylene Glycol (Miralax) 17 gm DAILYPRN PRN ORAL Constipation 01/14/19 19:15 02/13/19 19:14 Promethazine HCl 25 mg/Sodium Chloride 56 ml @ 112 mls/hr Q6H PRN IVPB Refractory Nausea & Vomiting 01/14/19 21:01 02/13/19 21:00 01/16/19 06:05 Temazepam (Restoril) 30 mg HSPRN PRN ORAL Insomnia 01/15/19 21:00 01/22/19 20:59 01/16/19 01:43 Tizanidine HCl (Zanaflex) 4 mg THREE TIMES A DAY ORAL 01/15/19 09:00 02/14/19 08:59 01/16/19 08:30 Vancomycin HCl (Vanco rx to dose) 1 ea DAILY PRN MISC PER RX 01/14/19 20:00 02/13/19 19:59 Vancomycin HCl 750 mg/Sodium Chloride 275 ml @ 183.333 mls/hr Q12HR@1000,2200 IVPB 01/15/19 22:00 01/20/19 21:59 01/16/19 10:57 Rashaad Lucas MD Jan 16, 2019 11:25
--- NOTE | 2019-01-16 12:00 | Consultation ---
DATE OF CONSULTATION: 01/15/2019 "NOTE: POOR AUDIO QUALITY" CONSULTING PHYSICIAN: Mayito Chicas M.D. HISTORY OF PRESENT ILLNESS: The patient is a 43-year-old female patient. She was admitted to [facility] secondary to tooth abscess and dehydration. Seen and assessed at bedside today. She states she is having a tremendous amount of anxiety and depression. She said that she would like to make some changes to her medications given the anxiety which is severe causing her to have difficulty with her functionality and she states she cannot . Her chief complaint is "I am allergic to Neurontin and I need more medications for anxiety that will work better for me." That is her chief complaint. She also had difficulties to contract for safety as well. The patient still perseverating on her tooth pain and she seemed to have psychosomatic symptoms. She feels as though because of her tooth abscess and she admits to anxiety as well, seemed to be focused on that as well. . PAST MEDICAL HISTORY: The patient has a history of tooth abscess, see Internal Medicine for further details. She also has neuropathy, difficulty with ambulation. She has chronic pain. ALLERGIES: The patient has extensive allergy history. Please see allergy list. PSYCHOTROPIC MEDICATIONS: Currently on Zoloft 50 mg daily, Xanax 1 mg every 6 hours as needed anxiety and agitation. SUBSTANCE ABUSE HISTORY: She denies any history of alcohol use. FAMILY PSYCHIATRIC HISTORY: Denies. SOCIAL HISTORY: The patient is currently living in . Financially supported by [employer] and Medicare. PSYCHIATRIC HISTORY: The patient has major depression, generalized anxiety disorder. STRENGTHS: She is motivated to get better and has a place to live. WEAKNESSES: She is impulsive and minimal support system. MENTAL STATUS EXAMINATION: This is a 43-year-old female. Appearance is disheveled. Attitude, irritable and agitated. Affect is guarded and restricted. Intellect poor. The patient has no . Mood depressed and anxious. Motor activity, psychomotor agitation. Attention span is poor. Insight and judgment is poor. Orientation x2. She is alert to person and place, but not to time and situation. Speech pressured, nonsensical. Thought process is slightly disorganized. Thought content, she has some paranoia and paranoid delusions. Insight and judgment is poor. Thought perception is poor because she has perception . Insight is poor because she does not recognize she has psych disorder. Judgment is poor. The patient does not make her medical decisions for herself. She cannot contract for safety as far as suicidality, but denies homicidal ideation. Short-term memory, 3/3 word recall after a 5-minute delay with good short-term memory. Long-term memory is intact based on the knowledge of long-term events in her life such as the high school that she went to. Her gait is normal. . The patient has no history of abuse and there is no current abuse. DIAGNOSES: 1. Major depressive disorder, severe, recurrent with psychotic features. 2. Medical includes dental abscess, psychosocial stressors, financial , severe. PLAN: Plan for this patient, recommend transfer to [facility] once she is medically cleared. In the meantime, I will 20 mg daily and I am going to discontinue her Zoloft and . I encouraged her to interact appropriately with staff and other patients. Chart was reviewed. Discussed with staff. The patient seen and assessed in room. Twenty minutes of cognitive behavioral therapy provided to help identify her automatic negative thoughts and to convert those negative thoughts to more positive thoughts to reduce depression, anxiety, and mood lability. Provided 20 minutes cognitive behavioral therapy. Chart reviewed and discussed with staff. I would like to thank Dr. Cooper London for this interesting consultation. Aviva Edmond M.D. : JACQUELIN JOB#: [id number] CC:
--- NOTE | 2019-01-16 12:44 | Diagnostic Imaging Report ---
APPROVED REPORT CPT Code: 68629 Present Symptoms Comments: Pain BILATERAL: Imaging reveals a patent deep venous system bilaterally. There is no evidence of thrombus within the common femoral, superficial femoral, popliteal or tibial segments. The greater saphenous veins are within normal limits. Doppler indicates normal spontaneous flow within these segments.
--- NOTE | 2019-01-16 14:00 | Pulmonology Progress Note ---
Assessment/Plan Problems: (1) Facial cellulitis (2) Facial pain (3) Cervical cancer Assessment/Plan iv abc pain management [employer]IST appreciated symptomatic treatment check labs periodically Subjective ROS Limited/Unobtainable: No Allergies: Coded Allergies: DIVALPROEX SODIUM (Verified Allergy, Unknown, 11/29/18) GABAPENTIN (Verified Allergy, Unknown, 01/15/19) HALOPERIDOL (Verified Allergy, Unknown, 11/29/18) HYDROXYZINE (Verified Allergy, Unknown, 01/15/19) IBUPROFEN (Verified Allergy, Unknown, 11/29/18) KETOROLAC (Verified Allergy, Unknown, 11/29/18) METOPROLOL (Verified Allergy, Unknown, 11/29/18) MORPHINE (Verified Allergy, Unknown, 11/29/18) NAPROXEN (Verified Allergy, Unknown, 01/15/19) ONDANSETRON (Verified Allergy, Unknown, 01/15/19) TRAZODONE (Verified Allergy, Unknown, 11/29/18) Uncoded Allergies: NSAIDS (Allergy, Unknown, 11/29/18) Objective Last 24 Hour Vital Signs Date Time Temp Pulse Resp B/P (MAP) Pulse Ox O2 Delivery O2 Flow Rate FiO2 01/16/19 12:54 98.4 01/16/19 12:54 98.4 01/16/19 10:22 98.4 01/16/19 09:00 Room Air 01/16/19 08:10 86 16 Room Air 01/16/19 04:00 98.4 97 18 140/88 (105) 97 01/16/19 00:00 18 01/15/19 21:00 Room Air 01/15/19 20:00 98.0 82 19 139/86 (103) 100 01/15/19 16:00 97.5 89 19 119/81 (94) 97 Intake and Output 01/15/19 01/16/19 19:00 07:00 Intake Total 900 ml 756.666 ml Balance 900 ml 756.666 ml IV Total 756.666 ml Other 900 ml # Voids 3 General Appearance: WD/WN HEENT: normocephalic Respiratory/Chest: chest wall non-tender, lungs clear Cardiovascular: normal peripheral pulses, no JVD Abdomen: soft, non tender, no scars Skin: no rash, no lesions Microbiology Date/Time Source Procedure Growth Status 01/14/19 17:00 Blood Blood Culture - Preliminary NO GROWTH AFTER 24 HOURS Resulted 01/14/19 16:45 Blood Blood Culture - Preliminary NO GROWTH AFTER 24 HOURS Resulted 01/14/19 17:55 Nasal Nares MRSA Culture - Final NO METHICILLIN RESISTANT STAPH AUREUS... Complete 01/14/19 17:55 Rectum VRE Culture - Final NO VANCOMYCIN RESISTANT ENTEROCOCCUS ... Complete 01/14/19 17:55 Rectum - Final NO CARBAPENEM-RESISTANT ENTEROBACTERI... Complete Laboratory Tests 01/16/19 05:25: White Blood Count 4.0L, Red Blood Count 3.79L, Hemoglobin 12.3, Hematocrit 36.5L , Mean Corpuscular Volume 96, Mean Corpuscular Hemoglobin 32.3H, Mean Corpuscular Hemoglobin Concent 33.5, Red Cell Distribution Width 12.6, Platelet Count 272, Mean Platelet Volume 5.1L, Neutrophils (%) (Auto) , Lymphocytes (%) ( Auto) , Monocytes (%) (Auto) , Eosinophils (%) (Auto) , Basophils (%) (Auto) , Differential Total Cells Counted 100, Neutrophils % (Manual) 33L, Lymphocytes % (Manual) 60H, Monocytes % (Manual) 5, Eosinophils % (Manual) 2, Basophils % ( Manual) 0, Band Neutrophils 0, Platelet Estimate Adequate, Platelet Morphology Normal, Red Blood Cell Morphology Normal, Sodium Level 138, Potassium Level 4.0 , Chloride Level 102, Carbon Dioxide Level 29, Anion Gap 7, Blood Urea Nitrogen 14, Creatinine 0.8, Estimat Glomerular Filtration Rate > 60, Glucose Level 82, Calcium Level 9.0 Current Medications Medications (Trade) Dose Ordered Sig/Gaby Route PRN Reason Start Time Stop Time Status Last Admin Dose Admin Acetaminophen (Tylenol) 650 mg Q4H PRN ORAL fever 01/14/19 19:46 02/13/19 19:45 Albuterol/ Ipratropium (Albuterol/ Ipratropium) 3 ml Q4H PRN HHN Shortness of Breath 01/14/19 19:46 01/19/19 19:45 Alprazolam (Xanax) 1 mg Q6H PRN ORAL For Anxiety 01/14/19 20:45 01/21/19 20:44 01/16/19 06:05 Cefepime HCl 2 gm/ Dextrose 110 ml @ 220 mls/hr EVERY 12 HOURS IV 01/14/19 21:00 01/21/19 20:59 01/16/19 09:53 Clotrimazole (Gyne-Lotrimin) 1 applic BEDTIME VAGIN 01/15/19 21:00 01/17/19 21:01 01/15/19 21:27 Dextrose (Dextrose 50%) 25 ml STAT PRN IV Hypoglycemia 01/14/19 19:15 02/13/19 19:14 Dextrose (Dextrose 50%) 50 ml Q30M PRN IV Hypoglycemia 01/14/19 19:15 02/13/19 19:14 Fluconazole (Diflucan) 150 mg ONCE ORAL 01/17/19 09:00 01/17/19 10:00 Fluoxetine HCl (PROzac) 20 mg DAILY ORAL 01/16/19 09:00 02/15/19 08:59 01/16/19 08:28 Gabapentin (Neurontin) 300 mg THREE TIMES A DAY ORAL 01/15/19 09:00 02/14/19 08:59 Heparin Sodium (Porcine) (Heparin 5000 units/ml) 5,000 units EVERY 12 HOURS SUBQ 01/14/19 21:00 02/13/19 20:59 01/16/19 08:34 Hydromorphone HCl 2 mg/Sodium Chloride 56 ml @ 224 mls/hr Q3H PRN IVPB SEVERE PAIN (7 TO 10) 01/15/19 07:45 01/22/19 00:59 01/16/19 12:24 Hydroxyzine HCl (Atarax) 50 mg BID ORAL 01/15/19 18:00 02/14/19 17:59 01/16/19 08:34 Levothyroxine Sodium (Synthroid) 112 mcg DAILY@0630 ORAL 01/15/19 06:30 02/14/19 06:29 01/16/19 06:05 Lorazepam (Ativan 2mg/ml 1ml) 1 mg Q4H PRN IV For Anxiety 01/14/19 20:45 01/21/19 20:44 01/15/19 22:34 Nitroglycerin (Ntg) 0.4 mg Q5MIN X 3 DOSES PRN SL Prn Chest Pain 01/14/19 19:45 02/13/19 19:44 Ondansetron HCl (Zofran) 4 mg Q6H PRN IVP Nausea & Vomiting 01/14/19 19:45 02/13/19 19:44 Oxycodone/ Acetaminophen (Percocet 10/325) 1 tab Q4H PRN ORAL breakthrough moderate pain 01/16/19 09:30 01/23/19 09:29 01/16/19 09:52 Polyethylene Glycol (Miralax) 17 gm DAILYPRN PRN ORAL Constipation 01/14/19 19:15 02/13/19 19:14 Promethazine HCl 25 mg/Sodium Chloride 56 ml @ 112 mls/hr Q6H PRN IVPB Refractory Nausea & Vomiting 01/14/19 21:01 02/13/19 21:00 01/16/19 06:05 Temazepam (Restoril) 30 mg HSPRN PRN ORAL Insomnia 01/15/19 21:00 01/22/19 20:59 01/16/19 01:43 Tizanidine HCl (Zanaflex) 4 mg THREE TIMES A DAY ORAL 01/15/19 09:00 02/14/19 08:59 01/16/19 12:23 Vancomycin HCl (Vanco rx to dose) 1 ea DAILY PRN MISC PER RX 01/14/19 20:00 02/13/19 19:59 Vancomycin HCl 750 mg/Sodium Chloride 275 ml @ 183.333 mls/hr Q12HR@1000,2200 IVPB 01/15/19 22:00 01/20/19 21:59 01/16/19 10:57 Chrissie Purdy MD Jan 16, 2019 14:00
--- NOTE | 2019-01-16 15:13 | Diagnostic Imaging Report ---
Indication: Headache, dental pain Technique: IV administration nonionic contrast Spiral acquisitions obtained through the Multiplanar reconstructions were generated. Total dose length product 611.26 mGycm. CTDIvol(s) 28.19 mGy. Radiation dose was minimized using automated exposure control Comparison: 12/04/2018 Findings: There is slight lucency around the roots of the right second maxillary molar, but this is somewhat less striking than on the previous exam. Again demonstrated is disease within the right maxillary sinus, but this is also considerably decreased from the previous study. No other definite dental root abnormality noted. Note protrusion of the roots of several left maxillary molars into the left maxillary sinus. No apical root abnormality of the mandibular teeth demonstrated. There is evidence of multiple dental caries, particularly involving the mandibular teeth but also the maxillary teeth. There are multiple prior dental fillings. There is no other unusual sinus opacification. No evidence of significant facial soft tissue swelling, cellulitis, or abscess demonstrated. The remainder of the visualized sinuses are unremarkable. The optic globes and retroseptal orbits are unremarkable. The upper aerodigestive tract is unremarkable. Arteries and veins are unremarkable. The visualized intracranial structures are remarkable for the presence of a 1 cm high attenuation enhancing mass with calcification in the anterior interhemispheric fissure, also demonstrated previously and not resulting in any significant mass effect. Impression: Slight lucency around the roots of the right second maxillary molar, also evident previously, improved since that time, could indicate a small resolving indolent apical root abscess. The adjacent maxillary sinus disease has also improved in the interim Extensive dental caries, also previously demonstrated No other evidence to suggest dental abscess demonstrated No evidence of significant facial cellulitis or evidence of facial abscess Interhemispheric fissure 1 cm mass, also previously described and unchanged. Most likely a meningioma. As previously recommended, MRI should be considered for more definitive evaluation The CT scanner at [facility] is accredited by the [place] [employer] and the scans are performed using protocols designed to limit radiation exposure to as low as reasonably achievable to attain images of sufficient resolution adequate for diagnostic evaluation.
[2019-01-16] MEDS: LORazepam Inj 2mg/ml 1ml IV PRN (15:36)
[2019-01-16 16:00] VITALS: BP 135/82
--- NOTE | 2019-01-16 19:30 | Progress Note ---
DATE: 01/16/2019 SUBJECTIVE: This is a 43-year-old female patient with dental abscess. She has some confusion, some disorganized thought processes, and decline in cognition below her baseline. That is why her attending has requested daily psychiatric consultation. She has confusion, disorganized thought process, and mood lability, worsened by stress of her medical illness. MENTAL STATUS EXAMINATION: This is a 43-year-old female. Appearance is disheveled. Attitude, irritable and agitated. Affect, guarded and restricted. Intellect, poor. Mood, depressed and anxious. Motor activity, psychomotor agitation. Attention span is poor. Orientation x2. Speech is low volume and slurred. Thought process, slightly disorganized. She has paranoid delusions. Insight and judgment is poor. DIAGNOSIS: Major depressive disorder, mild, recurrent with psychotic features. PLAN: I am going to continue her on Prozac 20 mg daily and Vistaril 50 mg twice a day, and mainly for anxiety and agitation. Continue providing 20 minutes of cognitive behavioral therapy to help her identify automated negative thoughts and help her to convert those negative thoughts to more positive thoughts. She has a lot of psychosomatic symptoms worried about the tooth abscess. 20 minutes of cognitive behavioral therapy provided. Chart reviewed. Discussed with staff. Seen and assessed in her room. Aviva Edmond M.D. DR: BRITTNI JOB#: [id number] CC:
[2019-01-16 20:00] VITALS: BP 111/69
[2019-01-16] MEDS ORDERED: Vancomycin 1.25gm Premix IVPB SCH (22:00)
--- NOTE | 2019-01-16 22:15 | General Progress Note ---
Assessment/Plan Problem List: (1) Facial cellulitis ICD Codes: L03.211 - Cellulitis of face SNOMED: 809022929 (2) Facial pain ICD Codes: R51 - Headache SNOMED: 71329406 (3) Cervical cancer ICD Codes: C53.9 - Malignant neoplasm of cervix uteri, unspecified SNOMED: 512654648 (4) Brain tumor ICD Codes: D49.6 - Neoplasm of unspecified behavior of brain SNOMED: 346994277 (5) Anxiety ICD Codes: F41.9 - Anxiety disorder, unspecified SNOMED: 71437909 (6) Dental abscess ICD Codes: K04.7 - Periapical abscess without sinus SNOMED: 841904201, 412245306 (7) Dehydration ICD Codes: E86.0 - Dehydration SNOMED: 49861331 Status: progressing Assessment/Plan afebrile abx per id no acute events reviewed chart and labs Subjective ROS Limited/Unobtainable: Yes Allergies: Coded Allergies: DIVALPROEX SODIUM (Verified Allergy, Unknown, 11/29/18) GABAPENTIN (Verified Allergy, Unknown, 01/15/19) HALOPERIDOL (Verified Allergy, Unknown, 11/29/18) HYDROXYZINE (Verified Allergy, Unknown, 01/15/19) IBUPROFEN (Verified Allergy, Unknown, 11/29/18) KETOROLAC (Verified Allergy, Unknown, 11/29/18) METOPROLOL (Verified Allergy, Unknown, 11/29/18) MORPHINE (Verified Allergy, Unknown, 11/29/18) NAPROXEN (Verified Allergy, Unknown, 01/15/19) ONDANSETRON (Verified Allergy, Unknown, 01/15/19) TRAZODONE (Verified Allergy, Unknown, 11/29/18) Uncoded Allergies: NSAIDS (Allergy, Unknown, 11/29/18) Objective Last 24 Hour Vital Signs Date Time Temp Pulse Resp B/P (MAP) Pulse Ox O2 Delivery O2 Flow Rate FiO2 01/16/19 21:43 71 20 Room Air 01/16/19 17:48 98.4 01/16/19 16:07 98.4 01/16/19 16:00 98.1 75 17 135/82 (99) 99 01/16/19 10:22 98.4 01/16/19 09:00 Room Air 01/16/19 08:10 86 16 Room Air 01/16/19 04:00 98.4 97 18 140/88 (105) 97 01/16/19 00:00 18 Intake and Output 01/15/19 01/16/19 19:00 07:00 Intake Total 900 ml 756.666 ml Balance 900 ml 756.666 ml IV Total 756.666 ml Other 900 ml # Voids 3 Laboratory Tests 01/16/19 05:25: White Blood Count 4.0L, Red Blood Count 3.79L, Hemoglobin 12.3, Hematocrit 36.5L , Mean Corpuscular Volume 96, Mean Corpuscular Hemoglobin 32.3H, Mean Corpuscular Hemoglobin Concent 33.5, Red Cell Distribution Width 12.6, Platelet Count 272, Mean Platelet Volume 5.1L, Neutrophils (%) (Auto) , Lymphocytes (%) ( Auto) , Monocytes (%) (Auto) , Eosinophils (%) (Auto) , Basophils (%) (Auto) , Differential Total Cells Counted 100, Neutrophils % (Manual) 33L, Lymphocytes % (Manual) 60H, Monocytes % (Manual) 5, Eosinophils % (Manual) 2, Basophils % ( Manual) 0, Band Neutrophils 0, Platelet Estimate Adequate, Platelet Morphology Normal, Red Blood Cell Morphology Normal, Sodium Level 138, Potassium Level 4.0 , Chloride Level 102, Carbon Dioxide Level 29, Anion Gap 7, Blood Urea Nitrogen 14, Creatinine 0.8, Estimat Glomerular Filtration Rate > 60, Glucose Level 82, Calcium Level 9.0 01/16/19 21:10: Vancomycin Level Trough 6.5 Height (Feet): 5 Height (Inches): 6.00 Weight (Pounds): 144 Cardiovascular: normal rate Respiratory/Chest: lungs clear Linn Avery MD Jan 16, 2019 22:15
[2019-01-16] MEDS: Clotrimazole Vaginal Cr-3 Day 21gm VAGIN SCH (22:21)
[2019-01-17] VITALS: BP 146/89
[2019-01-17] MEDS: HYDROmorphone 2 MG in NS 55 ML IVPB PRN ×5 (00:28→20:54)
[2019-01-17] MEDS: LORazepam Inj 2mg/ml 1ml IV PRN ×2 (01:08→09:25)
[2019-01-17] MEDS: ALPRAZolam 0.5mg tab ORAL PRN (01:53)
[2019-01-17 04:00] VITALS: BP 133/72
[2019-01-17] MEDS: Promethazine HCl 25 MG in NS 55 ML IVPB PRN ×2 (07:05→22:25)
[2019-01-17 08:00] VITALS: BP 130/81
[2019-01-17] MEDS ORDERED: Fluconazole 100mg tab ORAL SCH (09:00)
--- NOTE | 2019-01-17 09:08 | General Progress Note ---
Assessment/Plan Assessment/Plan (1) Right sided facial pain (2) Cellulitis (3) Dental Caries Pt will be continued on Dilaudid and Percocet D/w Dr. Alonzo and he concurred. Subjective Date patient seen: Jan 17, 2019 Time patient seen: 08:00 - am Allergies: Coded Allergies: DIVALPROEX SODIUM (Verified Allergy, Unknown, 11/29/18) GABAPENTIN (Verified Allergy, Unknown, 01/15/19) HALOPERIDOL (Verified Allergy, Unknown, 11/29/18) HYDROXYZINE (Verified Allergy, Unknown, 01/15/19) IBUPROFEN (Verified Allergy, Unknown, 11/29/18) KETOROLAC (Verified Allergy, Unknown, 11/29/18) METOPROLOL (Verified Allergy, Unknown, 11/29/18) MORPHINE (Verified Allergy, Unknown, 11/29/18) NAPROXEN (Verified Allergy, Unknown, 01/15/19) ONDANSETRON (Verified Allergy, Unknown, 01/15/19) TRAZODONE (Verified Allergy, Unknown, 11/29/18) Uncoded Allergies: NSAIDS (Allergy, Unknown, 11/29/18) Subjective REVIEW OF SYSTEMS: Denies rash, fever, chills, sweating, dizziness, drowsiness, blurred vision, sore throat, or change in weight. No nausea, vomiting, diarrhea, or blood in the stool or urine. No bowel or bladder incontinence. No dysuria. SUBJECTIVE: Patient continues to c/o pain which she has been tolerating on the Dilaudid 6 doses and Percocet 1 dose in the last 24hrs. Objective Last 24 Hour Vital Signs Date Time Temp Pulse Resp B/P (MAP) Pulse Ox O2 Delivery O2 Flow Rate FiO2 01/17/19 04:00 98.0 73 18 133/72 (92) 96 01/17/19 00:00 97.8 80 18 146/89 (108) 98 01/16/19 21:43 71 20 Room Air 01/16/19 21:00 Room Air 01/16/19 20:00 98.4 67 18 111/69 (83) 97 01/16/19 17:48 98.4 01/16/19 16:07 98.4 01/16/19 16:00 98.1 75 17 135/82 (99) 99 01/16/19 10:22 98.4 Intake and Output 01/16/19 01/17/19 19:00 07:00 Intake Total 650 ml Balance 650 ml Intake Oral 650 ml # Voids 2 Laboratory Tests 01/16/19 21:10: Vancomycin Level Trough 6.5 01/16/19 23:20: Chlamydia trachomatis RNA [Pending], Neisseria gonorrhoeae RNA [Pending] Height (Feet): 5 Height (Inches): 6.00 Weight (Pounds): 144 Objective GENERAL: Alert, awake, oriented. LUNGS: Decreased breath sounds bilaterally. HEART: S1 and S2, regular. ABDOMEN: Soft and nontender. EXTREMITIES: No cyanosis. No clubbing. NEURO: No focal deficit Jose Steele Jan 17, 2019 09:08
--- NOTE | 2019-01-17 09:23 | Infectious Diseases Prog Note ---
Assessment/Plan Assessment/Plan 43 yo with PMHx of uterine CA, Psych and Brain tumor who presnted to the ED 01/14/19 with headache and dental pain. Recurrent Dental pain Currently no clear pus or abscess. No facial erythema Hx of right facial cellulitis- from either infected teeth and R maxillary sinusitis -wound cx from cavity: usual bekah om Nov 2018 -CT facial bones 12/03/18 : No acute injury appreciated. No abscess identified.Right maxillary sinusitis.Incidental 1 cm enhancing mass associated with the anterior interhemispheric fissure.This is most likely meningioma. Suggest confirmation with the MRI with and without gadolinium CT face 01/16/19 - Slight lucency around the roots of the right second maxillary molar, also evident previously, improved since that time, could indicate a small resolving indolent apical root abscess. The adjacent maxillary sinus disease has also improved in the interim. Extensive dental caries, also previously demonstrated Headache CT shows possible meningioma Vaginal pain and erythema Probable yeast infection per RADIOGRAPHER MAMMOGRAPHER Clotrimazole crm Afebrile No leukocytosis Hx Uterine CA s/p radiation Psych disorder Hx Brain tumor Plan: - Start Augmentin 875/125mg bid ( End date 01/30/19) - Continue clotrimazole cream during abx Tx - 01/17/19 SP Vancomycin and Cefepime #1 - 12/16/18 S/P Out Pt Augmentin 875/125mg bid #4 - 12/12/18 S/P Unasyn #10 -12/04 SP IV Vancomycin and Cefepime #1 -Monitor CBC/CMP, temperatures -Needs to f/u with dentist as outpatient for removal of damaged/infected teeth. - f/u [facility] Thank you for this consult. We will continue to follow the patient during this hospitalization. Subjective Allergies: Coded Allergies: DIVALPROEX SODIUM (Verified Allergy, Unknown, 11/29/18) GABAPENTIN (Verified Allergy, Unknown, 01/15/19) HALOPERIDOL (Verified Allergy, Unknown, 11/29/18) HYDROXYZINE (Verified Allergy, Unknown, 01/15/19) IBUPROFEN (Verified Allergy, Unknown, 11/29/18) KETOROLAC (Verified Allergy, Unknown, 11/29/18) METOPROLOL (Verified Allergy, Unknown, 11/29/18) MORPHINE (Verified Allergy, Unknown, 11/29/18) NAPROXEN (Verified Allergy, Unknown, 01/15/19) ONDANSETRON (Verified Allergy, Unknown, 01/15/19) TRAZODONE (Verified Allergy, Unknown, 11/29/18) Uncoded Allergies: NSAIDS (Allergy, Unknown, 11/29/18) Subjective Afebrile No leukocytosis ANA Objective Vital Signs Last 24 Hour Vital Signs Date Time Temp Pulse Resp B/P (MAP) Pulse Ox O2 Delivery O2 Flow Rate FiO2 01/17/19 09:06 74 20 Room Air 01/17/19 04:00 98.0 73 18 133/72 (92) 96 01/17/19 00:00 97.8 80 18 146/89 (108) 98 01/16/19 21:43 71 20 Room Air 01/16/19 21:00 Room Air 01/16/19 20:00 98.4 67 18 111/69 (83) 97 01/16/19 17:48 98.4 01/16/19 16:07 98.4 01/16/19 16:00 98.1 75 17 135/82 (99) 99 01/16/19 10:22 98.4 Height (Feet): 5 Height (Inches): 6.00 Weight (Pounds): 144 Objective Gen: NAD HEENT: NCAT, MMM, EOMI LUNGS: CTAB, No W CARDS: RRR, S1, S2, No M/R/G, ABD: Soft, NT, ND, + BS Microbiology Date/Time Source Procedure Growth Status 01/14/19 17:00 Blood Blood Culture - Preliminary NO GROWTH AFTER 48 HOURS Resulted 01/14/19 16:45 Blood Blood Culture - Preliminary NO GROWTH AFTER 48 HOURS Resulted 01/14/19 17:55 Nasal Nares MRSA Culture - Final NO METHICILLIN RESISTANT STAPH AUREUS... Complete 01/14/19 17:55 Rectum VRE Culture - Final NO VANCOMYCIN RESISTANT ENTEROCOCCUS ... Complete 01/14/19 17:55 Rectum - Final NO CARBAPENEM-RESISTANT ENTEROBACTERI... Complete Laboratory Tests Test 01/16/19 21:10 01/16/19 23:20 Vancomycin Level Trough 6.5 ug/mL (5.0-12.0) Chlamydia trachomatis RNA Pending Neisseria gonorrhoeae RNA Pending Current Medications Medications (Trade) Dose Ordered Sig/Gaby Route PRN Reason Start Time Stop Time Status Last Admin Dose Admin Acetaminophen (Tylenol) 650 mg Q4H PRN ORAL fever 01/14/19 19:46 02/13/19 19:45 Albuterol/ Ipratropium (Albuterol/ Ipratropium) 3 ml Q4H PRN HHN Shortness of Breath 01/14/19 19:46 01/19/19 19:45 Alprazolam (Xanax) 1 mg Q6H PRN ORAL For Anxiety 01/14/19 20:45 01/21/19 20:44 01/17/19 01:53 Cefepime HCl 2 gm/ Dextrose 110 ml @ 220 mls/hr EVERY 12 HOURS IV 01/14/19 21:00 01/21/19 20:59 01/16/19 20:45 Clotrimazole (Gyne-Lotrimin) 1 applic BEDTIME VAGIN 01/15/19 21:00 01/17/19 21:01 01/16/19 22:21 Dextrose (Dextrose 50%) 25 ml STAT PRN IV Hypoglycemia 01/14/19 19:15 02/13/19 19:14 Dextrose (Dextrose 50%) 50 ml Q30M PRN IV Hypoglycemia 01/14/19 19:15 02/13/19 19:14 Fluconazole (Diflucan) 150 mg ONCE ORAL 01/17/19 09:00 01/17/19 10:00 Fluoxetine HCl (PROzac) 20 mg DAILY ORAL 01/16/19 09:00 02/15/19 08:59 01/16/19 08:28 Gabapentin (Neurontin) 300 mg THREE TIMES A DAY ORAL 01/15/19 09:00 02/14/19 08:59 Heparin Sodium (Porcine) (Heparin 5000 units/ml) 5,000 units EVERY 12 HOURS SUBQ 01/14/19 21:00 02/13/19 20:59 01/16/19 20:46 Hydromorphone HCl 2 mg/Sodium Chloride 56 ml @ 224 mls/hr Q3H PRN IVPB SEVERE PAIN (7 TO 10) 01/15/19 07:45 01/22/19 00:59 01/17/19 06:46 Hydroxyzine HCl (Atarax) 50 mg BID ORAL 01/15/19 18:00 02/14/19 17:59 01/16/19 16:49 Levothyroxine Sodium (Synthroid) 112 mcg DAILY@0630 ORAL 01/15/19 06:30 02/14/19 06:29 01/17/19 06:46 Lorazepam (Ativan 2mg/ml 1ml) 1 mg Q4H PRN IV For Anxiety 01/14/19 20:45 01/21/19 20:44 01/17/19 01:08 Nitroglycerin (Ntg) 0.4 mg Q5MIN X 3 DOSES PRN SL Prn Chest Pain 01/14/19 19:45 02/13/19 19:44 Ondansetron HCl (Zofran) 4 mg Q6H PRN IVP Nausea & Vomiting 01/14/19 19:45 02/13/19 19:44 Oxycodone/ Acetaminophen (Percocet ) 1 tab Q4H PRN ORAL breakthrough moderate pain 01/16/19 09:30 01/23/19 09:29 01/16/19 09:52 Polyethylene Glycol (Miralax) 17 gm DAILYPRN PRN ORAL Constipation 01/14/19 19:15 02/13/19 19:14 Promethazine HCl 25 mg/Sodium Chloride 56 ml @ 112 mls/hr Q6H PRN IVPB Refractory Nausea & Vomiting 01/14/19 21:01 02/13/19 21:00 01/17/19 07:05 Temazepam (Restoril) 30 mg HSPRN PRN ORAL Insomnia 01/15/19 21:00 01/22/19 20:59 01/16/19 20:52 Tizanidine HCl (Zanaflex) 4 mg THREE TIMES A DAY ORAL 01/15/19 09:00 02/14/19 08:59 01/16/19 16:49 Vancomycin HCl (Vanco rx to dose) 1 ea DAILY PRN MISC PER RX 01/14/19 20:00 02/13/19 19:59 Vancomycin HCl/ Dextrose 275 ml @ 183.333 mls/hr Q12HR@1000,2200 IVPB 01/16/19 22:00 01/21/19 21:59 01/16/19 22:22 Rashaad Lucas MD Jan 17, 2019 09:23
[2019-01-17] MEDS: HydrOXYzine 50mg tab ORAL SCH ×2 (09:34→18:39)
[2019-01-17] MEDS: Heparin 5000 units/ml inj SUBQ SCH ×2 (10:45→20:51)
[2019-01-17 12:00] VITALS: BP 132/90
--- NOTE | 2019-01-17 15:25 | Consultation ---
History of Present Illness General Chief Complaint: Headache Reason for Consultation: Dental pain Present Illness Allergies: Coded Allergies: DIVALPROEX SODIUM (Verified Allergy, Unknown, 11/29/18) GABAPENTIN (Verified Allergy, Unknown, 01/15/19) HALOPERIDOL (Verified Allergy, Unknown, 11/29/18) HYDROXYZINE (Verified Allergy, Unknown, 01/15/19) IBUPROFEN (Verified Allergy, Unknown, 11/29/18) KETOROLAC (Verified Allergy, Unknown, 11/29/18) METOPROLOL (Verified Allergy, Unknown, 11/29/18) MORPHINE (Verified Allergy, Unknown, 11/29/18) NAPROXEN (Verified Allergy, Unknown, 01/15/19) ONDANSETRON (Verified Allergy, Unknown, 01/15/19) TRAZODONE (Verified Allergy, Unknown, 11/29/18) Uncoded Allergies: NSAIDS (Allergy, Unknown, 11/29/18) Medication History Scheduled Diphenhydramine Hcl (Benadryl Allergy), 25 MG PO DAILY, (Reported) Fluoxetine Hcl* (Fluoxetine Hcl*), 20 MG ORAL DAILY, (Reported) Levothyroxine Sodium* (Levoxyl*), 112 MCG ORAL DAILY, (Reported) Lorazepam* (Lorazepam*), 1 MG ORAL Q6HR, (Reported) Mag Hydrox/Al Hydrox/Simeth* (Advanced Antacid Liquid*), Unknown Dose ORAL FOUR TIMES A DAY, (Reported) Tizanidine Hcl* (Zanaflex*), 4 MG ORAL THREE TIMES A DAY, (Reported) Scheduled PRN Acetaminophen* (Acetaminophen 325MG Tablet*), 650 MG ORAL Q6H PRN for For Pain, (Reported) Hydrocodone Bit/Acetaminophen 10-325* (Zimmerman 10-325*), 1 TAB ORAL Q8HR PRN for Severe Pain (Pain Scale 7-10), (Reported) Hydroxyzine Hcl (Hydroxyzine Hcl), 25 MG PO TID PRN for For Anxiety, (Reported) Magnesium Hydroxide* (Milk Of Magnesia*), 30 ML ORAL Q6HR PRN for Constipation, (Reported) Temazepam* (Restoril*), 15 MG ORAL BEDTIME PRN for Insomnia, (Reported) Discontinued Medications Alprazolam* (Xanax*), 1 MG ORAL TID, (Reported) Discontinued Reason: Prescription changed Amoxicillin* (Amoxil*), 500 MG ORAL EVERY 8 HOURS, (Reported) Discontinued Reason: Therapy completed Amoxicillin/Potassium Clav 875-125* (Augmentin 875-125 Tablet*), 1 TAB ORAL TWICE A DAY, (Reported) Discontinued Reason: Therapy completed Ciprofloxacin Hcl* (Ciprofloxacin Hcl*), 500 MG ORAL Q12H Discontinued Reason: Therapy completed Hydroxyzine Pamoate* (Vistaril*), 25 MG ORAL EVERY 6 HOURS, (Reported) Discontinued Reason: Prescription changed Lurasidone Hcl (Latuda), 40 MG PO, (Reported) Discontinued Reason: Therapy completed Oxycodone/Acetaminophen 5-325* (Percocet 5-325 Mg Tablet*), 1 TAB ORAL Q6H PRN for For Pain Discontinued Reason: Therapy completed Sertraline Hcl* (Zoloft*), 50 MG ORAL DAILY, (Reported) Discontinued Reason: MD discontinued med Patient History Healthcare decision maker Resuscitation status Full Code Advanced Directive on File Physical Exam Last 24 Hour Vital Signs Date Time Temp Pulse Resp B/P (MAP) Pulse Ox O2 Delivery O2 Flow Rate FiO2 01/17/19 12:47 98.0 01/17/19 12:47 98.0 01/17/19 12:00 98.7 82 18 132/90 (104) 98 01/17/19 11:06 98.0 01/17/19 09:06 74 20 Room Air 01/17/19 08:00 98.5 80 19 130/81 (97) 96 01/17/19 04:00 98.0 73 18 133/72 (92) 96 01/17/19 00:00 97.8 80 18 146/89 (108) 98 01/16/19 21:43 71 20 Room Air 01/16/19 21:00 Room Air 01/16/19 20:00 98.4 67 18 111/69 (83) 97 01/16/19 17:48 98.4 01/16/19 16:00 98.1 75 17 135/82 (99) 99 Intake and Output 01/16/19 01/17/19 19:00 07:00 Intake Total 650 ml Balance 650 ml Intake Oral 650 ml # Voids 2 Laboratory Tests Test 01/16/19 21:10 01/16/19 23:20 Vancomycin Level Trough 6.5 ug/mL (5.0-12.0) Chlamydia trachomatis RNA Pending Neisseria gonorrhoeae RNA Pending Height (Feet): 5 Height (Inches): 6.00 Weight (Pounds): 144 Medications Current Medications Medications (Trade) Dose Ordered Sig/Gaby Route PRN Reason Start Time Stop Time Status Last Admin Dose Admin Acetaminophen (Tylenol) 650 mg Q4H PRN ORAL fever 01/14/19 19:46 02/13/19 19:45 Albuterol/ Ipratropium (Albuterol/ Ipratropium) 3 ml Q4H PRN HHN Shortness of Breath 01/14/19 19:46 01/19/19 19:45 Alprazolam (Xanax) 1 mg Q6H PRN ORAL For Anxiety 01/14/19 20:45 01/21/19 20:44 01/17/19 01:53 Amoxicillin/ Clavulanate Potassium (Augmentin) 875 mg EVERY 12 HOURS ORAL 01/17/19 21:00 01/30/19 20:59 Clotrimazole (Gyne-Lotrimin) 1 applic BEDTIME VAGIN 01/15/19 21:00 01/17/19 21:01 01/16/19 22:21 Dextrose (Dextrose 50%) 25 ml STAT PRN IV Hypoglycemia 01/14/19 19:15 02/13/19 19:14 Dextrose (Dextrose 50%) 50 ml Q30M PRN IV Hypoglycemia 01/14/19 19:15 02/13/19 19:14 Fluoxetine HCl (PROzac) 20 mg DAILY ORAL 01/16/19 09:00 02/15/19 08:59 01/17/19 09:34 Gabapentin (Neurontin) 300 mg THREE TIMES A DAY ORAL 01/15/19 09:00 02/14/19 08:59 Heparin Sodium (Porcine) (Heparin 5000 units/ml) 5,000 units EVERY 12 HOURS SUBQ 01/14/19 21:00 02/13/19 20:59 01/17/19 10:45 Hydromorphone HCl 2 mg/Sodium Chloride 56 ml @ 224 mls/hr Q3H PRN IVPB SEVERE PAIN (7 TO 10) 01/15/19 07:45 01/22/19 00:59 01/17/19 10:36 Hydroxyzine HCl (Atarax) 50 mg BID ORAL 01/15/19 18:00 02/14/19 17:59 01/17/19 09:34 Levothyroxine Sodium (Synthroid) 112 mcg DAILY@0630 ORAL 01/15/19 06:30 02/14/19 06:29 01/17/19 06:46 Lorazepam (Ativan 2mg/ml 1ml) 1 mg Q4H PRN IV For Anxiety 01/14/19 20:45 01/21/19 20:44 01/17/19 09:25 Nitroglycerin (Ntg) 0.4 mg Q5MIN X 3 DOSES PRN SL Prn Chest Pain 01/14/19 19:45 02/13/19 19:44 Ondansetron HCl (Zofran) 4 mg Q6H PRN IVP Nausea & Vomiting 01/14/19 19:45 02/13/19 19:44 Oxycodone/ Acetaminophen (Percocet 10) 1 tab Q4H PRN ORAL breakthrough moderate pain 01/16/19 09:30 01/23/19 09:29 01/17/19 12:17 Polyethylene Glycol (Miralax) 17 gm DAILYPRN PRN ORAL Constipation 01/14/19 19:15 02/13/19 19:14 Promethazine HCl 25 mg/Sodium Chloride 56 ml @ 112 mls/hr Q6H PRN IVPB Refractory Nausea & Vomiting 01/14/19 21:01 02/13/19 21:00 01/17/19 07:05 Temazepam (Restoril) 30 mg HSPRN PRN ORAL Insomnia 01/15/19 21:00 01/22/19 20:59 01/16/19 20:52 Tizanidine HCl (Zanaflex) 8 mg Q6H PRN ORAL muscle spasm 01/17/19 09:26 02/14/19 09:25 01/17/19 12:17 Assessment/Plan Assessment/Plan Hematology Consultation DOS: 01/17/19 REEmma MD: Sondra Gilliam RFC: Leukopenia and uterine cancer HPI 43 y old female Patient presents with complaints of headache Dental pain Reports that she has a sharp pain to the right side of her head Ongoing for the past several days Patient was recently diagnosed with possible hemangioma Denies any chest pain she complains of questionable low-grade fever Denies any focal deficit however feels of the headache is debilitating =Coded Allergies: DIVALPROEX SODIUM (Verified Allergy, Unknown, 11/29/18) HALOPERIDOL (Verified Allergy, Unknown, 11/29/18) IBUPROFEN (Verified Allergy, Unknown, 11/29/18) KETOROLAC (Verified Allergy, Unknown, 11/29/18) METOPROLOL (Verified Allergy, Unknown, 11/29/18) MORPHINE (Verified Allergy, Unknown, 11/29/18) TRAZODONE (Verified Allergy, Unknown, 11/29/18) Uncoded Allergies: NSAIDS (Allergy, Unknown, 11/29/18) Patient History Past Medical History: see triage record Pertinent Family History: none Now: No Reviewed Nursing Documentation: PMH: Agreed; PSxH: Agreed Nursing Documentation-PMH Past Medical History: No History, Except For Review of Systems: negative except mentioned in HPI Vital Signs Date Time Temp Pulse Resp B/P (MAP) Pulse Ox O2 Delivery O2 Flow Rate FiO2 01/17/19 13:58 98.1 90 18 137/90 98 Room Air Sp02 EP Interpretation: reviewed, normal General Appearance: no apparent distress Head: normocephalic, atraumatic Eyes: bilateral eye PERRL, bilateral eye EOMI ENT: other - Poor dentition right upper and lower dental region, also gingival irritation Neck: full range of motion, supple Respiratory: lungs clear, no respiratory distress, no retraction Cardiovascular #1: regular rate, rhythm Gastrointestinal: non tender, soft Musculoskeletal: normal inspection, back normal Neurologic: alert, oriented x3 Psychiatric: anxious Skin: normal color, no rash Lymphatic: no adenopathy Labs Test 01/14/19 17:00 White Blood Count 7.3 K/UL (4.8-10.8) Red Blood Count 4.35 M/UL (4.20-5.40) Hemoglobin 13.8 G/DL (12.0-16.0) Hematocrit 41.8 % (37.0-47.0) Mean Corpuscular Volume 96 FL (80-99) Mean Corpuscular Hemoglobin 31.6 PG (27.0-31.0) Mean Corpuscular Hemoglobin Concent 32.9 G/DL (32.0-36.0) Red Cell Distribution Width 12.5 % (11.6-14.8) Platelet Count 318 K/UL (150-450) Mean Platelet Volume 4.7 FL (6.5-10.1) Neutrophils (%) (Auto) 50.7 % (45.0-75.0) Lymphocytes (%) (Auto) 43.4 % (20.0-45.0) Monocytes (%) (Auto) 4.4 % (1.0-10.0) Eosinophils (%) (Auto) 0.8 % (0.0-3.0) Basophils (%) (Auto) 0.9 % (0.0-2.0) Sodium Level 136 MMOL/L (136-145) Potassium Level 4.0 MMOL/L (3.5-5.1) Chloride Level 101 MMOL/L (98-107) Carbon Dioxide Level 28 MMOL/L (21-32) Anion Gap 7 mmol/L (5-15) Blood Urea Nitrogen 16 mg/dL (7-18) Creatinine 0.8 MG/DL (0.55-1.30) Estimat Glomerular Filtration Rate > 60 mL/min (>60) Glucose Level 86 MG/DL (74-106) Lactic Acid Level 1.70 mmol/L (0.4-2.0) Calcium Level 9.0 MG/DL (8.5-10.1) Total Bilirubin 0.2 MG/DL (0.2-1.0) Aspartate Amino Transf (AST/SGOT) 17 U/L (15-37) Alanine Aminotransferase (ALT/SGPT) 19 U/L (12-78) Alkaline Phosphatase 77 U/L (46-116) Creatine Kinase MB 0.7 NG/ML (0.0-3.6) Total Protein 8.3 G/DL (6.4-8.2) Albumin 4.0 G/DL (3.4-5.0) Globulin 4.3 g/dL Albumin/Globulin Ratio 0.9 (1.0-2.7) Assessment/Plan: # Uterine cancer -- according to patient has a hx of stage iv disease, diagnosed in 1996 and was treated with chemo, xrt and surgery --> says currently is in remission though is likely not full story, could be malingering as stage iv disease average lifespan 6mo --> ct a/p shows 9 mm low-attenuation right lobe liver lesion, probably not cystic and therefore neoplasm a possibility. This was on prior imaging --> [facility]/onc was called --> Dr. Mullins recommends a pap smear as op --> tumor markers as op # Anemia of chronic disease --> anemia panel if hgb <10 # R facial cellulitis hx s/p abx/Meningioma --> Incidental 1 cm enhancing mass associated with the anterior interhemispheric fissure.This is most likely meningioma. Suggest confirmation with the MRI with and without gadolinium --> Ct of the face reveals: extra-axial hyperdense mass associated with the anterior aspect of the interhemispheric fissure most likely representing a meningioma. ==> abx as per id, ok to dc on po augmentin # HAYES with caries --> as per dental eval, may have tooth pulled The timing of this note does not necessarily reflect the time of the patient was seen. Greatly appreciate consultation! Rudy Angela MD Jan 17, 2019 15:25
[2019-01-17 16:00] VITALS: BP 129/88
[2019-01-17 20:00] VITALS: BP 123/78
[2019-01-17] MEDS: Augmentin 875mg Tab ORAL SCH ×2 (20:53→21:06)
[2019-01-17] MEDS: Clotrimazole Vaginal Cr-3 Day 21gm VAGIN SCH (21:06)
--- NOTE | 2019-01-17 21:28 | General Progress Note ---
Assessment/Plan Problem List: (1) Facial cellulitis ICD Codes: L03.211 - Cellulitis of face SNOMED: 365446810 (2) Facial pain ICD Codes: R51 - Headache SNOMED: 85943228 (3) Cervical cancer ICD Codes: C53.9 - Malignant neoplasm of cervix uteri, unspecified SNOMED: 897724649 (4) Brain tumor ICD Codes: D49.6 - Neoplasm of unspecified behavior of brain SNOMED: 486935327 (5) Anxiety ICD Codes: F41.9 - Anxiety disorder, unspecified SNOMED: 01278953 (6) Dental abscess ICD Codes: K04.7 - Periapical abscess without sinus SNOMED: 433786847, 919787316 (7) Dehydration ICD Codes: E86.0 - Dehydration SNOMED: 37964873 Status: progressing Assessment/Plan afebrile cellulitis is improving reviewed chart and labs brain tumor Subjective ROS Limited/Unobtainable: Yes Allergies: Coded Allergies: DIVALPROEX SODIUM (Verified Allergy, Unknown, 11/29/18) GABAPENTIN (Verified Allergy, Unknown, 01/15/19) HALOPERIDOL (Verified Allergy, Unknown, 11/29/18) HYDROXYZINE (Verified Allergy, Unknown, 01/15/19) IBUPROFEN (Verified Allergy, Unknown, 11/29/18) KETOROLAC (Verified Allergy, Unknown, 11/29/18) METOPROLOL (Verified Allergy, Unknown, 11/29/18) MORPHINE (Verified Allergy, Unknown, 11/29/18) NAPROXEN (Verified Allergy, Unknown, 01/15/19) ONDANSETRON (Verified Allergy, Unknown, 01/15/19) TRAZODONE (Verified Allergy, Unknown, 11/29/18) Uncoded Allergies: NSAIDS (Allergy, Unknown, 11/29/18) Objective Last 24 Hour Vital Signs Date Time Temp Pulse Resp B/P (MAP) Pulse Ox O2 Delivery O2 Flow Rate FiO2 01/17/19 20:30 75 20 Room Air 21 01/17/19 16:10 98.0 01/17/19 16:00 98.5 81 18 129/88 (102) 97 01/17/19 12:47 98.0 01/17/19 12:47 98.0 01/17/19 12:00 98.7 82 18 132/90 (104) 98 01/17/19 09:06 74 20 Room Air 01/17/19 09:00 Room Air 01/17/19 08:00 98.5 80 19 130/81 (97) 96 01/17/19 04:00 98.0 73 18 133/72 (92) 96 01/17/19 00:00 97.8 80 18 146/89 (108) 98 01/16/19 21:43 71 20 Room Air Intake and Output 01/16/19 01/17/19 19:00 07:00 Intake Total 650 ml Balance 650 ml Intake Oral 650 ml # Voids 2 Laboratory Tests 01/16/19 23:20: Chlamydia trachomatis RNA [Pending], Neisseria gonorrhoeae RNA [Pending] Height (Feet): 5 Height (Inches): 6.00 Weight (Pounds): 144 Cardiovascular: normal rate Respiratory/Chest: lungs clear Abdomen: soft Linn Avery MD Jan 17, 2019 21:28
--- NOTE | 2019-01-17 23:15 | Progress Note ---
DATE: 01/15/2019 SUBJECTIVE: This is a 43-year-old female patient with dental abscess. She comes in with lot of pain, anxiety, and psychosomatic symptoms. She felt she is now having tremendous amount of anxiety and panic attacks. That is why, her attending has requested a daily psychiatric consultation. MENTAL STATUS EXAMINATION: A 43-year-old female. Appearance is disheveled. Attitude, irritable and agitated. Affect, guarded and restricted. Intellect poor. Mood, depressed and anxious. Motor activity, psychomotor agitation. Attention span is poor. Speech is low volume and slurred. Thought process is disorganized and illogical. Insight and judgment are poor. DIAGNOSIS: Major depressive disorder, mild, recurrent, without psychotic features, rule out generalized anxiety disorder. PLAN: Continue treatment with the medication regimen consisting of Prozac 20 mg daily and Xanax as needed. Provided 20 minutes of cognitive behavioral therapy to help her identify her automatic negative thoughts and convert those negative thoughts to more positive thoughts to reduce depression, anxiety, and mood lability. Chart reviewed. Discussed with staff. Aviva Edmond M.D. DR: GALINDO JOB#: [id number] CC:
[2019-01-18] VITALS: BP 100/57
--- NOTE | 2019-01-18 00:15 | Consultation ---
DATE OF CONSULTATION: 01/16/2019 NOTE: POOR AUDIO. PSYCHOTHERAPY CONSULTATION PROGRESS NOTE CONSULTING PHYSICIAN: Moses Freeman PsyD. TREATING ATTENDING PHYSICIAN: Cooper London D.O. HISTORY OF PRESENT ILLNESS: The patient is a 43-year-old female patient. The patient was brought to the hospital for dental abscess and dehydration. The patient's depression agitated and irritable and this is why this clinician assessed the patient. The patient has had she has terminal cancer in her brain. She states that she has a brain tumor. She is going to from cancer. She denies , however, she is very paranoid. She states that she is constantly in severe pain and constantly seeking pain medication. She has agitation, irritability, and poor frustration tolerance. She is redirectable, anxious, and pacing. PAST MEDICAL HISTORY: Includes history of UTI and uterine cancer. ALLERGIES: The patient has allergies to NSAIDS, ketorolac, ibuprofen, morphine, trazodone, and Haldol. SUBSTANCE USE HISTORY: The patient has history of smoking cigarettes. Denies a history of alcohol use or illicit substance use. PSYCHIATRIC HISTORY: The patient has a history of psychosis, depression, and anxiety and has been treated with psychotropic medications in the past. SOCIAL HISTORY: The patient is a single 43-year-old female patient from [facility], financially sustained through [employer]. MENTAL STATUS EXAMINATION: She is alert and oriented to person, place, and time. Mood is . Affect is congruent. Thought process is slightly disorganized. She has fair attention and concentration. Fair insight, judgment, and impulse control. She denies suicidal or homicidal thoughts of ideation at this time. DIAGNOSES: Major depressive disorder, recurrent with psychotic features. ASSESSMENT AND PLAN: I assessed the patient. Provided the patient with supportive psychotherapy. cognitive behavioral therapy. Provided the patient behavior anxiety and restlessness as well as coping skills. . I discussed positive coping skills. . This clinician has reviewed the patient's chart. Discussed treatment with treatment team. Moses Freeman PsyD. DR: JER JOB#: [id number] CC:
[2019-01-18] MEDS: LORazepam Inj 2mg/ml 1ml IV PRN ×2 (02:28→18:40)
[2019-01-18] MEDS: HYDROmorphone 2 MG in NS 55 ML IVPB PRN ×6 (02:29→20:18)
[2019-01-18 04:00] VITALS: BP 101/58
[2019-01-18] MEDS: Promethazine HCl 25 MG in NS 55 ML IVPB PRN ×3 (06:26→21:53)
[2019-01-18 08:00] VITALS: BP 118/70
[2019-01-18] MEDS: HydrOXYzine 50mg tab ORAL SCH ×2 (09:08→17:14)
[2019-01-18] MEDS: Augmentin 875mg Tab ORAL SCH ×2 (09:08→20:21)
--- NOTE | 2019-01-18 09:15 | Infectious Diseases Prog Note ---
Assessment/Plan Assessment/Plan 43 yo with PMHx of uterine CA, Psych and Brain tumor who presnted to the ED 01/14/19 with headache and dental pain. Recurrent Dental pain Currently no clear pus or abscess. No facial erythema Hx of right facial cellulitis- from either infected teeth and R maxillary sinusitis -wound cx from cavity: usual bekah om Nov 2018 -CT facial bones 12/03/18 : No acute injury appreciated. No abscess identified.Right maxillary sinusitis.Incidental 1 cm enhancing mass associated with the anterior interhemispheric fissure.This is most likely meningioma. Suggest confirmation with the MRI with and without gadolinium CT face 01/16/19 - Slight lucency around the roots of the right second maxillary molar, also evident previously, improved since that time, could indicate a small resolving indolent apical root abscess. The adjacent maxillary sinus disease has also improved in the interim. Extensive dental caries, also previously demonstrated Headache CT shows possible meningioma Vaginal pain and erythema Probable yeast infection per ORTHOPAEDIC SURGEON Clotrimazole crm Afebrile No leukocytosis Hx Uterine CA s/p radiation Psych disorder Hx Brain tumor Plan: - Continue Augmentin 875/125mg bid ( End date 01/30/19) - Continue clotrimazole cream during abx Tx - 01/17/19 SP Vancomycin and Cefepime #1 - 12/16/18 S/P Out Pt Augmentin 875/125mg bid #4 - 12/12/18 S/P Unasyn #10 -12/04 SP IV Vancomycin and Cefepime #1 -Monitor CBC/CMP, temperatures -Needs to f/u with dentist as outpatient for removal of damaged/infected teeth. - f/u Counseling Department Chair Thank you for this consult. We will continue to follow the patient during this hospitalization. Subjective Allergies: Coded Allergies: DIVALPROEX SODIUM (Verified Allergy, Unknown, 11/29/18) GABAPENTIN (Verified Allergy, Unknown, 01/15/19) HALOPERIDOL (Verified Allergy, Unknown, 11/29/18) HYDROXYZINE (Verified Allergy, Unknown, 01/15/19) IBUPROFEN (Verified Allergy, Unknown, 11/29/18) KETOROLAC (Verified Allergy, Unknown, 11/29/18) METOPROLOL (Verified Allergy, Unknown, 11/29/18) MORPHINE (Verified Allergy, Unknown, 11/29/18) NAPROXEN (Verified Allergy, Unknown, 01/15/19) ONDANSETRON (Verified Allergy, Unknown, 01/15/19) TRAZODONE (Verified Allergy, Unknown, 11/29/18) Uncoded Allergies: NSAIDS (Allergy, Unknown, 11/29/18) Subjective Afebrile No leukocytosis Objective Vital Signs Last 24 Hour Vital Signs Date Time Temp Pulse Resp B/P (MAP) Pulse Ox O2 Delivery O2 Flow Rate FiO2 01/18/19 08:00 98.0 86 20 118/70 (86) 94 01/18/19 06:48 88 20 Room Air 21 01/18/19 04:00 97.5 69 18 101/58 (72) 97 01/18/19 00:00 99.2 82 20 100/57 (71) 97 01/17/19 21:00 Room Air 01/17/19 20:30 75 20 Room Air 21 01/17/19 20:00 98.6 84 18 123/78 (93) 96 01/17/19 16:10 98.0 01/17/19 16:00 98.5 81 18 129/88 (102) 97 01/17/19 12:47 98.0 01/17/19 12:47 98.0 01/17/19 12:00 98.7 82 18 132/90 (104) 98 Height (Feet): 5 Height (Inches): 6.00 Weight (Pounds): 144 Objective Gen: NAD, Sitting in bed HEENT: NCAT, MMM, EOMI LUNGS: CTAB, No W CARDS: RRR, S1, S2, No M/R/G, ABD: Soft, NT, ND, + BS Microbiology Date/Time Source Procedure Growth Status 01/16/19 23:20 Urine,Clean Catch Urine Culture - Preliminary NO GROWTH AFTER 24 HOURS Resulted Current Medications Medications (Trade) Dose Ordered Sig/Gaby Route PRN Reason Start Time Stop Time Status Last Admin Dose Admin Acetaminophen (Tylenol) 650 mg Q4H PRN ORAL fever 01/14/19 19:46 02/13/19 19:45 Albuterol/ Ipratropium (Albuterol/ Ipratropium) 3 ml Q4H PRN HHN Shortness of Breath 01/14/19 19:46 01/19/19 19:45 Alprazolam (Xanax) 1 mg Q6H PRN ORAL For Anxiety 01/14/19 20:45 01/21/19 20:44 01/17/19 01:53 Amoxicillin/ Clavulanate Potassium (Augmentin) 875 mg EVERY 12 HOURS ORAL 01/17/19 21:00 01/30/19 20:59 01/17/19 21:06 Dextrose (Dextrose 50%) 25 ml STAT PRN IV Hypoglycemia 01/14/19 19:15 02/13/19 19:14 Dextrose (Dextrose 50%) 50 ml Q30M PRN IV Hypoglycemia 01/14/19 19:15 02/13/19 19:14 Fluoxetine HCl (PROzac) 20 mg DAILY ORAL 01/16/19 09:00 02/15/19 08:59 01/17/19 09:34 Gabapentin (Neurontin) 300 mg THREE TIMES A DAY ORAL 01/15/19 09:00 02/14/19 08:59 Heparin Sodium (Porcine) (Heparin 5000 units/ml) 5,000 units EVERY 12 HOURS SUBQ 01/14/19 21:00 02/13/19 20:59 01/17/19 20:51 Hydromorphone HCl 2 mg/Sodium Chloride 56 ml @ 224 mls/hr Q3H PRN IVPB SEVERE PAIN (7 TO 10) 01/15/19 07:45 01/22/19 00:59 01/18/19 06:03 Hydroxyzine HCl (Atarax) 50 mg BID ORAL 01/15/19 18:00 02/14/19 17:59 01/17/19 18:39 Levothyroxine Sodium (Synthroid) 112 mcg DAILY@0630 ORAL 01/15/19 06:30 02/14/19 06:29 01/18/19 05:50 Lorazepam (Ativan 2mg/ml 1ml) 1 mg Q4H PRN IV For Anxiety 01/14/19 20:45 01/21/19 20:44 01/18/19 02:28 Nitroglycerin (Ntg) 0.4 mg Q5MIN X 3 DOSES PRN SL Prn Chest Pain 01/14/19 19:45 02/13/19 19:44 Ondansetron HCl (Zofran) 4 mg Q6H PRN IVP Nausea & Vomiting 01/14/19 19:45 02/13/19 19:44 Oxycodone/ Acetaminophen (Percocet 10/325) 1 tab Q4H PRN ORAL breakthrough moderate pain 01/16/19 09:30 01/23/19 09:29 01/17/19 22:19 Polyethylene Glycol (Miralax) 17 gm DAILYPRN PRN ORAL Constipation 01/14/19 19:15 02/13/19 19:14 Promethazine HCl 25 mg/Sodium Chloride 56 ml @ 112 mls/hr Q6H PRN IVPB Refractory Nausea & Vomiting 01/14/19 21:01 02/13/19 21:00 01/18/19 06:26 Temazepam (Restoril) 30 mg HSPRN PRN ORAL Insomnia 01/15/19 21:00 01/22/19 20:59 01/16/19 20:52 Tizanidine HCl (Zanaflex) 8 mg Q6H PRN ORAL muscle spasm 01/17/19 09:26 02/14/19 09:25 01/18/19 05:51 Rashaad Lucas MD Jan 18, 2019 09:15
[2019-01-18] MEDS: Heparin 5000 units/ml inj SUBQ SCH ×2 (09:18→20:24)
[2019-01-18] MEDS ORDERED: NS 275ml ONE (10:43)
[2019-01-18] MEDS ORDERED: Tubing IV Secondary IV ONE ×2 (10:43→10:44)
[2019-01-18] MEDS ORDERED: D5NS 1000ml IV ONE (10:44)
[2019-01-18 12:00] VITALS: BP 137/79
[2019-01-18 16:00] VITALS: BP_SYST 100; BP_SYST 111; BP_DIAS 54; BP_DIAS 61
--- NOTE | 2019-01-18 17:11 | Pulmonology Progress Note ---
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 check labs periodically Subjective ROS Limited/Unobtainable: No Constitutional: Reports: no symptoms Respiratory: Reports: no symptoms Allergies: Coded Allergies: DIVALPROEX SODIUM (Verified Allergy, Unknown, 11/29/18) GABAPENTIN (Verified Allergy, Unknown, 01/15/19) HALOPERIDOL (Verified Allergy, Unknown, 11/29/18) HYDROXYZINE (Verified Allergy, Unknown, 01/15/19) IBUPROFEN (Verified Allergy, Unknown, 11/29/18) KETOROLAC (Verified Allergy, Unknown, 11/29/18) METOPROLOL (Verified Allergy, Unknown, 11/29/18) MORPHINE (Verified Allergy, Unknown, 11/29/18) NAPROXEN (Verified Allergy, Unknown, 01/15/19) ONDANSETRON (Verified Allergy, Unknown, 01/15/19) TRAZODONE (Verified Allergy, Unknown, 11/29/18) Uncoded Allergies: NSAIDS (Allergy, Unknown, 11/29/18) Objective Last 24 Hour Vital Signs Date Time Temp Pulse Resp B/P (MAP) Pulse Ox O2 Delivery O2 Flow Rate FiO2 01/18/19 16:30 98.0 01/18/19 16:00 98.0 65 18 111/61 (78) 97 01/18/19 13:58 98.0 01/18/19 12:00 98.5 80 20 137/79 (98) 97 01/18/19 11:22 98.0 01/18/19 09:00 Room Air 01/18/19 08:00 98.0 86 20 118/70 (86) 94 01/18/19 06:48 88 20 Room Air 21 01/18/19 04:00 97.5 69 18 101/58 (72) 97 01/18/19 00:00 99.2 82 20 100/57 (71) 97 01/17/19 21:00 Room Air 01/17/19 20:30 75 20 Room Air 21 01/17/19 20:00 98.6 84 18 123/78 (93) 96 Intake and Output 01/17/19 01/18/19 19:00 07:00 Intake Total 112 ml 1062 ml Balance 112 ml 1062 ml IV Total 112 ml 112 ml Other 950 ml # Voids 6 General Appearance: WD/WN HEENT: atraumatic Respiratory/Chest: chest wall non-tender, lungs clear Cardiovascular: normal peripheral pulses, regular rhythm Abdomen: normal bowel sounds, no scars Extremities: no cyanosis Skin: no rash Microbiology Date/Time Source Procedure Growth Status 01/16/19 23:20 Urine,Clean Catch Urine Culture - Preliminary NO GROWTH AFTER 24 HOURS Resulted Current Medications Medications (Trade) Dose Ordered Sig/Gaby Route PRN Reason Start Time Stop Time Status Last Admin Dose Admin Acetaminophen (Tylenol) 650 mg Q4H PRN ORAL fever 01/14/19 19:46 02/13/19 19:45 Albuterol/ Ipratropium (Albuterol/ Ipratropium) 3 ml Q4H PRN HHN Shortness of Breath 01/14/19 19:46 01/19/19 19:45 Alprazolam (Xanax) 1 mg Q6H PRN ORAL For Anxiety 01/14/19 20:45 01/21/19 20:44 01/17/19 01:53 Amoxicillin/ Clavulanate Potassium (Augmentin) 875 mg EVERY 12 HOURS ORAL 01/17/19 21:00 01/30/19 20:59 01/18/19 09:08 Dextrose (Dextrose 50%) 25 ml STAT PRN IV Hypoglycemia 01/14/19 19:15 02/13/19 19:14 Dextrose (Dextrose 50%) 50 ml Q30M PRN IV Hypoglycemia 01/14/19 19:15 02/13/19 19:14 Fluoxetine HCl (PROzac) 20 mg DAILY ORAL 01/16/19 09:00 02/15/19 08:59 01/18/19 09:08 Gabapentin (Neurontin) 300 mg THREE TIMES A DAY ORAL 01/15/19 09:00 02/14/19 08:59 Heparin Sodium (Porcine) (Heparin 5000 units/ml) 5,000 units EVERY 12 HOURS SUBQ 01/14/19 21:00 02/13/19 20:59 01/18/19 09:18 Hydromorphone HCl 2 mg/Sodium Chloride 56 ml @ 224 mls/hr Q3H PRN IVPB SEVERE PAIN (7 TO 10) 01/15/19 07:45 01/22/19 00:59 01/18/19 16:00 Hydroxyzine HCl (Atarax) 50 mg BID ORAL 01/15/19 18:00 02/14/19 17:59 01/18/19 09:08 Levothyroxine Sodium (Synthroid) 112 mcg DAILY@0630 ORAL 01/15/19 06:30 02/14/19 06:29 01/18/19 05:50 Lorazepam (Ativan 2mg/ml 1ml) 1 mg Q4H PRN IV For Anxiety 01/14/19 20:45 01/21/19 20:44 01/18/19 02:28 Nitroglycerin (Ntg) 0.4 mg Q5MIN X 3 DOSES PRN SL Prn Chest Pain 01/14/19 19:45 02/13/19 19:44 Ondansetron HCl (Zofran) 4 mg Q6H PRN IVP Nausea & Vomiting 01/14/19 19:45 02/13/19 19:44 Oxycodone/ Acetaminophen (Percocet 10/325) 1 tab Q4H PRN ORAL breakthrough moderate pain 01/16/19 09:30 01/23/19 09:29 01/18/19 10:52 Polyethylene Glycol (Miralax) 17 gm DAILYPRN PRN ORAL Constipation 01/14/19 19:15 02/13/19 19:14 Promethazine HCl 25 mg/Sodium Chloride 56 ml @ 112 mls/hr Q6H PRN IVPB Refractory Nausea & Vomiting 01/14/19 21:01 02/13/19 21:00 01/18/19 13:00 Temazepam (Restoril) 30 mg HSPRN PRN ORAL Insomnia 01/15/19 21:00 01/22/19 20:59 01/16/19 20:52 Tizanidine HCl (Zanaflex) 8 mg Q6H PRN ORAL muscle spasm 01/17/19 09:26 02/14/19 09:25 01/18/19 12:59 Chrissie Purdy MD Jan 18, 2019 17:11
--- NOTE | 2019-01-18 19:15 | Progress Note ---
DATE: 01/18/2019 NOTE: "POOR AUDIO QUALITY" SUBJECTIVE: This is a 43-year-old female with dental abscess. She still has some confusion, disorganized thought process, and mood lability worsened by stress of her medical illness. She has been very paranoid and anxious and she is still endorsing speech pattern, but high levels of anxiety, depression, and mood lability, psychosomatic symptoms. That is why, there is daily psychiatric consultation requested to evaluate this patient and the patient to reduce anxiety, depression, and mood lability. MENTAL STATUS EXAMINATION: This is a 43-year-old female. Appearance is disheveled. Attitude, irritable and agitated. Affect, guarded and restricted. Intellect poor. Mood, depressed and anxious. Motor activity, psychomotor agitation. Attention span is poor. Orientation x2. Speech is pressured. Thought process, disorganized and illogical. Insight and judgment is poor. DIAGNOSIS: Major depressive disorder, mild, recurrent with psychotic features, rule out generalized anxiety disorder. PLAN: Continue on Prozac 20 mg daily and Xanax as needed. Twenty minutes of cognitive behavioral therapy provided to help her identify automatic negative thoughts and help her to convert negative thoughts to more positive thoughts to reduce depression, anxiety, and mood lability. Chart reviewed. Discussed with staff. Seen and assessed in her room. Aviva Edmond M.D. DR: ROBERTA JOB#: [id number] CC:
[2019-01-18 20:00] VITALS: BP 110/63
--- NOTE | 2019-01-18 21:31 | General Progress Note ---
Assessment/Plan Problem List: (1) Facial cellulitis ICD Codes: L03.211 - Cellulitis of face SNOMED: 573064826 (2) Facial pain ICD Codes: R51 - Headache SNOMED: 16189986 (3) Cervical cancer ICD Codes: C53.9 - Malignant neoplasm of cervix uteri, unspecified SNOMED: 788656792 (4) Brain tumor ICD Codes: D49.6 - Neoplasm of unspecified behavior of brain SNOMED: 432925166 (5) Anxiety ICD Codes: F41.9 - Anxiety disorder, unspecified SNOMED: 59588822 (6) Dental abscess ICD Codes: K04.7 - Periapical abscess without sinus SNOMED: 106539598, 334858018 (7) Dehydration ICD Codes: E86.0 - Dehydration SNOMED: 75409422 Status: progressing Assessment/Plan no acute events cellulitis is improving reviewed chart and labs brain tumor Subjective ROS Limited/Unobtainable: Yes Allergies: Coded Allergies: DIVALPROEX SODIUM (Verified Allergy, Unknown, 11/29/18) GABAPENTIN (Verified Allergy, Unknown, 01/15/19) HALOPERIDOL (Verified Allergy, Unknown, 11/29/18) HYDROXYZINE (Verified Allergy, Unknown, 01/15/19) IBUPROFEN (Verified Allergy, Unknown, 11/29/18) KETOROLAC (Verified Allergy, Unknown, 11/29/18) METOPROLOL (Verified Allergy, Unknown, 11/29/18) MORPHINE (Verified Allergy, Unknown, 11/29/18) NAPROXEN (Verified Allergy, Unknown, 01/15/19) ONDANSETRON (Verified Allergy, Unknown, 01/15/19) TRAZODONE (Verified Allergy, Unknown, 11/29/18) Uncoded Allergies: NSAIDS (Allergy, Unknown, 11/29/18) Objective Last 24 Hour Vital Signs Date Time Temp Pulse Resp B/P (MAP) Pulse Ox O2 Delivery O2 Flow Rate FiO2 01/18/19 20:15 85 18 Room Air 21 01/18/19 17:44 98.0 01/18/19 16:30 98.0 01/18/19 16:00 98.0 65 18 111/61 (78) 97 01/18/19 13:58 98.0 01/18/19 12:00 98.5 80 20 137/79 (98) 97 01/18/19 09:00 Room Air 01/18/19 08:00 98.0 86 20 118/70 (86) 94 01/18/19 06:48 88 20 Room Air 21 01/18/19 04:00 97.5 69 18 101/58 (72) 97 01/18/19 00:00 99.2 82 20 100/57 (71) 97 Intake and Output 01/17/19 01/18/19 19:00 07:00 Intake Total 112 ml 1062 ml Balance 112 ml 1062 ml IV Total 112 ml 112 ml Other 950 ml # Voids 6 Height (Feet): 5 Height (Inches): 6.00 Weight (Pounds): 144 Cardiovascular: normal rate Respiratory/Chest: lungs clear Abdomen: soft Linn Avery MD Jan 18, 2019 21:31
[2019-01-19] VITALS: BP 103/61
[2019-01-19] MEDS: HYDROmorphone 2 MG in NS 55 ML IVPB PRN ×6 (01:24→21:34)
[2019-01-19 04:00] VITALS: BP 137/90
[2019-01-19] MEDS: LORazepam Inj 2mg/ml 1ml IV PRN ×3 (04:18→14:10)
[2019-01-19 08:00] VITALS: BP 144/67
[2019-01-19] MEDS: Augmentin 875mg Tab ORAL SCH ×2 (08:38→20:13)
[2019-01-19] MEDS: HydrOXYzine 50mg tab ORAL SCH ×2 (08:38→17:39)
[2019-01-19] MEDS: Heparin 5000 units/ml inj SUBQ SCH ×2 (08:41→20:16)
--- NOTE | 2019-01-19 11:25 | General Progress Note ---
Assessment/Plan Assessment/Plan (1) Right sided facial pain (2) Cellulitis (3) Dental Caries Pt will be continued on Dilaudid and Percocet D/w Dr. Alonzo and he concurred. Subjective Date patient seen: Jan 19, 2019 Time patient seen: 10:00 - am Allergies: Coded Allergies: DIVALPROEX SODIUM (Verified Allergy, Unknown, 11/29/18) GABAPENTIN (Verified Allergy, Unknown, 01/15/19) HALOPERIDOL (Verified Allergy, Unknown, 11/29/18) HYDROXYZINE (Verified Allergy, Unknown, 01/15/19) IBUPROFEN (Verified Allergy, Unknown, 11/29/18) KETOROLAC (Verified Allergy, Unknown, 11/29/18) METOPROLOL (Verified Allergy, Unknown, 11/29/18) MORPHINE (Verified Allergy, Unknown, 11/29/18) NAPROXEN (Verified Allergy, Unknown, 01/15/19) ONDANSETRON (Verified Allergy, Unknown, 01/15/19) TRAZODONE (Verified Allergy, Unknown, 11/29/18) Uncoded Allergies: NSAIDS (Allergy, Unknown, 11/29/18) Subjective REVIEW OF SYSTEMS: Denies rash, fever, chills, sweating, dizziness, drowsiness, blurred vision, sore throat, or change in weight. No nausea, vomiting, diarrhea, or blood in the stool or urine. No bowel or bladder incontinence. No dysuria. SUBJECTIVE: Patient continues to c/o pain. She has used 7 doses of Dilaudid and one dose of Percocet. I d/w patient about option of starting her on methadone, however pt refuses. She says that the Dilaudid is working to relieve her pain at this time. Objective Last 24 Hour Vital Signs Date Time Temp Pulse Resp B/P (MAP) Pulse Ox O2 Delivery O2 Flow Rate FiO2 01/19/19 09:10 98.1 01/19/19 09:00 Room Air 01/19/19 08:00 97.3 98 17 144/67 (92) 97 01/19/19 07:00 80 16 Room Air 21 01/19/19 04:00 98.1 68 18 137/90 (106) 98 01/19/19 00:00 97.6 61 15 103/61 (75) 95 01/18/19 21:00 Room Air 01/18/19 20:15 85 18 Room Air 21 01/18/19 20:00 98.2 73 18 110/63 (79) 96 01/18/19 17:44 98.0 01/18/19 16:00 98.0 65 18 111/61 (78) 97 01/18/19 13:58 98.0 01/18/19 12:00 98.5 80 20 137/79 (98) 97 Intake and Output 01/18/19 01/19/19 18:59 06:59 Intake Total 1184 ml 1384 ml Balance 1184 ml 1384 ml Intake Oral 960 ml 600 ml IV Total 224 ml 784 ml # Voids 4 4 # Bowel Movements 1 Height (Feet): 5 Height (Inches): 6.00 Weight (Pounds): 144 Objective GENERAL: Alert, awake, oriented. LUNGS: Decreased breath sounds bilaterally. HEART: S1 and S2, regular. ABDOMEN: Soft and nontender. EXTREMITIES: No cyanosis. No clubbing. NEURO: No focal deficit Jose Steele Jan 19, 2019 11:25
[2019-01-19 16:00] VITALS: BP 98/53
--- NOTE | 2019-01-19 16:52 | General Progress Note ---
Assessment/Plan Assessment/Plan Assessment/Plan: # Uterine cancer -- according to patient has a hx of stage iv disease, diagnosed in 1996 and was treated with chemo, xrt and surgery (HOWEVER THIS IS VERY UNLIKELY) --> says currently is in remission though is likely not full story, could be malingering as stage iv disease average lifespan 6mo --> ct a/p shows 9 mm low-attenuation right lobe liver lesion, probably not cystic and therefore neoplasm a possibility. This was on prior imaging --> mast maker/onc was called --> Dr. Mullins recommends a pap smear as op --> tumor markers as op # Anemia of chronic disease --> anemia panel if hgb <10 --> refusing labs at this time # Leukopenia with a wbc 4-5 --> obtain a hepatitis and hiv # R facial cellulitis hx s/p abx/Meningioma --> Incidental 1 cm enhancing mass associated with the anterior interhemispheric fissure.This is most likely meningioma. Suggest confirmation with the MRI with and without gadolinium --> Ct of the face reveals: extra-axial hyperdense mass associated with the anterior aspect of the interhemispheric fissure most likely representing a meningioma. ==> abx as per id, ok to dc on po augmentin # HAYES with caries --> as per dental eval, may have tooth pulled The timing of this note does not necessarily reflect the time of the patient was seen. Greatly appreciate consultation! Subjective Constitutional: Denies: no symptoms, chills, diaphoresis, fever, malaise, weakness, other HEENT: Denies: no symptoms, eye pain, blurred vision, tearing, double vision, ear pain, ear discharge, nose pain, nose congestion, throat pain, throat swelling, mouth pain, mouth swelling, other Cardiovascular: Denies: no symptoms, chest pain, edema, irregular heart rate, lightheadedness, palpitations, syncope, other Genitourinary: Denies: no symptoms, burning, discharge, frequency, flank pain, hematuria, incontinence, pain, urgency, other Neurologic/Psychiatric: Denies: no symptoms, anxiety, depressed, emotional problems, headache, numbness, paresthesia, pre-existing deficit, seizure, tingling, tremors, weakness, other Endocrine: Denies: no symptoms, excessive sweating, flushing, intolerance to cold, intolerance to heat, increased hunger, increased thirst, increased urine, unexplained weight gain, unexplained weight loss, other Hematologic/Lymphatic: Denies: no symptoms, anemia, easy bleeding, easy bruising, other Allergies: Coded Allergies: DIVALPROEX SODIUM (Verified Allergy, Unknown, 11/29/18) GABAPENTIN (Verified Allergy, Unknown, 01/15/19) HALOPERIDOL (Verified Allergy, Unknown, 11/29/18) HYDROXYZINE (Verified Allergy, Unknown, 01/15/19) IBUPROFEN (Verified Allergy, Unknown, 11/29/18) KETOROLAC (Verified Allergy, Unknown, 11/29/18) METOPROLOL (Verified Allergy, Unknown, 11/29/18) MORPHINE (Verified Allergy, Unknown, 11/29/18) NAPROXEN (Verified Allergy, Unknown, 01/15/19) ONDANSETRON (Verified Allergy, Unknown, 01/15/19) TRAZODONE (Verified Allergy, Unknown, 11/29/18) Uncoded Allergies: NSAIDS (Allergy, Unknown, 11/29/18) Subjective 01/19: wants norco and muscle relaxant to be administered at the same time Objective Last 24 Hour Vital Signs Date Time Temp Pulse Resp B/P (MAP) Pulse Ox O2 Delivery O2 Flow Rate FiO2 01/19/19 16:00 98.3 72 19 98/53 (68) 94 01/19/19 13:17 98.1 01/19/19 13:17 98.1 01/19/19 09:00 Room Air 01/19/19 08:00 97.3 98 17 144/67 (92) 97 01/19/19 07:00 80 16 Room Air 21 01/19/19 04:00 98.1 68 18 137/90 (106) 98 01/19/19 00:00 97.6 61 15 103/61 (75) 95 01/18/19 21:00 Room Air 01/18/19 20:15 85 18 Room Air 21 01/18/19 20:00 98.2 73 18 110/63 (79) 96 01/18/19 17:44 98.0 Intake and Output 01/18/19 01/19/19 19:00 07:00 Intake Total 1184 ml 1384 ml Balance 1184 ml 1384 ml Intake Oral 960 ml 600 ml IV Total 224 ml 784 ml # Voids 4 4 # Bowel Movements 1 Height (Feet): 5 Height (Inches): 6.00 Weight (Pounds): 144 Objective Sp02 EP Interpretation: reviewed, normal General Appearance: no apparent distress Head: normocephalic, atraumatic Eyes: bilateral eye PERRL, bilateral eye EOMI ENT: other - Poor dentition right upper and lower dental region, also gingival irritation Neck: full range of motion, supple Respiratory: lungs clear, no respiratory distress, no retraction Cardiovascular #1: regular rate, rhythm Gastrointestinal: non tender, soft Musculoskeletal: normal inspection, back normal Neurologic: alert, oriented x3 Psychiatric: anxious Skin: normal color, no rash Lymphatic: no adenopathy Rudy Angela MD Jan 19, 2019 16:52
--- NOTE | 2019-01-19 18:00 | Progress Note ---
DATE: 01/19/2019 SUBJECTIVE: This is a 43-year-old female patient. She has dental abscess. The patient also has lot of psychosomatic symptoms as well, high levels of anxiety, depression, irritability worsened by stress of medical illness that is why the attending has requested daily psychiatric consultation at this time. MENTAL STATUS EXAMINATION: The patient is a 43-year-old female. Appearance is disheveled. Attitude, irritable and agitated. Affect, guarded and restricted. Intellect poor. Mood, depressed and anxious. Motor activity, psychomotor agitation. Attention span is poor. Orientation x2. Speech is pressured. Thought process, disorganized and illogical. Thought content, auditory hallucinations and paranoid delusions. Insight and judgment are poor. DIAGNOSIS: Major depressive disorder, mild, recurrent, with psychotic features. PLAN: My plan for this patient is to treat her with Prozac 20 mg daily and Xanax as needed. Provided 20 minutes of cognitive behavioral therapy to help her identify her automatic negative thoughts and convert those negative thoughts to more positive thinking to reduce depression, anxiety, and mood lability and also help her have adaptive behavioral pattern. Chart reviewed. Discussed with staff. Aviva Edmond M.D. DR: Anisa JOB#: [id number] CC:
[2019-01-19 20:00] VITALS: BP 124/83
--- NOTE | 2019-01-19 21:46 | General Progress Note ---
Assessment/Plan Problem List: (1) Facial cellulitis ICD Codes: L03.211 - Cellulitis of face SNOMED: 290338456 (2) Facial pain ICD Codes: R51 - Headache SNOMED: 98672232 (3) Cervical cancer ICD Codes: C53.9 - Malignant neoplasm of cervix uteri, unspecified SNOMED: 451965699 (4) Brain tumor ICD Codes: D49.6 - Neoplasm of unspecified behavior of brain SNOMED: 420642386 (5) Anxiety ICD Codes: F41.9 - Anxiety disorder, unspecified SNOMED: 84440119 (6) Dental abscess ICD Codes: K04.7 - Periapical abscess without sinus SNOMED: 473528467, 814726656 (7) Dehydration ICD Codes: E86.0 - Dehydration SNOMED: 89884155 Status: progressing Assessment/Plan facial celluitis needs placement abx per id cellulitis is improving reviewed chart and labs brain tumor Subjective ROS Limited/Unobtainable: Yes Allergies: Coded Allergies: DIVALPROEX SODIUM (Verified Allergy, Unknown, 11/29/18) GABAPENTIN (Verified Allergy, Unknown, 01/15/19) HALOPERIDOL (Verified Allergy, Unknown, 11/29/18) HYDROXYZINE (Verified Allergy, Unknown, 01/15/19) IBUPROFEN (Verified Allergy, Unknown, 11/29/18) KETOROLAC (Verified Allergy, Unknown, 11/29/18) METOPROLOL (Verified Allergy, Unknown, 11/29/18) MORPHINE (Verified Allergy, Unknown, 11/29/18) NAPROXEN (Verified Allergy, Unknown, 01/15/19) ONDANSETRON (Verified Allergy, Unknown, 01/15/19) TRAZODONE (Verified Allergy, Unknown, 11/29/18) Uncoded Allergies: NSAIDS (Allergy, Unknown, 11/29/18) Objective Last 24 Hour Vital Signs Date Time Temp Pulse Resp B/P (MAP) Pulse Ox O2 Delivery O2 Flow Rate FiO2 01/19/19 19:46 78 16 Room Air 21 01/19/19 18:10 98.3 01/19/19 16:00 98.3 72 19 98/53 (68) 94 01/19/19 13:17 98.1 01/19/19 09:00 Room Air 01/19/19 08:00 97.3 98 17 144/67 (92) 97 01/19/19 07:00 80 16 Room Air 21 01/19/19 04:00 98.1 68 18 137/90 (106) 98 01/19/19 00:00 97.6 61 15 103/61 (75) 95 Intake and Output 01/18/19 01/19/19 19:00 07:00 Intake Total 1184 ml 1384 ml Balance 1184 ml 1384 ml Intake Oral 960 ml 600 ml IV Total 224 ml 784 ml # Voids 4 4 # Bowel Movements 1 Laboratory Tests 01/19/19 18:00: Hepatitis A IgM Antibody [Pending], Hepatitis B Surface Antigen [Pending], Hepatitis B Core IgM Antibody [Pending], Hepatitis C Antibody [Pending], HIV (1& 2) Antibody Rapid Negative Height (Feet): 5 Height (Inches): 6.00 Weight (Pounds): 144 Cardiovascular: normal rate Respiratory/Chest: lungs clear Linn Avery MD Jan 19, 2019 21:45
[2019-01-20] VITALS: BP 144/67
[2019-01-20] MEDS: ALPRAZolam 0.5mg tab ORAL PRN (00:14)
[2019-01-20] MEDS: HYDROmorphone 2 MG in NS 55 ML IVPB PRN ×5 (01:07→18:54)
[2019-01-20] MEDS: Promethazine HCl 25 MG in NS 55 ML IVPB PRN ×2 (05:31→21:52)
[2019-01-20 08:00] VITALS: BP 114/75
[2019-01-20] MEDS: HydrOXYzine 50mg tab ORAL SCH ×2 (08:31→17:56)
[2019-01-20] MEDS: Augmentin 875mg Tab ORAL SCH ×2 (08:32→20:30)
[2019-01-20] MEDS: LORazepam Inj 2mg/ml 1ml IV PRN ×3 (08:32→21:22)
--- NOTE | 2019-01-20 08:49 | General Progress Note ---
Assessment/Plan Assessment/Plan (1) Right sided facial pain (2) Cellulitis (3) Dental Caries Pt will be continued on Dilaudid and Percocet D/w Dr. Alonzo and he concurred. Subjective Date patient seen: Jan 20, 2019 Time patient seen: 07:00 - am Allergies: Coded Allergies: DIVALPROEX SODIUM (Verified Allergy, Unknown, 11/29/18) GABAPENTIN (Verified Allergy, Unknown, 01/15/19) HALOPERIDOL (Verified Allergy, Unknown, 11/29/18) HYDROXYZINE (Verified Allergy, Unknown, 01/15/19) IBUPROFEN (Verified Allergy, Unknown, 11/29/18) KETOROLAC (Verified Allergy, Unknown, 11/29/18) METOPROLOL (Verified Allergy, Unknown, 11/29/18) MORPHINE (Verified Allergy, Unknown, 11/29/18) NAPROXEN (Verified Allergy, Unknown, 01/15/19) ONDANSETRON (Verified Allergy, Unknown, 01/15/19) TRAZODONE (Verified Allergy, Unknown, 11/29/18) Uncoded Allergies: NSAIDS (Allergy, Unknown, 11/29/18) Subjective REVIEW OF SYSTEMS: Denies rash, fever, chills, sweating, dizziness, drowsiness, blurred vision, sore throat, or change in weight. No nausea, vomiting, diarrhea, or blood in the stool or urine. No bowel or bladder incontinence. No dysuria. SUBJECTIVE: Patient is in bed pain is unchanged continues to take the Dilaudid 7 doses and Percocet 1 dose in the the last 24hrs. Again d/w patient about methadone which patient continues to refuse. I advised patient to take the Percocet and this was d/w nurse. She seems to understand. Objective Last 24 Hour Vital Signs Date Time Temp Pulse Resp B/P (MAP) Pulse Ox O2 Delivery O2 Flow Rate FiO2 01/20/19 07:32 85 16 Room Air 21 01/20/19 00:00 98.5 93 18 144/67 (92) 97 01/19/19 21:00 Room Air 01/19/19 20:00 98.9 86 18 124/83 (97) 97 01/19/19 19:46 78 16 Room Air 21 01/19/19 18:10 98.3 01/19/19 16:00 98.3 72 19 98/53 (68) 94 01/19/19 13:17 98.1 01/19/19 09:00 Room Air Intake and Output 01/19/19 01/20/19 19:00 07:00 Intake Total 468 ml 1744 ml Balance 468 ml 1744 ml Intake Oral 300 ml 960 ml IV Total 168 ml 784 ml # Voids 2 5 # Bowel Movements 1 Laboratory Tests 01/19/19 18:00: Hepatitis A IgM Antibody [Pending], Hepatitis B Surface Antigen [Pending], Hepatitis B Core IgM Antibody [Pending], Hepatitis C Antibody [Pending], HIV (1& 2) Antibody Rapid Negative Height (Feet): 5 Height (Inches): 6.00 Weight (Pounds): 144 Objective GENERAL: Alert, awake, oriented. LUNGS: Decreased breath sounds bilaterally. HEART: S1 and S2, regular. ABDOMEN: Soft and nontender. EXTREMITIES: No cyanosis. No clubbing. NEURO: No focal deficit Jose Steele Jan 20, 2019 08:49
[2019-01-20] MEDS: Heparin 5000 units/ml inj SUBQ SCH ×2 (08:56→20:31)
--- NOTE | 2019-01-20 10:11 | Infectious Diseases Prog Note ---
Assessment/Plan Assessment/Plan 43 yo with PMHx of uterine CA, Psych and Brain tumor who presnted to the ED 01/14/19 with headache and dental pain. Recurrent Dental pain Currently no clear pus or abscess. No facial erythema Hx of right facial cellulitis- from either infected teeth and R maxillary sinusitis -wound cx from cavity: usual bekah om Nov 2018 -CT facial bones 12/03/18 : No acute injury appreciated. No abscess identified.Right maxillary sinusitis.Incidental 1 cm enhancing mass associated with the anterior interhemispheric fissure.This is most likely meningioma. Suggest confirmation with the MRI with and without gadolinium CT face 01/16/19 - Slight lucency around the roots of the right second maxillary molar, also evident previously, improved since that time, could indicate a small resolving indolent apical root abscess. The adjacent maxillary sinus disease has also improved in the interim. 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 - f/u [employer] We will continue to follow the patient during this hospitalization. Subjective Allergies: Coded Allergies: DIVALPROEX SODIUM (Verified Allergy, Unknown, 11/29/18) GABAPENTIN (Verified Allergy, Unknown, 01/15/19) HALOPERIDOL (Verified Allergy, Unknown, 11/29/18) HYDROXYZINE (Verified Allergy, Unknown, 01/15/19) IBUPROFEN (Verified Allergy, Unknown, 11/29/18) KETOROLAC (Verified Allergy, Unknown, 11/29/18) METOPROLOL (Verified Allergy, Unknown, 11/29/18) MORPHINE (Verified Allergy, Unknown, 11/29/18) NAPROXEN (Verified Allergy, Unknown, 01/15/19) ONDANSETRON (Verified Allergy, Unknown, 01/15/19) TRAZODONE (Verified Allergy, Unknown, 11/29/18) Uncoded Allergies: NSAIDS (Allergy, Unknown, 11/29/18) Subjective Laying in bed Afebrile Objective Vital Signs Last 24 Hour Vital Signs Date Time Temp Pulse Resp B/P (MAP) Pulse Ox O2 Delivery O2 Flow Rate FiO2 01/20/19 08:00 97.8 84 16 114/75 (88) 95 01/20/19 07:32 85 16 Room Air 21 01/20/19 00:00 98.5 93 18 144/67 (92) 97 01/19/19 21:00 Room Air 01/19/19 20:00 98.9 86 18 124/83 (97) 97 01/19/19 19:46 78 16 Room Air 21 01/19/19 18:10 98.3 01/19/19 16:00 98.3 72 19 98/53 (68) 94 01/19/19 13:17 98.1 Height (Feet): 5 Height (Inches): 6.00 Weight (Pounds): 144 Objective Gen: NAD HEENT: NCAT, MMM, EOMI LUNGS: CTAB, No W CARDS: RRR, S1, S2, No M/R/G, ABD: Soft, NT, ND, + BS Laboratory Tests Test 01/19/19 18:00 Hepatitis A IgM Antibody Pending Hepatitis B Surface Antigen Pending Hepatitis B Core IgM Antibody Pending Hepatitis C Antibody Pending HIV (1&2) Antibody Rapid Negative (NEGATIVE) Current Medications Medications (Trade) Dose Ordered Sig/Gaby Route PRN Reason Start Time Stop Time Status Last Admin Dose Admin Acetaminophen (Tylenol) 650 mg Q4H PRN ORAL fever 01/14/19 19:46 02/13/19 19:45 Alprazolam (Xanax) 1 mg Q6H PRN ORAL For Anxiety 01/14/19 20:45 01/21/19 20:44 01/20/19 00:14 Amoxicillin/ Clavulanate Potassium (Augmentin) 875 mg EVERY 12 HOURS ORAL 01/17/19 21:00 01/30/19 20:59 01/20/19 08:32 Dextrose (Dextrose 50%) 25 ml STAT PRN IV Hypoglycemia 01/14/19 19:15 5/9/19 19:14 Dextrose (Dextrose 50%) 50 ml Q30M PRN IV Hypoglycemia 01/14/19 19:15 02/13/19 19:14 Fluoxetine HCl (PROzac) 20 mg DAILY ORAL 01/16/19 09:00 02/15/19 08:59 01/20/19 08:31 Gabapentin (Neurontin) 300 mg THREE TIMES A DAY ORAL 01/15/19 09:00 02/14/19 08:59 Heparin Sodium (Porcine) (Heparin 5000 units/ml) 5,000 units EVERY 12 HOURS SUBQ 01/14/19 21:00 02/13/19 20:59 01/20/19 08:56 Hydromorphone HCl 2 mg/Sodium Chloride 56 ml @ 224 mls/hr Q3H PRN IVPB SEVERE PAIN (7 TO 10) 01/15/19 07:45 01/22/19 00:59 01/20/19 08:31 Hydroxyzine HCl (Atarax) 50 mg BID ORAL 01/15/19 18:00 02/14/19 17:59 01/20/19 08:31 Levothyroxine Sodium (Synthroid) 112 mcg DAILY@0630 ORAL 01/15/19 06:30 02/14/19 06:29 01/20/19 05:30 Lorazepam (Ativan 2mg/ml 1ml) 1 mg Q4H PRN IV For Anxiety 01/14/19 20:45 01/21/19 20:44 01/20/19 08:32 Nitroglycerin (Ntg) 0.4 mg Q5MIN X 3 DOSES PRN SL Prn Chest Pain 01/14/19 19:45 02/13/19 19:44 Ondansetron HCl (Zofran) 4 mg Q6H PRN IVP Nausea & Vomiting 01/14/19 19:45 02/13/19 19:44 01/19/19 14:15 Oxycodone/ Acetaminophen (Percocet 10) 1 tab Q4H PRN ORAL breakthrough moderate pain 01/16/19 09:30 01/23/19 09:29 01/19/19 20:13 Polyethylene Glycol (Miralax) 17 gm DAILYPRN PRN ORAL Constipation 01/14/19 19:15 02/13/19 19:14 Promethazine HCl 25 mg/Sodium Chloride 56 ml @ 112 mls/hr Q6H PRN IVPB Refractory Nausea & Vomiting 01/14/19 21:01 02/13/19 21:00 01/20/19 05:31 Temazepam (Restoril) 30 mg HSPRN PRN ORAL Insomnia 01/15/19 21:00 01/22/19 20:59 01/16/19 20:52 Tizanidine HCl (Zanaflex) 8 mg Q6H PRN ORAL muscle spasm 01/17/19 09:26 02/14/19 09:25 01/20/19 06:00 Rashaad Lucas MD Jan 20, 2019 10:11
[2019-01-20 12:00] VITALS: BP 139/100
[2019-01-20 16:00] VITALS: BP 120/61
[2019-01-20] MEDS ORDERED: ACETAMINOPHEN325 M1 ORAL (16:45)
[2019-01-20] MEDS ORDERED: AUGMENTIN 875-1 EAC1 ORAL (16:46)
[2019-01-20] MEDS ORDERED: GABAPENTIN300 MG ORAL (16:47)
[2019-01-20] MEDS ORDERED: DILAUDID 22 MG/1 M2 IJ (16:48)
[2019-01-20] MEDS ORDERED: NITROSTAT0.4 M1 SL (16:50)
[2019-01-20] MEDS ORDERED: LORAZEPAM1 MG ORAL (16:50)
[2019-01-20] MEDS ORDERED: ZOFRAN4 M3 ORAL (16:51)
[2019-01-20] MEDS ORDERED: OXYCODONE-ACET1 EAC5 ORAL (16:52)
[2019-01-20] MEDS ORDERED: TIZANIDINE HCL4 MG ORAL (16:53)
[2019-01-20] MEDS ORDERED: ALPRAZOLAM0.5 M2 ORAL (16:56)
[2019-01-20] MEDS ORDERED: AMOX TR-K CLV1 EAC2 ORAL (16:58)
--- NOTE | 2019-01-20 17:01 | General Progress Note ---
Assessment/Plan Assessment: Assessment/Plan: # Uterine cancer -- according to patient has a hx of stage iv disease, diagnosed in 1996 and was treated with chemo, xrt and surgery (HOWEVER THIS IS VERY UNLIKELY) --> says currently is in remission though is likely not full story, could be malingering as stage iv disease average lifespan 6mo --> ct a/p shows 9 mm low-attenuation right lobe liver lesion, probably not cystic and therefore neoplasm a possibility. This was on prior imaging --> salt washer/onc was called --> Dr. Mullins recommends a pap smear as op --> tumor markers as op # Anemia of chronic disease --> anemia panel if hgb <10 --> refusing labs at this time # Leukopenia with a wbc 4-5 --> obtain a hepatitis and hiv (results pending) # R facial cellulitis hx s/p abx/Meningioma --> Incidental 1 cm enhancing mass associated with the anterior interhemispheric fissure.This is most likely meningioma. Suggest confirmation with the MRI with and without gadolinium --> Ct of the face reveals: extra-axial hyperdense mass associated with the anterior aspect of the interhemispheric fissure most likely representing a meningioma. ==> abx as per id, ok to dc on po augmentin # HAYES with caries --> as per dental eval, may have tooth pulled The timing of this note does not necessarily reflect the time of the patient was seen. Greatly appreciate consultation! Subjective Constitutional: Denies: no symptoms, chills, diaphoresis, fever, malaise, weakness, other HEENT: Denies: no symptoms, eye pain, blurred vision, tearing, double vision, ear pain, ear discharge, nose pain, nose congestion, throat pain, throat swelling, mouth pain, mouth swelling, other Genitourinary: Denies: no symptoms, burning, discharge, frequency, flank pain, hematuria, incontinence, pain, urgency, other Neurologic/Psychiatric: Denies: no symptoms, anxiety, depressed, emotional problems, headache, numbness, paresthesia, pre-existing deficit, seizure, tingling, tremors, weakness, other Endocrine: Denies: no symptoms, excessive sweating, flushing, intolerance to cold, intolerance to heat, increased hunger, increased thirst, increased urine, unexplained weight gain, unexplained weight loss, other Allergies: Coded Allergies: DIVALPROEX SODIUM (Verified Allergy, Unknown, 11/29/18) GABAPENTIN (Verified Allergy, Unknown, 01/15/19) HALOPERIDOL (Verified Allergy, Unknown, 11/29/18) HYDROXYZINE (Verified Allergy, Unknown, 01/15/19) IBUPROFEN (Verified Allergy, Unknown, 11/29/18) KETOROLAC (Verified Allergy, Unknown, 11/29/18) METOPROLOL (Verified Allergy, Unknown, 11/29/18) MORPHINE (Verified Allergy, Unknown, 11/29/18) NAPROXEN (Verified Allergy, Unknown, 01/15/19) ONDANSETRON (Verified Allergy, Unknown, 01/15/19) TRAZODONE (Verified Allergy, Unknown, 11/29/18) Uncoded Allergies: NSAIDS (Allergy, Unknown, 11/29/18) Subjective 01/19: wants norco and muscle relaxant to be administered at the same time 01/20: tired, did not get much sleep last night, eating breakfast Objective Last 24 Hour Vital Signs Date Time Temp Pulse Resp B/P (MAP) Pulse Ox O2 Delivery O2 Flow Rate FiO2 01/20/19 16:00 98.1 72 18 120/61 (80) 98 01/20/19 12:00 97.7 83 17 139/100 (113) 95 01/20/19 09:00 Room Air 01/20/19 08:00 97.8 84 16 114/75 (88) 95 01/20/19 07:32 85 16 Room Air 21 01/20/19 00:00 98.5 93 18 144/67 (92) 97 01/19/19 21:00 Room Air 01/19/19 20:00 98.9 86 18 124/83 (97) 97 01/19/19 19:46 78 16 Room Air 21 01/19/19 18:10 98.3 Intake and Output 01/19/19 01/20/19 18:59 06:59 Intake Total 468 ml 1744 ml Balance 468 ml 1744 ml Intake Oral 300 ml 960 ml IV Total 168 ml 784 ml # Voids 2 5 # Bowel Movements 1 Laboratory Tests 01/19/19 18:00: Hepatitis A IgM Antibody [Pending], Hepatitis B Surface Antigen [Pending], Hepatitis B Core IgM Antibody [Pending], Hepatitis C Antibody [Pending], HIV (1& 2) Antibody Rapid Negative Height (Feet): 5 Height (Inches): 6.00 Weight (Pounds): 144 Objective Sp02 EP Interpretation: reviewed, normal General Appearance: no apparent distress Head: normocephalic, atraumatic Eyes: bilateral eye PERRL, bilateral eye EOMI ENT: other - Poor dentition right upper and lower dental region, also gingival irritation Neck: full range of motion, supple Respiratory: lungs clear, no respiratory distress, no retraction Cardiovascular #1: regular rate, rhythm Gastrointestinal: non tender, soft Musculoskeletal: normal inspection, back normal Neurologic: alert, oriented x3 Psychiatric: anxious Skin: normal color, no rash Lymphatic: no adenopathy Rudy Angela MD Jan 20, 2019 17:01
[2019-01-20] MEDS ORDERED: DILAUDID IJ (17:02)
[2019-01-20] MEDS ORDERED: HYDROXYZINE HCL50 M1 PO (17:05)
--- NOTE | 2019-01-20 18:15 | Progress Note ---
DATE: 01/20/2019 SUBJECTIVE: This is a 43-year-old female patient. She has dental abscess. She is confused and disorganized. Her mood is labile. She has no logical plan for her own self-care. She is hyperverbal . MENTAL STATUS EXAMINATION: This is a 43-year-old female. Appearance is disheveled. Attitude, irritable and agitated. Affect, guarded and restricted. Intellect poor. Mood depressed and anxious. Motor activity, psychomotor agitation. Attention span is poor. Orientation x2. Insight and judgment is poor. DIAGNOSIS: Major depression with psychotic features. PLAN: Continue treatment with Prozac 20 mg. Provided 20 minutes of cognitive behavioral therapy to help her identify her automatic negative thoughts and convert those negative thoughts to more positive thinking to reduce depression, anxiety, and mood lability and also help her have adaptive behavioral pattern. Seen and assessed in her room. 20 minutes of cognitive behavioral therapy provided. Aviva Edmond M.D. DR: ROSALIA JOB#: [id number] CC:
[2019-01-20 20:00] VITALS: BP 168/95
--- NOTE | 2019-01-20 21:51 | General Progress Note ---
Assessment/Plan Problem List: (1) Facial cellulitis ICD Codes: L03.211 - Cellulitis of face SNOMED: 735882444 (2) Facial pain ICD Codes: R51 - Headache SNOMED: 16328551 (3) Cervical cancer ICD Codes: C53.9 - Malignant neoplasm of cervix uteri, unspecified SNOMED: 346670139 (4) Brain tumor ICD Codes: D49.6 - Neoplasm of unspecified behavior of brain SNOMED: 176787675 (5) Anxiety ICD Codes: F41.9 - Anxiety disorder, unspecified SNOMED: 92767905 (6) Dental abscess ICD Codes: K04.7 - Periapical abscess without sinus SNOMED: 930716161, 017780072 (7) Dehydration ICD Codes: E86.0 - Dehydration SNOMED: 55535114 Status: progressing Assessment: facial celluitis needs placement abx per id cellulitis is improving reviewed chart and labs brain tumor Plan: psych patient dc once cleared by consultants facial cellulitis Subjective ROS Limited/Unobtainable: Yes Allergies: Coded Allergies: DIVALPROEX SODIUM (Verified Allergy, Unknown, 11/29/18) GABAPENTIN (Verified Allergy, Unknown, 01/15/19) HALOPERIDOL (Verified Allergy, Unknown, 11/29/18) HYDROXYZINE (Verified Allergy, Unknown, 01/15/19) IBUPROFEN (Verified Allergy, Unknown, 11/29/18) KETOROLAC (Verified Allergy, Unknown, 11/29/18) METOPROLOL (Verified Allergy, Unknown, 11/29/18) MORPHINE (Verified Allergy, Unknown, 11/29/18) NAPROXEN (Verified Allergy, Unknown, 01/15/19) ONDANSETRON (Verified Allergy, Unknown, 01/15/19) TRAZODONE (Verified Allergy, Unknown, 11/29/18) Uncoded Allergies: NSAIDS (Allergy, Unknown, 11/29/18) Objective Last 24 Hour Vital Signs Date Time Temp Pulse Resp B/P (MAP) Pulse Ox O2 Delivery O2 Flow Rate FiO2 01/20/19 20:19 84 16 Room Air 21 01/20/19 20:00 98.2 95 19 168/95 (119) 97 01/20/19 16:00 98.1 72 18 120/61 (80) 98 01/20/19 12:00 97.7 83 17 139/100 (113) 95 01/20/19 09:00 Room Air 01/20/19 08:00 97.8 84 16 114/75 (88) 95 01/20/19 07:32 85 16 Room Air 21 01/20/19 00:00 98.5 93 18 144/67 (92) 97 Intake and Output 01/19/19 01/20/19 19:00 07:00 Intake Total 468 ml 1744 ml Balance 468 ml 1744 ml Intake Oral 300 ml 960 ml IV Total 168 ml 784 ml # Voids 2 5 # Bowel Movements 1 Height (Feet): 5 Height (Inches): 6.00 Weight (Pounds): 144 Neck: supple Cardiovascular: normal rate Respiratory/Chest: lungs clear Linn Avery MD Jan 20, 2019 21:51
[2019-01-21 01:03] VITALS: BP 125/76
[2019-01-21] MEDS: HYDROmorphone 2 MG in NS 55 ML IVPB PRN ×2 (01:16→06:17)
[2019-01-21] MEDS: LORazepam Inj 2mg/ml 1ml IV PRN ×3 (02:27→18:45)
[2019-01-21] MEDS: Promethazine HCl 25 MG in NS 55 ML IVPB PRN ×4 (03:58→22:33)
[2019-01-21 04:00] VITALS: BP 140/89
--- NOTE | 2019-01-21 07:38 | General Progress Note ---
Assessment/Plan Assessment: (1) Right sided facial pain (2) Cellulitis (3) Dental Caries Pt will be continued on Dilaudid changed to 4mg PO 1 tab Q4H PRN severe pain and Percocet D/w and examined with Dr. Alonzo and he concurred. Subjective Date patient seen: Jan 21, 2019 Time patient seen: 06:30 - am Allergies: Coded Allergies: DIVALPROEX SODIUM (Verified Allergy, Unknown, 11/29/18) GABAPENTIN (Verified Allergy, Unknown, 01/15/19) HALOPERIDOL (Verified Allergy, Unknown, 11/29/18) HYDROXYZINE (Verified Allergy, Unknown, 01/15/19) IBUPROFEN (Verified Allergy, Unknown, 11/29/18) KETOROLAC (Verified Allergy, Unknown, 11/29/18) METOPROLOL (Verified Allergy, Unknown, 11/29/18) MORPHINE (Verified Allergy, Unknown, 11/29/18) NAPROXEN (Verified Allergy, Unknown, 01/15/19) ONDANSETRON (Verified Allergy, Unknown, 01/15/19) TRAZODONE (Verified Allergy, Unknown, 11/29/18) Uncoded Allergies: NSAIDS (Allergy, Unknown, 11/29/18) Subjective REVIEW OF SYSTEMS: Denies rash, fever, chills, sweating, dizziness, drowsiness, blurred vision, sore throat, or change in weight. No nausea, vomiting, diarrhea, or blood in the stool or urine. No bowel or bladder incontinence. No dysuria. SUBJECTIVE: Patient is in bed and continues to c/o pain which has been tolerated on the Dilaudid and Percocet. I d/w patient about changing the Dilaudid IVPB to tabs and she seems to understand. Objective Last 24 Hour Vital Signs Date Time Temp Pulse Resp B/P (MAP) Pulse Ox O2 Delivery O2 Flow Rate FiO2 01/21/19 07:07 72 14 Room Air 21 01/21/19 05:42 97.7 01/21/19 04:00 97.7 70 19 140/89 (106) 98 01/21/19 01:03 97.6 78 19 125/76 (92) 100 01/20/19 21:00 Room Air 01/20/19 20:19 84 16 Room Air 21 01/20/19 20:00 98.2 95 19 168/95 (119) 97 01/20/19 16:00 98.1 72 18 120/61 (80) 98 01/20/19 12:00 97.7 83 17 139/100 (113) 95 01/20/19 09:00 Room Air 01/20/19 08:00 97.8 84 16 114/75 (88) 95 Intake and Output 01/20/19 01/21/19 19:00 07:00 Intake Total 2000 ml 224 ml Balance 2000 ml 224 ml Intake Oral 2000 ml IV Total 224 ml # Voids 5 Height (Feet): 5 Height (Inches): 6.00 Weight (Pounds): 144 Objective GENERAL: Alert, awake, oriented. LUNGS: Decreased breath sounds bilaterally. HEART: S1 and S2, regular. ABDOMEN: Soft and nontender. EXTREMITIES: No cyanosis. No clubbing. NEURO: No focal deficit Jose Steele Jan 21, 2019 07:38
[2019-01-21 08:00] VITALS: BP 118/75
[2019-01-21] MEDS: HYDROmorphone 2mg tab ORAL PRN ×3 (10:02→20:42)
[2019-01-21] MEDS: Augmentin 875mg Tab ORAL SCH ×2 (10:02→20:41)
[2019-01-21] MEDS: HydrOXYzine 50mg tab ORAL SCH ×2 (10:02→18:07)
[2019-01-21] MEDS: Heparin 5000 units/ml inj SUBQ SCH ×2 (10:07→20:58)
--- NOTE | 2019-01-21 10:45 | Pulmonology Progress Note ---
Assessment/Plan Problems: (1) Facial cellulitis (2) Facial pain (3) Cervical cancer Assessment/Plan no new complains claims that she had brain tumor pain management [employer] appreciated symptomatic treatment check labs periodically appealed discharge. Subjective ROS Limited/Unobtainable: No Constitutional: Reports: no symptoms HEENT: Repors: no symptoms Allergies: Coded Allergies: DIVALPROEX SODIUM (Verified Allergy, Unknown, 11/29/18) GABAPENTIN (Verified Allergy, Unknown, 01/15/19) HALOPERIDOL (Verified Allergy, Unknown, 11/29/18) HYDROXYZINE (Verified Allergy, Unknown, 01/15/19) IBUPROFEN (Verified Allergy, Unknown, 11/29/18) KETOROLAC (Verified Allergy, Unknown, 11/29/18) METOPROLOL (Verified Allergy, Unknown, 11/29/18) MORPHINE (Verified Allergy, Unknown, 11/29/18) NAPROXEN (Verified Allergy, Unknown, 01/15/19) ONDANSETRON (Verified Allergy, Unknown, 01/15/19) TRAZODONE (Verified Allergy, Unknown, 11/29/18) Uncoded Allergies: NSAIDS (Allergy, Unknown, 11/29/18) Objective Last 24 Hour Vital Signs Date Time Temp Pulse Resp B/P (MAP) Pulse Ox O2 Delivery O2 Flow Rate FiO2 01/21/19 08:00 97.1 70 19 118/75 (89) 97 01/21/19 07:07 72 14 Room Air 21 01/21/19 05:42 97.7 01/21/19 04:00 97.7 70 19 140/89 (106) 98 01/21/19 01:03 97.6 78 19 125/76 (92) 100 01/20/19 21:00 Room Air 01/20/19 20:19 84 16 Room Air 21 01/20/19 20:00 98.2 95 19 168/95 (119) 97 01/20/19 16:00 98.1 72 18 120/61 (80) 98 01/20/19 12:00 97.7 83 17 139/100 (113) 95 Intake and Output 01/20/19 01/21/19 19:00 07:00 Intake Total 2000 ml 280 ml Balance 2000 ml 280 ml Intake Oral 2000 ml IV Total 280 ml # Voids 5 General Appearance: WD/WN HEENT: normocephalic, anicteric Respiratory/Chest: chest wall non-tender, lungs clear, chest wall tender Cardiovascular: normal peripheral pulses Abdomen: normal bowel sounds, no organomegaly Genitourinary: normal external genitalia Skin: no rash Current Medications Medications (Trade) Dose Ordered Sig/Gaby Route PRN Reason Start Time Stop Time Status Last Admin Dose Admin Acetaminophen (Tylenol) 650 mg Q4H PRN ORAL fever 01/14/19 19:46 02/13/19 19:45 Alprazolam (Xanax) 1 mg Q6H PRN ORAL For Anxiety 01/14/19 20:45 01/21/19 20:44 01/20/19 00:14 Amoxicillin/ Clavulanate Potassium (Augmentin) 875 mg EVERY 12 HOURS ORAL 01/17/19 21:00 01/30/19 20:59 01/21/19 10:02 Dextrose (Dextrose 50%) 25 ml STAT PRN IV Hypoglycemia 01/14/19 19:15 02/13/19 19:14 Dextrose (Dextrose 50%) 50 ml Q30M PRN IV Hypoglycemia 01/14/19 19:15 02/13/19 19:14 Fluoxetine HCl (PROzac) 20 mg DAILY ORAL 01/16/19 09:00 02/15/19 08:59 01/21/19 10:02 Gabapentin (Neurontin) 300 mg THREE TIMES A DAY ORAL 01/15/19 09:00 02/14/19 08:59 Heparin Sodium (Porcine) (Heparin 5000 units/ml) 5,000 units EVERY 12 HOURS SUBQ 01/14/19 21:00 02/13/19 20:59 01/21/19 10:07 Hydromorphone HCl (Dilaudid) 4 mg Q4H PRN ORAL severe pain 01/21/19 08:04 01/28/19 08:03 01/21/19 10:02 Hydroxyzine HCl (Atarax) 50 mg BID ORAL 01/15/19 18:00 02/14/19 17:59 01/21/19 10:02 Levothyroxine Sodium (Synthroid) 112 mcg DAILY@0630 ORAL 01/15/19 06:30 02/14/19 06:29 01/21/19 06:17 Lorazepam (Ativan 2mg/ml 1ml) 1 mg Q4H PRN IV For Anxiety 01/14/19 20:45 01/21/19 20:44 01/21/19 02:27 Nitroglycerin (Ntg) 0.4 mg Q5MIN X 3 DOSES PRN SL Prn Chest Pain 01/14/19 19:45 02/13/19 19:44 Ondansetron HCl (Zofran) 4 mg Q6H PRN IVP Nausea & Vomiting 01/14/19 19:45 02/13/19 19:44 01/20/19 12:30 Oxycodone/ Acetaminophen (Percocet 10/325) 1 tab Q4H PRN ORAL breakthrough moderate pain 01/21/19 08:04 01/28/19 08:03 Polyethylene Glycol (Miralax) 17 gm DAILYPRN PRN ORAL Constipation 01/14/19 19:15 02/13/19 19:14 Promethazine HCl 25 mg/Sodium Chloride 56 ml @ 112 mls/hr Q6H PRN IVPB Refractory Nausea & Vomiting 01/14/19 21:01 02/13/19 21:00 01/21/19 10:38 Temazepam (Restoril) 30 mg HSPRN PRN ORAL Insomnia 01/15/19 21:00 01/22/19 20:59 01/16/19 20:52 Tizanidine HCl (Zanaflex) 8 mg Q6H PRN ORAL muscle spasm 01/17/19 09:26 02/14/19 09:25 01/21/19 04:43 Chrissie Purdy MD Jan 21, 2019 10:45
[2019-01-21 12:00] VITALS: BP 113/66
--- NOTE | 2019-01-21 13:16 | Infectious Diseases Prog Note ---
Assessment/Plan Assessment/Plan 43 yo with PMHx of uterine CA, Psych and Brain tumor who presnted to the ED 01/14/19 with headache and dental pain. Recurrent Dental pain Currently no clear pus or abscess. No facial erythema Hx of right facial cellulitis- from either infected teeth and R maxillary sinusitis -wound cx from cavity: usual bekah om Nov 2018 -CT facial bones 12/03/18 : No acute injury appreciated. No abscess identified.Right maxillary sinusitis.Incidental 1 cm enhancing mass associated with the anterior interhemispheric fissure.This is most likely meningioma. Suggest confirmation with the MRI with and without gadolinium CT face 01/16/19 - Slight lucency around the roots of the right second maxillary molar, also evident previously, improved since that time, could indicate a small resolving indolent apical root abscess. The adjacent maxillary sinus disease has also improved in the interim. Extensive dental caries, also previously demonstrated Headache CT shows possible meningioma Vaginal pain and erythema Probable yeast infection per [employer] Clotrimazole crm Afebrile No leukocytosis Hx Uterine CA s/p radiation Psych disorder Hx Brain tumor Plan: - Continue Augmentin 875/125mg bid ( End date 01/30/19) - Continue clotrimazole cream during abx Tx - 01/17/19 SP Vancomycin and Cefepime #1 - 12/16/18 S/P Out Pt Augmentin 875/125mg bid #4 - 12/12/18 S/P Unasyn #10 -12/04 SP IV Vancomycin and Cefepime #1 -Monitor CBC/CMP, temperatures -Needs to f/u with dentist as outpatient for removal of damaged/infected teeth. - f/u Optometric Coordinator We will continue to follow the patient during this hospitalization. Subjective Allergies: Coded Allergies: DIVALPROEX SODIUM (Verified Allergy, Unknown, 11/29/18) GABAPENTIN (Verified Allergy, Unknown, 01/15/19) HALOPERIDOL (Verified Allergy, Unknown, 11/29/18) HYDROXYZINE (Verified Allergy, Unknown, 01/15/19) IBUPROFEN (Verified Allergy, Unknown, 11/29/18) KETOROLAC (Verified Allergy, Unknown, 11/29/18) METOPROLOL (Verified Allergy, Unknown, 11/29/18) MORPHINE (Verified Allergy, Unknown, 11/29/18) NAPROXEN (Verified Allergy, Unknown, 01/15/19) ONDANSETRON (Verified Allergy, Unknown, 01/15/19) TRAZODONE (Verified Allergy, Unknown, 11/29/18) Uncoded Allergies: NSAIDS (Allergy, Unknown, 11/29/18) Subjective afebrile no leukocytosis Objective Vital Signs Last 24 Hour Vital Signs Date Time Temp Pulse Resp B/P (MAP) Pulse Ox O2 Delivery O2 Flow Rate FiO2 01/21/19 12:44 97.1 01/21/19 12:44 97.1 01/21/19 10:32 97.1 01/21/19 08:00 97.1 70 19 118/75 (89) 97 01/21/19 07:07 72 14 Room Air 21 01/21/19 04:00 97.7 70 19 140/89 (106) 98 01/21/19 01:03 97.6 78 19 125/76 (92) 100 01/20/19 21:00 Room Air 01/20/19 20:19 84 16 Room Air 21 01/20/19 20:00 98.2 95 19 168/95 (119) 97 01/20/19 16:00 98.1 72 18 120/61 (80) 98 Height (Feet): 5 Height (Inches): 6.00 Weight (Pounds): 144 Objective Gen: NAD HEENT: NCAT, MMM, EOMI LUNGS: CTAB, No W CARDS: RRR, S1, S2, No M/R/G, ABD: Soft, NT, ND, + BS Current Medications Medications (Trade) Dose Ordered Sig/Gaby Route PRN Reason Start Time Stop Time Status Last Admin Dose Admin Acetaminophen (Tylenol) 650 mg Q4H PRN ORAL fever 01/14/19 19:46 02/13/19 19:45 Alprazolam (Xanax) 1 mg Q6H PRN ORAL For Anxiety 01/14/19 20:45 01/21/19 20:44 01/20/19 00:14 Amoxicillin/ Clavulanate Potassium (Augmentin) 875 mg EVERY 12 HOURS ORAL 01/17/19 21:00 01/30/19 20:59 01/21/19 10:02 Dextrose (Dextrose 50%) 25 ml STAT PRN IV Hypoglycemia 01/14/19 19:15 02/13/19 19:14 Dextrose (Dextrose 50%) 50 ml Q30M PRN IV Hypoglycemia 01/14/19 19:15 02/13/19 19:14 Fluoxetine HCl (PROzac) 20 mg DAILY ORAL 01/16/19 09:00 02/15/19 08:59 01/21/19 10:02 Gabapentin (Neurontin) 300 mg THREE TIMES A DAY ORAL 01/15/19 09:00 02/14/19 08:59 Heparin Sodium (Porcine) (Heparin 5000 units/ml) 5,000 units EVERY 12 HOURS SUBQ 01/14/19 21:00 02/13/19 20:59 01/21/19 10:07 Hydromorphone HCl (Dilaudid) 4 mg Q4H PRN ORAL severe pain 01/21/19 08:04 01/28/19 08:03 01/21/19 10:02 Hydroxyzine HCl (Atarax) 50 mg BID ORAL 01/15/19 18:00 02/14/19 17:59 01/21/19 10:02 Levothyroxine Sodium (Synthroid) 112 mcg DAILY@0630 ORAL 01/15/19 06:30 02/14/19 06:29 01/21/19 06:17 Lorazepam (Ativan 2mg/ml 1ml) 1 mg Q4H PRN IV For Anxiety 01/14/19 20:45 01/21/19 20:44 01/21/19 10:52 Nitroglycerin (Ntg) 0.4 mg Q5MIN X 3 DOSES PRN SL Prn Chest Pain 01/14/19 19:45 02/13/19 19:44 Ondansetron HCl (Zofran) 4 mg Q6H PRN IVP Nausea & Vomiting 01/14/19 19:45 02/13/19 19:44 01/20/19 12:30 Oxycodone/ Acetaminophen (Percocet 10/325) 1 tab Q4H PRN ORAL breakthrough moderate pain 01/21/19 08:04 01/28/19 08:03 01/21/19 12:36 Polyethylene Glycol (Miralax) 17 gm DAILYPRN PRN ORAL Constipation 01/14/19 19:15 02/13/19 19:14 Promethazine HCl 25 mg/Sodium Chloride 56 ml @ 112 mls/hr Q6H PRN IVPB Refractory Nausea & Vomiting 01/14/19 21:01 02/13/19 21:00 01/21/19 10:38 Temazepam (Restoril) 30 mg HSPRN PRN ORAL Insomnia 01/15/19 21:00 01/22/19 20:59 01/16/19 20:52 Tizanidine HCl (Zanaflex) 8 mg Q6H PRN ORAL muscle spasm 01/17/19 09:26 02/14/19 09:25 01/21/19 11:45 Bridgette Carrizales M.D. Jan 21, 2019 13:16
--- NOTE | 2019-01-21 15:58 | General Progress Note ---
Assessment/Plan Assessment: Assessment/Plan: # Uterine cancer -- according to patient has a hx of stage iv disease, diagnosed in 1996 and was treated with chemo, xrt and surgery (HOWEVER THIS IS VERY UNLIKELY) --> says currently is in remission though is likely not full story, could be malingering as stage iv disease average lifespan 6mo --> ct a/p shows 9 mm low-attenuation right lobe liver lesion, probably not cystic and therefore neoplasm a possibility. This was on prior imaging --> obstetrician and gynaecologist/onc was called --> Dr. Mullins recommends a pap smear as op --> tumor markers as op # Meningioma that on imaging appears stable, should not be causing her neuro issues --> Incidental 1 cm enhancing mass associated with the anterior interhemispheric fissure.This is most likely meningioma. Suggest confirmation with the MRI with and without gadolinium --> Ct of the face reveals: extra-axial hyperdense mass associated with the anterior aspect of the interhemispheric fissure most likely representing a meningioma. ==> abx as per id, ok to dc on po augmentin # Anemia of chronic disease --> anemia panel if hgb <10 --> refusing labs at this time # Leukopenia with a wbc 4-5 --> obtain a hepatitis and hiv (results pending) # HAYES with caries --> as per dental eval, may have tooth pulled The timing of this note does not necessarily reflect the time of the patient was seen. Greatly appreciate consultation! Subjective Constitutional: Denies: no symptoms, chills, diaphoresis, fever, malaise, weakness, other HEENT: Denies: no symptoms, eye pain, blurred vision, tearing, double vision, ear pain, ear discharge, nose pain, nose congestion, throat pain, throat swelling, mouth pain, mouth swelling, other Cardiovascular: Denies: no symptoms, chest pain, edema, irregular heart rate, lightheadedness, palpitations, syncope, other Respiratory: Denies: no symptoms, cough, orthopnea, shortness of breath, SOB with excertion, SOB at rest, sputum, stridor, wheezing, other Gastrointestinal/Abdominal: Denies: no symptoms, abdomen distended, abdominal pain, black stools, tarry stools, blood in stool, constipated, diarrhea, difficulty swallowing, nausea, poor appetite, poor fluid intake, rectal bleeding , vomiting, other Genitourinary: Denies: no symptoms, burning, discharge, frequency, flank pain, hematuria, incontinence, pain, urgency, other Neurologic/Psychiatric: Denies: no symptoms, anxiety, depressed, emotional problems, headache, numbness, paresthesia, pre-existing deficit, seizure, tingling, tremors, weakness, other Endocrine: Denies: no symptoms, excessive sweating, flushing, intolerance to cold, intolerance to heat, increased hunger, increased thirst, increased urine, unexplained weight gain, unexplained weight loss, other Allergies: Coded Allergies: DIVALPROEX SODIUM (Verified Allergy, Unknown, 11/29/18) GABAPENTIN (Verified Allergy, Unknown, 01/15/19) HALOPERIDOL (Verified Allergy, Unknown, 11/29/18) HYDROXYZINE (Verified Allergy, Unknown, 01/15/19) IBUPROFEN (Verified Allergy, Unknown, 11/29/18) KETOROLAC (Verified Allergy, Unknown, 11/29/18) METOPROLOL (Verified Allergy, Unknown, 11/29/18) MORPHINE (Verified Allergy, Unknown, 11/29/18) NAPROXEN (Verified Allergy, Unknown, 01/15/19) ONDANSETRON (Verified Allergy, Unknown, 01/15/19) TRAZODONE (Verified Allergy, Unknown, 11/29/18) Uncoded Allergies: NSAIDS (Allergy, Unknown, 11/29/18) Subjective 01/19: wants norco and muscle relaxant to be administered at the same time 01/20: tired, did not get much sleep last night, eating breakfast 01/21: claims has a braint tumor but i discussed with her same as yesterday and today, this is benign, it is a meningioma, she expresses understanding Objective Last 24 Hour Vital Signs Date Time Temp Pulse Resp B/P (MAP) Pulse Ox O2 Delivery O2 Flow Rate FiO2 01/21/19 12:44 97.1 01/21/19 12:44 97.1 01/21/19 10:32 97.1 01/21/19 09:00 Room Air 01/21/19 08:00 97.1 70 118/75 (89) 97 01/21/19 07:07 72 14 Room Air 21 01/21/19 04:00 97.7 70 140/89 (106) 98 01/21/19 01:03 97.6 78 19 125/76 (92) 100 01/20/19 21:00 Room Air 01/20/19 20:19 84 16 Room Air 21 01/20/19 20:00 98.2 95 19 168/95 (119) 97 01/20/19 16:00 98.1 72 18 120/61 (80) 98 Intake and Output 01/20/19 01/21/19 18:59 06:59 Intake Total 2000 ml 280 ml Balance 2000 ml 280 ml Intake Oral 2000 ml IV Total 280 ml # Voids 5 Height (Feet): 5 Height (Inches): 6.00 Weight (Pounds): 144 Objective Sp02 EP Interpretation: reviewed, normal General Appearance: no apparent distress Head: normocephalic, atraumatic Eyes: bilateral eye PERRL, bilateral eye EOMI ENT: other - Poor dentition right upper and lower dental region, also gingival irritation Neck: full range of motion, supple Respiratory: lungs clear, no respiratory distress, no retraction Cardiovascular #1: regular rate, rhythm Gastrointestinal: non tender, soft Musculoskeletal: normal inspection, back normal Neurologic: alert, oriented x3 Psychiatric: anxious Skin: normal color, no rash Lymphatic: no adenopathy Rudy Angela MD Jan 21, 2019 15:58
[2019-01-21 16:00] VITALS: BP 111/65
--- NOTE | 2019-01-21 16:00 | Progress Note ---
DATE: 01/21/2019 SUBJECTIVE: This is a 43-year-old female patient with dental abscess and dehydration. The patient still has high depression with psychotic features. Still confused, disorganized, and somewhat mood labile. She has got no logical plan for own self-care. She has psychosomatic symptoms. That is why her attending has requested daily psychiatric consultation. MENTAL STATUS EXAMINATION: This is a 43-year-old female. Appearance is disheveled. Attitude, irritable and agitated. Affect, guarded and restricted. Intellect, poor. Mood, depressed and anxious. Motor activity, psychomotor agitation. Attention span is poor. Orientation x2. Speech is pressured. Thought process, disorganized and illogical. Insight and judgment is poor. DIAGNOSIS: Major depression with psychotic features. PLAN: Treat her with Prozac 20 mg daily and Xanax as needed. Provided her with 20 minutes of cognitive behavioral therapy to help her identify her automatic negative thoughts and help her convert those negative thoughts to more positive thoughts to reduce depression, anxiety, and mood lability. Chart reviewed and discussed with staff. Seen and assessed at bedside. 20 minutes of cognitive behavioral therapy provided. Aviva Edmond M.D. DR: BRITTNI JOB#: [id number] CC:
[2019-01-21 20:00] VITALS: BP 126/85
--- NOTE | 2019-01-21 21:53 | General Progress Note ---
Assessment/Plan Problem List: (1) Facial cellulitis ICD Codes: L03.211 - Cellulitis of face SNOMED: 405963958 (2) Facial pain ICD Codes: R51 - Headache SNOMED: 56842775 (3) Cervical cancer ICD Codes: C53.9 - Malignant neoplasm of cervix uteri, unspecified SNOMED: 713426486 (4) Brain tumor ICD Codes: D49.6 - Neoplasm of unspecified behavior of brain SNOMED: 986040129 (5) Anxiety ICD Codes: F41.9 - Anxiety disorder, unspecified SNOMED: 14057944 (6) Dental abscess ICD Codes: K04.7 - Periapical abscess without sinus SNOMED: 054229833, 785991853 (7) Dehydration ICD Codes: E86.0 - Dehydration SNOMED: 81322719 Status: progressing Assessment: facial celluitis needs placement psych patient refuses to be dc afebrile abx per id cellulitis is improving reviewed chart and labs brain tumor Subjective ROS Limited/Unobtainable: Yes Allergies: Coded Allergies: DIVALPROEX SODIUM (Verified Allergy, Unknown, 11/29/18) GABAPENTIN (Verified Allergy, Unknown, 01/15/19) HALOPERIDOL (Verified Allergy, Unknown, 11/29/18) HYDROXYZINE (Verified Allergy, Unknown, 01/15/19) IBUPROFEN (Verified Allergy, Unknown, 11/29/18) KETOROLAC (Verified Allergy, Unknown, 11/29/18) METOPROLOL (Verified Allergy, Unknown, 11/29/18) MORPHINE (Verified Allergy, Unknown, 11/29/18) NAPROXEN (Verified Allergy, Unknown, 01/15/19) ONDANSETRON (Verified Allergy, Unknown, 01/15/19) TRAZODONE (Verified Allergy, Unknown, 11/29/18) Uncoded Allergies: NSAIDS (Allergy, Unknown, 11/29/18) Objective Last 24 Hour Vital Signs Date Time Temp Pulse Resp B/P (MAP) Pulse Ox O2 Delivery O2 Flow Rate FiO2 01/21/19 20:00 98.2 82 16 126/85 (99) 96 01/21/19 18:37 97.1 01/21/19 16:34 97.1 01/21/19 16:00 98.2 70 16 111/65 (80) 100 01/21/19 12:44 97.1 01/21/19 12:00 97.8 72 19 113/66 (82) 98 01/21/19 09:00 Room Air 01/21/19 08:00 97.1 70 19 118/75 (89) 97 01/21/19 07:07 72 14 Room Air 21 01/21/19 04:00 97.7 70 19 140/89 (106) 98 01/21/19 01:03 97.6 78 19 125/76 (92) 100 Intake and Output 01/20/19 01/21/19 18:59 06:59 Intake Total 2000 ml 280 ml Balance 2000 ml 280 ml Intake Oral 2000 ml IV Total 280 ml # Voids 5 Height (Feet): 5 Height (Inches): 6.00 Weight (Pounds): 144 Neck: supple Cardiovascular: normal rate Respiratory/Chest: lungs clear Abdomen: soft Linn Avery MD Jan 21, 2019 21:53
[2019-01-22] MEDS: HYDROmorphone 2mg tab ORAL PRN ×5 (02:08→22:50)
[2019-01-22 03:43] VITALS: BP 116/75
[2019-01-22 08:00] VITALS: BP 104/74
[2019-01-22] MEDS ORDERED: LORazepam Inj 2mg/ml 1ml IV PRN (08:15)
[2019-01-22] MEDS: Augmentin 875mg Tab ORAL SCH ×2 (08:35→20:08)
[2019-01-22] MEDS: HydrOXYzine 50mg tab ORAL SCH ×2 (08:35→17:19)
[2019-01-22] MEDS: Heparin 5000 units/ml inj SUBQ SCH ×3 (08:36→20:09)
[2019-01-22] MEDS: Promethazine HCl 25 MG in NS 55 ML IVPB PRN ×3 (09:23→22:58)
[2019-01-22] MEDS ORDERED: ALPRAZolam 0.5mg tab ORAL PRN (10:28)
--- NOTE | 2019-01-22 11:11 | Infectious Diseases Prog Note ---
Assessment/Plan Assessment/Plan 43 yo with PMHx of uterine CA, Psych and Brain tumor who presnted to the ED 01/14/19 with headache and dental pain. Recurrent Dental pain Currently no clear pus or abscess. No facial erythema Hx of right facial cellulitis- from either infected teeth and R maxillary sinusitis -wound cx from cavity: usual bekah om Nov 2018 -CT facial bones 12/03/18 : No acute injury appreciated. No abscess identified.Right maxillary sinusitis.Incidental 1 cm enhancing mass associated with the anterior interhemispheric fissure.This is most likely meningioma. Suggest confirmation with the MRI with and without gadolinium CT face 01/16/19 - Slight lucency around the roots of the right second maxillary molar, also evident previously, improved since that time, could indicate a small resolving indolent apical root abscess. The adjacent maxillary sinus disease has also improved in the interim. Extensive dental caries, also previously demonstrated Headache CT shows possible meningioma Vaginal pain and erythema Probable yeast infection per [employer] Clotrimazole crm Afebrile No leukocytosis Hx Uterine CA s/p radiation Psych disorder Hx Brain tumor Plan: - Continue Augmentin 875/125mg bid ( End date 01/30/19) - Continue clotrimazole cream during abx Tx - 01/17/19 SP Vancomycin and Cefepime #1 - 12/16/18 S/P Out Pt Augmentin 875/125mg bid #4 - 12/12/18 S/P Unasyn #10 -12/04 SP IV Vancomycin and Cefepime #1 -Monitor CBC/CMP, temperatures -Needs to f/u with dentist as outpatient for removal of damaged/infected teeth. 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 Subjective Allergies: Coded Allergies: DIVALPROEX SODIUM (Verified Allergy, Unknown, 11/29/18) GABAPENTIN (Verified Allergy, Unknown, 01/15/19) HALOPERIDOL (Verified Allergy, Unknown, 11/29/18) HYDROXYZINE (Verified Allergy, Unknown, 01/15/19) IBUPROFEN (Verified Allergy, Unknown, 11/29/18) KETOROLAC (Verified Allergy, Unknown, 11/29/18) METOPROLOL (Verified Allergy, Unknown, 11/29/18) MORPHINE (Verified Allergy, Unknown, 11/29/18) NAPROXEN (Verified Allergy, Unknown, 01/15/19) ONDANSETRON (Verified Allergy, Unknown, 01/15/19) TRAZODONE (Verified Allergy, Unknown, 11/29/18) Uncoded Allergies: NSAIDS (Allergy, Unknown, 11/29/18) Subjective afebrile no leukocytosis Objective Vital Signs Last 24 Hour Vital Signs Date Time Temp Pulse Resp B/P (MAP) Pulse Ox O2 Delivery O2 Flow Rate FiO2 01/22/19 08:25 84 18 Room Air 21 01/22/19 08:00 98.3 80 17 104/74 (84) 95 01/22/19 03:43 98.2 62 18 116/75 (89) 95 01/21/19 21:00 Room Air 01/21/19 20:00 80 18 Room Air 21 01/21/19 20:00 98.2 82 16 126/85 (99) 96 01/21/19 18:37 97.1 01/21/19 16:34 97.1 01/21/19 16:00 98.2 70 16 111/65 (80) 100 01/21/19 12:44 97.1 01/21/19 12:00 97.8 72 19 113/66 (82) 98 Height (Feet): 5 Height (Inches): 6.00 Weight (Pounds): 144 Objective Gen: NAD HEENT: NCAT, MMM, EOMI LUNGS: CTAB, No W CARDS: RRR, S1, S2, No M/R/G, ABD: Soft, NT, ND, + BS Current Medications Medications (Trade) Dose Ordered Sig/Gaby Route PRN Reason Start Time Stop Time Status Last Admin Dose Admin Acetaminophen (Tylenol) 650 mg Q4H PRN ORAL fever 01/14/19 19:46 02/13/19 19:45 Alprazolam (Xanax) 1 mg Q6H PRN ORAL For Anxiety 01/22/19 10:28 01/29/19 10:27 01/22/19 10:40 Amoxicillin/ Clavulanate Potassium (Augmentin) 875 mg EVERY 12 HOURS ORAL 01/17/19 21:00 01/30/19 20:59 01/22/19 08:35 Dextrose (Dextrose 50%) 25 ml STAT PRN IV Hypoglycemia 01/14/19 19:15 02/13/19 19:14 Dextrose (Dextrose 50%) 50 ml Q30M PRN IV Hypoglycemia 01/14/19 19:15 02/13/19 19:14 Fluoxetine HCl (PROzac) 20 mg DAILY ORAL 01/16/19 09:00 02/15/19 08:59 01/22/19 08:35 Gabapentin (Neurontin) 300 mg THREE TIMES A DAY ORAL 01/15/19 09:00 02/14/19 08:59 Heparin Sodium (Porcine) (Heparin 5000 units/ml) 5,000 units EVERY 12 HOURS SUBQ 01/14/19 21:00 02/13/19 20:59 01/21/19 10:07 Hydromorphone HCl (Dilaudid) 4 mg Q4H PRN ORAL severe pain 01/21/19 08:04 01/28/19 08:03 01/22/19 09:23 Hydroxyzine HCl (Atarax) 50 mg BID ORAL 01/15/19 18:00 02/14/19 17:59 01/22/19 08:35 Levothyroxine Sodium (Synthroid) 112 mcg DAILY@0630 ORAL 01/15/19 06:30 02/14/19 06:29 01/22/19 07:12 Lorazepam (Ativan 2mg/ml 1ml) 1 mg Q4H PRN IV For Anxiety 01/22/19 10:27 01/29/19 10:26 Nitroglycerin (Ntg) 0.4 mg Q5MIN X 3 DOSES PRN SL Prn Chest Pain 01/14/19 19:45 02/13/19 19:44 Ondansetron HCl (Zofran) 4 mg Q6H PRN IVP Nausea & Vomiting 01/14/19 19:45 02/13/19 19:44 01/20/19 12:30 Oxycodone/ Acetaminophen (Percocet 10/325) 1 tab Q4H PRN ORAL breakthrough moderate pain 01/21/19 08:04 01/28/19 08:03 01/22/19 04:12 Polyethylene Glycol (Miralax) 17 gm DAILYPRN PRN ORAL Constipation 01/14/19 19:15 02/13/19 19:14 Promethazine HCl 25 mg/Sodium Chloride 56 ml @ 112 mls/hr Q6H PRN IVPB Refractory Nausea & Vomiting 01/14/19 21:01 02/13/19 21:00 01/22/19 09:23 Temazepam (Restoril) 30 mg HSPRN PRN ORAL Insomnia 01/15/19 21:00 01/22/19 20:59 01/16/19 20:52 Tizanidine HCl (Zanaflex) 8 mg Q6H PRN ORAL muscle spasm 01/17/19 09:26 02/14/19 09:25 01/22/19 11:06 Bridgette Carrizales M.D. Jan 22, 2019 11:11
[2019-01-22 12:00] VITALS: BP 122/88
[2019-01-22] MEDS: LORazepam Inj 2mg/ml 1ml IV PRN ×2 (15:44→19:59)
[2019-01-22 16:00] VITALS: BP 137/60
--- NOTE | 2019-01-22 18:30 | Progress Note ---
DATE: 01/22/2019 SUBJECTIVE: This is a 43-year-old female patient with dental abscess and dehydration, but she has increased anxiety and mood lability worsened by the stress of her medical illness. That is why, her attending has requested daily psychiatric consultation. MENTAL STATUS EXAMINATION: This is a 43-year-old female. Her appearance is disheveled. Attitude, irritable and agitated. Affect, guarded and restricted. Intellect poor. Mood, depressed and anxious. Motor activity, psychomotor agitation. Attention span is poor. Orientation x2. Speech is loud. Thought process is disorganized. Thought content, slight paranoia. Insight and judgment is poor. DIAGNOSIS: Major depressive disorder, mild and recurrent with psychotic features, rule out PTSD. PLAN: Continue treatment with Prozac and Xanax. Provided her with 20 minutes of cognitive behavioral therapy to help her identify her automatic negative thoughts and help her convert those negative thoughts to more positive thoughts to reduce depression, anxiety, and mood lability. Chart reviewed. Discussed with staff. Seen and assessed at bedside. Aviva Edmond M.D. DR: GALINDO JOB#: [id number] CC:
--- NOTE | 2019-01-22 18:38 | General Progress Note ---
Assessment/Plan Assessment: (1) Right sided facial pain (2) Cellulitis (3) Dental Caries Pt will be continued on Dilaudid and Percocet D/w and examined with Dr. Alonzo and he concurred. Subjective Date patient seen: Jan 22, 2019 Time patient seen: 18:00 - pm Allergies: Coded Allergies: DIVALPROEX SODIUM (Verified Allergy, Unknown, 11/29/18) GABAPENTIN (Verified Allergy, Unknown, 01/15/19) HALOPERIDOL (Verified Allergy, Unknown, 11/29/18) HYDROXYZINE (Verified Allergy, Unknown, 01/15/19) IBUPROFEN (Verified Allergy, Unknown, 11/29/18) KETOROLAC (Verified Allergy, Unknown, 11/29/18) METOPROLOL (Verified Allergy, Unknown, 11/29/18) MORPHINE (Verified Allergy, Unknown, 11/29/18) NAPROXEN (Verified Allergy, Unknown, 01/15/19) ONDANSETRON (Verified Allergy, Unknown, 01/15/19) TRAZODONE (Verified Allergy, Unknown, 11/29/18) Uncoded Allergies: NSAIDS (Allergy, Unknown, 11/29/18) Subjective REVIEW OF SYSTEMS: Denies rash, fever, chills, sweating, dizziness, drowsiness, blurred vision, sore throat, or change in weight. No nausea, vomiting, diarrhea, or blood in the stool or urine. No bowel or bladder incontinence. No dysuria. SUBJECTIVE: Patient is walking no signs of pain or distress. Pain has been stable on the Dilaudid and Percocet. Has no new complaints at this time. Objective Last 24 Hour Vital Signs Date Time Temp Pulse Resp B/P (MAP) Pulse Ox O2 Delivery O2 Flow Rate FiO2 01/22/19 16:00 98.0 83 21 137/60 (85) 99 01/22/19 15:48 Room Air 01/22/19 12:00 98.4 76 18 122/88 (99) 99 01/22/19 09:00 Room Air 01/22/19 08:25 84 18 Room Air 21 01/22/19 08:00 98.3 80 17 104/74 (84) 95 01/22/19 03:43 98.2 62 18 116/75 (89) 95 01/21/19 21:00 Room Air 01/21/19 20:00 80 18 Room Air 21 01/21/19 20:00 98.2 82 16 126/85 (99) 96 Intake and Output 01/21/19 01/22/19 18:59 06:59 Intake Total 1072 ml Balance 1072 ml Intake Oral 960 ml IV Total 112 ml # Voids 6 2 Height (Feet): 5 Height (Inches): 6.00 Weight (Pounds): 144 Objective GENERAL: Alert, awake, oriented. LUNGS: Decreased breath sounds bilaterally. HEART: S1 and S2, regular. ABDOMEN: Soft and nontender. EXTREMITIES: No cyanosis. No clubbing. NEURO: No focal deficit Jose Steele Jan 22, 2019 18:38
--- NOTE | 2019-01-22 18:46 | General Progress Note ---
Assessment/Plan Assessment: Assessment/Plan: # Uterine cancer -- according to patient has a hx of stage iv disease, diagnosed in 1996 and was treated with chemo, xrt and surgery (HOWEVER THIS IS VERY UNLIKELY) --> says currently is in remission though is likely not full story, could be malingering as stage iv disease average lifespan 6mo --> ct a/p shows 9 mm low-attenuation right lobe liver lesion, probably not cystic and therefore neoplasm a possibility. This was on prior imaging --> dip stand loader/onc was called --> Dr. Mullins recommends a pap smear as op --> tumor markers as op # Meningioma that on imaging appears stable, should not be causing her neuro issues --> Incidental 1 cm enhancing mass associated with the anterior interhemispheric fissure.This is most likely meningioma. Suggest confirmation with the MRI with and without gadolinium --> Ct of the face reveals: extra-axial hyperdense mass associated with the anterior aspect of the interhemispheric fissure most likely representing a meningioma. ==> abx as per id, ok to dc on po augmentin # Anemia of chronic disease --> anemia panel if hgb <10 --> refusing labs at this time # Leukopenia with a wbc 4-5 --> obtain a hepatitis and hiv (results pending) # HAYES with caries --> as per dental eval, may have tooth pulled The timing of this note does not necessarily reflect the time of the patient was seen. Greatly appreciate consultation! Subjective Constitutional: Denies: no symptoms, chills, diaphoresis, fever, malaise, weakness, other HEENT: Denies: no symptoms, eye pain, blurred vision, tearing, double vision, ear pain, ear discharge, nose pain, nose congestion, throat pain, throat swelling, mouth pain, mouth swelling, other Cardiovascular: Denies: no symptoms, chest pain, edema, irregular heart rate, lightheadedness, palpitations, syncope, other Respiratory: Denies: no symptoms, cough, orthopnea, shortness of breath, SOB with excertion, SOB at rest, sputum, stridor, wheezing, other Gastrointestinal/Abdominal: Denies: no symptoms, abdomen distended, abdominal pain, black stools, tarry stools, blood in stool, constipated, diarrhea, difficulty swallowing, nausea, poor appetite, poor fluid intake, rectal bleeding , vomiting, other Genitourinary: Denies: no symptoms, burning, discharge, frequency, flank pain, hematuria, incontinence, pain, urgency, other Neurologic/Psychiatric: Denies: no symptoms, anxiety, depressed, emotional problems, headache, numbness, paresthesia, pre-existing deficit, seizure, tingling, tremors, weakness, other Endocrine: Denies: no symptoms, excessive sweating, flushing, intolerance to cold, intolerance to heat, increased hunger, increased thirst, increased urine, unexplained weight gain, unexplained weight loss, other Allergies: Coded Allergies: DIVALPROEX SODIUM (Verified Allergy, Unknown, 11/29/18) GABAPENTIN (Verified Allergy, Unknown, 01/15/19) HALOPERIDOL (Verified Allergy, Unknown, 11/29/18) HYDROXYZINE (Verified Allergy, Unknown, 01/15/19) IBUPROFEN (Verified Allergy, Unknown, 11/29/18) KETOROLAC (Verified Allergy, Unknown, 11/29/18) METOPROLOL (Verified Allergy, Unknown, 11/29/18) MORPHINE (Verified Allergy, Unknown, 11/29/18) NAPROXEN (Verified Allergy, Unknown, 01/15/19) ONDANSETRON (Verified Allergy, Unknown, 01/15/19) TRAZODONE (Verified Allergy, Unknown, 11/29/18) Uncoded Allergies: NSAIDS (Allergy, Unknown, 11/29/18) Subjective 01/19: wants norco and muscle relaxant to be administered at the same time 01/20: tired, did not get much sleep last night, eating breakfast 01/21: claims has a braint tumor but i discussed with her same as yesterday and today, this is benign, it is a meningioma, she expresses understanding 01/22: dialudid changed to percocet, no fevers or chills reported Objective Last 24 Hour Vital Signs Date Time Temp Pulse Resp B/P (MAP) Pulse Ox O2 Delivery O2 Flow Rate FiO2 01/22/19 16:00 98.0 83 21 137/60 (85) 99 01/22/19 15:48 Room Air 01/22/19 12:00 98.4 76 18 122/88 (99) 99 01/22/19 09:00 Room Air 01/22/19 08:25 84 18 Room Air 21 01/22/19 08:00 98.3 80 17 104/74 (84) 95 01/22/19 03:43 98.2 62 18 116/75 (89) 95 01/21/19 21:00 Room Air 01/21/19 20:00 80 18 Room Air 21 01/21/19 20:00 98.2 82 16 126/85 (99) 96 Intake and Output 01/21/19 01/22/19 18:59 06:59 Intake Total 1072 ml Balance 1072 ml Intake Oral 960 ml IV Total 112 ml # Voids 6 2 Height (Feet): 5 Height (Inches): 6.00 Weight (Pounds): 144 Objective Sp02 EP Interpretation: reviewed, normal General Appearance: no apparent distress Head: normocephalic, atraumatic Eyes: bilateral eye PERRL, bilateral eye EOMI ENT: other - Poor dentition right upper and lower dental region, also gingival irritation Neck: full range of motion, supple Respiratory: lungs clear, no respiratory distress, no retraction Cardiovascular #1: regular rate, rhythm Gastrointestinal: non tender, soft Musculoskeletal: normal inspection, back normal Neurologic: alert, oriented x3 Psychiatric: anxious Skin: normal color, no rash Lymphatic: no adenopathy Rudy Angela MD Jan 22, 2019 18:46
[2019-01-22 20:00] VITALS: BP 111/75
--- NOTE | 2019-01-22 23:26 | General Progress Note ---
Assessment/Plan Problem List: (1) Facial cellulitis ICD Codes: L03.211 - Cellulitis of face SNOMED: 956571430 (2) Facial pain ICD Codes: R51 - Headache SNOMED: 61693918 (3) Cervical cancer ICD Codes: C53.9 - Malignant neoplasm of cervix uteri, unspecified SNOMED: 234224034 (4) Brain tumor ICD Codes: D49.6 - Neoplasm of unspecified behavior of brain SNOMED: 118323979 (5) Anxiety ICD Codes: F41.9 - Anxiety disorder, unspecified SNOMED: 13750438 (6) Dental abscess ICD Codes: K04.7 - Periapical abscess without sinus SNOMED: 679414884, 173568781 (7) Dehydration ICD Codes: E86.0 - Dehydration SNOMED: 89797488 Assessment: facial celluitis needs placement psych patient refuses to be dc afebrile abx per id cellulitis is improving reviewed chart and labs brain tumor Plan: no acute change refused to be dc stable facial cellulitis improved afebrile Subjective ROS Limited/Unobtainable: Yes Allergies: Coded Allergies: DIVALPROEX SODIUM (Verified Allergy, Unknown, 11/29/18) GABAPENTIN (Verified Allergy, Unknown, 01/15/19) HALOPERIDOL (Verified Allergy, Unknown, 11/29/18) HYDROXYZINE (Verified Allergy, Unknown, 01/15/19) IBUPROFEN (Verified Allergy, Unknown, 11/29/18) KETOROLAC (Verified Allergy, Unknown, 11/29/18) METOPROLOL (Verified Allergy, Unknown, 11/29/18) MORPHINE (Verified Allergy, Unknown, 11/29/18) NAPROXEN (Verified Allergy, Unknown, 01/15/19) ONDANSETRON (Verified Allergy, Unknown, 01/15/19) TRAZODONE (Verified Allergy, Unknown, 11/29/18) Uncoded Allergies: NSAIDS (Allergy, Unknown, 11/29/18) Objective Last 24 Hour Vital Signs Date Time Temp Pulse Resp B/P (MAP) Pulse Ox O2 Delivery O2 Flow Rate FiO2 01/22/19 21:00 Room Air 01/22/19 20:10 72 18 Room Air 21 01/22/19 20:00 98.0 87 20 111/75 (87) 01/22/19 19:08 98.0 01/22/19 19:08 98.0 01/22/19 16:00 98.0 83 21 137/60 (85) 99 01/22/19 15:48 Room Air 01/22/19 12:00 98.4 76 18 122/88 (99) 99 01/22/19 09:00 Room Air 01/22/19 08:25 84 18 Room Air 21 01/22/19 08:00 98.3 80 17 104/74 (84) 95 01/22/19 03:43 98.2 62 18 116/75 (89) 95 Intake and Output 01/21/19 01/22/19 18:59 06:59 Intake Total 1072 ml Balance 1072 ml Intake Oral 960 ml IV Total 112 ml # Voids 6 2 Height (Feet): 5 Height (Inches): 6.00 Weight (Pounds): 144 Cardiovascular: regular rhythm Respiratory/Chest: lungs clear Abdomen: soft Linn Avery MD Jan 22, 2019 23:26
[2019-01-23] VITALS: BP 105/68
[2019-01-23 04:00] VITALS: BP 113/73
[2019-01-23] MEDS: HYDROmorphone 2mg tab ORAL PRN ×3 (04:03→13:58)
[2019-01-23 08:15] VITALS: BP 115/76
[2019-01-23] MEDS: Augmentin 875mg Tab ORAL SCH (08:17)
[2019-01-23] MEDS: HydrOXYzine 50mg tab ORAL SCH (08:18)
[2019-01-23] MEDS: Heparin 5000 units/ml inj SUBQ SCH (08:20)
[2019-01-23] MEDS: LORazepam Inj 2mg/ml 1ml IV PRN ×2 (09:00→13:58)
[2019-01-23 12:10] VITALS: BP 110/70
--- NOTE | 2019-01-23 12:47 | General Progress Note ---
Assessment/Plan Assessment: (1) Right sided facial pain (2) Cellulitis (3) Dental Caries Pt will be continued on Dilaudid and Percocet D/w and examined with Dr. Alonzo and he concurred. Subjective Date patient seen: Jan 23, 2019 Time patient seen: 12:00 - pm Allergies: Coded Allergies: DIVALPROEX SODIUM (Verified Allergy, Unknown, 11/29/18) GABAPENTIN (Verified Allergy, Unknown, 01/15/19) HALOPERIDOL (Verified Allergy, Unknown, 11/29/18) HYDROXYZINE (Verified Allergy, Unknown, 01/15/19) IBUPROFEN (Verified Allergy, Unknown, 11/29/18) KETOROLAC (Verified Allergy, Unknown, 11/29/18) METOPROLOL (Verified Allergy, Unknown, 11/29/18) MORPHINE (Verified Allergy, Unknown, 11/29/18) NAPROXEN (Verified Allergy, Unknown, 01/15/19) ONDANSETRON (Verified Allergy, Unknown, 01/15/19) TRAZODONE (Verified Allergy, Unknown, 11/29/18) Uncoded Allergies: NSAIDS (Allergy, Unknown, 11/29/18) Subjective REVIEW OF SYSTEMS: Denies rash, fever, chills, sweating, dizziness, drowsiness, blurred vision, sore throat, or change in weight. No nausea, vomiting, diarrhea, or blood in the stool or urine. No bowel or bladder incontinence. No dysuria. SUBJECTIVE: Patient is in bed and she is showing no signs of pain or distress. Dilaudid 6 doses and Percocet 3 doses. Objective Last 24 Hour Vital Signs Date Time Temp Pulse Resp B/P (MAP) Pulse Ox O2 Delivery O2 Flow Rate FiO2 01/23/19 12:10 98.0 72 17 110/70 (83) 01/23/19 08:15 98.3 81 20 115/76 (89) 01/23/19 08:10 Room Air 01/23/19 04:00 97.8 80 18 113/73 (86) 01/23/19 00:00 97.9 78 20 105/68 (80) 01/22/19 21:00 Room Air 01/22/19 20:10 72 18 Room Air 21 01/22/19 20:00 98.0 87 20 111/75 (87) 01/22/19 19:08 98.0 01/22/19 19:08 98.0 01/22/19 16:00 98.0 83 21 137/60 (85) 99 01/22/19 15:48 Room Air Intake and Output 01/22/19 01/23/19 19:00 07:00 Intake Total 974 ml Balance 974 ml Intake Oral 750 ml IV Total 224 ml # Voids 6 3 # Bowel Movements 2 Height (Feet): 5 Height (Inches): 6.00 Weight (Pounds): 144 Objective GENERAL: Alert, awake, oriented. LUNGS: Decreased breath sounds bilaterally. HEART: S1 and S2, regular. ABDOMEN: Soft and nontender. EXTREMITIES: No cyanosis. No clubbing. NEURO: No focal deficit Jose Steele Jan 23, 2019 12:47
[2019-01-23] MEDS: Promethazine HCl 25 MG in NS 55 ML IVPB PRN (16:19)
--- NOTE | 2019-01-23 17:17 | Infectious Diseases Prog Note ---
Assessment/Plan Assessment/Plan 43 yo with PMHx of uterine CA, Psych and Brain tumor who presnted to the ED 01/14/19 with headache and dental pain. Recurrent Dental pain Currently no clear pus or abscess. No facial erythema Hx of right facial cellulitis- from either infected teeth and R maxillary sinusitis -wound cx from cavity: usual bekah om Nov 2018 -CT facial bones 12/03/18 : No acute injury appreciated. No abscess identified.Right maxillary sinusitis.Incidental 1 cm enhancing mass associated with the anterior interhemispheric fissure.This is most likely meningioma. Suggest confirmation with the MRI with and without gadolinium CT face 01/16/19 - Slight lucency around the roots of the right second maxillary molar, also evident previously, improved since that time, could indicate a small resolving indolent apical root abscess. The adjacent maxillary sinus disease has also improved in the interim. 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 Subjective Allergies: Coded Allergies: DIVALPROEX SODIUM (Verified Allergy, Unknown, 11/29/18) GABAPENTIN (Verified Allergy, Unknown, 01/15/19) HALOPERIDOL (Verified Allergy, Unknown, 11/29/18) HYDROXYZINE (Verified Allergy, Unknown, 01/15/19) IBUPROFEN (Verified Allergy, Unknown, 11/29/18) KETOROLAC (Verified Allergy, Unknown, 11/29/18) METOPROLOL (Verified Allergy, Unknown, 11/29/18) MORPHINE (Verified Allergy, Unknown, 11/29/18) NAPROXEN (Verified Allergy, Unknown, 01/15/19) ONDANSETRON (Verified Allergy, Unknown, 01/15/19) TRAZODONE (Verified Allergy, Unknown, 11/29/18) Uncoded Allergies: NSAIDS (Allergy, Unknown, 11/29/18) Subjective afebrile no leukocytosis Objective Vital Signs Last 24 Hour Vital Signs Date Time Temp Pulse Resp B/P (MAP) Pulse Ox O2 Delivery O2 Flow Rate FiO2 01/23/19 12:10 98.0 72 17 110/70 (83) 01/23/19 08:15 98.3 81 20 115/76 (89) 01/23/19 08:10 Room Air 01/23/19 04:00 97.8 80 18 113/73 (86) 01/23/19 00:00 97.9 78 20 105/68 (80) 01/22/19 21:00 Room Air 01/22/19 20:10 72 18 Room Air 21 01/22/19 20:00 98.0 87 20 111/75 (87) 01/22/19 19:08 98.0 01/22/19 19:08 98.0 Height (Feet): 5 Height (Inches): 6.00 Weight (Pounds): 144 Objective Gen: NAD HEENT: NCAT, MMM, EOMI LUNGS: CTAB, No W CARDS: RRR, S1, S2, No M/R/G, ABD: Soft, NT, ND, + BS Current Medications Medications (Trade) Dose Ordered Sig/Gaby Route PRN Reason Start Time Stop Time Status Last Admin Dose Admin Acetaminophen (Tylenol) 650 mg Q4H PRN ORAL fever 01/14/19 19:46 02/13/19 19:45 Alprazolam (Xanax) 1 mg Q6H PRN ORAL For Anxiety 01/22/19 10:28 01/29/19 10:27 01/22/19 10:40 Amoxicillin/ Clavulanate Potassium (Augmentin) 875 mg EVERY 12 HOURS ORAL 01/17/19 21:00 01/30/19 20:59 01/23/19 08:17 Dextrose (Dextrose 50%) 25 ml STAT PRN IV Hypoglycemia 01/14/19 19:15 02/13/19 19:14 Dextrose (Dextrose 50%) 50 ml Q30M PRN IV Hypoglycemia 01/14/19 19:15 02/13/19 19:14 Fluoxetine HCl (PROzac) 20 mg DAILY ORAL 01/16/19 09:00 02/15/19 08:59 01/23/19 08:18 Gabapentin (Neurontin) 300 mg THREE TIMES A DAY ORAL 01/15/19 09:00 02/14/19 08:59 Heparin Sodium (Porcine) (Heparin 5000 units/ml) 5,000 units EVERY 12 HOURS SUBQ 01/14/19 21:00 02/13/19 20:59 01/23/19 08:20 Hydromorphone HCl (Dilaudid) 4 mg Q4H PRN ORAL severe pain 01/21/19 08:04 01/28/19 08:03 01/23/19 13:58 Hydroxyzine HCl (Atarax) 50 mg BID ORAL 01/15/19 18:00 02/14/19 17:59 01/23/19 08:18 Levothyroxine Sodium (Synthroid) 112 mcg DAILY@0630 ORAL 01/15/19 06:30 02/14/19 06:29 01/23/19 06:21 Lorazepam (Ativan 2mg/ml 1ml) 1 mg Q4H PRN IV For Anxiety 01/22/19 10:27 01/29/19 10:26 01/23/19 13:58 Nitroglycerin (Ntg) 0.4 mg Q5MIN X 3 DOSES PRN SL Prn Chest Pain 01/14/19 19:45 02/13/19 19:44 Ondansetron HCl (Zofran) 4 mg Q6H PRN IVP Nausea & Vomiting 01/14/19 19:45 02/13/19 19:44 01/20/19 12:30 Oxycodone/ Acetaminophen (Percocet 10/325) 1 tab Q4H PRN ORAL breakthrough moderate pain 01/21/19 08:04 01/28/19 08:03 01/23/19 16:52 Polyethylene Glycol (Miralax) 17 gm DAILYPRN PRN ORAL Constipation 01/14/19 19:15 02/13/19 19:14 Promethazine HCl 25 mg/Sodium Chloride 56 ml @ 112 mls/hr Q6H PRN IVPB Refractory Nausea & Vomiting 01/14/19 21:01 02/13/19 21:00 01/23/19 16:19 Tizanidine HCl (Zanaflex) 8 mg Q6H PRN ORAL muscle spasm 01/17/19 09:26 02/14/19 09:25 01/23/19 14:51 Bridgette Carrizales M.D. Jan 23, 2019 17:17
--- NOTE | 2019-01-23 18:30 | General Progress Note ---
Assessment/Plan Assessment: Assessment/Plan: # Uterine cancer -- according to patient has a hx of stage iv disease, diagnosed in 1996 and was treated with chemo, xrt and surgery (HOWEVER THIS IS VERY UNLIKELY) --> says currently is in remission though is likely not full story, could be malingering as stage iv disease average lifespan 6mo --> ct a/p shows 9 mm low-attenuation right lobe liver lesion, probably not cystic and therefore neoplasm a possibility. 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 Mullins recommends a pap smear as op --> tumor markers as op # Meningioma that on imaging appears stable, should not be causing her neuro issues --> Incidental 1 cm enhancing mass associated with the anterior interhemispheric fissure.This is most likely meningioma. Suggest confirmation with the MRI with and without gadolinium --> Ct of the face reveals: extra-axial hyperdense mass associated with the anterior aspect of the interhemispheric fissure most likely representing a meningioma. ==> abx as per id, ok to dc on po augmentin # Anemia of chronic disease --> anemia panel if hgb <10 --> refusing labs at this time # Leukopenia with a wbc 4-5 --> obtain a hepatitis and hiv (results pending) # HAYES with caries --> as per dental eval, may have tooth pulled The timing of this note does not necessarily reflect the time of the patient was seen. Greatly appreciate consultation! Subjective Constitutional: Denies: no symptoms, chills, diaphoresis, fever, malaise, weakness, other HEENT: Denies: no symptoms, eye pain, blurred vision, tearing, double vision, ear pain, ear discharge, nose pain, nose congestion, throat pain, throat swelling, mouth pain, mouth swelling, other Cardiovascular: Denies: no symptoms, chest pain, edema, irregular heart rate, lightheadedness, palpitations, syncope, other Respiratory: Denies: no symptoms, cough, orthopnea, shortness of breath, SOB with excertion, SOB at rest, sputum, stridor, wheezing, other Gastrointestinal/Abdominal: Denies: no symptoms, abdomen distended, abdominal pain, black stools, tarry stools, blood in stool, constipated, diarrhea, difficulty swallowing, nausea, poor appetite, poor fluid intake, rectal bleeding , vomiting, other Genitourinary: Denies: no symptoms, burning, discharge, frequency, flank pain, hematuria, incontinence, pain, urgency, other Neurologic/Psychiatric: Denies: no symptoms, anxiety, depressed, emotional problems, headache, numbness, paresthesia, pre-existing deficit, seizure, tingling, tremors, weakness, other Allergies: Coded Allergies: DIVALPROEX SODIUM (Verified Allergy, Unknown, 11/29/18) GABAPENTIN (Verified Allergy, Unknown, 01/15/19) HALOPERIDOL (Verified Allergy, Unknown, 11/29/18) HYDROXYZINE (Verified Allergy, Unknown, 01/15/19) IBUPROFEN (Verified Allergy, Unknown, 11/29/18) KETOROLAC (Verified Allergy, Unknown, 11/29/18) METOPROLOL (Verified Allergy, Unknown, 11/29/18) MORPHINE (Verified Allergy, Unknown, 11/29/18) NAPROXEN (Verified Allergy, Unknown, 01/15/19) ONDANSETRON (Verified Allergy, Unknown, 01/15/19) TRAZODONE (Verified Allergy, Unknown, 11/29/18) Uncoded Allergies: NSAIDS (Allergy, Unknown, 11/29/18) Subjective 01/19: wants norco and muscle relaxant to be administered at the same time 01/20: tired, did not get much sleep last night, eating breakfast 01/21: claims has a braint tumor but i discussed with her same as yesterday and today, this is benign, it is a meningioma, she expresses understanding 01/22: dialudid changed to percocet, no fevers or chills reported 01/23: potential dc today, no f/c noted Objective Last 24 Hour Vital Signs Date Time Temp Pulse Resp B/P (MAP) Pulse Ox O2 Delivery O2 Flow Rate FiO2 01/23/19 12:10 98.0 72 17 110/70 (83) 01/23/19 08:15 98.3 81 20 115/76 (89) 01/23/19 08:10 Room Air 01/23/19 04:00 97.8 80 18 113/73 (86) 01/23/19 00:00 97.9 78 20 105/68 (80) 01/22/19 21:00 Room Air 01/22/19 20:10 72 18 Room Air 21 01/22/19 20:00 98.0 87 20 111/75 (87) 01/22/19 19:08 98.0 01/22/19 19:08 98.0 Intake and Output 01/22/19 01/23/19 19:00 07:00 Intake Total 974 ml Balance 974 ml Intake Oral 750 ml IV Total 224 ml # Voids 6 3 # Bowel Movements 2 Height (Feet): 5 Height (Inches): 6.00 Weight (Pounds): 144 Objective Sp02 EP Interpretation: reviewed, normal General Appearance: no apparent distress Head: normocephalic, atraumatic Eyes: bilateral eye PERRL, bilateral eye EOMI ENT: other - Poor dentition right upper and lower dental region, also gingival irritation Neck: full range of motion, supple Respiratory: lungs clear, no respiratory distress, no retraction Cardiovascular #1: regular rate, rhythm Gastrointestinal: non tender, soft Musculoskeletal: normal inspection, back normal Neurologic: alert, oriented x3 Psychiatric: anxious Skin: normal color, no rash Lymphatic: no adenopathy Rudy Angela MD Jan 23, 2019 18:30
--- NOTE | 2019-01-24 15:41 | Discharge Summary ---
Discharge Summary Discharge Summary _ DATE OF ADMISSION: 01/14/2019 DATE OF DISCHARGE: 01/23/2019 ADMITTING MD: Dr. Cooper London DISCHARGED BY: Dr. Linn Hussein CONSULTANTS: Dr. Rudy Freeman [facility] BRIEF HOSPITAL COURSE: Patient is a 43-year-old female, from [place],who presented to ED due to increased facial pain. Patient had been seen by a dentist, and pain had somewhat increased. Symptoms had been ongoing for the past several days. She denied chest pain. Denied focal deficits however, headache was debilitating. She has medical history of uterine CA, Crohn's disease and anxiety. On evaluation at ED, vital signs were stable. Patient was afebrile. Blood work did not show any leukocytosis, hemoglobin and hematocrit were stable. Electrolytes were normal. CT of the head was negative for acute intracranial bleed or mass-effect. There was a 1 cm extra-axial mass noted at the anterior inferior interhemispheric fissure, most likely meningioma. She was admitted for evaluation of facial pain. ID was consulted. Patient was recently admitted on November and was discharged in early December for right-sided facial cellulitis. At that time, it was thought to be due to infected teeth or maxillary sinusitis. CT of the face done at that time showed right maxillary sinusitis with no sign of abscess. There was a finding of mass in the anterior interhemispheric fissure, thought to be a meningioma. He was discharged on Augmentin to complete a two-week course of antibiotic and was advised to follow-up with the dentist for a tooth extraction. ID was consulted and patient was given vancomycin and cefepime. A repeat CT of the face to evaluate for new abscess was ordered. 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 Patient had vulvar and vaginal burning. Patient reported history of stage IV cancer. Unclear if it was cervical or uterine, however, patient reported hysterectomy followed by LEEP procedure. Patient was concerned of recurrence. She was seen by cofounder. Per gynecology evaluation, given recent antibiotics, candidiasis was likely. She was given Diflucan and clotrimazole. There was no abnormal discharge or lesions noted on exam, no bleeding or excoriations. She was recommended need to follow-up with [facility] as outpatient given history of cancer. Pain management was consulted. She was given Dilaudid and Percocet. Psychiatric evaluation was done. Patient was diagnosed with major depressive disorder. She was given Prozac and Xanax. She was given psychotherapy. Repeat CT of the face showed slight lucency around the roots of the right second maxillary molar, evident previously, improved since that time, could indicate a small resolving indolent apical root abscess. The adjacent maxillary sinus disease also improved in the interim. Extensive dental caries, also previously demonstrated. Antibiotic was changed to Augmentin 875/ 125 mg twice daily. She was advised need to follow-up with dentist for removal of infected teeth. HIV screen was negative. Gonorrhea and Chlamydia negative. Hepatitis B core IgM positive, but hepatitis B surface antigen negative. Patient was cleared for discharge and was ordered discharged on 01/20/2019. However, patient refused to be discharged. She was eventually discharged on 01/23/2019 to [facility]. FINAL DIAGNOSES: Facial pain due to infected dental caries Headache possibly due to meningioma Vaginal pain and erythema, possible yeast infection Anxiety Meningioma History of pelvic cancer, possibly uterine CA Anemia of chronic disease Major depressive disorder, mild and recurrent with psychotic features Leukopenia DISPOSITION: Patient was discharged to a SNF. DISCHARGE MEDICATIONS: Refer to Discharge Medication List. To continue Augmentin. End of therapy on 01/30/2019. I have been assigned to complete a discharge summary on this account, I was not involved with the patient's management. Lakisha Saravia NP Jan 24, 2019 15:41
== END 2019-01-23 18:00 | DRG 55 ==
LOC: EDBD 13:59 → EMR 15:28 → 4E 17:51 → EDBEDREQ 18:09 → 4E 20:29
DX: D32.0 Benign neoplasm of cerebral meninges (principal); K50.90 Crohn's disease, unspecified, without complications; F33.0 Major depressive disorder, recurrent, mild; L03.211 Cellulitis of face; Z88.6 Allergy status to analgesic agent; Z88.8 Allergy status to other drugs, medicaments and biological substances; K04.7 Periapical abscess without sinus; Z85.42 Personal history of malignant neoplasm of other parts of uterus; B37.3 Candidiasis of vulva and vagina; D63.8 Anemia in other chronic diseases classified elsewhere; F32.9 Major depressive disorder, single episode, unspecified; F17.200 Nicotine dependence, unspecified, uncomplicated; Z90.710 Acquired absence of both cervix and uterus; G62.9 Polyneuropathy, unspecified; R26.2 Difficulty in walking, not elsewhere classified; F41.1 Generalized anxiety disorder; F29 Unspecified psychosis not due to a substance or known physiological condition; Z92.3 Personal history of irradiation; E86.0 Dehydration
CPT/HCPCS: 36415; 70450; 70488; 80048; 80053; 80202; 82553; 83605; 85007; 85025; 86703; 86705; 86709; 86803; 87040; 87081; 87086; 87340; 87491; 87590; 93970; 94664; 96361; 96374; 96375; 99285; J2405